=== PATIENT | female | born 1935 | race Caucasian/White ===

== ENCOUNTER 2022-10-01 22:30 | Inpatient (IN) ==
--- NOTE | 2022-10-01 23:41 | Emergency Department Note ---
Impression & Plan Syncope, Elevated troponin, Hypomagnesemia, MARISA (acute kidney injury), Sepsis, Acute UTI (urinary tract infection) ED Provider Note ED Provider Note NAME: ANDREW LOWE AGE:86 SEX: Female : 1935 ARRIVES VIA: EMS INFORMANT: Patient, family, EMS ED PROVIDER(s): Dannielle Issa DO CHIEF COMPLAINT: Syncope, fall HPI: This is an 86-year-old female who presents emergency department following possible syncope and apparent fall. Family states they left home just prior to 4 PM and she appeared in normal state of health. Patient lives with family. When they returned home around 8:45 PM, patient was on the floor in the bedroom in her bare feet with no recollection of what happened or how she got there. They state patient was confused. They checked her blood sugar and it was 309. Patient is a known diabetic. They deny any recent illness, fevers or chills. No recent falls. Patient states metformin was just added to her regimen 1 to 2 weeks ago to help with improved blood glucose control. Patient typically does use a cane or walker as she has had prior partial amputations of the right foot due to her diabetes. Family states her mentation has returned to normal at this time. Patient denies any complaints of pain or concern for injury. She states her appetite has been normal and she is drinking water. She states no change in urine or stools. PAST MEDICAL HISTORY:See Below PAST SURGICAL HISTORY:See Below FAMILY HISTORY:See Below SOCIAL HISTORY:See Below HOME MEDICATIONS:See Below ALLERGIES:See Below VITALS:See Below PHYSICAL EXAMINATION: GENERAL: alert, well appearing, well nourished, no distress, non-toxic EYE EXAM: normal conjunctiva, PERRL and EOM's grossly intact OROPHARYNX: no exudate, no erythema, lips, buccal mucosa, and tongue normal and mucous membranes are dry NECK: supple, no nuchal rigidity, no adenopathy, non-tender LUNGS: Clear to auscultation. Normal chest wall mechanics, no w/r/r HEART: no murmurs, S1 normal and S2 normal ABDOMEN: abdomen soft, non-tender, normo-active bowel sounds, no masses, no rebound or guarding. BACK: Back is symmetrical on inspection and there is no deformity, no midline tenderness, no CVA tenderness. SKIN: no rashes, petechiae, orbruising UPPER EXTREMITIES: upper extremities are grossly normal. FROM, nml pulses b/l. LOWER EXTREMITIES: No pitting edema. FROM, nml pulses b/l. Well-healed partial amputation at right foot. Well-healed amputation of great toe on left foot NEURO EXAM: Normal sensorium, cranial nerves II-XII grossly intact, normal speech, no facial droop,nogross weakness of arms, no gross weakness of legs. Gross sensation intact. No ataxia. Vital Signs: reviewed and remarkable Differential Diagnosis: Differential diagnosis includes etiologies such as mechanical fall, vasovagal event, infection, hypoglycemia, electrolyte abnormalities, CVA, dysrhythmia, dehydration, medication reaction, DKA as well as others were entertained. MEDICAL DECISION MAKING: This is an 86-year-old female brought to the emergency department via EMS after family found her on the floor with confusion. They were concern for syncopal event. Patient was noted to be hypoglycemic by EMS. Patient was afebrile and vital signs stable on arrival. Labs drawn and sent, IV established, EKG and chest ray performed at bedside and interpreted by me, patient monitored on telemetry. After initial CBC resulted and patient was noted to have a significant leukocytosis, blood cultures/procalcitonin/lactic acid was added, and empiric IV cefepime ordered. Patient was given IV fluids, but was not bolused or given a total of 30 ml/kg due to unknown cardiac status, advanced age, and new MARISA. Patient with stable BP while in the ER. Patient found to have elevated troponin additionally, likely from infection and MARISA. I do not perez spect occult ACS. Patient denied pain to suggest obstructive uropathy. Hyperglycemia noted. Borderline DKA likely from dehydration. Patient with elevated procalcitonin. Case discussed with hospitalist, FRANK pending at that time. Patient and family updated on all results and plan. Consultation(s): 0205: Discussed with Dr. Morin. ER Treatment Provided: See below Diagnostics Interpreted By Me: -ECG: Normal sinus at 85, normal axis, normal intervals, nonspecific ST/T wave changes -Cardiac Monitoring: An order was placed for continuous cardiac monitoring. The monitor shows a rate of 80 with normal sinus rhythm. -Laboratory studies: As stated above and show below. -Imaging studies: X-ray Chest: A single view study of the chest was reviewed and was negative for cardiomegaly, focal infiltrate, effusion, pulmonary edema, or wide mediastinum. Triage Nursing Note Reviewed Prior/Outside Records Reviewed - vascular surgery report Past Med/Surg History Medical History Acquired claw toe of left foot Acquired deformity of left foot Acquired deformity of right foot Acquired hallux valgus of right foot Acquired hammer toe of right foot Amputation of left great toe Callus Chronic renal insufficiency, stage III (moderate) Diabetic foot ulcer associated with type 2 diabetes mellitus, with fat layer exposed Herpes zoster HTN (hypertension) Hyperlipidemia LDL goal <100 Hypothyroidism Osteoporosis PHN (postherpetic neuralgia) Sinusitis Surgical History History of tonsillectomy and adenoidectomy Social History Smoking Status: Never smoker Do You Dip or Chew Tobacco: No; Hx Alcohol Use: No Hx Substance Use: No Communication Ability: Effective Communication Tools: Letter Board, Picture Board, Facial Expression and Writing Tablet Visual Impairment: No Limitations Hearing Ability: Normal Bucket Operator Required: No Beliefs That Will Affect Care: None marital status: / Current Living Situation: Family Current Living Situation Comment: lives with daughter and son in law current occupational status: 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 [employer] Feels Safe at Home: Yes Childhood Exposure to Second-Hand Smoke: No Diet: diabetic and low carbohydrate caffeine: Yes (1-2 cups/day) during the past year weight has: decreased > 10 lbs Dental Care, Regularly: No Physical Activity Frequency: 3-4 Times per Week Do you think of yourself as: straight/heterosexual Sexual Activity: has been sexually active, but not for at least 12 months Allergies Allergies Allergy/AdvReac Type Severity Reaction Status Date / Time simvastatin Allergy Intermediate Nausea Verified 10/20/20 13:05 acetaminophen [From Lortab] Allergy Mild itching Verified 10/20/20 13:05 duloxetine [From Cymbalta] Allergy Mild itching Verified 10/20/20 13:05 hydrocodone [From Lortab] Allergy Mild itching Verified 10/20/20 13:05 pregabalin [From Lyrica] Allergy Mild itching Verified 10/20/20 13:05 Home Meds Home Medications Medication Instructions Recorded Confirmed hydrochlorothiazide 25 mg tablet 25 mg PO DAILY 05/27/19 10/01/22 insulin glargine 100 unit/mL 20 units subcut DAILY 05/27/19 10/01/22 subcutaneous solution (Lantus U-100 Insulin) levothyroxine 75 mcg tablet 75 mcg PO DAILY 05/27/19 10/01/22 (Synthroid) metoprolol succinate 100 mg 150 mg PO DAILY 05/27/19 10/01/22 capsule sprinkle, ext. release 24 hr amlodipine 10 mg tablet 10 mg PO DAILY 10/01/22 10/01/22 brimonidine 0.2 %-timolol 0.5 % 1 drp OPL BID 10/01/22 10/01/22 eye drops ibuprofen 800 mg tablet 800 mg PO TID PRN as directed 10/01/22 10/01/22 insulin aspart U-100 100 unit/mL 5 unit subcut UD 10/01/22 10/01/22 (3 mL) subcutaneous pen (Novolog FlexPen U-100 Insulin aspart) metformin 500 mg tablet 500 mg PO BIDM 10/01/22 10/01/22 tramadol 50 mg tablet 50 mg PO Q8 PRN Pain 10/01/22 10/01/22 Results & Data (ED) Vital Signs Vital Signs - 24 hr 10/01/22 22:53 10/01/22 22:51 10/01/22 23:00 Temperature 36.6 C Temperature Source Oral Pulse Rate 84 86 Pulse Rate from SpO2 Sensor 86 Respiratory Rate 20 18 Respiratory Effort / Characteristics Non-Labored Respiratory Depth Normal Respiratory Pattern Regular Blood Pressure 112/57 L 109/51 L Blood Pressure Mean 75 70 Pulse Oximetry 93 90 Oxygen Delivery Method Room Air Sepsis Recent Fever Within 48 Hours No Sepsis New/Unexplained Change in Mental Status No Sepsis Action Taken by Nursing No Action Required 10/01/22 23:00 10/01/22 22:51 10/01/22 23:30 Temperature Temperature Source Pulse Rate 84 86 84 Pulse Rate from SpO2 Sensor 87 85 Respiratory Rate 18 17 Respiratory Effort / Characteristics Respiratory Depth Respiratory Pattern Blood Pressure 109/59 L Blood Pressure Mean 75 Pulse Oximetry 92 94 Oxygen Delivery Method Sepsis Recent Fever Within 48 Hours Sepsis New/Unexplained Change in Mental Status Sepsis Action Taken by Nursing 10/02/22 00:00 10/02/22 00:30 10/02/22 01:00 Temperature Temperature Source Pulse Rate 89 86 93 H Pulse Rate from SpO2 Sensor 89 89 Respiratory Rate 23 22 22 Respiratory Effort / Characteristics Respiratory Depth Respiratory Pattern Blood Pressure 122/58 L 121/59 L 102/64 Blood Pressure Mean 79 79 76 Pulse Oximetry 93 92 95 Oxygen Delivery Method Sepsis Recent Fever Within 48 Hours Sepsis New/Unexplained Change in Mental Status Sepsis Action Taken by Nursing 10/02/22 01:30 Temperature Temperature Source Pulse Rate 92 H Pulse Rate from SpO2 Sensor Respiratory Rate 23 Respiratory Effort / Characteristics Respiratory Depth Respiratory Pattern Blood Pressure 109/105 H Blood Pressure Mean 106 Pulse Oximetry 93 Oxygen Delivery Method Sepsis Recent Fever Within 48 Hours Sepsis New/Unexplained Change in Mental Status Sepsis Action Taken by Nursing Laboratory Data 10/02/22 03:47 10/02/22 03:47 Lab Results 10/01/22 10/01/22 10/01/22 Range/Units 22:50 22:50 22:50 WBC 24.33 H (4.8-10.8) K/ul RBC 3.69 L (4.20-5.40) M/uL Hgb 11.3 L (12.0-16.0) g/dl Hct 32.8 L (37.0-47.0) % MCV 88.9 (80.0-100.0) fL MCH 30.6 (25.0-34.0) pg MCHC 34.5 (32.0-36.0) g/dL RDW Std Deviation 39.8 (36.4-46.3) fL RDW Coeff of Bert 12.3 (11.5-14.5) % Plt Count 183 (130-400) K/uL MPV 10.7 (9.4-12.4) fL Immature Gran % (Auto) 5.5 % Neut % (Auto) 82.5 % Lymph % (Auto) 3.8 % Carolina % (Auto) 7.6 % Eos % (Auto) 0.1 % Baso % (Auto) 0.5 % Neut # (Auto) 20.05 H (1.40-6.50) K/uL Lymph # (Auto) 0.93 L (1.2-3.4) K/uL [place] # (Auto) 1.86 H (0.11-0.59) K/uL Eos # (Auto) 0.02 (0-0.50) K/uL Baso # (Auto) 0.13 (0-0.2) K/uL Immature Gran # (Auto) 1.34 H (0.01-0.20) K/uL Toxic Vacuolation 1+ Dohle Bodies 1+ PT 12.4 H (9.0-12.0) Seconds INR 1.1 (0.9-1.1) Sodium 133 L (136-145) mmol/L Potassium 3.8 (3.5-5.1) mmol/L Chloride 95 L (98-107) mmol/L Carbon Dioxide 25 (21-32) mmol/L Anion Gap 13 H (3-11) BUN 46 H (6-23) mg/dl Creatinine 2.22 H (0.6-1.2) mg/dl Est Cr Clr Drug Dosing Not Reportable Est GFR ( Amer) 22.8 ml/min Est GFR (Non-Af Amer) 19.7 ml/min BUN/Creatinine Ratio 20.7 H (10-20) Glucose 241 H (70-99(Fasting)) mg/dl Lactate (0.4-2.0) mmol/L Calcium 8.5 L (8.6-10.3) mg/dl Magnesium 1.6 L (1.7-2.4) mg/dl Total Bilirubin 0.6 (0.2-1.0) mg/dl AST 106 H (13-39) U/L ALT 33 (7-52) U/L Alkaline Phosphatase 133 H (34-104) U/L Troponin I High Sens 234.8 H* (0-14) pg/ml Total Protein 6.7 (6.0-8.3) gm/dl Albumin 3.5 (3.4-5.0) gm/dl Globulin 3.2 (2.5-4.0) gm/dl Albumin/Globulin Ratio 1.1 (0.9-2) Lipase 6 L (11-82) U/L Procalcitonin (0-0.5) ng/ml TSH (0.300-4.500) uIu/ml Urine Color Urine Appearance (Clear) Urine pH (4.5-7.5) Ur Specific [place] (1.000-1.030) Urine Protein (Negative) Urine Glucose (UA) (Negative) Urine Ketones (Negative) Urine Blood (Negative) Urine Nitrite (Negative) Urine Bilirubin (Negative) Urine Urobilinogen (Negative) Ur Leukocyte Esterase (Negative) Urine WBC (Auto) (0-5) /hpf Urine RBC (Auto) (0-4) /hpf U Hyaline Cast (Auto) (0-5) /lpf U Epithel Cells (Auto) (0-5) /lpf Urine Bacteria (Auto) (Negative) Urine Yeast SARS-CoV-2 (PCR) (Negative) Influenza Type A (PCR) (Neg) Influenza Type B (PCR) (Neg) RSV (RT-PCR) (Neg) 10/01/22 10/01/22 10/02/22 Range/Units 22:50 22:50 01:00 WBC (4.8-10.8) K/ul RBC (4.20-5.40) M/uL Hgb (12.0-16.0) g/dl Hct (37.0-47.0) % MCV (80.0-100.0) fL MCH (25.0-34.0) pg MCHC (32.0-36.0) g/dL RDW Std Deviation (36.4-46.3) fL RDW Coeff of Bert (11.5-14.5) % Plt Count (130-400) K/uL MPV (9.4-12.4) fL Immature Gran % (Auto) % Neut % (Auto) % Lymph % (Auto) % [place] % (Auto) % Eos % (Auto) % Baso % (Auto) % Neut # (Auto) (1.40-6.50) K/uL Lymph # (Auto) (1.2-3.4) K/uL [place] # (Auto) (0.11-0.59) K/uL Eos # (Auto) (0-0.50) K/uL Baso # (Auto) (0-0.2) K/uL Immature Gran # (Auto) (0.01-0.20) K/uL Toxic Vacuolation Dohle Bodies PT (9.0-12.0) Seconds INR (0.9-1.1) Sodium (136-145) mmol/L Potassium (3.5-5.1) mmol/L Chloride (98-107) mmol/L Carbon Dioxide (21-32) mmol/L Anion Gap (3-11) BUN (6-23) mg/dl Creatinine (0.6-1.2) mg/dl Est Cr Clr Drug Dosing Est GFR ( Amer) ml/min Est GFR (Non-Af Amer) ml/min BUN/Creatinine Ratio (10-20) Glucose (70-99(Fasting)) mg/dl Lactate 2.9 H* (0.4-2.0) mmol/L Calcium (8.6-10.3) mg/dl Magnesium (1.7-2.4) mg/dl Total Bilirubin (0.2-1.0) mg/dl AST (13-39) U/L ALT (7-52) U/L Alkaline Phosphatase (34-104) U/L Troponin I High Sens (0-14) pg/ml Total Protein (6.0-8.3) gm/dl Albumin (3.4-5.0) gm/dl Globulin (2.5-4.0) gm/dl Albumin/Globulin Ratio (0.9-2) Lipase (11-82) U/L Procalcitonin 41.60 H (0-0.5) ng/ml TSH 1.866 (0.300-4.500) uIu/ml Urine Color Urine Appearance (Clear) Urine pH (4.5-7.5) Ur Specific [place] (1.000-1.030) Urine Protein (Negative) Urine Glucose (UA) (Negative) Urine Ketones (Negative) Urine Blood (Negative) Urine Nitrite (Negative) Urine Bilirubin (Negative) Urine Urobilinogen (Negative) Ur Leukocyte Esterase (Negative) Urine WBC (Auto) (0-5) /hpf Urine RBC (Auto) (0-4) /hpf U Hyaline Cast (Auto) (0-5) /lpf U Epithel Cells (Auto) (0-5) /lpf Urine Bacteria (Auto) (Negative) Urine Yeast SARS-CoV-2 (PCR) (Negative) Influenza Type A (PCR) (Neg) Influenza Type B (PCR) (Neg) RSV (RT-PCR) (Neg) 10/02/22 10/02/22 Range/Units 01:43 01:57 WBC (4.8-10.8) K/ul RBC (4.20-5.40) M/uL Hgb (12.0-16.0) g/dl Hct (37.0-47.0) % MCV (80.0-100.0) fL MCH (25.0-34.0) pg MCHC (32.0-36.0) g/dL RDW Std Deviation (36.4-46.3) fL RDW Coeff of Bert (11.5-14.5) % Plt Count (130-400) K/uL MPV (9.4-12.4) fL Immature Gran % (Auto) % Neut % (Auto) % Lymph % (Auto) % [place] % (Auto) % Eos % (Auto) % Baso % (Auto) % Neut # (Auto) (1.40-6.50) K/uL Lymph # (Auto) (1.2-3.4) K/uL [place] # (Auto) (0.11-0.59) K/uL Eos # (Auto) (0-0.50) K/uL Baso # (Auto) (0-0.2) K/uL Immature Gran # (Auto) (0.01-0.20) K/uL Toxic Vacuolation Dohle Bodies PT (9.0-12.0) Seconds INR (0.9-1.1) Sodium (136-145) mmol/L Potassium (3.5-5.1) mmol/L Chloride (98-107) mmol/L Carbon Dioxide (21-32) mmol/L Anion Gap (3-11) BUN (6-23) mg/dl Creatinine (0.6-1.2) mg/dl Est Cr Clr Drug Dosing Est GFR ( Amer) ml/min Est GFR (Non-Af Amer) ml/min BUN/Creatinine Ratio (10-20) Glucose (70-99(Fasting)) mg/dl Lactate (0.4-2.0) mmol/L Calcium (8.6-10.3) mg/dl Magnesium (1.7-2.4) mg/dl Total Bilirubin (0.2-1.0) mg/dl AST (13-39) U/L ALT (7-52) U/L Alkaline Phosphatase (34-104) U/L Troponin I High Sens (0-14) pg/ml Total Protein (6.0-8.3) gm/dl Albumin (3.4-5.0) gm/dl Globulin (2.5-4.0) gm/dl Albumin/Globulin Ratio (0.9-2) Lipase (11-82) U/L Procalcitonin (0-0.5) ng/ml TSH (0.300-4.500) uIu/ml Urine Color Dark Yellow Urine Appearance Turbid A (Clear) Urine pH 6.0 (4.5-7.5) Ur Specific [place] 1.016 (1.000-1.030) Urine Protein 3+ H (Negative) Urine Glucose (UA) Negative (Negative) Urine Ketones Trace H (Negative) Urine Blood 3+ H (Negative) Urine Nitrite Negative (Negative) Urine Bilirubin Negative (Negative) Urine Urobilinogen Negative (Negative) Ur Leukocyte Esterase 3+ H (Negative) Urine WBC (Auto) >30 H (0-5) /hpf Urine RBC (Auto) 0-4 (0-4) /hpf U Hyaline Cast (Auto) 0 (0-5) /lpf U Epithel Cells (Auto) 0-5 (0-5) /lpf Urine Bacteria (Auto) 4+ H (Negative) Urine Yeast Not Reportable SARS-CoV-2 (PCR) NEGATIVE (Negative) Influenza Type A (PCR) Negative (Neg) Influenza Type B (PCR) Negative (Neg) RSV (RT-PCR) Negative (Neg) Administered Medications Lactated Ringer's (Lr) 1,000 mls @ 80 mls/hr IV .[id number] [facility] Stop: 10/02/22 15:03 Last Admin: 10/02/22 05:37 Dose: 80 mls/hr Documented By: LUCY Discontinued Medications Acetaminophen (Acetaminophen 1000 Mg/100 Ml Iv) Confirm Administered Dose 1,000 mg IV .STK-MED ONE Stop: 10/02/22 04:34 Last Admin: 10/02/22 04:34 Dose: Not Given Documented By: LUCY Al Hydrox/Mg Hydrox/Simethicone (Aluminum/Magnesium Susp 30 Ml Udc) 15 ml PO NOW STA Stop: 10/02/22 03:21 Last Admin: 10/02/22 03:29 Dose: 15 ml Documented By: LUCY Furosemide (Furosemide Inj 20 Mg/2 Ml Vial) 10 mg IV ONE ONE Stop: 10/02/22 03:54 Last Admin: 10/02/22 04:10 Dose: 10 mg Documented By: HH Sodium Chloride (Nss 1000ml) 1,000 mls @ 125 mls/hr IV .Q8H [facility]I Stop: 10/31/22 23:44 Last Infusion: 10/02/22 04:35 Dose: 0 mls/hr Documented By: Infusion: 10/02/22 01:00 Dose: 0 mls/hr Documented By: Admin: 10/01/22 23:47 Dose: 125 mls/hr Documented By: HH Cefepime HCl (Maxipime) 2,000 mg in 20 mls @ 5 mls/min IV NOW STA; Protocol Stop: 10/02/22 00:19 Last Admin: 10/02/22 01:47 Dose: 5 mls/min Documented By: LUCY Famotidine (Pepcid 20mg Iv Push) 20 mg in 5 mls @ 2.5 mls/min IV NOW STA Stop: 10/02/22 00:36 Last Admin: 10/02/22 01:47 Dose: 2.5 mls/min Documented By: LUCY Magnesium Sulfate/Dextrose (Magnesium Sulfate / D5w) 1 gm in 100 mls @ 100 mls/hr IV NOW STA Stop: 10/02/22 01:48 Last Infusion: 10/02/22 03:06 Dose: 0 mls/hr Documented By: Admin: 10/02/22 01:47 Dose: 100 mls/hr Documented By: LUCY Acetaminophen (Ofirmev) 1,000 mg in 100 mls @ 400 mls/hr IV NOW STA Stop: 10/02/22 04:43 Last Infusion: 10/02/22 05:40 Dose: 0 mls/hr Documented By: Admin: 10/02/22 04:35 Dose: 400 mls/hr Documented By: NOLBERTO Lorazepam (Lorazepam 2 Mg/1 Ml Vial) 0.5 mg IV NOW STA Stop: 10/02/22 03:24 Last Admin: 10/02/22 03:29 Dose: 0.5 mg Documented By: LUCY Miscellaneous (Patient's Height &/Or Weight Needed) 1 each N/A Q2H MAYI Stop: 11/01/22 03:29 Last Admin: 10/02/22 04:33 Dose: 1 each Documented By: LUCY Imaging Data Radiologist's Impression: Head CT 10/01/22 23:36 Exam(s): CT HEAD Without Contrast EXAM: CT Head Without Intravenous Contrast CLINICAL HISTORY: Reason for exam: syncope. TECHNIQUE: Axial computed tomography images of the head/brain without intravenous contrast. Automated exposure control was utilized for the study. A dose lowering technique was utilized adhering to the principles of ALARA. COMPARISON: No relevant prior studies available. FINDINGS: Brain: Severe periventricular white matter changes, likely related to microangiopathy. No hemorrhage. Ventricles: Unremarkable. No ventriculomegaly. Bones/joints: Unremarkable. No acute fracture. Soft tissues: Unremarkable. Sinuses: Unremarkable as visualized. No acute sinusitis. Mastoid air cells: Unremarkable as visualized. No mastoid effusion. IMPRESSION: Severe periventricular white matter changes, likely related to microangiopathy. Electronically signed by: Branden Aiken M.D. 10/02/22 01:22 AM Discharge Plan Visit Data Chief Complaint: Syncope Stated Complaint: FOUND ON FLOOR, DOESNT REMEMBER EVENT ED Provider: Dannielle Issa Discharge Problem: Syncope, Elevated troponin, Hypomagnesemia, MARISA (acute kidney injury), Sepsis, Acute UTI (urinary tract infection) Discharge Instructions Interventions: ED Discharge Assessment Last Done: 10/02/22 03:03
[2022-10-01] MEDS ORDERED: SODIUM CHLORIDE 0.9% 1000ML 1,000 ML IV SCH (23:45)
[2022-10-01 23:51] LABS: Hematocrit (blood only) 32.8 % (37.0-47.0); Hemoglobin 11.3 g/dl (12.0-16.0); Mean Corpuscular Hemoglobin 30.6 pg (25.0-34.0); Mean Corpuscular Hgb Conc 34.5 g/dL (32.0-36.0); Mean Corpuscular Volume 88.9 fL (80.0-100.0); Mean Platelet Volume 10.7 fL (9.4-12.4); Platelet Count 183 K/uL (130-400); RDW Coefficient of Variation 12.3 % (11.5-14.5); RDW Standard Deviation 39.8 fL (36.4-46.3); Red Blood Count 3.69 M/uL (4.20-5.40); White Blood Count 24.33 K/ul (4.8-10.8)
[2022-10-01 23:59] LABS: Alanine Aminotransferase 33 U/L (7-52); Albumin Globulin Ratio 1.1 (0.9-2); Albumin Level 3.5 gm/dl (3.4-5.0); Alkaline Phosphatase 133 U/L (34-104); Anion Gap 13 (3-11); Aspartate Aminotransferase 106 U/L (13-39); BUN Creatinine Ratio 20.7 (10-20); Bilirubin,Total 0.6 mg/dl (0.2-1.0); Blood Urea Nitrogen 46 mg/dl (6-23); Calcium 8.5 mg/dl (8.6-10.3); Carbon Dioxide 25 mmol/L (21-32); Chloride 95 mmol/L (98-107); Est GFR (African American) 22.8 ml/min; Est GFR (Non-African American) 19.7 ml/min; Globulin 3.2 gm/dl (2.5-4.0); Glucose 241 mg/dl (70-99(Fasting)); Lipase 6 U/L (11-82); Magnesium 1.6 mg/dl (1.7-2.4); Potassium 3.8 mmol/L (3.5-5.1); Sodium 133 mmol/L (136-145); Total Protein 6.7 gm/dl (6.0-8.3)
[2022-10-02 00:08] LABS: Troponin I High Sensitivity 234.8 pg/ml (0-14)
[2022-10-02 00:09] LABS: INR 1.1 (0.9-1.1); Prothrombin Time 12.4 Seconds (9.0-12.0)
[2022-10-02] MEDS ORDERED: CEFEPIME 2,000 MG/20 ML VIAL IV STA (00:16)
[2022-10-02 00:19] LABS: Basophils # (auto) 0.13 K/uL (0-0.2); Basophils % (auto) 0.5 %; Dohle Bodies 1+; Eosinophils # (auto) 0.02 K/uL (0-0.50); Eosinophils % (auto) 0.1 %; Immature Granulocytes # (auto) 1.34 K/uL (0.01-0.20); Immature Granulocytes % (auto) 5.5 %; Lymphocytes # (auto) 0.93 K/uL (1.2-3.4); Lymphocytes % (auto) 3.8 %; Monocytes # (auto) 1.86 K/uL (0.11-0.59); Monocytes % (auto) 7.6 %; Neutrophils # (auto) 20.05 K/uL (1.40-6.50); Neutrophils % (auto) 82.5 %; Toxic Vacuolation 1+
[2022-10-02] MEDS ORDERED: FAMOTIDINE 20MG IV PUSH 20 MG/5 ML SYR IV STA (00:35)
[2022-10-02] MEDS ORDERED: MAGNESIUM SULFATE / D5W 1 GM/100 ML BAG IV STA (00:49)
--- NOTE | 2022-10-02 01:23 | CT Scan Report ---
Exam(s): CT HEAD Without Contrast EXAM: CT Head Without Intravenous Contrast CLINICAL HISTORY: Reason for exam: syncope. TECHNIQUE: Axial computed tomography images of the head/brain without intravenous contrast. Automated exposure control was utilized for the study. A dose lowering technique was utilized adhering to the principles of ALARA. COMPARISON: No relevant prior studies available. FINDINGS: Brain: Severe periventricular white matter changes, likely related to microangiopathy. No hemorrhage. Ventricles: Unremarkable. No ventriculomegaly. Bones/joints: Unremarkable. No acute fracture. Soft tissues: Unremarkable. Sinuses: Unremarkable as visualized. No acute sinusitis. Mastoid air cells: Unremarkable as visualized. No mastoid effusion. IMPRESSION: Severe periventricular white matter changes, likely related to microangiopathy. Electronically signed by: Branden Aiken M.D. 10/02/22 01:22 AM
--- NOTE | 2022-10-02 02:06 | History & Physical Report ---
Date of Service October 02, 2022 Assessment & Plan (1) Syncope: Plan: -Syncopal event resulting in fall, unwitnessed- suspect most likely vasovagal 2/2 dehydration -Lower suspicion for arrhythmogenic, neurologic, structural cardiac cause -Head CT w/o acute process -IV fluid repletion ongoing -Telemetry monitoring -Echocardiogram ordered -Pt currently at baseline mental status (2) Elevated troponin: Plan: -Troponin 235 on admission, EKG w/o acute ST change, pt denies active chest pain -Likely demand ischemia, will trend to peak -Echocardiogram pending (3) Leukocytosis: Plan: -Prominent WBC 24, procalcitonin 42, lactate 2.6. May feature element of hemoconcentration 2/2 dehydration -Not meeting SIRS criteria at time of evaluation -Cefepime given in ER, will continue with cefepime for now for empiric coverage -MRSA swab ordered -BCx pending -UA, biofire, COVID swab pending -Trend CBC, will repeat procalcitonin, lactate as well (4) Hypomagnesemia: Plan: -Mg 1.6 on admission -Repleted in ER -Trend Mg (5) Acute kidney injury: Plan: -Cr 2.2 on admission, baseline appears 1.0 -Likely pre-renal/dehydration -IV fluid repletion ongoing -Trend CMP (6) Transaminitis: Plan: -Mild transaminitis noted on admission -Likely reactive to acute illness/dehydration -Trend BMP (7) Diabetes: Plan: -Hold home metformin -Unclear if pt's elevated lactate may be related to recent metformin initiation -MARY Delgado -A1C ordered for AM (8) Hypertension: Plan: -BP 100s/50s on admission -Holding home metoprolol, amlodipine, HCTZ- resume as able (9) Hypothyroidism: Plan: -Continue levothyroxine Plan FENGI: DM2, LR repletion ongoing Code status: DNR/DNI DVT ppx: SCDs Isolation: None Dispo: PCU History of Present Illness Primary Care Provider: Safia Shukla MD Pt is 86 yo F with PMH 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 Pt lives with daughter and son-in-law. Family states they arrived home earlier in evening and noticed pt on floor in bedroom, confused with no recollection of fall. BSG checked at that time- 309. Pt has not had any recent illnesses, fever, N/V/D, chest pain, dyspnea. She did start metformin recently for diabetic control. Pt taken to ER, her mentation returned to baseline by arrival to ER. Pt arrived to ER hemodynamically stable, BP 100s/50s. Initial evaluation significant for Na 133, AG 13, Cr 2.2, glucose 241, AST 106, ALP 133, Mg 1.6, WBC 24, Hgb 11, procalcitonin 42, lactate 2.6, troponin 235. 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 CXR w/o acute process, some airspace opacities, no focal consolidation. ER interventions include NS 1L bolus, Mg repletion, cefepime. At present, pt denies any symptoms. She does report significant thirst. Allergies Allergy/AdvReac Type Severity Reaction Status Date / Time simvastatin Allergy Intermediate Nausea Verified 10/20/20 13:05 acetaminophen [From Lortab] Allergy Mild itching Verified 10/20/20 13:05 duloxetine [From Cymbalta] Allergy Mild itching Verified 10/20/20 13:05 hydrocodone [From Lortab] Allergy Mild itching Verified 10/20/20 13:05 pregabalin [From Lyrica] Allergy Mild itching Verified 10/20/20 13:05 Home Medications Medication Instructions Recorded Confirmed Type hydrochlorothiazide 25 mg tablet 25 mg PO DAILY 05/27/19 10/01/22 History insulin glargine 100 unit/mL 20 units subcut DAILY 05/27/19 10/01/22 History subcutaneous solution (Lantus U-100 Insulin) levothyroxine 75 mcg tablet 75 mcg PO DAILY 05/27/19 10/01/22 History (Synthroid) metoprolol succinate 100 mg 150 mg PO DAILY 05/27/19 10/01/22 History capsule sprinkle, ext. release 24 hr amlodipine 10 mg tablet 10 mg PO DAILY 10/01/22 10/01/22 History brimonidine 0.2 %-timolol 0.5 % 1 drp OPL BID 10/01/22 10/01/22 History eye drops ibuprofen 800 mg tablet 800 mg PO TID PRN as directed 10/01/22 10/01/22 History insulin aspart U-100 100 unit/mL 5 unit subcut UD 10/01/22 10/01/22 History (3 mL) subcutaneous pen (Novolog FlexPen U-100 Insulin aspart) metformin 500 mg tablet 500 mg PO BIDM 10/01/22 10/01/22 History tramadol 50 mg tablet 50 mg PO Q8 PRN Pain 10/01/22 10/01/22 History Past Med/Surg History Medical History Acquired claw toe of left foot Acquired deformity of left foot Acquired deformity of right foot Acquired hallux valgus of right foot Acquired hammer toe of right foot Amputation of left great toe Callus Chronic renal insufficiency, stage III (moderate) Diabetic foot ulcer associated with type 2 diabetes mellitus, with fat layer exposed Herpes zoster HTN (hypertension) Hyperlipidemia LDL goal <100 Hypothyroidism Osteoporosis PHN (postherpetic neuralgia) Sinusitis Surgical History History of tonsillectomy and adenoidectomy Social History Smoking Status: Never smoker Do You Dip or Chew Tobacco: No; Hx Alcohol Use: No Hx Substance Use: No Communication Ability: Effective Communication Tools: Letter Board, Picture Board, Facial Expression and Writing Tablet Visual Impairment: No Limitations Hearing Ability: Normal Right Of Way Man Required: No Beliefs That Will Affect Care: None marital status: / Current Living Situation: Family Current Living Situation Comment: lives with daughter and son in law current occupational status: 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 [employer] Feels Safe at Home: Yes Childhood Exposure to Second-Hand Smoke: No Diet: diabetic and low carbohydrate caffeine: Yes (1-2 cups/day) during the past year weight has: decreased > 10 lbs Dental Care, Regularly: No Physical Activity Frequency: 3-4 Times per Week Do you think of yourself as: straight/heterosexual Sexual Activity: has been sexually active, but not for at least 12 months Review of Systems Review of Systems: Per HPI/Subjective Physical Exam Physical Exam: General: well-appearing, no acute distress, laying in bed, frail HEENT: PERRL, EOMI, conjunctivae clear without injection, anicteric sclerae, dry mucous membranes, clear oropharynx without exudate or erythema Neck: supple, trachea midline, no thyromegaly, no JVD, no cervical lymphadenopathy CV: RRR, normal S1 and S2, no murmurs Resp: CTAB, no increased work of breathing, no crackles or wheezes Abd: Soft, nontender, nondistended, no guarding or rebound, no hepatosplenomegaly MSK: Normal bulk of all four extremities Neuro: AOx3, no focal motor deficits, diminished sensorium of b/l LE Skin: no rashes or lesions, low turgor Ext: no LE peripheral edema or erythema, faint LE peripheral pulses b/l. Noted amputation partially of R foot and L great toe Results & Data Results & Data Vital Signs (Past 12 Hours) Vital Signs Temp Pulse Resp BP Pulse Ox O2 Del Method 10/02/22 01:30 92 H 23 109/105 H 93 10/02/22 01:00 93 H 22 102/64 95 10/02/22 00:30 86 22 121/59 L 92 10/02/22 00:00 89 23 122/58 L 93 10/01/22 23:30 84 17 109/59 L 94 10/01/22 22:51 86 10/01/22 23:00 84 18 92 10/01/22 23:00 109/51 L 10/01/22 22:51 86 18 90 10/01/22 22:53 36.6 C 84 20 112/57 L 93 Room Air Code Status & VTE Plan VTE Prophylaxis Plan VTE Prophylaxis will be ordered: Yes Supervising Physician Co-Signing Physician Notes Attending addendum: I have physically seen this patient, have supervised the medical residents activities, and agree with the H&P unless as otherwise noted. Assessment and Plan: Syncope and collapse- CT head negative Admit to monitored bed Elevated troponin/hypertension- Troponin 235 on admission EKG doubt acute changes The patient will be admitted to telemetry for serial cardiac enzymes, serial EKG's, cardiac rhythm monitoring and a 2-D echocardiogram with Dopplers. Likely type II supply/demand mismatch Optimize magnesium Hold HCTZ, continue amlodipine and metoprolol succinate with hold parameters Acute kidney injury- Creatinine 2.2 on admission with base 1.0 IV fluids as noted, repeat laboratories in a.m. Hold HCTZ Remaining orders and notations as noted Resident Activity Tracking Resident Involvement: Resident Care Provided Care Provided: [facility] [place] [facility]
[2022-10-02 02:18] LABS: Appearance Urine Turbid (Clear); Bacteria Urine Automated 4+ (Negative); Bilirubin Urine Negative (Negative); Blood Urine 3+ (Negative); Cast Urine Automated 0 /lpf (0-5); Color Urine Dark Yellow; Epithelial Cell Urine Auto 0-5 /lpf (0-5); Glucose Urine UA Negative (Negative); Ketones Urine Trace (Negative); Leukocyte Esterase Urine 3+ (Negative); Nitrite Urine Negative (Negative); Protein Urine 3+ (Negative); RBC Urine Automated 0-4 /hpf (0-4); Specific Gravity Urine 1.016 (1.000-1.030); Urobilinogen Urine Negative (Negative); WBC Urine Automated >30 /hpf (0-5)
[2022-10-02 02:36] LABS: Influenza A virus by PCR Negative (Neg); Influenza B virus by PCR Negative (Neg); RSV by PCR Negative (Neg); SARS CoV2 RNA(COVID-19) Ceph NEGATIVE (Negative)
[2022-10-02] MEDS ORDERED: GLUCAGON FOR INJ 1 MG VIAL SQ PRN (03:03)
[2022-10-02] MEDS ORDERED: CARBOHYDRATES FOR HYPOGLYCEMIA PO PRN (03:03)
[2022-10-02] MEDS ORDERED: GLUCOSE 40% GEL 15 GM TUBE PO PRN (03:03)
[2022-10-02] MEDS ORDERED: CEFEPIME 2,000 MG in SYRINGE 0 ML IV SCH (03:03)
[2022-10-02] MEDS ORDERED: GLUCOSE 10 TAB/TUBE PO PRN (03:03)
[2022-10-02] MEDS ORDERED: DEXTROSE 50% 50 ML SYRINGE IV PRN (03:03)
[2022-10-02] MEDS ORDERED: ALUMINUM/MAGNESIUM SUSP 30 ML UDC PO STA (03:20)
[2022-10-02] MEDS ORDERED: LORazepam 2 MG/1 ML VIAL IV STA (03:23)
[2022-10-02] MEDS ORDERED: FUROSEMIDE INJ 20 MG/2 ML VIAL IV ONE (03:53)
[2022-10-02] MEDS ORDERED: ACETAMINOPHEN 1,000 MG/100 ML VIAL IV STA (04:29)
[2022-10-02] MEDS ORDERED: ACETAMINOPHEN 1000 MG/100 ML IV IV ONE (04:33)
[2022-10-02] MEDS: Patient's HEIGHT &/or WEIGHT Needed SCH ×2 (04:33→07:27)
[2022-10-02 04:52] LABS: Albumin Level 3.4 gm/dl (3.4-5.0); Bilirubin,Total 0.5 mg/dl (0.2-1.0); Magnesium 1.8 mg/dl (1.7-2.4)
[2022-10-02 04:58] LABS: Albumin Globulin Ratio 1.1 (0.9-2); BUN Creatinine Ratio 23.4 (10-20); Creatinine Clr Calc Pharmacy 20.9 ml/min; Est GFR (African American) 24.6 ml/min; Est GFR (Non-African American) 21.2 ml/min; Globulin 3.2 gm/dl (2.5-4.0); Total Protein 6.6 gm/dl (6.0-8.3)
[2022-10-02 05:06] LABS: Basophils # (auto) 0.05 K/uL (0-0.2); Basophils % (auto) 0.6 %; Echinocytes 2+; Hemoglobin 11.1 g/dl (12.0-16.0); Immature Granulocytes # (auto) 0.05 K/uL (0.01-0.20); Immature Granulocytes % (auto) 0.6 %; Lymphocytes # (auto) 0.65 K/uL (1.2-3.4); Lymphocytes % (auto) 8.1 %; Mean Corpuscular Hemoglobin 30.2 pg (25.0-34.0); Mean Corpuscular Hgb Conc 33.6 g/dL (32.0-36.0); Mean Corpuscular Volume 89.7 fL (80.0-100.0); Mean Platelet Volume 10.9 fL (9.4-12.4); Monocytes # (auto) 0.06 K/uL (0.11-0.59); Monocytes % (auto) 0.8 %; Neutrophils # (auto) 7.17 K/uL (1.40-6.50); Neutrophils % (auto) 89.9 %; Platelet Count 168 K/uL (130-400); RDW Coefficient of Variation 12.3 % (11.5-14.5); RDW Standard Deviation 40.7 fL (36.4-46.3); Red Blood Count 3.68 M/uL (4.20-5.40); Toxic Vacuolation 1+; White Blood Count 7.98 K/ul (4.8-10.8)
[2022-10-02] MEDS: LACTATED RINGER'S 1,000 ML IV SCH ×2 (05:37→15:29)
--- NOTE | 2022-10-02 06:00 | XRay Report ---
XR chest 1V portable CLINICAL HISTORY: Hypoxia. COMPARISON STUDY: Chest radiograph October 01, 2022. FINDINGS: No pneumothorax or pleural effusion is present. There is moderate elevation of the right he midiaphragm. This is unchanged. Cardiomegaly is unchanged. Interstitial thickening has developed. No consolidation is identified to suggest pneumonia. IMPRESSION: Cardiomegaly. Interval development of interstitial thickening suggestive of pulmonary gia ma. ACT 112: Negative or not required by law. Electronically signed by: Nicko Mcnally M.D. 10/02/2022 5:59 AM
--- NOTE | 2022-10-02 06:15 | XRay Report ---
XR chest 1V portable CLINICAL HISTORY: Syncope. COMPARISON STUDY: No previous studies for comparison. FINDINGS: There is moderate elevation of the right hemidiaphragm. No pneumothorax or pleural effusion is present. There is moderate cardiomegaly. No evidence for pulmonary edema. No consolidation is pre sent. IMPRESSION: 1. No acute cardiopulmonary findings. 2. Cardiomegaly. 3. Moderate elevation of the right hemidiaphragm. ACT 112: Negative or not required by law. Electronically signed by: Nicko Mcnally M.D. 10/02/2022 6:14 AM
[2022-10-02 06:55] LABS: Estimated Average Glucose 189 mg/dl; Hemoglobin A1C 8.2 % (4.5-5.6)
[2022-10-02] MEDS ORDERED: MAGNESIUM SULFATE / D5W 1 GM/100 ML BAG IV ONE (07:30)
[2022-10-02] MEDS: MAGNESIUM SULFATE / D5W 1 GM/100 ML BAG IV SCH ×2 (07:34→09:43)
--- NOTE | 2022-10-02 07:39 | Hospitalist Progress Note ---
Date of Service October 02, 2022 Assessment & Plan (1) Syncope: Plan: -Syncopal event resulting in fall, unwitnessed- suspect most likely vasovagal 2/2 dehydration -Lower suspicion for arrhythmogenic, neurologic, structural cardiac cause -Head CT w/o acute process -IV fluid repletion ongoing -Telemetry monitoring -Echocardiogram ordered -Pt currently at baseline mental status (2) Elevated troponin: Plan: -Troponin 235 on admission, EKG w/o acute ST change, pt denies active chest pain -Likely demand ischemia, will trend to peak -Echocardiogram pending (3) Leukocytosis: Plan: -Prominent WBC 24, procalcitonin 42, lactate 2.6. May feature element of hemoconcentration 2/2 dehydration -Not meeting SIRS criteria at time of evaluation -Cefepime given in ER, will continue with cefepime for now for empiric coverage -MRSA swab neg -BCx pending -UA, biofire, COVID swab pending -Trend CBC, will repeat procalcitonin, lactate as well (4) Hypomagnesemia: Plan: -Mg 1.6 on admission -Repleted in ER -Trend Mg (5) Acute kidney injury: Plan: -Cr 2.2 on admission, baseline appears 1.0 -Likely pre-renal/dehydration -IV fluid repletion ongoing -Trend CMP (6) Transaminitis: Plan: -Mild transaminitis noted on admission -Likely reactive to acute illness/dehydration -Trend BMP (7) Diabetes: Plan: -Hold home metformin -Unclear if pt's elevated lactate may be related to recent metformin initiation -MARY Delgado -A1C ordered for AM (8) Hypertension: Plan: -BP 100s/50s on admission -Holding home metoprolol, amlodipine, HCTZ- resume as able (9) Hypothyroidism: Plan: -Continue levothyroxine Plan FENGI: DM2, LR repletion ongoing Code status: DNR/DNI DVT ppx: SCDs Isolation: None Dispo: PCU Admission and Anticipated Discharge Date Admission Date: October 02, 2022 Subjective Patient seen at bedside this morning. Review of Systems Review of Systems: All systems reviewed & are unremarkable except as noted in HPI & below Physical Exam Physical Exam: General: well-appearing, no acute distress, laying in bed, frail HEENT: PERRL, EOMI, conjunctivae clear without injection, anicteric sclerae, dry mucous membranes, clear oropharynx without exudate or erythema Neck: supple, trachea midline, no thyromegaly, no JVD, no cervical lymphadenopathy CV: RRR, normal S1 and S2, no murmurs Resp: CTAB, no increased work of breathing, no crackles or wheezes Abd: Soft, nontender, nondistended, no guarding or rebound, no hepatosplenomegaly MSK: Normal bulk of all four extremities Neuro: AOx3, no focal motor deficits, diminished sensorium of b/l LE Skin: no rashes or lesions, low turgor Ext: no LE peripheral edema or erythema, faint LE peripheral pulses b/l. Noted amputation partially of R foot and L great toe Results & Data Results & Data Vital Signs (Past 12 Hours) Vital Signs Temp Pulse Pulse Resp BP BP Pulse Ox 10/02/22 06:00 84 31 H 106/54 L 96 10/02/22 05:30 37.6 C H 89 30 H 107/46 L 99 10/02/22 03:00 111 H 32 H 149/97 H 81 L 10/02/22 04:20 39.5 C H 94 H 42 H 140/56 L 96 10/02/22 01:30 92 H 23 109/105 H 93 10/02/22 01:00 93 H 22 102/64 95 10/02/22 00:30 86 22 121/59 L 92 10/02/22 00:00 89 23 122/58 L 93 10/01/22 23:30 84 17 109/59 L 94 10/01/22 22:51 86 10/01/22 23:00 84 18 92 10/01/22 23:00 109/51 L 10/01/22 22:51 86 18 90 10/01/22 22:53 36.6 C 84 20 112/57 L 93 O2 Del Method O2 Flow Rate 10/02/22 06:00 Oxymask 10/02/22 05:30 Oxymask 10 10/02/22 03:00 Room Air 10/02/22 04:20 Oxymask 15 10/02/22 01:30 10/02/22 01:00 10/02/22 00:30 10/02/22 00:00 10/01/22 23:30 10/01/22 22:51 10/01/22 23:00 10/01/22 23:00 10/01/22 22:51 10/01/22 22:53 Room Air
[2022-10-02] MEDS ORDERED: dexAMETHasone 6 MG in SYRINGE 0 ML IV SCH (08:00)
[2022-10-02] MEDS ORDERED: LACTATED RINGER'S 500 ML IV ONE (08:39)
[2022-10-02] MEDS ORDERED: FLUTICASONE HFA 110MCG INHALER INH SCH (09:00)
[2022-10-02 09:04] LABS: Adenovirus PCR Not Detected (NotDetected); Bordetella parapertussis PCR Not Detected (NotDetected); Bordetella pertussis PCR Not Detected (NotDetected); Chlamydia pneumoniae PCR Not Detected (NotDetected); Coronavirus 229E PCR Not Detected (NotDetected); Coronavirus CoV-2 (COVID19)PCR Not Detected (NotDetected); Coronavirus HKU1 PCR Not Detected (NotDetected); Coronavirus NL63 PCR Not Detected (NotDetected); Coronavirus OC43PCR Not Detected (NotDetected); Human Metapneumovirus PCR Not Detected (NotDetected); Influenza A PCR Not Detected (NotDetected); Influenza B PCR Not Detected (NotDetected); Mycoplasma pneumoniae PCR Not Detected (NotDetected); Parainfluenza Virus 1 PCR Not Detected (NotDetected); Parainfluenza Virus 2 PCR Not Detected (NotDetected); Parainfluenza Virus 3 PCR Not Detected (NotDetected); Parainfluenza Virus 4 PCR Not Detected (NotDetected); Respiratory Syncytial VirusPCR Not Detected (NotDetected)
--- NOTE | 2022-10-02 09:07 | Electrocardiogram Report ---
Test Reason : Blood Pressure : / mmHG Vent. Rate : 085 BPM Atrial Rate : 000 BPM P-R Int : 000 ms QRS Dur : 086 ms QT Int : 386 ms P-R-T Axes : 000 019 021 degrees QTc Int : 459 ms Poor data quality, interpretation may be adversely affected Sinus rhythm Normal ECG No previous ECGs available Confirmed by Miky Ly ([id number]) on 10/02/2022 9:06:54 AM Referred By: REFERRED SELF Confirmed By:Miky Ly
[2022-10-02] MEDS: INSULIN ASPART PER UNIT CHARGE SC SCH ×4 (09:08→21:14)
[2022-10-02] MEDS: LEVOTHYROXINE SODIUM 75 MCG TABLET PO SCH (09:11)
--- NOTE | 2022-10-02 09:36 | XCELERA ---
[id number] \\[id number]
[2022-10-02 09:49] LABS: Rhinovirus/Enterovirus PCR DETECTED (NotDetected)
[2022-10-02] MEDS: FLUTICASONE FUROATE 100MCG 14 PUFFS/INHALER INH SCH (10:04)
[2022-10-02] MEDS: LANTUS PER UNIT CHARGE SQ SCH ×2 (10:05→21:14)
[2022-10-02] MEDS: ENOXAPARIN INJ 30 MG/0.3 ML SYR SQ SCH (10:06)
[2022-10-02] MEDS ORDERED: ACETAMINOPHEN 500 MG TAB PO PRN (12:00)
[2022-10-02 12:18] LABS: A calco-baum cmplx NotReported Not Detected (NotDetected); Bact fragilis Not Reported Not Detected (NotDetected); C auris Not Reported Not Detected (NotDetected); CTX-M Resistant Gene Not Detected (NotDetected); Calbicans Not Reported Not Detected (NotDetected); Candida glabrata Not Reported Not Detected (NotDetected); Candida krusei Not Reported Not Detected (NotDetected); Cneoformans/gatti Not Reported Not Detected (NotDetected); Cparapsilosis Not Reported Not Detected (NotDetected); Ctropicalis Not Reported Not Detected (NotDetected); E cloacae compx Not Reported Not Detected (NotDetected); Efaecalis Not Reported Not Detected (NotDetected); Efaecium Not Reported Not Detected (NotDetected); Enterobacterales DETECTED (NotDetected); Enterobacterales Not Reported DETECTED (NotDetected); Escherichia coli Not Reported DETECTED (NotDetected); H influenzae Not Reported Not Detected (NotDetected); IMP Resistant Gene Not Detected (NotDetected); K aerogenes Not Reported Not Detected (NotDetected); KPC Resistant Gene Not Detected (NotDetected); Koxytoca Not Reported Not Detected (NotDetected); Kpneumoniae grp Not Reported Not Detected (NotDetected); Lmonocyt Not Reported Not Detected (NotDetected); N meningitidis Not Reported Not Detected (NotDetected); NDM Resistant Gene Not Detected (NotDetected); OXA 48 Like Resistant Gene Not Detected (NotDetected); P aeruginosa Not Reported Not Detected (NotDetected); Proteus spp Not Reported Not Detected (NotDetected); Salmonella spp Not Reported Not Detected (NotDetected); Smarcescens Not Reported Not Detected (NotDetected); Staph lugdunensis Not Reported Not Detected (NotDetected); Staph spp. Not Reported Not Detected (NotDetected); Staphaureus Not Reported Not Detected (NotDetected); Staphepi Not Reported Not Detected (NotDetected); Stenmaltophilia Not Reported Not Detected (NotDetected); Strep agal(GrpB) Not Reported Not Detected (NotDetected); Strep pneum Not Reported Not Detected (NotDetected); Strep pyog (GrpA) Not Reported Not Detected (NotDetected); Strep spp Not Reported Not Detected (NotDetected); VIM Resistant Gene Not Detected (NotDetected); mcr-1 Colistin Resistant Gene Not Detected (NotDetected)
[2022-10-02] MEDS: ALBUT/IPRATROP 3MG/0.5MG NEB 3 ML VIAL NEB SCH ×4 (12:19→23:26)
[2022-10-02] MEDS ORDERED: CEFEPIME 1,000 MG in SYRINGE 0 ML IV SCH (14:00)
[2022-10-02] MEDS: cefTRIAXone SODIUM 2,000 MG in DEXTROSE 5% 50 ML IV SCH (15:29)
--- NOTE | 2022-10-02 16:47 | Hospitalist Progress Note ---
Date of Service October 02, 2022 Assessment & Plan (1) Sepsis: Plan: -Serum cultures positive for gram negative bacilli -PCR indicates E. coli infection -transition to ceftriaxone from cefepime -continue fluids, trend CBC, monitor vitals (2) Pneumonia: Plan: -CXR w/ interstitial thickening suggestive of pulmonary edema; rales present on auscultation -Prominent WBC 24 on admission, normalized to 8 today. -procalcitonin 67, lactate 2.6 -viral vs bacterial pneumonia -see above sepsis assessment/plan +rhinovirus on biofire -Trend CBC, serial physical examinations, CT chest if respiratory condition destabilizes (3) Syncope: Plan: -Syncopal event resulting in fall, unwitnessed - suspect most likely vasovagal 2/2 dehydration -Head CT w/o acute process -IV fluid repletion ongoing - LR 80mL/h -Telemetry monitoring -Echocardiogram showed mild ventricular hypertrophy, EF = 50-55%, mild tricuspid regurg, mild aortic stenosis (different from prior scans) -Pt currently at baseline mental status (4) Elevated troponin: Plan: -Troponin elevated to 1619, EKG w/o acute ST change, pt denies active chest pain -Likely demand ischemia, continuing to trend to peak -Echocardiogram as above (5) Hypomagnesemia: Plan: -Mg 1.6 on admission; repleted in ER -Trend Mg (6) Acute kidney injury: Plan: -Cr 2.2 on admission -> 2.1 today; baseline appears 1.0 -Likely pre-renal/dehydration -IV fluid repletion ongoing -Trend CMP (7) Transaminitis: Plan: -Mild transaminitis noted on admission and today -Likely reactive to acute illness/dehydration -Trend BMP (8) Diabetes: Plan: -Hold home metformin; unclear if pt's elevated lactate may be related to recent metformin initiation -MARY Delgado -A1C = 8.2% (9) Hypertension: Plan: -BP 90s/70s -Holding home metoprolol, amlodipine, HCTZ - resume as able (10) Hypothyroidism: Plan: -Continue levothyroxine Plan FENGI: DM2, LR repletion ongoing Code status: DNR/DNI DVT ppx: SCDs Isolation: None Dispo: PCU Admission and Anticipated Discharge Date Admission Date: October 02, 2022 Supervising Physician Co-Signing Physician Notes I personally examined the patient and verified all alexander points of history and exam, discussed case, and [facility] Feeling better. Family present. Updated the best my ability. Vitals noted. Lungs show bibasilar rales. No respiratory distress, on about 6 L oxy mask whenever I see her. No respiratory distress no focal neurodeficits skin without pallor. Labs noted, blood cultures showing gram-negative rods. Severe sepsis with multiorgan failure (demand ischemia and renal failure) and borderline septic shock present on admissionclinically appears due to a pneumonia, gram-negative rods on blood cultures. Continue antibiotic coverage and supportive care. Fortunately appears to be stabilizing. Otherwise as above. Subjective Ms. 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 Today she feels generally well and like she is improving. In discussing precipitating events to her admission today, she does not remember her fall or many of the events leading up to it, but does note that she was diaphoretic prior to passing out and felt warm leading up to her syncopal episode. She has had no recent illness and has been feeling otherwise at baseline. No nausea/vomiting, diarrhea, urinary symptoms, cough, chest pain, or dyspnea with her 4L Oxymask-delivered oxygen. Yesterday on admission she reported significant thirst and says that this is normal for her. Review of Systems Review of Systems: Constitutional: No fever, No chills, No fatigue. Respiratory: No shortness of breath, No cough, No wheezing. Cardiovascular: No lightheadedness/presyncope, No chest pain, No palpitations. Gastrointestinal: No nausea, No vomiting, No diarrhea, No constipation, No heartburn, No abdominal pain. Musculoskeletal: No joint pain, No muscle pain, No decreased range of motion, No trauma. Skin: No rash, No pruritus, No breakdown. Neurologic: No numbness, No tingling, No headache. Physical Exam Physical Exam: General: Alert and oriented x3. No acute distress. HEENT: Normocephalic, moist oral mucosa. Cardiovascular: RRR, no M/R/G Respiratory: Rales on auscultation, Respirations non-labored, Breath sounds equal. No wheezes, rhonchi. Gastrointestinal: Soft, Non-tender, Non-distended, Normal bowel sounds. Musculoskeletal: Normal range of motion, normal strength. All toes amputated from right foot. Neurologic: Normal sensory, Normal motor function. Integumentary: Warm, Dry. No rashes. Psych: Appropriate mood and affect. Speech is of normal pace and content Results & Data Results & Data Vital Signs (Past 12 Hours) Vital Signs Temp Pulse Pulse Resp BP BP Pulse Ox 10/02/22 08:17 76 24 99 10/02/22 08:00 78 30 H 87/48 L 100 10/02/22 06:00 84 31 H 106/54 L 96 10/02/22 05:30 37.6 C H 89 30 H 107/46 L 99 10/02/22 03:00 111 H 32 H 149/97 H 81 L 10/02/22 04:20 39.5 C H 94 H 42 H 140/56 L 96 10/02/22 01:30 92 H 23 109/105 H 93 10/02/22 01:00 93 H 22 102/64 95 10/02/22 00:30 86 22 121/59 L 92 10/02/22 00:00 89 23 122/58 L 93 10/01/22 23:30 84 17 109/59 L 94 10/01/22 22:51 86 10/01/22 23:00 84 18 92 10/01/22 23:00 109/51 L 10/01/22 22:51 86 18 90 10/01/22 22:53 36.6 C 84 20 112/57 L 93 O2 Del Method O2 Flow Rate 10/02/22 08:17 Oxymask 6 10/02/22 08:00 Oxymask 6 10/02/22 06:00 Oxymask 10/02/22 05:30 Oxymask 10 10/02/22 03:00 Room Air 10/02/22 04:20 Oxymask 15 10/02/22 01:30 10/02/22 01:00 10/02/22 00:30 10/02/22 00:00 10/01/22 23:30 10/01/22 22:51 10/01/22 23:00 10/01/22 23:00 10/01/22 22:51 10/01/22 22:53 Room Air
[2022-10-02] MEDS ORDERED: DICLOFENAC SOD 1% GEL 100 GM TUBE EXT STA (20:06)
[2022-10-03] MEDS ORDERED: CEFEPIME 1,000 MG in SYRINGE 0 ML IV SCH (01:00)
[2022-10-03] MEDS: ALBUT/IPRATROP 3MG/0.5MG NEB 3 ML VIAL NEB SCH ×6 (03:57→22:45)
[2022-10-03] MEDS: LEVOTHYROXINE SODIUM 75 MCG TABLET PO SCH (05:20)
--- NOTE | 2022-10-03 05:21 | Billing Data ---
Date of Service October 03, 2022 Coding Level of Care Code 55102 INT INP/OBS CARE
[2022-10-03 05:34] LABS: Hematocrit (blood only) 27.7 % (37.0-47.0); Hemoglobin 9.7 g/dl (12.0-16.0); Mean Corpuscular Hemoglobin 30.3 pg (25.0-34.0); Mean Corpuscular Volume 86.6 fL (80.0-100.0); Mean Platelet Volume 11.1 fL (9.4-12.4); Platelet Count 150 K/uL (130-400); RDW Coefficient of Variation 12.5 % (11.5-14.5); RDW Standard Deviation 39.8 fL (36.4-46.3); White Blood Count 23.74 K/ul (4.8-10.8)
[2022-10-03 05:37] LABS: Albumin Level 2.8 gm/dl (3.4-5.0); BUN Creatinine Ratio 28.5 (10-20); Bilirubin,Total 0.5 mg/dl (0.2-1.0); Calcium 7.7 mg/dl (8.6-10.3); Creatinine Clr Calc Pharmacy 23.5 ml/min; Est GFR (African American) 28.3 ml/min; Est GFR (Non-African American) 24.4 ml/min; Globulin 2.9 gm/dl (2.5-4.0); Magnesium 2.3 mg/dl (1.7-2.4); Total Protein 5.7 gm/dl (6.0-8.3)
[2022-10-03 05:54] LABS: C Reactive Protein 37.73 mg/dl (0-0.5)
[2022-10-03 05:55] LABS: Basophils # (auto) 0.17 K/uL (0-0.2); Basophils % (auto) 0.7 %; Echinocytes 1+; Eosinophils # (auto) 0.11 K/uL (0-0.50); Eosinophils % (auto) 0.5 %; Immature Granulocytes # (auto) 0.35 K/uL (0.01-0.20); Immature Granulocytes % (auto) 1.5 %; Lymphocytes # (auto) 1.51 K/uL (1.2-3.4); Lymphocytes % (auto) 6.4 %; Monocytes # (auto) 1.23 K/uL (0.11-0.59); Monocytes % (auto) 5.2 %; Neutrophils # (auto) 20.37 K/uL (1.40-6.50); Neutrophils % (auto) 85.7 %
[2022-10-03] MEDS: FLUTICASONE FUROATE 100MCG 14 PUFFS/INHALER INH SCH (07:42)
[2022-10-03] MEDS: INSULIN ASPART PER UNIT CHARGE SC SCH ×4 (07:47→20:06)
[2022-10-03] MEDS: LANTUS PER UNIT CHARGE SQ SCH ×2 (08:03→20:07)
[2022-10-03] MEDS: traMADol HCL 50 MG TABLET PO PRN (08:09)
[2022-10-03] MEDS: ENOXAPARIN INJ 30 MG/0.3 ML SYR SQ SCH (11:00)
[2022-10-03] MEDS: cefTRIAXone SODIUM 2,000 MG in DEXTROSE 5% 50 ML IV SCH (13:10)
[2022-10-03] MEDS: ACETAMINOPHEN 500 MG TAB PO SCH ×2 (13:11→20:46)
[2022-10-03] MEDS: METOPROLOL SUCC 50MG EXT REL TAB PO SCH ×3 (13:11→13:50)
--- NOTE | 2022-10-03 15:38 | Hospitalist Progress Note ---
Date of Service October 03, 2022 Assessment & Plan (1) Sepsis: Plan: -Serum cultures, urine cultures positive for gram negative bacilli -PCR indicates E. coli infection, biofire +rhinovirus -sepsis likely secondary to gram negative UTI -WBC at 23 today. Procalcitonin 62, transaminitis present, CRP = 37 -continue course of ceftriaxone -trend CBC, monitor vitals, fluids discontinued due to clinical improvement (2) Pneumonia: Plan: -CXR w/ interstitial thickening suggestive of pulmonary edema; bibasilar rales present on auscultation -likely bacterial pneumonia - see above sepsis assessment/plan -transitioned to room air in the afternoon (from 2L in the AM) - sat = 95% -Trend CBC, serial physical examinations, CT chest if respiratory condition destabilizes (3) Syncope: Plan: -Syncopal event resulting in fall, unwitnessed - suspect vasovagal 2/2 dehydration -Head CT w/o acute process -Telemetry monitoring; BP has stabilized, fluid status stable -Echocardiogram showed mild ventricular hypertrophy, EF = 50-55%, mild tricuspid regurg, mild aortic stenosis (different from prior scans) -Pt currently at baseline mental status (4) Elevated troponin: Plan: -Troponin peaked at 2513 last night, EKG w/o acute ST change, pt denies active chest pain -Likely demand ischemia -Echocardiogram as above -Will discuss prior cardiac hx and possible outpatient workup (5) Hypomagnesemia: Plan: -Mg 1.6 on admission; repleted in ER -Trend Mg (6) Acute kidney injury: Plan: -Cr 2.1 yesterday -> 1.86 today; baseline appears 1.0 -Trend CMP (7) Transaminitis: Plan: -Mild transaminitis noted on admission and today -Likely reactive to acute illness/dehydration -Trend BMP (8) Diabetic peripheral neuropathy associated with type 2 diabetes mellitus: Plan: -significant pain reported by patient, inhibiting normal ambulation -offered tramadol alone with no significant effect -added 1000mg PO acetaminophen q8h with tramadol 50mg q12h PRN (9) Diabetes: Plan: -Hold home metformin; unclear if pt's elevated lactate may be related to recent metformin initiation -MARY Delgado -A1C = 8.2% (10) Hypertension: Plan: -BP 90s/70s -Restarted home metoprolol -Holding home amlodipine, HCTZ - resume as able (11) Hypothyroidism: Plan: -Continue levothyroxine Plan FENGI: DM2, LR repletion ongoing Code status: DNR/DNI DVT ppx: SCDs Isolation: None Dispo: PCU Admission and Anticipated Discharge Date Admission Date: October 02, 2022 Supervising Physician Co-Signing Physician Notes I personally examined the patient and verified all alexander points of history and exam, discussed case, and agree with decision making with A Meci MS2 Feeling better breathing better. Family present again. Updated the best my ability and answered questions to the best my ability. Vitals noted. Breathing unlabored no accessory muscle use good effort. No distress. No focal neurologic deficits. CBC, basic metabolic panel, blood cultures noted, urine culture noted. Severe sepsis with multiorgan failure (demand ischemia and renal failure) and borderline septic shock present on admissionclinically appears due to a pneumonia, gram-negative rods on blood cultures. Continue antibiotic coverage (ceftriaxone) and supportive care. Fortunately appears to be improving nicely. Otherwise as above. Subjective Ms. 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 Today she feels generally well and like she is improving. She is able to ambulate about her room and is in good spirits. Feels as though the q4 albuterol and daily fluticasone has been helping her breathing and she has transitioned to 2L of oxygen via nasal cannula (from 6L via oxymask yesterday) in the AM and then to room air in the PM without issue. She does have significant lower>upper extremity neuropathy secondary to her diabetes and she is seeking some pain relief. This pain inhibits normal motion and ambulation for her. She has been using ibuprofen to control her pain until her hospital stay and she was given tramadol this morning without significant relief. Tramadol in the past has caused unwelcome cognitive side effects. She is interested in exploring the use of gabapentin in the near future - she mentioned this to the hospitalist team as well as the special education paraeducator. Review of Systems Review of Systems: Constitutional: No fever, No chills, No fatigue. Respiratory: No shortness of breath, No cough, No wheezing. Cardiovascular: No lightheadedness/presyncope, No chest pain, No palpitations. Gastrointestinal: No nausea, No vomiting, No diarrhea, No constipation, No heartburn, No abdominal pain. Musculoskeletal: No muscle pain, No decreased range of motion, No trauma. Skin: No rash, No pruritus, No breakdown. Neurologic: Lower>upper extremity significant neuropathic pain that inhibits movement. No headache. Physical Exam Physical Exam: General: Alert and oriented x3. No acute distress. HEENT: Normocephalic, moist oral mucosa. Cardiovascular: RRR, no M/R/G Respiratory: Bibasilar rales on auscultation, Respirations non-labored, Breath sounds equal. No wheezes, rhonchi. Gastrointestinal: Soft, Non-tender, Non-distended, Normal bowel sounds. Musculoskeletal: Normal range of motion, normal strength. All toes amputated from right foot, missing one toe on left foot. Neurologic: Normal sensory, Normal motor function. Integumentary: Warm, Dry. No rashes. No pallor. Psych: Appropriate mood and affect. Speech is of normal pace and content Results & Data Results & Data Vital Signs (Past 12 Hours) Vital Signs Temp Pulse Pulse Resp BP BP Pulse Ox 10/03/22 14:35 10/03/22 12:00 36.4 C L 10/03/22 12:00 103 H 23 111/84 96 10/03/22 12:19 95 H 18 96 10/03/22 10:15 10/03/22 07:50 37.1 C 101 H 22 121/65 94 10/03/22 07:13 92 H 18 94 10/03/22 04:30 80 23 10/03/22 04:01 132/88 10/03/22 04:01 91 H 22 10/03/22 04:00 88 24 10/03/22 03:30 86 30 H 10/03/22 03:00 86 28 H 10/03/22 02:30 85 30 H 10/03/22 02:00 89 28 H 10/03/22 04:38 37 C 10/03/22 01:30 84 27 H 10/03/22 01:00 89 26 H 10/03/22 00:30 93 H 23 10/03/22 00:00 86 28 H 10/03/22 00:00 142/60 H 10/02/22 23:30 93 H 28 H 10/02/22 23:00 87 30 H 10/02/22 22:30 84 27 H 10/02/22 22:09 36.8 C 10/02/22 22:00 96 H 32 H 10/02/22 21:30 29 H 90 10/02/22 21:00 119 H 25 H 10/02/22 20:30 85 25 H 10/02/22 20:01 89 23 10/02/22 20:01 132/62 10/02/22 20:00 90 24 10/02/22 19:30 80 28 H 10/02/22 19:02 141/45 H 10/02/22 19:02 88 22 10/02/22 19:00 89 25 H 10/02/22 18:30 85 18 10/02/22 18:01 79 27 H 10/02/22 18:01 140/57 L 10/02/22 18:00 82 28 H 10/02/22 17:30 73 27 H 10/02/22 17:01 75 29 H 85 L 10/02/22 17:01 124/58 L 10/02/22 17:00 76 21 88 L 10/02/22 16:30 77 22 94 10/02/22 21:38 10/02/22 19:41 86 23 91 10/02/22 16:00 78 23 92 10/02/22 16:00 110/80 10/02/22 16:40 37 C O2 Del Method O2 Del Method O2 Flow Rate 10/03/22 14:35 Room Air 10/03/22 12:00 10/03/22 12:00 Nasal Cannula 2 10/03/22 12:19 Nasal Cannula 2 10/03/22 10:15 Nasal Cannula 2 10/03/22 07:50 Nasal Cannula 2 10/03/22 07:13 Nasal Cannula 1 10/03/22 04:30 10/03/22 04:01 10/03/22 04:01 10/03/22 04:00 10/03/22 03:30 10/03/22 03:00 10/03/22 02:30 10/03/22 02:00 10/03/22 04:38 10/03/22 01:30 10/03/22 01:00 10/03/22 00:30 10/03/22 00:00 10/03/22 00:00 10/02/22 23:30 10/02/22 23:00 10/02/22 22:30 10/02/22 22:09 10/02/22 22:00 10/02/22 21:30 10/02/22 21:00 10/02/22 20:30 10/02/22 20:01 10/02/22 20:01 10/02/22 20:00 10/02/22 19:30 10/02/22 19:02 10/02/22 19:02 10/02/22 19:00 10/02/22 18:30 10/02/22 18:01 10/02/22 18:01 10/02/22 18:00 10/02/22 17:30 10/02/22 17:01 10/02/22 17:01 10/02/22 17:00 10/02/22 16:30 10/02/22 21:38 Room Air 10/02/22 19:41 Nasal Cannula 2 10/02/22 16:00 10/02/22 16:00 10/02/22 16:40 Laboratory Results Cardiac Enzymes 10/02/22 10/03/22 10/03/22 Range/Units 17:57 00:18 04:35 AST (13-39) U/L Troponin I High Sens 1822.6 H* 2513.6 H* D 1869.9 H* D (0-14) pg/ml 10/03/22 Range/Units 04:35 AST 215 H (13-39) U/L Troponin I High Sens (0-14) pg/ml CBC 10/03/22 Range/Units 04:35 WBC 23.74 H (4.8-10.8) K/ul RBC 3.20 L (4.20-5.40) M/uL Hgb 9.7 L (12.0-16.0) g/dl Hct 27.7 L (37.0-47.0) % Plt Count 150 (130-400) K/uL Neut # (Auto) 20.37 H (1.40-6.50) K/uL Lymph # (Auto) 1.51 (1.2-3.4) K/uL [place] # (Auto) 1.23 H (0.11-0.59) K/uL Eos # (Auto) 0.11 (0-0.50) K/uL Baso # (Auto) 0.17 (0-0.2) K/uL Comprehensive Metabolic Panel 10/03/22 Range/Units 04:35 Sodium 133 L (136-145) mmol/L Potassium 4.0 (3.5-5.1) mmol/L Chloride 99 (98-107) mmol/L Carbon Dioxide 24 (21-32) mmol/L BUN 53 H (6-23) mg/dl Creatinine 1.86 H (0.6-1.2) mg/dl Glucose 147 H (70-99(Fasting)) mg/dl Calcium 7.7 L (8.6-10.3) mg/dl AST 215 H (13-39) U/L ALT 73 H (7-52) U/L Alkaline Phosphatase 91 (34-104) U/L Total Protein 5.7 L (6.0-8.3) gm/dl Albumin 2.8 L (3.4-5.0) gm/dl
--- NOTE | 2022-10-03 17:48 | Billing Data ---
Date of Service October 03, 2022 Coding Level of Care Code 47494 SUB INP/OBS CARE
[2022-10-03] MEDS: BRIMONIDINE TARTRATE 0.2% 5ML OPL SCH (20:41)
[2022-10-03] MEDS: TIMOLOL MALEATE 0.5% OP SOLN 5 ML BTL OPL SCH (20:42)
[2022-10-04] MEDS: ALBUT/IPRATROP 3MG/0.5MG NEB 3 ML VIAL NEB SCH ×2 (02:55→07:22)
[2022-10-04 05:07] LABS: Hematocrit (blood only) 27.7 % (37.0-47.0); Hemoglobin 9.5 g/dl (12.0-16.0); Mean Corpuscular Hemoglobin 30.1 pg (25.0-34.0); Mean Corpuscular Hgb Conc 34.3 g/dL (32.0-36.0); Mean Corpuscular Volume 87.7 fL (80.0-100.0); Mean Platelet Volume 11.2 fL (9.4-12.4); Platelet Count 152 K/uL (130-400); RDW Coefficient of Variation 12.8 % (11.5-14.5); RDW Standard Deviation 41.4 fL (36.4-46.3); Red Blood Count 3.16 M/uL (4.20-5.40); White Blood Count 16.57 K/ul (4.8-10.8)
[2022-10-04 05:26] LABS: Albumin Globulin Ratio 0.9 (0.9-2); Albumin Level 2.6 gm/dl (3.4-5.0); BUN Creatinine Ratio 28.9 (10-20); Bilirubin,Total 0.4 mg/dl (0.2-1.0); Calcium 7.8 mg/dl (8.6-10.3); Creatinine Clr Calc Pharmacy 23.4 ml/min; Est GFR (African American) 28.1 ml/min; Est GFR (Non-African American) 24.3 ml/min; Magnesium 2.4 mg/dl (1.7-2.4); Potassium 4.3 mmol/L (3.5-5.1); Total Protein 5.6 gm/dl (6.0-8.3)
[2022-10-04 05:34] LABS: Basophils # (auto) 0.13 K/uL (0-0.2); Basophils % (auto) 0.8 %; Dohle Bodies 1+; Eosinophils # (auto) 0.85 K/uL (0-0.50); Eosinophils % (auto) 5.1 %; Immature Granulocytes % (auto) 0.6 %; Lymphocytes # (auto) 1.52 K/uL (1.2-3.4); Lymphocytes % (auto) 9.2 %; Monocytes # (auto) 1.33 K/uL (0.11-0.59); Neutrophils # (auto) 12.64 K/uL (1.40-6.50); Neutrophils % (auto) 76.3 %
[2022-10-04] MEDS: LEVOTHYROXINE SODIUM 75 MCG TABLET PO SCH (05:40)
[2022-10-04] MEDS: ACETAMINOPHEN 500 MG TAB PO SCH ×3 (05:40→22:31)
[2022-10-04 05:47] LABS: C Reactive Protein 31.7 mg/dl (0-0.5)
[2022-10-04] MEDS: ENOXAPARIN INJ 30 MG/0.3 ML SYR SQ SCH (08:03)
[2022-10-04] MEDS: FLUTICASONE FUROATE 100MCG 14 PUFFS/INHALER INH SCH (08:03)
[2022-10-04] MEDS: INSULIN ASPART PER UNIT CHARGE SC SCH ×4 (08:04→22:31)
[2022-10-04] MEDS: BRIMONIDINE TARTRATE 0.2% 5ML OPL SCH ×2 (08:04→22:32)
[2022-10-04] MEDS: LANTUS PER UNIT CHARGE SQ SCH ×2 (08:04→22:30)
[2022-10-04] MEDS: METOPROLOL SUCC 50MG EXT REL TAB PO SCH (08:05)
[2022-10-04] MEDS: TIMOLOL MALEATE 0.5% OP SOLN 5 ML BTL OPL SCH ×2 (08:05→22:32)
[2022-10-04] MEDS ORDERED: ALBUT/IPRATROP 3MG/0.5MG NEB 3 ML VIAL NEB PRN (10:12)
[2022-10-04] MEDS: CEFDINIR 300 MG CAP PO SCH (10:47)
[2022-10-04] MEDS: amLODIPine BESYLATE 5 MG TAB PO SCH (10:48)
--- NOTE | 2022-10-04 17:10 | Hospitalist Progress Note ---
Date of Service October 04, 2022 Assessment & Plan (1) Sepsis: Plan: -Serum cultures, urine cultures showing brock-sensitive E. Coli - matches urinary cultures -sepsis likely secondary to gram negative UTI -WBC at 23 yesterday -> 16 today. Procalcitonin 62, transaminitis present, CRP = 37 yesterday. -IV ceftriaxone to oral cefdinir starting today. -trend CBC, monitor vitals -PT/OT recommends dc to rehab (2) Pneumonia: Plan: -CXR w/ interstitial thickening suggestive of pulmonary edema; bibasilar rales present on auscultation -viral vs bacterial pneumonia - see above sepsis assessment/plan -sat = 95% on RA -Trend CBC (3) Elevated troponin: Plan: -Troponin peaked at 2513, EKG w/o acute ST change, pt denies chest pain ?demand ischemia out of proportion with significant microvascular disease -Echocardiogram as above (4) Syncope: Plan: -Syncopal event resulting in fall, unwitnessed - suspect vasovagal 2/2 dehydration -Head CT w/o acute process -Telemetry monitoring; BP has stabilized, fluid status stable -Echocardiogram showed mild ventricular hypertrophy, EF = 50-55%, mild tricuspid regurg, mild aortic stenosis (different from prior scans) -Pt currently at baseline mental status (5) Hypomagnesemia: Plan: -Mg 1.6 on admission; repleted in ER -Trend Mg (6) Acute kidney injury: Plan: -Cr 1.86 yesterday -> 1.87 today; baseline appears 1.0 -Trend CMP (7) Transaminitis: Plan: -Mild transaminitis noted on admission and today -Likely reactive to acute illness/dehydration -Trend BMP (8) Diabetic peripheral neuropathy associated with type 2 diabetes mellitus: Plan: -significant pain reported by patient -pain control achieved with 1000mg PO acetaminophen q8h with tramadol 50mg q12h PRN (9) Diabetes: Plan: -Hold home metformin; unclear if pt's elevated lactate may be related to recent metformin initiation -MARY Delgado -A1C = 8.2% (10) Hypertension: Plan: -Restarted home metoprolol, amlodopine -Holding home HCTZ (11) Hypothyroidism: Plan: -Continue levothyroxine Plan FENGI: DM2, LR repletion ongoing Code status: DNR/DNI DVT ppx: SCDs Isolation: None Dispo: PCU Admission and Anticipated Discharge Date Admission Date: October 02, 2022 Supervising Physician Co-Signing Physician Notes I personally examined the patient and verified all alexander points of history and exam, discussed case, and agree with decision making with A Meci MS2 Feeling better breathing better off O2. Family present -once again updated the best my ability and answered questions to the best my ability. Vitals noted. Breathing unlabored no accessory muscle use good effort. No distress. No focal neurologic deficits. CBC, basic metabolic panel, blood cultures noted, urine culture noted. Severe sepsis with multiorgan failure (demand ischemia and renal failure) and borderline septic shock present on admissionclinically UTI/gram negative bacteremia and viral pneumonia, showing overall mostly sensitive E Coli on blood cultures. Continue antibiotic coverage (cefdinir) and supportive care. Fortunately appears to be improving nicely. deconditioning/weakness - for rehab Otherwise as above. Subjective Ms. 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 Today she feels generally well and like she is improving. She is able to ambulate about her room with assistance and is in good spirits. Feels as though the q4 albuterol and daily fluticasone has been helping her breathing and she is breathing well on 2L of oxygen. She notes a productive cough this morning, which she understands is normal for her condition. Her pain is still present (2/10) but is better controlled with the scheduled tylenol and PRN tramadol. Examined cardiac hx - denied hx outside of a murmur and denied sx. Discussed possibility of dc to rehab soon. Review of Systems Review of Systems: Constitutional: No fever, No chills, No fatigue. Respiratory: No shortness of breath, productive cough, No wheezing. Cardiovascular: No lightheadedness/presyncope, No chest pain, No palpitations. Gastrointestinal: No nausea, No vomiting, No diarrhea, No constipation, No heartburn, No abdominal pain. Musculoskeletal: No muscle pain, No decreased range of motion, No trauma. Skin: No rash, No pruritus, No breakdown. Neurologic: Lower>upper extremity neuropathic pain that is controlled with Tylenol. No headache. Physical Exam Physical Exam: General: Alert and oriented x3. No acute distress. HEENT: Normocephalic, moist oral mucosa. Cardiovascular: RRR, no M/R/G Respiratory: Lungs clear to auscultation, Respirations non-labored, Breath sounds equal. No wheezes, rhonchi. Gastrointestinal: Soft, Non-tender, Non-distended, Normal bowel sounds. Musculoskeletal: Normal range of motion, normal strength. All toes amputated from right foot, missing one toe on left foot. Neurologic: Normal sensory, Normal motor function. Integumentary: Warm, Dry. No rashes. No pallor. Psych: Appropriate mood and affect. Speech is of normal pace and content Results & Data Results & Data Vital Signs (Past 12 Hours) Vital Signs Temp Pulse Pulse Resp BP BP Pulse Ox 10/04/22 14:00 10/04/22 11:00 36.8 C 66 20 113/54 L 93 10/04/22 08:00 63 10/04/22 08:00 10/04/22 07:00 36.8 C 69 20 152/86 H 94 10/04/22 07:22 71 18 95 10/04/22 04:30 63 19 10/04/22 04:00 62 19 10/04/22 04:00 108/52 L 10/04/22 03:30 64 21 10/04/22 03:00 65 17 100 10/04/22 02:37 75 20 10/04/22 02:00 66 18 10/04/22 01:30 62 18 10/04/22 04:00 36.6 C 10/04/22 02:59 65 18 93 10/04/22 01:00 59 L 21 10/04/22 00:30 58 L 17 10/04/22 00:00 58 L 18 10/04/22 00:00 94/50 L 10/03/22 23:30 57 L 17 10/03/22 23:00 64 19 10/03/22 22:30 59 L 19 10/03/22 22:00 60 18 10/03/22 21:30 62 20 10/03/22 22:48 70 18 98 10/03/22 21:00 69 18 10/03/22 20:30 72 24 96 10/03/22 20:00 73 18 92 10/03/22 20:00 137/65 10/03/22 21:08 10/03/22 19:49 36.5 C 10/03/22 19:30 71 15 10/03/22 19:30 114/64 10/03/22 19:00 74 19 10/03/22 18:30 76 18 10/03/22 18:00 79 17 10/03/22 17:30 81 16 10/03/22 17:00 82 20 10/03/22 16:30 87 14 10/03/22 16:00 81 20 10/03/22 15:30 79 19 10/03/22 15:00 85 18 10/03/22 19:35 73 18 92 10/03/22 16:00 10/03/22 15:24 82 16 95 Pulse Ox O2 Del Method O2 Del Method O2 Flow Rate 10/04/22 14:00 94 Room Air 10/04/22 11:00 Room Air 10/04/22 08:00 10/04/22 08:00 Nasal Cannula 2 10/04/22 07:00 Nasal Cannula 2 10/04/22 07:22 Room Air 10/04/22 04:30 10/04/22 04:00 10/04/22 04:00 10/04/22 03:30 10/04/22 03:00 10/04/22 02:37 10/04/22 02:00 10/04/22 01:30 10/04/22 04:00 10/04/22 02:59 Room Air 10/04/22 01:00 10/04/22 00:30 10/04/22 00:00 10/04/22 00:00 10/03/22 23:30 10/03/22 23:00 10/03/22 22:30 10/03/22 22:00 10/03/22 21:30 10/03/22 22:48 Room Air 10/03/22 21:00 10/03/22 20:30 10/03/22 20:00 10/03/22 20:00 10/03/22 21:08 Nasal Cannula 3 10/03/22 19:49 10/03/22 19:30 10/03/22 19:30 10/03/22 19:00 10/03/22 18:30 10/03/22 18:00 10/03/22 17:30 10/03/22 17:00 10/03/22 16:30 10/03/22 16:00 10/03/22 15:30 10/03/22 15:00 10/03/22 19:35 Room Air 10/03/22 16:00 Room Air 10/03/22 15:24 Room Air Laboratory Results Cardiac Enzymes 10/04/22 Range/Units 04:36 AST 131 H (13-39) U/L CBC 10/04/22 Range/Units 04:36 WBC 16.57 H (4.8-10.8) K/ul RBC 3.16 L (4.20-5.40) M/uL Hgb 9.5 L (12.0-16.0) g/dl Hct 27.7 L (37.0-47.0) % Plt Count 152 (130-400) K/uL Neut # (Auto) 12.64 H (1.40-6.50) K/uL Lymph # (Auto) 1.52 (1.2-3.4) K/uL [place] # (Auto) 1.33 H (0.11-0.59) K/uL Eos # (Auto) 0.85 H (0-0.50) K/uL Baso # (Auto) 0.13 (0-0.2) K/uL Comprehensive Metabolic Panel 10/04/22 Range/Units 04:36 Sodium 134 L (136-145) mmol/L Potassium 4.3 (3.5-5.1) mmol/L Chloride 101 (98-107) mmol/L Carbon Dioxide 26 (21-32) mmol/L BUN 54 H (6-23) mg/dl Creatinine 1.87 H (0.6-1.2) mg/dl Glucose 127 H (70-99(Fasting)) mg/dl Calcium 7.8 L (8.6-10.3) mg/dl AST 131 H (13-39) U/L ALT 74 H (7-52) U/L Alkaline Phosphatase 88 (34-104) U/L Total Protein 5.6 L (6.0-8.3) gm/dl Albumin 2.6 L (3.4-5.0) gm/dl
--- NOTE | 2022-10-04 18:43 | Billing Data ---
Date of Service October 04, 2022 Coding Level of Care Code 06470 SUB INP/OBS CARE
[2022-10-04] MEDS: traMADol HCL 50 MG TABLET PO PRN (22:32)
[2022-10-05] MEDS: ACETAMINOPHEN 500 MG TAB PO SCH ×2 (04:45→14:30)
[2022-10-05] MEDS: LEVOTHYROXINE SODIUM 75 MCG TABLET PO SCH (04:46)
[2022-10-05] MEDS: INSULIN ASPART PER UNIT CHARGE SC SCH ×2 (09:40→12:20)
[2022-10-05] MEDS: LANTUS PER UNIT CHARGE SQ SCH (09:40)
[2022-10-05] MEDS: amLODIPine BESYLATE 5 MG TAB PO SCH (09:42)
[2022-10-05] MEDS: BRIMONIDINE TARTRATE 0.2% 5ML OPL SCH (09:42)
[2022-10-05] MEDS: ENOXAPARIN INJ 30 MG/0.3 ML SYR SQ SCH (09:43)
[2022-10-05] MEDS: CEFDINIR 300 MG CAP PO SCH (09:43)
[2022-10-05] MEDS: FLUTICASONE FUROATE 100MCG 14 PUFFS/INHALER INH SCH (09:44)
[2022-10-05] MEDS: METOPROLOL SUCC 50MG EXT REL TAB PO SCH (09:44)
[2022-10-05] MEDS: TIMOLOL MALEATE 0.5% OP SOLN 5 ML BTL OPL SCH (09:45)
--- NOTE | 2022-10-05 13:38 | Discharge Summary ---
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 Pt lives with daughter and son-in-law. Family states they arrived home earlier in evening and noticed pt on floor in bedroom, confused with no recollection of fall. BSG checked at that time- 309. Pt has not had any recent illnesses, fever, N/V/D, chest pain, dyspnea. She did start metformin recently for diabetic control. Pt taken to ER, her mentation returned to baseline by arrival to ER. Pt arrived to ER hemodynamically stable, BP 100s/50s. Initial evaluation significant for Na 133, AG 13, Cr 2.2, glucose 241, AST 106, ALP 133, Mg 1.6, WBC 24, Hgb 11, procalcitonin 42, lactate 2.6, troponin 235. 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 CXR w/o acute process, some airspace opacities, no focal consolidation. ER interventions include NS 1L bolus, Mg repletion, cefepime. At present, pt denies any symptoms. She does report significant thirst. Admission Exam Per Admitting Provider General: well-appearing, no acute distress, laying in bed, frail HEENT: PERRL, EOMI, conjunctivae clear without injection, anicteric sclerae, dry mucous membranes, clear oropharynx without exudate or erythema Neck: supple, trachea midline, no thyromegaly, no JVD, no cervical lymphadenopathy CV: RRR, normal S1 and S2, no murmurs Resp: CTAB, no increased work of breathing, no crackles or wheezes Abd: Soft, nontender, nondistended, no guarding or rebound, no hepat osplenomegaly MSK: Normal bulk of all four extremities Neuro: AOx3, no focal motor deficits, diminished sensorium of b/l LE Skin: no rashes or lesions, low turgor Ext: no LE peripheral edema or erythema, faint LE peripheral pulses b/l. Noted amputation partially of R foot and L great toe Principal Diagnosis syncope secondary to sepsis/bacteremia Discharge Exam General: Alert and oriented x3. No acute distress. Wellpappearing. HEENT: Normocephalic, moist oral mucosa. Cardiovascular: RRR, no M/R/G Respiratory: Faint bibasilar crackles R>L. Respirations non-labored, Breath sounds equal. No wheezes, rhonchi. Gastrointestinal: Soft, Non-tender, Non-distended, Normal bowel sounds. Musculoskeletal: Normal range of motion, normal strength. All toes amputated from right foot, missing great toe on left foot. Neurologic: Diminished sensation of lower extremities. Normal motor function. Integumentary: Warm, Dry. No rashes. No pallor. Psych: Appropriate mood and affect. Speech is of normal pace and content Discharge Data Allergies Allergy/AdvReac Type Severity Reaction Status Date / Time simvastatin Allergy Intermediate Nausea Verified 10/20/20 13:05 acetaminophen [From Lortab] Allergy Mild itching Verified 10/20/20 13:05 duloxetine [From Cymbalta] Allergy Mild itching Verified 10/20/20 13:05 hydrocodone [From Lortab] Allergy Mild itching Verified 10/20/20 13:05 pregabalin [From Lyrica] Allergy Mild itching Verified 10/20/20 13:05 Consultations 10/02/22 02:07 ED Decision to Admit Stat Ordered Studies Laboratory Results WBC 16.57 K/ul (4.8-10.8) H 10/04/22 04:36 RBC 3.16 M/uL (4.20-5.40) L 10/04/22 04:36 Hgb 9.5 g/dl (12.0-16.0) L 10/04/22 04:36 Hct 27.7 % (37.0-47.0) L 10/04/22 04:36 MCV 87.7 fL (80.0-100.0) 10/04/22 04:36 MCH 30.1 pg (25.0-34.0) 10/04/22 04:36 MCHC 34.3 g/dL (32.0-36.0) 10/04/22 04:36 RDW Std Deviation 41.4 fL (36.4-46.3) 10/04/22 04:36 RDW Coeff of Bert 12.8 % (11.5-14.5) 10/04/22 04:36 Plt Count 152 K/uL (130-400) 10/04/22 04:36 MPV 11.2 fL (9.4-12.4) 10/04/22 04:36 Immature Gran % (Auto) 0.6 % 10/04/22 04:36 Neut % (Auto) 76.3 % 10/04/22 04:36 Lymph % (Auto) 9.2 % 10/04/22 04:36 [place] % (Auto) 8.0 % 10/04/22 04:36 Eos % (Auto) 5.1 % 10/04/22 04:36 Baso % (Auto) 0.8 % 10/04/22 04:36 Neut # (Auto) 12.64 K/uL (1.40-6.50) H 10/04/22 04:36 Lymph # (Auto) 1.52 K/uL (1.2-3.4) 10/04/22 04:36 [place] # (Auto) 1.33 K/uL (0.11-0.59) H 10/04/22 04:36 Eos # (Auto) 0.85 K/uL (0-0.50) H 10/04/22 04:36 Baso # (Auto) 0.13 K/uL (0-0.2) 10/04/22 04:36 Immature Gran # (Auto) 0.10 K/uL (0.01-0.20) 10/04/22 04:36 Toxic Vacuolation 1+ 10/02/22 03:47 Dohle Bodies 1+ 10/04/22 04:36 Echinocytes 1+ 10/03/22 04:35 PT 12.4 Seconds (9.0-12.0) H 10/01/22 22:50 INR 1.1 (0.9-1.1) 10/01/22 22:50 Sodium 134 mmol/L (136-145) L 10/04/22 04:36 Potassium 4.3 mmol/L (3.5-5.1) 10/04/22 04:36 Chloride 101 mmol/L (98-107) 10/04/22 04:36 Carbon Dioxide 26 mmol/L (21-32) 10/04/22 04:36 Anion Gap 7 (3-11) 10/04/22 04:36 BUN 54 mg/dl (6-23) H 10/04/22 04:36 Creatinine 1.87 mg/dl (0.6-1.2) H 10/04/22 04:36 Est Cr Clr Drug Dosing 23.4 ml/min 10/04/22 04:36 Est GFR ( Amer) 28.1 ml/min 10/04/22 04:36 Est GFR (Non-Af Amer) 24.3 ml/min 10/04/22 04:36 BUN/Creatinine Ratio 28.9 (10-20) H 10/04/22 04:36 Glucose 127 mg/dl (70-99(Fasting)) H 10/04/22 04:36 POC Glucose 165 mg/dl (70-99) H 10/05/22 11:08 Estimat Average Glucose 189 mg/dl 10/02/22 03:47 Hemoglobin A1c 8.2 % (4.5-5.6) H 10/02/22 03:47 Lactate 2.9 mmol/L (0.4-2.0) H* 10/02/22 06:14 Calcium 7.8 mg/dl (8.6-10.3) L 10/04/22 04:36 Magnesium 2.4 mg/dl (1.7-2.4) 10/04/22 04:36 Total Bilirubin 0.4 mg/dl (0.2-1.0) 10/04/22 04:36 AST 131 U/L (13-39) H 10/04/22 04:36 ALT 74 U/L (7-52) H 10/04/22 04:36 Alkaline Phosphatase 88 U/L (34-104) 10/04/22 04:36 Troponin I High Sens 1869.9 pg/ml (0-14) H* D 10/03/22 04:35 C-Reactive Protein 31.70 mg/dl (0-0.5) H 10/04/22 04:36 Total Protein 5.6 gm/dl (6.0-8.3) L 10/04/22 04:36 Albumin 2.6 gm/dl (3.4-5.0) L 10/04/22 04:36 Globulin 3.0 gm/dl (2.5-4.0) 10/04/22 04:36 Albumin/Globulin Ratio 0.9 (0.9-2) 10/04/22 04:36 Lipase 6 U/L (11-82) L 10/01/22 22:50 Procalcitonin 39.58 ng/ml (0-0.5) H 10/04/22 04:36 TSH 1.866 uIu/ml (0.300-4.500) 10/01/22 22:50 Urine Color Dark Yellow 10/02/22 01:57 Urine Appearance Turbid (Clear) A 10/02/22 01:57 Urine pH 6.0 (4.5-7.5) 10/02/22 01:57 Ur Specific [place] 1.016 (1.000-1.030) 10/02/22 01:57 Urine Protein 3+ (Negative) H 10/02/22 01:57 Urine Glucose (UA) Negative (Negative) 10/02/22 01:57 Urine Ketones Trace (Negative) H 10/02/22 01:57 Urine Blood 3+ (Negative) H 10/02/22 01:57 Urine Nitrite Negative (Negative) 10/02/22 01:57 Urine Bilirubin Negative (Negative) 10/02/22 01:57 Urine Urobilinogen Negative (Negative) 10/02/22 01:57 Ur Leukocyte Esterase 3+ (Negative) H 10/02/22 01:57 Urine WBC (Auto) >30 /hpf (0-5) H 10/02/22 01:57 Urine RBC (Auto) 0-4 /hpf (0-4) 10/02/22 01:57 U Hyaline Cast (Auto) 0 /lpf (0-5) 10/02/22 01:57 U Epithel Cells (Auto) 0-5 /lpf (0-5) 10/02/22 01:57 Urine Bacteria (Auto) 4+ (Negative) H 10/02/22 01:57 Urine Yeast Not Reportable 10/02/22 01:57 Nasal Screen MRSA (PCR) Negative (Negative) 10/02/22 04:29 Adenovirus (PCR) Not Detected (NotDetected) 10/02/22 01:43 B. pertussis DNA (PCR) Not Detected (NotDetected) 10/02/22 01:43 B.parapertussis DNA PCR Not Detected (NotDetected) 10/02/22 01:43 C. pneumoniae DNA (PCR) Not Detected (NotDetected) 10/02/22 01:43 Coronavirus OC43 (PCR) Not Detected (NotDetected) 10/02/22 01:43 Coronavirus HKU1 (PCR) Not Detected (NotDetected) 10/02/22 01:43 Coronavirus 229E (PCR) Not Detected (NotDetected) 10/02/22 01:43 SARS-CoV-2 (PCR) NEGATIVE (Negative) 10/02/22 01:43 SARS-CoV-2 (PCR) Not Detected (NotDetected) 10/02/22 01:43 Coronavirus NL63 (PCR) Not Detected (NotDetected) 10/02/22 01:43 Enterobacterales (PCR) DETECTED (NotDetected) A 10/02/22 01:00 E. coli (PCR) DETECTED (NotDetected) A 10/02/22 01:00 Human Metapneumovir PCR Not Detected (NotDetected) 10/02/22 01:43 Influenza Type A (PCR) Negative (Neg) 10/02/22 01:43 Influenza Type A (PCR) Not Detected (NotDetected) 10/02/22 01:43 Influenza Type B (PCR) Negative (Neg) 10/02/22 01:43 Influenza Type B (PCR) Not Detected (NotDetected) 10/02/22 01:43 M. pneumoniae (PCR) Not Detected (NotDetected) 10/02/22 01:43 Parainfluenza 1 (PCR) Not Detected (NotDetected) 10/02/22 01:43 Parainfluenza 2 (PCR) Not Detected (NotDetected) 10/02/22 01:43 Parainfluenza 3 (PCR) Not Detected (NotDetected) 10/02/22 01:43 Parainfluenza 4 (PCR) Not Detected (NotDetected) 10/02/22 01:43 RSV (RT-PCR) Negative (Neg) 10/02/22 01:43 RSV (PCR) Not Detected (NotDetected) 10/02/22 01:43 Entero/Rhino (PCR) DETECTED (NotDetected) A* 10/02/22 01:43 mcr-1 Colistin Res Gene PCR Not Detected (NotDetected) 10/02/22 01:00 blaIMP Car res Gene PCR Not Detected (NotDetected) 10/02/22 01:00 KPC-Carbap Res Gene PCR Not Detected (NotDetected) 10/02/22 01:00 blaNDM Car Res Gene PCR Not Detected (NotDetected) 10/02/22 01:00 OXA-48 Carbapenem Resis Gene (PCR) Not Detected (NotDetected) 10/02/22 01:00 blaVIM Car Res Gene PCR Not Detected (NotDetected) 10/02/22 01:00 CTX-M Gene Resistance (PCR) Not Detected (NotDetected) 10/02/22 01:00 Bld Cult ID Panel PCR See PCR Comment (NotDetected) 10/02/22 01:[address] 10/01/22 23:36 Exam(s): CT HEAD Without Contrast EXAM: CT Head Without Intravenous Contrast CLINICAL HISTORY: Reason for exam: syncope. TECHNIQUE: Axial computed tomography images of the head/brain without intravenous contrast. Automated exposure control was utilized for the study. A dose lowering technique was utilized adhering to the principles of ALARA. COMPARISON: No relevant prior studies available. FINDINGS: Brain: Severe periventricular white matter changes, likely related to microangiopathy. No hemorrhage. Ventricles: Unremarkable. No ventriculomegaly. Bones/joints: Unremarkable. No acute fracture. Soft tissues: Unremarkable. Sinuses: Unremarkable as visualized. No acute sinusitis. Mastoid air cells: Unremarkable as visualized. No mastoid effusion. IMPRESSION: Severe periventricular white matter changes, likely related to microangiopathy. Electronically signed by: Bradnen Aiken M.D. 10/02/22 01:22 AM Chest X-Ray 10/02/22 03:53 XR chest 1V portable CLINICAL HISTORY: Hypoxia. COMPARISON STUDY: Chest radiograph October 01, 2022. FINDINGS: No pneumothorax or pleural effusion is present. There is moderate elevation of the right hemidiaphragm. This is unchanged. Cardiomegaly is unchanged. Interstitial thickening has developed. No consolidation is identified to suggest pneumonia. IMPRESSION: Cardiomegaly. Interval development of interstitial thickening suggestive of pulmonary edema. ACT 112: Negative or not required by law. Electronically signed by: Nicko Mcnally M.D. 10/02/2022 5:59 AM ECG DICTATED BY:Miky Ly MD Test Reason : Blood Pressure : / mmHG Vent. Rate : 085 BPM Atrial Rate : 000 BPM P-R Int : 000 ms QRS Dur : 086 ms QT Int : 386 ms P-R-T Axes : 000 019 021 degrees QTc Int : 459 ms Poor data quality, interpretation may be adversely affected Sinus rhythm Normal ECG No previous ECGs available Confirmed by Miky Ly ([id number]) on 10/02/2022 9:06:54 AM Referred By: REFERRED SELF Confirmed By:Miky Ly Echocardiogram Summary: Left ventricular systolic function is normal No regional wall motion abnormalities noted Mild concentric left ventricular hypertrophy Ejection fraction = 50-55% Mild valvular aortic stenosis Mild to moderate tricuspid regurgitation Mild aortic stenosis is new compared to past echocardiograms. Hospital Course (1) Sepsis: -Serum cultures, urine cultures showing brock-sensitive E. Coli - matches urinary cultures -sepsis likely secondary to gram negative UTI -WBC at 23 yesterday -> 16 today. Procalcitonin peaked at 67; downtrepnding to 39 on DC, CRP downtrending as well -Initially on cefepime with subsequent transition to ceftriaxone and ultimately to cefdinir -- complete total 14-day course -Cefdinir is being renally dosed -- if kidney fxn continues to improve and GFR is above 30, can increase to BID -trend CBC, monitor vitals -PT/OT recommends dc to rehab -- will go to [facility] (2) Pneumonia: -CXR w/ interstitial thickening suggestive of pulmonary edema; bibasilar rales present on auscultation -viral vs bacterial pneumonia - see above sepsis assessment/plan -sat = 95% on RA -Respiratory status has improved significantly (3) Acute kidney injury: -Cr peaked at 2.22 -> 1.87 on DC; baseline appears 1.0 -Recommend follow-up labs within 2-3 days after DC to ensure it continues to resolve (4) Elevated troponin: -Troponin peaked at 2513, EKG w/o acute ST change, pt denied chest pain - ?demand ischemia out of proportion with significant microvascular disease -Echocardiogram as below - Will optimize as possible for med management of cardiac disease - Start ASA 81mg for presumed coronary disease and known peripheral vascular disease too - Consider statin given vascular disease and uncontrolled DM - Can consider adding XAVIER/ARB addition vs substituting for amlodipine - Can consider stress as outpt but she denies exertional symptoms at home (5) Syncope: -Syncopal event resulting in fall, unwitnessed - suspect vasovagal 2/[address] -Head CT w/o acute process -Telemetry monitoring; BP has stabilized, fluid status stable -Echocardiogram showed mild ventricular hypertrophy, EF = 50-55%, mild tricuspid regurg, mild aortic stenosis (different from prior scans) -Pt currently at baseline mental status (6) Hypomagnesemia: -Mg 1.6 on admission; repleted in ER -resolved (7) Transaminitis: -Mild transaminitis noted on admission and today -Likely reactive to acute illness/dehydration -Can repeat labs (8) Diabetic peripheral neuropathy associated with type 2 diabetes mellitus: -significant pain reported by patient -pain control achieved with 1000mg PO acetaminophen q8h with tramadol 50mg q12h PRN (9) Diabetes: -Held metformin on admission -- restart on DC -Lantus, SSI while admitted -A1C = 8.2% (10) Hypertension: -Restarted home metoprolol, amlodipine -Holding home HCTZ given her kidney function-- recommend monitoring as outpt to confirm whether she needs this (11) Hypothyroidism: -Continue levothyroxine Plan Code status: DNR/DNI Dispo: transfer to SNF Total Time Total Time Spent Total Time Spent (In Minutes): see attending attestation. Discharge Plan Discharge Items Patient Disposition: Transfer Nursing Home Fac Reason For Visit: SYNCOPE Discharge Diagnosis: Sepsis, bacteremia, pneumonia Activity: Per Instructions section Non-emergency contact: Primary Care Provider Call non-emergency contact if: you have any medication questions and your symptoms worsen Follow-up/Referrals: Safia Shukla MD [Primary Care Provider] - Diet: Carb Consistent or DM2 and Heart Healthy Addtl Attending Provider Instructions: 86-year-old female with past medical history of DM, hypothyroidism, hypertension who presented due to unwitnessed syncopal event resulting in a fall. Found to have pneumonia as well as gram-negative bacteremia likely from urinary source. Sepsis/bacteremia -Serum cultures, urine cultures showing brock-sensitive E. Coli - matches urinary cultures -sepsis likely secondary to gram negative UTI -WBC at 23 yesterday -> 16 today. Procalcitonin peaked at 67; downtrepnding to 39 on DC, CRP downtrending as well -Initially on cefepime with subsequent transition to ceftriaxone and ultimately to cefdinir -- complete total 14-day course -Cefdinir is being renally dosed -- if kidney fxn continues to improve and GFR is above 30, can increase to BID -trend CBC, monitor vitals -PT/OT recommends dc to rehab -- will go to [facility] Pneumonia: -CXR w/ interstitial thickening suggestive of pulmonary edema; bibasilar rales present on auscultation -viral vs bacterial pneumonia - see above sepsis assessment/plan -sat = 95% on RA -Respiratory status has improved significantly Acute kidney injury: -Cr peaked at 2.22 -> 1.87 on DC; baseline appears 1.0 -Recommend follow-up labs within 2-3 days after DC to ensure it continues to resolve Elevated troponin: -Troponin peaked at 2513, EKG w/o acute ST change, pt denied chest pain - ?demand ischemia out of proportion with significant microvascular disease -Echocardiogram as below - Will optimize as possible for med management of cardiac disease - Start ASA 81mg for presumed coronary disease and known peripheral vascular disease too - Consider statin given vascular disease and uncontrolled DM - Can consider adding XAVIER/ARB addition vs substituting for amlodipine - Can consider stress as outpt but she denies exertional symptoms at home Syncope: -Syncopal event resulting in fall, unwitnessed - suspect vasovagal 2/2 dehydration -Head CT w/o acute process -Telemetry monitoring; BP has stabilized, fluid status stable -Echocardiogram showed mild ventricular hypertrophy, EF = 50-55%, mild tricuspid regurg, mild aortic stenosis (different from prior scans) -Pt currently at baseline mental status Hypomagnesemia -- resolved -Mg 1.6 on admission; repleted in ER Transaminitis: -Mild transaminitis noted on admission and today -Likely reactive to acute illness/dehydration -Can repeat labs Diabetic peripheral neuropathy associated with type 2 diabetes mellitus: -significant pain reported by patient -pain control achieved with 1000mg PO acetaminophen q8h with tramadol 50mg q12h PRN Diabetes: -Held metformin on admission -- restart on DC -Lantus, SSI while admitted -A1C = 8.2% Hypertension: -Restarted home metoprolol, amlodipine -Holding home HCTZ given her kidney function-- recommend monitoring as outpt to confirm whether she needs this Hypothyroidism: -Continue levothyroxine Code status: DNR/DNI Dispo: Transfer to SNF Pending Studies at Discharge: No Stand-Alone Forms: My [facility] Skilled Items Patient informed of condition?: Yes DNR: Yes Discharge Level of Care: Skilled Communicable Disease: No Discharge Prognosis: Improving Lines: None Urinary Catheter: No Medications and DC Order Prescriptions: New cefdinir 300 mg Capsule 300 mg PO QAM 9 Days Qty: 9 0RF aspirin 81 mg capsule 81 mg PO DAILY Qty: 30 0RF Continued metoprolol succinate 100 mg capsule,sprinkle,ER 24hr 100 mg PO DAILY levothyroxine [Synthroid] 75 mcg tablet 75 mcg PO DAILY Lantus U-100 Insulin 100 unit/mL solution 20 units SQ DAILY metformin 500 mg tablet 500 mg PO BIDM brimonidine-timolol 0.2-0.5 % drops 1 drp OPL BID tramadol 50 mg tablet 50 mg PO Q8 MDD 3 per 24 hours PRN (Reason: Pain) insulin aspart U-100 [Novolog FlexPen U-100 Insulin] 100 unit/mL (3 mL) insulin pen 5 unit SUBCUT UD Rx Instructions: inject twice a day before lunch and supper amlodipine 10 mg tablet 10 mg PO DAILY Held hydrochlorothiazide 25 mg tablet 25 mg PO DAILY Hold Instructions: Resume on 10/12/22. Hold until MARISA fully resolved ibuprofen 800 mg tablet 800 mg PO TID PRN (Reason: as directed) Hold Instructions: Resume on 10/12/22. Hold until MARISA fully resolved Discharge Orders: Discharge Order (Routine); Ordered 10/05/22 Ordered By: Remy Chakraborty/Other Patient Handouts: High Blood Sugar (Hyperglycemia), Managing Type 2 Diabetes Admission Data Admit Date/Time: 10/02/22 02:04 Attending Provider: Mac Salazar Admit Provider: Catracho Gibson Primary Care Provider: Safia Shukla Other Providers: Malachi Morin ; [facility] ; [facility] Other Interventions: Discharge Summary Assessment (RN) Last Done: 10/05/22 14:54 Supervising Physician Co-Signing Physician Notes I personally examined the patient and verified all alexander points of history and exam, discussed case, and agree with decision making with A Meci MS2 feels up to rehab. Vitals noted. Breathing unlabored no accessory muscle use good effort. No distress. No focal neurologic deficits. CBC, basic metabolic panel, blood cultures noted, urine culture noted. Severe sepsis with multiorgan failure (demand ischemia and renal failure) and borderline septic shock present on admissionclinically UTI/gram negative bacteremia and viral pneumonia, showing overall mostly sensitive E Coli on blood cultures. Continue antibiotic coverage (cefdinir) and supportive care. Fortunately appears to be improving nicely.safe for rehab deconditioning/weakness - for rehab today Pressure ulcer of right medial buttock, stage 3, POA - wound care at facility
--- NOTE | 2022-10-05 16:04 | Billing Data ---
Date of Service October 05, 2022 Coding Level of Care Code 70645 IN/OBS DISCH 30 MIN/LESS
== END 2022-10-05 15:28 | DRG 871 ==
LOC: ED 22:30 → SUATTDRO 10-02 02:04 → EDINP 10-02 02:04 → 1E 10-02 03:03 → 2N 10-04 18:32

== ENCOUNTER 2023-02-21 10:45 | Inpatient (IN) ==
[2023-02-21 12:34] LABS: Basophils # (auto) 0.04 K/uL (0.00-0.20); Basophils % (auto) 0.3 %; Eosinophils # (auto) 0.06 K/uL (0.00-0.50); Eosinophils % (auto) 0.4 %; Hematocrit (blood only) 28.1 % (37.0-47.0); Hemoglobin 9.9 g/dl (12.0-16.0); Immature Granulocytes # (auto) 0.06 K/uL (0.01-0.20); Immature Granulocytes % (auto) 0.4 %; Lymphocytes # (auto) 1.31 K/uL (1.20-3.40); Lymphocytes % (auto) 9.8 %; Mean Corpuscular Hemoglobin 29.6 pg (25.0-34.0); Mean Corpuscular Hgb Conc 35.2 g/dL (32.0-36.0); Mean Corpuscular Volume 84.1 fL (80.0-100.0); Mean Platelet Volume 10.3 fL (9.4-12.4); Monocytes # (auto) 1.06 K/uL (0.11-0.59); Monocytes % (auto) 7.9 %; Neutrophils # (auto) 10.81 K/uL (1.40-6.50); Neutrophils % (auto) 81.2 %; Platelet Count 311 K/uL (130-400); RDW Coefficient of Variation 12.6 % (11.5-14.5); Red Blood Count 3.34 M/uL (4.20-5.40); White Blood Count 13.34 K/ul (4.8-10.8)
--- NOTE | 2023-02-21 12:41 | Emergency Department Note ---
Impression & Plan Heart failure, Non-ST elevation [place] (NSTEMI), Shortness of breath, Leukocytosis, Acute hypoxic respiratory failure, Pulmonary edema ED Provider Note HISTORY OF PRESENT ILLNESS: Patient is an 87-year-old female presenting with shortness of breath and weakness. Patient reports that she developed a productive cough and shortness of breath starting 6 days ago. She does not wear any supplemental oxygen at baseline. Denies any DVT or PE history. She is on 81 mg aspirin daily. She denies any chest pain. Reports her cough has been intermittently productive of blood-tinged sputum. She denies any history of CHF. She was started on Lasix yesterday and Mucinex by her primary care provider. She is also been on azithromycin prescribed by her PCP. Patient denies any lower extremity edema. Denies any abdominal pain, nausea or vomiting. Reports she is just very winded, most notably with doing any sort of activity ROS: as above PHYSICAL EXAM: Constitutional: Patient appears in no acute distress. HENT: Head: Normocephalic and atraumatic. Eyes: EOMI, PERRL Mouth/Throat: Mucous membranes moist. Neck: Trachea midline. Neck supple. Cardiovascular: RRR, No rubs or gallops. Intact distal pulses. Pulmonary/Chest: No respiratory distress. Breath sounds clear and equal bilaterally. Coarse breath sounds bilaterally. Patient on 4 L nasal cannula Abdominal: Abdomen soft, no tenderness, rebound or guarding. Musculoskeletal: No edema, tenderness or deformity noted. Skin: Warm and dry. No rash, erythema, pallor or cyanosis Psychiatric: Appropriate mood and affect for situation. Neurological: Alert and keenly responsive. CN II-XII grossly intact, moving all extremities equally and fully. MDM: - Vitals signs showed hypoxia. - History obtained via patient. Patient presents with shortness of breath. Patient reportedly has been having progressively worsening shortness of breath and a productive cough for the last 6 days. Reports that cough is productive of a blood-tinged sputum. Denies any DVT or PE history. She is on 81 mg aspirin daily. Denies any history of cardiac stents. She has no chest pain. Denies any abdominal pain, nausea or vomiting. Reports she is just very winded, most notably with doing any sort of activity - Chronic conditions affecting care: DM-2; HTN; HLD; CKD - Differential diagnoses include, but are not limited to: Congestive heart failure; acute coronary syndrome; COPD/asthma exacerbation; pulmonary edema; pu lmonary embolism; pneumonia; pneumothorax; viral syndrome - Order placed for continuous cardiac monitoring. At this time, monitor showed rate of 76 bpm with normal sinus rhythm, per my interpretation. - External medical records reviewed. Patient had an echocardiogram dated 10/02/2022 that showed EF 50-55% - EKG reviewed by myself showed normal sinus rhythm. Rate 63 bpm. QTc 476. No acute ischemic changes. - Laboratory workup interpreted by myself showed leukocytosis (WBC 13.34); hyponatremia (Na 126); CKD (Cr 1.69); elevated troponin (762.3); elevated BNP (3539) - CXR shows pulmonary edema, per my interpretation - 80 mg IV lasix ordered. - CT PE showed no pulmonary embolism, but did have mild cardiomegaly, bilateral small pleural effusions and scattered patchy groundglass airspace opacities concerning for moderate pulmonary edema and superimposed pneumonia. - COVID/flu/RSV negative - NSTEMI is likely secondary to patient's profound heart failure and pulmonary edema. No previous history of CHF noted in chart. - Discussion was had with social media marketing specialist about patient's case and need for admission - Patient's saturation decreased to 84% on 4 L nasal cannula. She was bumped up to 6 L nasal cannula. She is given 0.4 mg of sublingual nitro and an order was placed for the patient to be started on BiPAP - Discussed case with [place] cardioglogist, Dr. Ly, who will be on consult for p atient during inpatient stay. Recommended continued diuresis. - Hospitalist consulted for admission - [facility] I provided 41 minutes of critical care time to this patient's care outside of billable procedures. 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 Acquired deformity of right foot Acquired hallux valgus of right foot Acquired hammer toe of right foot Amputation of left great toe Callus Chronic renal insufficiency, stage III (moderate) Diabetic foot ulcer associated with type 2 diabetes mellitus, with fat layer exposed Herpes zoster HTN (hypertension) Hyperlipidemia LDL goal <100 Hypothyroidism Osteoporosis PHN (postherpetic neuralgia) Sinusitis Surgical History History of tonsillectomy and adenoidectomy Social History Smoking Status: Never smoker Do You Dip or Chew Tobacco: No; Hx Alcohol Use: No Hx Substance Use: No Communication Ability: Effective Communication Tools: Letter Board, Picture Board, Facial Expression and Writing Tablet Visual Impairment: No Limitations Hearing Ability: Normal Scleroscope Tester Required: No Beliefs That Will Affect Care: None marital status: / Current Living Situation: Family Current Living Situation Comment: lives with daughter and son in law current occupational status: 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 [employer] Feels Safe at Home: Yes Childhood Exposure to Second-Hand Smoke: No Diet: diabetic and low carbohydrate caffeine: Yes (1-2 cups/day) during the past year weight has: decreased > 10 lbs Dental Care, Regularly: No Physical Activity Frequency: 3-4 Times per Week Do you think of yourself as: straight/heterosexual Sexual Activity: has been sexually active, but not for at least 12 months Assistive Devices: Cane and Walker Allergies Allergies Allergy/AdvReac Type Severity Reaction Status Date / Time simvastatin Allergy Intermediate Nausea Verified 10/20/20 13:05 acetaminophen [From Lortab] Allergy Mild itching Verified 10/20/20 13:05 duloxetine [From Cymbalta] Allergy Mild itching Verified 10/20/20 13:05 hydrocodone [From Lortab] Allergy Mild itching Verified 10/20/20 13:05 pregabalin [From Lyrica] Allergy Mild itching Verified 10/20/20 13:05 Home Meds Home Medications Medication Instructions Recorded Confirmed hydrochlorothiazide 25 mg tablet 25 mg PO DAILY 05/27/19 10/01/22 insulin glargine 100 unit/mL 20 units subcut DAILY 05/27/19 10/01/22 subcutaneous solution (Lantus U-100 Insulin) levothyroxine 75 mcg tablet 75 mcg PO DAILY 05/27/19 10/01/22 (Synthroid) metoprolol succinate 100 mg 100 mg PO DAILY 05/27/19 10/03/22 capsule sprinkle, ext. release 24 hr amlodipine 10 mg tablet 10 mg PO DAILY 10/01/22 10/01/22 brimonidine 0.2 %-timolol 0.5 % 1 drp OPL BID 10/01/22 10/01/22 eye drops ibuprofen 800 mg tablet 800 mg PO TID PRN as directed 10/01/22 10/01/22 insulin aspart U-100 100 unit/mL 5 unit subcut UD 10/01/22 10/01/22 (3 mL) subcutaneous pen (Novolog FlexPen U-100 Insulin aspart) metformin 500 mg tablet 500 mg PO BIDM 10/01/22 10/01/22 tramadol 50 mg tablet 50 mg PO Q8 PRN Pain 10/01/22 10/01/22 Previous Rx's Medication Instructions Recorded aspirin 81 mg capsule 81 mg PO DAILY #30 caps 10/05/22 Results & Data (ED) Vital Signs Vital Signs - 24 hr 02/21/23 11:18 02/21/23 11:23 02/21/23 12:28 Temperature 36.5 C Temperature Source Temporal Artery Scan Pulse Rate 60 69 Pulse Rate from SpO2 Sensor Respiratory Rate 22 Blood Pressure 133/62 Blood Pressure Mean 85 Pulse Oximetry 84 L Oxygen Delivery Method Room Air Room Air Oxygen Flow Rate 94 Sepsis Recent Fever Within 48 Hours No Sepsis New/Unexplained Change in Mental Status No Sepsis Action Taken by Nursing No Action Required Oxygen Flow Rate - Titration 4 Pulse Oximetry Post Tiitration 94 02/21/23 13:00 02/21/23 13:30 02/21/23 14:41 Temperature Temperature Source Pulse Rate 73 63 Pulse Rate from SpO2 Sensor 62 Respiratory Rate 22 26 H Blood Pressure 115/68 148/79 H Blood Pressure Mean 83 102 Pulse Oximetry 92 92 84 L Oxygen Delivery Method Nasal Cannula Oxygen Flow Rate 4 4 4 Sepsis Recent Fever Within 48 Hours Sepsis New/Unexplained Change in Mental Status Sepsis Action Taken by Nursing Oxygen Flow Rate - Titration 6 Pulse Oximetry Post Tiitration 92 02/21/23 14:30 Temperature Temperature Source Pulse Rate 75 Pulse Rate from SpO2 Sensor 75 Respiratory Rate 23 Blood Pressure 152/73 H Blood Pressure Mean 99 Pulse Oximetry 90 Oxygen Delivery Method Oxygen Flow Rate 4 Sepsis Recent Fever Within 48 Hours Sepsis New/Unexplained Change in Mental Status Sepsis Action Taken by Nursing Oxygen Flow Rate - Titration Pulse Oximetry Post Tiitration Laboratory Data 02/21/23 11:59 02/21/23 11:59 Lab Results 02/21/23 02/21/23 02/21/23 Range/Units 11:59 11:59 11:59 WBC 13.34 H (4.8-10.8) K/ul RBC 3.34 L (4.20-5.40) M/uL Hgb 9.9 L (12.0-16.0) g/dl Hct 28.1 L (37.0-47.0) % MCV 84.1 (80.0-100.0) fL MCH 29.6 (25.0-34.0) pg MCHC 35.2 (32.0-36.0) g/dL RDW Std Deviation 38.0 (36.4-46.3) fL RDW Coeff of Bert 12.6 (11.5-14.5) % Plt Count 311 (130-400) K/uL MPV 10.3 (9.4-12.4) fL Immature Gran % (Auto) 0.4 % Neut % (Auto) 81.2 % Lymph % (Auto) 9.8 % Angelina % (Auto) 7.9 % Eos % (Auto) 0.4 % Baso % (Auto) 0.3 % Neut # (Auto) 10.81 H (1.40-6.50) K/uL Lymph # (Auto) 1.31 (1.20-3.40) K/uL Angelina # (Auto) 1.06 H (0.11-0.59) K/uL Eos # (Auto) 0.06 (0.00-0.50) K/uL Baso # (Auto) 0.04 (0.00-0.20) K/uL Immature Gran # (Auto) 0.06 (0.01-0.20) K/uL PT 12.1 H (9.0-12.0) Seconds INR 1.1 (0.9-1.1) APTT 26.9 (21.0-31.0) Seconds PTT Ratio 1.0 Sodium 126 L (136-145) mmol/L Potassium 3.6 (3.5-5.1) mmol/L Chloride 86 L (98-107) mmol/L Carbon Dioxide 29 (21-32) mmol/L Anion Gap 11 (3-11) BUN 53 H (6-23) mg/dl Creatinine 1.69 H (0.6-1.2) mg/dl Est Cr Clr Drug Dosing Not Reportable Est GFR ( Amer) 31.5 ml/min Est GFR (Non-Af Amer) 27.2 ml/min BUN/Creatinine Ratio 31.4 H (10-20) Glucose 141 H (70-99(Fasting)) mg/dl Calcium 8.7 (8.6-10.3) mg/dl Total Bilirubin 0.4 (0.2-1.0) mg/dl AST 25 (13-39) U/L ALT 16 (7-52) U/L Alkaline Phosphatase 81 (34-104) U/L Troponin I High Sens 762.3 H* (0-14) pg/ml B-Natriuretic Peptide (0-100) pg/ml Total Protein 7.5 (6.0-8.3) gm/dl Albumin 3.9 (3.4-5.0) gm/dl Globulin 3.6 (2.5-4.0) gm/dl Albumin/Globulin Ratio 1.1 (0.9-2) SARS-CoV-2 (PCR) (Negative) Influenza Type A (PCR) (Neg) Influenza Type B (PCR) (Neg) RSV (RT-PCR) (Neg) 02/21/23 02/21/23 Range/Units 11:59 12:00 WBC (4.8-10.8) K/ul RBC (4.20-5.40) M/uL Hgb (12.0-16.0) g/dl Hct (37.0-47.0) % MCV (80.0-100.0) fL MCH (25.0-34.0) pg MCHC (32.0-36.0) g/dL RDW Std Deviation (36.4-46.3) fL RDW Coeff of Bert (11.5-14.5) % Plt Count (130-400) K/uL MPV (9.4-12.4) fL Immature Gran % (Auto) % Neut % (Auto) % Lymph % (Auto) % Angelina % (Auto) % Eos % (Auto) % Baso % (Auto) % Neut # (Auto) (1.40-6.50) K/uL Lymph # (Auto) (1.20-3.40) K/uL Angelina # (Auto) (0.11-0.59) K/uL Eos # (Auto) (0.00-0.50) K/uL Baso # (Auto) (0.00-0.20) K/uL Immature Gran # (Auto) (0.01-0.20) K/uL PT (9.0-12.0) Seconds INR (0.9-1.1) APTT (21.0-31.0) Seconds PTT Ratio Sodium (136-145) mmol/L Potassium (3.5-5.1) mmol/L Chloride (98-107) mmol/L Carbon Dioxide (21-32) mmol/L Anion Gap (3-11) BUN (6-23) mg/dl Creatinine (0.6-1.2) mg/dl Est Cr Clr Drug Dosing Est GFR ( Amer) ml/min Est GFR (Non-Af Amer) ml/min BUN/Creatinine Ratio (10-20) Glucose (70-99(Fasting)) mg/dl Calcium (8.6-10.3) mg/dl Total Bilirubin (0.2-1.0) mg/dl AST (13-39) U/L ALT (7-52) U/L Alkaline Phosphatase (34-104) U/L Troponin I High Sens (0-14) pg/ml B-Natriuretic Peptide 3539 H (0-100) pg/ml Total Protein (6.0-8.3) gm/dl Albumin (3.4-5.0) gm/dl Globulin (2.5-4.0) gm/dl Albumin/Globulin Ratio (0.9-2) SARS-CoV-2 (PCR) NEGATIVE (Negative) Influenza Type A (PCR) Negative (Neg) Influenza Type B (PCR) Negative (Neg) RSV (RT-PCR) Negative (Neg) Administered Medications Discontinued Medications Aspirin (Aspirin Chew 324 Mg) 243 mg PO NOW STA Stop: 02/21/23 14:30 Last Admin: 02/21/23 14:42 Dose: 243 mg Documented By: MT Furosemide (Furosemide 40 Mg/4 Ml Vial) 80 mg IV ONE ONE Stop: 02/21/23 13:36 Last Admin: 02/21/23 14:43 Dose: 80 mg Documented By: HOWARD Ioversol (Optiray 320 500ml) 82 ml IV ONCE ONE Stop: 02/21/23 14:05 Last Admin: 02/21/23 14:05 Dose: 82 ml Documented By: RATNA Nitroglycerin (Nitroglycerin Sl 0.4 Mg/Tab Tab) 0.4 mg SL NOW STA Stop: 02/21/23 14:51 Last Admin: 02/21/23 15:04 Dose: 0.4 mg Documented By: HOWARD Imaging Data Radiologist's Impression: Chest X-Ray 02/21/23 11:25 XR chest 1V not portable HISTORY: 87 years-old Female Chest pain, nonspecific COMPARISON: 10/02/2022 TECHNIQUE: AP view of the chest FINDINGS: Cardiomegaly with pulmonary vascular congestion and persistent interstitial co arsening. Small pleural effusions. No pneumothorax. Degenerative changes of the shoulders and spine. IMPRESSION: Cardiomegaly with pulmonary edema and small pleural effusions. ACT 112: Negative or not required by law. The above report was generated using voice recognition software. It may contain grammatical, syntax or spelling errors. Electronically signed by: Clive Peña M.D. 02/21/2023 1:30 PM Chest CTA 02/21/23 12:46 CHEST CTA for PULMONARY ARTERIES CT DOSE: 848.35 mGy.cm HISTORY: Shortness of breath. Cough. Chest pain. TECHNIQUE: Multiaxial CT images of the chest were performed following the intravenous administration of contrast to evaluate the pulmonary arteries. 3D/Maximal intensity projection images were also obtained. Sagittal and coronal reformations were also reviewed. A dose lowering technique was utilized adhering to the principles of ALARA. COMPARISON STUDY: None. FINDINGS: No acute fractures identified. The visualized liver is unremarkable. There are calcified granulomas within the spleen. The heart is mildly enlarged. No pericardial effusion. Normal esophagus. Bilateral thyroid nodules are noted. Mild mediastinal and bilateral hilar lymphadenopathy. A dominant partially calcified subcarinal lymph node measures 18 mm in short axis diameter. There are small bilateral pleural effusions. Coronary artery calcifications are noted. Calcific plaque within the normal caliber thoracic aorta. No evidence for a dissection. No filling defects within the pulmonary arteries to suggest a pulmonary embolus. There are calcified right hilar lymph nodes also noted. No pneumothorax. Partial opacification of the right lower lobe bronchi. There is diffuse bronchial wall thickening. There is diffuse interlobular septal thicken ing with scattered patchy groundglass airspace opacities within the lungs. This most likely represents pulmonary edema. A superimposed pneumonia would be difficult to exclude. Patchy densities within the lower lobes posteriorly favor atelectasis from the pleural effusions. A pneumonitis could also have a similar appearance. IMPRESSION: 1. No evidence for a pulmonary embolus. 2. Mild cardiomegaly, small bilateral pleural effusions, interlobular septal thickening, and scattered patchy groundglass airspace opacities. This most likel y represents moderate pulmonary edema. A superimposed pneumonia could also account for the patchy bilateral airspace opacities. 3. Mild mediastinal and hilar lymphadenopathy. This could be reactive. 4. Patchy densities within the lung bases favor compressive atelectasis from the pleural effusions. A pneumonitis would be difficult to exclude. 5. Follow-up chest CT in 3 months is recommended to ensure resolution of the lymphadenopathy and patchy groundglass airspace opacities. ACT 112: Negative or not required by law. Electronically signed by: Kashif Gonzalez M.D. 02/21/2023 2:31 PM Discharge Plan Visit Data Chief Complaint: Shortness of Breath/Dyspnea Stated Complaint: FLUID IN LUNGS,SOB,DOC REF ED Provider: Malgorzata Botello ED Midlevel Provider: Richie Gifford Discharge Problem: Heart failure, Non-ST elevation [place] (NSTEMI), Shortness of breath, Leukocytosis, Acute hypoxic respiratory failure, Pulmonary edema Forms Stand Alone Forms: [facility] Prescriptions Prescriptions: No Action metoprolol succinate 100 mg capsule,sprinkle,ER 24hr 100 mg PO DAILY levothyroxine [Synthroid] 75 mcg tablet 75 mcg PO DAILY hydrochlorothiazide 25 mg tablet 25 mg PO DAILY Hold Instructions: Resume on 10/12/22. Hold until MARISA fully resolved Lantus U-100 Insulin 100 unit/mL solution 20 units SQ DAILY metformin 500 mg tablet 500 mg PO BIDM ibuprofen 800 mg tablet 800 mg PO TID PRN (Reason: as directed) Hold Instructions: Resume on 10/12/22. Hold until MARISA fully resolved brimonidine-timolol 0.2-0.5 % drops 1 drp OPL BID tramadol 50 mg tablet 50 mg PO Q8 MDD 3 per 24 hours PRN (Reason: Pain) insulin aspart U-100 [Novolog FlexPen U-100 Insulin] 100 unit/mL (3 mL) insulin pen 5 unit SUBCUT UD Rx Instructions: inject twice a day before lunch and supper amlodipine 10 mg tablet 10 mg PO DAILY aspirin 81 mg capsule 81 mg PO DAILY Qty: 30 0RF Referrals Referrals: Safia Shukla MD [Primary Care Provider] -
[2023-02-21 12:59] LABS: Alanine Aminotransferase 16 U/L (7-52); Albumin Globulin Ratio 1.1 (0.9-2); Albumin Level 3.9 gm/dl (3.4-5.0); Alkaline Phosphatase 81 U/L (34-104); Anion Gap 11 (3-11); Aspartate Aminotransferase 25 U/L (13-39); BUN Creatinine Ratio 31.4 (10-20); Bilirubin,Total 0.4 mg/dl (0.2-1.0); Blood Urea Nitrogen 53 mg/dl (6-23); Calcium 8.7 mg/dl (8.6-10.3); Carbon Dioxide 29 mmol/L (21-32); Chloride 86 mmol/L (98-107); Est GFR (African American) 31.5 ml/min; Est GFR (Non-African American) 27.2 ml/min; Globulin 3.6 gm/dl (2.5-4.0); Glucose 141 mg/dl (70-99(Fasting)); Potassium 3.6 mmol/L (3.5-5.1); Sodium 126 mmol/L (136-145); Total Protein 7.5 gm/dl (6.0-8.3)
[2023-02-21 13:03] LABS: INR 1.1 (0.9-1.1); Partial Thromboplastin Time 26.9 Seconds (21.0-31.0); Prothrombin Time 12.1 Seconds (9.0-12.0)
[2023-02-21 13:17] LABS: Influenza A virus by PCR Negative (Neg); Influenza B virus by PCR Negative (Neg); RSV by PCR Negative (Neg); SARS CoV2 RNA(COVID-19) Ceph NEGATIVE (Negative)
[2023-02-21 13:18] LABS: Troponin I High Sensitivity 762.3 pg/ml (0-14)
--- NOTE | 2023-02-21 13:31 | XRay Report ---
XR chest 1V not portable HISTORY: 87 years-old Female Chest pain, nonspecific COMPARISON: 10/02/2022 TECHNIQUE: AP view of the chest FINDINGS: Cardiomegaly with pulmonary vascular congestion and persistent interstitial coarsening. Small pleural effusions. No pneumothorax. Degenerative changes of the shoulders and spine. IMPRESSION: Cardiomegaly with pulmonary edema and small pleural effusions. ACT 112: Negative or not required by law. The above report was generated using voice recognition software. It may contain grammatical, syntax o r spelling errors. Electronically signed by: Clive Peña M.D. 02/21/2023 1:30 PM
[2023-02-21] MEDS ORDERED: FUROSEMIDE 40 MG/4 ML VIAL IV ONE (13:35)
--- NOTE | 2023-02-21 13:55 | Electrocardiogram Report ---
Test Reason : Blood Pressure : / mmHG Vent. Rate : 063 BPM Atrial Rate : 063 BPM P-R Int : 184 ms QRS Dur : 096 ms QT Int : 466 ms P-R-T Axes : 056 049 050 degrees QTc Int : 476 ms Normal sinus rhythm Poor R wave progression, consider anterior TX vs. lead placement vs. LVH Nonspecific ST and T wave abnormality Abnormal ECG When compared with ECG of 01-OCT-2022 22:43, ST now depressed in Lateral leads T wave inversion now evident in Anterior leads Confirmed by Miky Ly ([id number]) on 02/21/2023 1:55:18 PM Referred By: Safia Shukla Confirmed By:Miky Ly
[2023-02-21] MEDS ORDERED: OPTIRAY 320 500ml IV ONE (14:04)
[2023-02-21] MEDS ORDERED: ASPIRIN CHEW 324 MG PO STA (14:29)
--- NOTE | 2023-02-21 14:33 | CT Scan Report ---
CHEST CTA for PULMONARY ARTERIES CT DOSE: 848.35 mGy.cm HISTORY: Shortness of breath. Cough. Chest pain. TECHNIQUE: Multiaxial CT images of the chest were performed following the intravenous administration of contrast to evaluate the pulmonary arteries. 3D/Maximal intensity projection images were also obta ined. Sagittal and coronal reformations were also reviewed. A dose lowering technique was utilized a dhering to the principles of ALARA. COMPARISON STUDY: None. FINDINGS: No acute fractures identified. The visualized liver is unremarkable. There are calcified gr anulomas within the spleen. The heart is mildly enlarged. No pericardial effusion. Normal esophagus. Bilateral thyroid nodules are noted. Mild mediastinal and bilateral hilar lymphadenopathy. A dominant partially calcified subcarinal lymph node measures 18 mm in short axis diameter. There are small meme ateral pleural effusions. Coronary artery calcifications are noted. Calcific plaque within the normal caliber thoracic aorta. No evidence for a dissection. No filling defects within the pulmonary arteri es to suggest a pulmonary embolus. There are calcified right hilar lymph nodes also noted. No pneumot horax. Partial opacification of the right lower lobe bronchi. There is diffuse bronchial wall thicken ing. There is diffuse interlobular septal thickening with scattered patchy groundglass airspace opaci ties within the lungs. This most likely represents pulmonary edema. A superimposed pneumonia would be difficult to exclude. Patchy densities within the lower lobes posteriorly favor atelectasis from the pleural effusions. A pneumonitis could also have a similar appearance. IMPRESSION: 1. No evidence for a pulmonary embolus. 2. Mild cardiomegaly, small bilateral pleural effusions, interlobular septal thickening, and scattere d patchy groundglass airspace opacities. This most likely represents moderate pulmonary edema. A supe rimposed pneumonia could also account for the patchy bilateral airspace opacities. 3. Mild mediastinal and hilar lymphadenopathy. This could be reactive. 4. Patchy densities within the lung bases favor compressive atelectasis from the pleural effusions. A pneumonitis would be difficult to exclude. 5. Follow-up chest CT in 3 months is recommended to ensure resolution of the lymphadenopathy and patc hy groundglass airspace opacities. ACT 112: Negative or not required by law. Electronically signed by: Kashif Gonzalez M.D. 02/21/2023 2:31 PM
[2023-02-21] MEDS ORDERED: NITROGLYCERIN SL 0.4 MG/TAB TAB SL STA (14:50)
--- NOTE | 2023-02-21 16:27 | History & Physical Report ---
Date of Service February 21, 2023 Assessment & Plan (1) Heart failure: Plan: Acute hypoxic respiratory failure, suspect new CHF with unknown EF No chest pain at any point Initial troponin 762, uptrending at 824. Patient seen for sepsis in September with demand ischemia, echo at that time was with EF 50-55% CTAchest: No evidence of PE. Small bilateral pleural effusions, scattered groundglass opacities suspicious for pulmonary edema but from which superimposed pneumonia is not excluded. Mediastinal and hilar lymphadenopathy suspected reactive. Patchy basilar densities. BNP significantly elevated at 3539 EKG: Sinus, ST depression in V4, anterior T wave inversions. No ST elevations Admitting weight 91.9 kg, last hospital baseline 79-83 kg. Patient does endorse that she likes to salt her food, and eat some crackers/Snyders pretzels although this is normal for her and she has had no dietary change. Has had at least 20 pounds of weight gain over the preceding few weeks and progressive orthopnea Patient significantly improved on BiPAP and following Lasix/nitro Consistent with acute CHF. Limited echo for EF reevaluation pending Received 1 dose of Lasix 80 mg with brisk diuresis. Home dose of 20 mg p.o. We will continue Lasix 40 mg IV BID17. Strict ins and outs. Discussed with cardiology due to significant interval change and elevated troponin. Some EKG changes, but low suspicion for ACS and patient clinically without chest pain. Would not recommend heparinization or other aggressive measures at this time. Follow clinically for chest pain and trend troponin, this is likely to go up significantly with demand as with her sepsis in September she peaked at 2513. If chest pain develops or concern for worsening arises can repeat EKG. Otherwise davidae at this time and will be seen for consultation tomorrow morning Type II DM Continue glargine 20 units daily, sliding scale short acting based on basal requirements Goal BSG [id number] Hypertension Continue home meds Hypothyroidism Continue Synthroid PCU HH/DM2 diet CODE STATUS: DNR/DNI (2) Non-ST elevation DC (NSTEMI): (3) Acute hypoxic respiratory failure: (4) Hypothyroidism: (5) Diabetes: (6) Diabetic peripheral neuropathy associated with type 2 diabetes mellitus: History of Present Illness Primary Care Provider: Safia Shukla MD Normal is an 87-year-old female with a history of hypothyroidism, hypertension, DM 2 and no prior history of CHF who presents with acute hypoxic respiratory failure and shortness of breath and who was found to have pulmonary edema, volume overload, and a new oxygen requirement while under ER evaluation Worsening shortness of breath since last Wedsnea (9 days ago) +leg swelling +orthopnea. Normally slept in a recliner because it was more comfortable, but last 2 weeks cannot lay flat due to shortnes sof breath No chest pain at any point No lightheadedness/dizziness. Endorses some lightheadedness int he past due to sinuses which resolves with alkaselzer Does like snyders pretzels. Does not eat deli meat, sometimes has some soups, canned. Does not make her own soups. Does drink a lto of gatorade. No dietary changes in the last few weeks, all similar to her normal diet. BSG been up last few days in 150s. 235 last night, first time it was over 200 No fevers, chills, sweats. No dysuria. No polyuria No abdominal pain Medical History: Reviewed Medications: Reviewed Surgical History: Reviewed Family history: Reviewed Allergies: Reviewed Social History: Reviewed Code Status: DNR/DNI Allergies Allergy/AdvReac Type Severity Reaction Status Date / Time simvastatin Allergy Intermediate Nausea Verified 10/20/20 13:05 acetaminophen [From Lortab] Allergy Mild itching Verified 10/20/20 13:05 duloxetine [From Cymbalta] Allergy Mild itching Verified 10/20/20 13:05 hydrocodone [From Lortab] Allergy Mild itching Verified 10/20/20 13:05 pregabalin [From Lyrica] Allergy Mild itching Verified 10/20/20 13:05 Home Medications Medication Instructions Recorded Confirmed Type hydrochlorothiazide 25 mg tablet 25 mg PO DAILY 05/27/19 02/21/23 History insulin glargine 100 unit/mL 20 units subcut DAILY 05/27/19 02/21/23 History subcutaneous solution (Lantus U-100 Insulin) levothyroxine 75 mcg tablet 75 mcg PO DAILY 05/27/19 02/21/23 History (Synthroid) amlodipine 10 mg tablet 10 mg PO DAILY 10/01/22 02/21/23 History brimonidine 0.2 %-timolol 0.5 % 1 drp OPL BID 05/22/23 10/12/23 History eye drops ibuprofen 800 mg tablet 800 mg PO TID PRN as directed 10/01/22 02/21/23 History insulin aspart U-100 100 unit/mL See Rx Instructions .Route .COMPLEX 10/01/22 02/21/23 History (3 mL) subcutaneous pen (Novolog FlexPen U-100 Insulin aspart) metformin 500 mg tablet 500 mg PO BIDM 10/01/22 02/21/23 History aspirin 81 mg capsule 81 mg PO DAILY #30 caps 10/05/22 02/21/23 Rx azithromycin 250 mg tablet See Rx Instructions .Route .COMPLEX 02/21/23 02/21/23 History furosemide 20 mg tablet 20 mg PO DAILY 02/21/23 02/21/23 History latanoprost 0.005 % eye drops 1 drp OPL HS 02/21/23 02/21/23 History metoprolol tartrate 100 mg tablet 150 mg PO DAILY 02/21/23 02/21/23 History Past Med/Surg History Medical History Acquired claw toe of left foot Acquired deformity of left foot Acquired deformity of right foot Acquired hallux valgus of right foot Acquired hammer toe of right foot Acute kidney injury Acute UTI (urinary tract infection) MARISA (acute kidney injury) Amputation of left great toe Callus Chronic renal insufficiency, stage III (moderate) Diabetes type 2, uncontrolled Diabetic foot ulcer associated with type 2 diabetes mellitus Diabetic foot ulcer associated with type 2 diabetes mellitus, with fat layer exposed Elevated troponin Elevated troponin Foot deformity Herpes zoster HTN (hypertension) Hyperlipidemia LDL goal <100 Hypomagnesemia Hypomagnesemia Hypothyroidism Leukocytosis Loss of protective sensation of skin of foot Osteoporosis Peripheral arterial disease PHN (postherpetic neuralgia) Pneumonia Pressure ulcer of left leg, stage 3 Sepsis Sinusitis Status post partial amputation of foot Syncope Transaminitis Surgical History History of tonsillectomy and adenoidectomy Social History Smoking Status: Never smoker Do You Dip or Chew Tobacco: No; Hx Alcohol Use: No Hx Substance Use: No Communication Ability: Effective Communication Tools: Letter Board, Picture Board, Facial Expression and Writing Tablet Visual Impairment: No Limitations Hearing Ability: Normal Active Directory Architect Required: No Beliefs That Will Affect Care: None marital status: / Current Living Situation: Family Current Living Situation Comment: lives with daughter and son in law current occupational status: 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 NAD. Cooperative. HEENT: Atraumatic, normocephalic. Pulm: Diminished, bibasilar crackles/Rales are present. Symmetrical chest rise. No increased work of breathing. On BiPAP, but appears comfortable at time of assessment Cardiac: RRR, -mrg. Radial pulses intact and symmetrical. Abdominal: Nontender, nondistended, soft. BS present. Extremities: 2+ pitting edema in lower extremities bilaterally Results & Data Results & Data Vital Signs (Past 12 Hours) Vital Signs Temp Pulse Pulse Resp BP BP Pulse Ox 02/21/23 15:38 67 20 138/89 94 02/21/23 15:38 94 02/21/23 15:10 69 22 94 02/21/23 14:30 75 23 152/73 H 90 02/21/23 14:41 84 L 02/21/23 13:30 63 26 H 148/79 H 92 02/21/23 13:00 73 22 115/68 92 02/21/23 12:28 69 02/21/23 11:23 02/21/23 11:18 36.5 C 60 22 133/62 84 L O2 Del Method O2 Flow Rate FiO2 02/21/23 15:38 BiPAP 02/21/23 15:38 BiPAP 02/21/23 15:10 30 02/21/23 14:30 4 02/21/23 14:41 Nasal Cannula 4 02/21/23 13:30 4 02/21/23 13:00 4 02/21/23 12:28 02/21/23 11:23 Room Air 94 02/21/23 11:18 Room Air PG Care Time/CCT Total # of Minutes Spent Total Time Spent with Patient: Total time spent is greater than 50% in coordination of care (as documented) at patient's floor/unit and/or counseling patient: Coding Level of Care Code 28721 INT INP/OBS CARE 3/75MIN Diagnoses Heart failure I50.9 Non-ST elevation DC (NSTEMI) I21.4 Acute hypoxic respiratory failure J96.01 Hypothyroidism E03.9 Diabetes E11.9 Diabetic peripheral neuropathy associated with type 2 diabetes mellitus E11.42
[2023-02-21] MEDS ORDERED: CARBOHYDRATES FOR HYPOGLYCEMIA PO PRN (16:52)
[2023-02-21] MEDS ORDERED: GLUCOSE 10 TAB/TUBE PO PRN (16:52)
[2023-02-21] MEDS ORDERED: GLUCOSE 40% GEL 15 GM TUBE PO PRN (16:52)
[2023-02-21] MEDS ORDERED: GLUCAGON FOR INJ 1 MG VIAL SQ PRN (16:52)
[2023-02-21] MEDS ORDERED: DEXTROSE 50% 50 ML SYRINGE IV PRN (16:52)
[2023-02-21] MEDS: ACETAMINOPHEN 325 MG TAB PO PRN (20:20)
[2023-02-21] MEDS: INSULIN ASPART PER UNIT CHARGE SC SCH (21:41)
[2023-02-22] MEDS ORDERED: ACETAMINOPHEN 325 MG TAB PO PRN (06:28)
--- NOTE | 2023-02-22 08:15 | Hospitalist Progress Note ---
Date of Service February 22, 2023 Assessment & Plan (1) Heart failure: Plan: Acute hypoxic respiratory failure, suspect new acute systolic heart failure confirmed by echocardiogramEF 40% akinesis of mid distal anterior wall No chest pain at any point CTAchest: No evidence of PE. Small bilateral pleural effusions, scattered groundglass opacities suspicious for pulmonary edema but from which superimposed pneumonia is not excluded. Mediastinal and hilar lymphadenopathy suspected reactive. Patchy basilar densities. Patient opting delayed based medical therapy over restratification after speaking with cardiology Discontinue amlodipine and institute metoprolol continue diuretic therapy look for renal function to get use of XAVIER ARB or Entresto. Consider SGLT2 inhibitor if renal function is not worse Persistent elevation of troponin since last admission however not felt to be acute coronary syndrome at this time Admitting weight 91.9 kg, last hospital baseline 79-83 kg. significantly improved on BiPAP and following Lasix/nitro Consistent with acute CHF. Received 1 dose of Lasix 80 mg continue Lasix 40 mg IV BID (2) Non-ST elevation [place] (NSTEMI): Plan: Initial troponin elevation with peak neuro thousand - Patient seen for sepsis in September with demand ischemia, echo shows depressed ejection fraction patient opts for medical management at this time (3) Acute hypoxic respiratory failure: Plan: Certainly component of systolic heart failure (4) Hypothyroidism: Plan: Hypothyroidism Continue Synthroid (5) Diabetes: Plan: Type II DM Continue glargine 20 units daily, sliding scale short acting based on basal requirements Goal BSG [id number] -peripheral neuropathy Plan CODE STATUS: DNR/DNI Admission and Anticipated Discharge Date Admission Date: February 21, 2023 Subjective Patient feels no additional chest discomfort and overall feels improved. She has a mild elevation of her troponin markers and cardiology consultation to discuss with her about restratification versus medical management. She opted medical management at this time Physical Exam Physical Exam: Card exam is distant regular lungs are decreased at the bases but no rales she however still is on a significant amount of oxygen Results & Data Results & Data Vital Signs (Past 12 Hours) Vital Signs Pulse Pulse Resp BP BP Pulse Ox O2 Del Method 02/22/23 07:39 68 02/22/23 04:30 78 26 H 139/64 93 Nasal Cannula 02/22/23 04:00 136/59 L 96 Nasal Cannula 02/22/23 03:30 76 24 144/68 H 87 L Room Air 02/22/23 02:00 54 L 20 146/66 H 94 02/22/23 01:30 57 L 22 141/62 H 94 02/22/23 01:00 58 L 26 H 139/62 96 02/22/23 00:30 56 L 22 149/62 H 94 02/22/23 00:00 57 L 22 139/61 94 02/21/23 23:30 55 L 22 130/58 L 96 02/21/23 23:00 57 L 24 136/57 L 94 02/21/23 23:09 56 L 02/21/23 22:23 56 L 20 149/81 H 95 Nasal Cannula O2 Flow Rate 02/22/23 07:39 02/22/23 04:30 5 02/22/23 04:00 5 02/22/23 03:30 02/22/23 02:00 02/22/23 01:30 02/22/23 01:00 02/22/23 00:30 02/22/23 00:00 02/21/23 23:30 02/21/23 23:00 02/21/23 23:09 02/21/23 22:23 5 Laboratory Results Reviewed CBC reviewed chemistry discussed case with cardiology PG Care Time/CCT Total # of Minutes Spent Total Time Spent with Patient: Total time spent is greater than 50% in coordination of care (as documented) at patient's floor/unit and/or counseling patient: Coding Level of Care Code 92292 SUB INP/OBS CARE 3/50MIN Diagnoses Heart failure I50.9 Non-ST elevation [place] (NSTEMI) I21.4 Acute hypoxic respiratory failure J96.01 Hypothyroidism E03.9 Diabetes E11.9
[2023-02-22] MEDS: LATANOPROST 0.005% OP SOLN 2.5 ML BTL OPL SCH ×2 (08:38→22:07)
[2023-02-22] MEDS: LEVOTHYROXINE SODIUM 75 MCG TABLET PO SCH (08:38)
[2023-02-22] MEDS: ASPIRIN 81 MG ECTAB PO SCH (08:39)
[2023-02-22] MEDS: ENOXAPARIN INJ 30 MG/0.3 ML SYR SQ SCH (08:39)
[2023-02-22] MEDS: BRIMONIDINE TARTRATE 0.2% 5ML OPL SCH ×2 (08:39→22:08)
[2023-02-22] MEDS: TIMOLOL MALEATE 0.5% OP SOLN 5 ML BTL OPL SCH ×2 (08:40→22:08)
[2023-02-22] MEDS ORDERED: FUROSEMIDE 40 MG/4 ML VIAL IV SCH (09:00)
[2023-02-22] MEDS ORDERED: METOPROLOL TARTRATE 50 MG TAB PO SCH (09:00)
[2023-02-22] MEDS ORDERED: amLODIPine BESYLATE 5 MG TAB PO SCH (09:00)
[2023-02-22] MEDS ORDERED: hydroCHLOROthiazide 25 MG TAB PO SCH (09:00)
--- NOTE | 2023-02-22 10:03 | XCELERA ---
[id number]
[2023-02-22] MEDS: LANTUS PER UNIT CHARGE SQ SCH (10:48)
[2023-02-22] MEDS: INSULIN ASPART PER UNIT CHARGE SC SCH ×4 (10:48→21:32)
--- NOTE | 2023-02-22 11:55 | Cardiology Consultation ---
Date of Consultation February 22, 2023 Assessment & Plan (1) Acute systolic CHF (congestive heart failure): -she is improving with intravenous diuretics -would discontinue her amlodipine. -would eventually change metoprolol tartrate to metoprolol succinate. -renal function may limit use of ACEI/ARB, Entresto, and an SGLT2 inhibitor. -will enroll in CHF clinic. (2) CAD (coronary artery disease): -new anteroapical wall motion abnormality on current echocardiogram. -discussed cardiac catheterization, however, she refuses. -will treat medically. (3) Ischemic cardiomyopathy: -mild left ventricular dysfunction with ejection fraction 40%. -new anteroapical wall motion abnormality. -medical management as described. (4) HTN (hypertension): -adequate control on current regimen. History of Present Illness Attending Physician: John Savage MD History of Present Illness Mrs. Gould is an 87-year-old female admitted yesterday in acute CHF. This consultation was ordered to assist in her cardiac management. The patient was in her usual state of health until approximately 1-2 weeks prior to presentation. She began to note progressive exertional dyspnea, orthopnea, and lower extremity edema. At no time did she experience chest discomfort. When she presented to the emergency room, she was found to be in acute heart failure with hypoxia requiring a CPAP mask. She was given intravenous diuretics and fortunately, improved rapidly. The patient did have an echocardiogram performed back in September which noted normal left ventricular systolic function without wall motion abnormalities. Unfortunately, echocardiogram performed this morning notes mild left ventricular dysfunction with ejection fraction 40% and an anteroapical wall motion abnormality. Currently, patient is resting comfortably in bed without complaints. Past medical and surgical history 1. Hypertension 2. Peripheral vascular disease 3. Diabetes mellitus 4. Diabetic neuropathy 5. Chronic renal failure 6. Hypothyroidism 7. Osteoporosis 8. Right foot partial amputation 9. Tonsillectomy Social history , lives with her daughter and son-in-law No tobacco alcohol Family history Noncontributory Review of systems A 10 review systems was undertaken and negative except that described above Allergies Allergy/AdvReac Type Severity Reaction Status Date / Time simvastatin Allergy Intermediate Nausea Verified 10/20/20 13:05 acetaminophen [From Lortab] Allergy Mild itching Verified 10/20/20 13:05 duloxetine [From Cymbalta] Allergy Mild itching Verified 10/20/20 13:05 hydrocodone [From Lortab] Allergy Mild itching Verified 10/20/20 13:05 pregabalin [From Lyrica] Allergy Mild itching Verified 10/20/20 13:05 Home Medications Medication Instructions Recorded Confirmed Type hydrochlorothiazide 25 mg tablet 25 mg PO DAILY 05/27/19 02/21/23 History insulin glargine 100 unit/mL 20 units subcut DAILY 05/27/19 02/21/23 History subcutaneous solution (Lantus U-100 Insulin) levothyroxine 75 mcg tablet 75 mcg PO DAILY 05/27/19 02/21/23 History (Synthroid) amlodipine 10 mg tablet 10 mg PO DAILY 10/01/22 02/21/23 History brimonidine 0.2 %-timolol 0.5 % 1 drp OPL BID 10/01/22 02/21/23 History eye drops ibuprofen 800 mg tablet 800 mg PO TID PRN as directed 10/01/22 02/21/23 History insulin aspart U-100 100 unit/mL See Rx Instructions .Route .COMPLEX 10/01/22 02/21/23 History (3 mL) subcutaneous pen (Novolog FlexPen U-100 Insulin aspart) metformin 500 mg tablet 500 mg PO BIDM 10/01/22 02/21/23 History aspirin 81 mg capsule 81 mg PO DAILY #30 caps 10/05/22 02/21/23 Rx azithromycin 250 mg tablet See Rx Instructions .Route .COMPLEX 02/21/23 02/21/23 History furosemide 20 mg tablet 20 mg PO DAILY 02/21/23 02/21/23 History latanoprost 0.005 % eye drops 1 drp OPL HS 02/21/23 02/21/23 History metoprolol tartrate 100 mg tablet 150 mg PO DAILY 02/21/23 02/21/23 History Patient History Medical History (Updated 02/22/23 @ 11:51 by Miky Ly MD) Acquired claw toe of left foot Acquired deformity of left foot Acquired deformity of right foot Acquired hallux valgus of right foot Acquired hammer toe of right foot Acute kidney injury Acute UTI (urinary tract infection) MARISA (acute kidney injury) Amputation of left great toe Callus Chronic renal insufficiency, stage III (moderate) Diabetes type 2, uncontrolled Diabetic foot ulcer associated with type 2 diabetes mellitus Diabetic foot ulcer associated with type 2 diabetes mellitus, with fat layer exposed Elevated troponin Elevated troponin Foot deformity Herpes zoster HTN (hypertension) Hyperlipidemia LDL goal <100 Hypomagnesemia Hypomagnesemia Hypothyroidism Leukocytosis Loss of protective sensation of skin of foot Osteoporosis Peripheral arterial disease PHN (postherpetic neuralgia) Pneumonia Pressure ulcer of left leg, stage 3 Sepsis Sinusitis Status post partial amputation of foot Syncope Transaminitis Surgical History History of tonsillectomy and adenoidectomy Social History Smoking Status: Never smoker Do You Dip or Chew Tobacco: No; Hx Alcohol Use: No Hx Substance Use: No Communication Ability: Effective Communication Tools: Letter Board, Picture Board, Facial Expression and Writing Tablet Visual Impairment: No Limitations Hearing Ability: Normal Logging Shovel Operator Required: No Beliefs That Will Affect Care: None marital status: / Current Living Situation: Family Current Living Situation Comment: lives with daughter and son in law 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 occupational status: 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 HEENT exam is negative. Neck is supple with full carotid upstrokes. No carotid bruits. Jugular is pressure is flat at 90. There is no thyromegaly. Cardiovascular exam reveals a regular rhythm with a 2/6 basal systolic ejection murmur. No S3. Lungs are clear without rales, rhonchi, or wheezes. Abdomen is soft and nontender without bruits. Extremities reveal intact radial artery pu lses bilaterally. Trace pretibial edema is noted. Results & Data Vital Signs (Past 12 Hours) Vital Signs Pulse Pulse Resp BP BP Pulse Ox O2 Del Method 02/22/23 08:33 76 22 139/70 96 Nasal Cannula 02/22/23 07:39 68 02/22/23 04:30 78 26 H 139/64 93 Nasal Cannula 02/22/23 04:00 136/59 L 96 Nasal Cannula 02/22/23 03:30 76 24 144/68 H 87 L Room Air 02/22/23 02:00 54 L 20 146/66 H 94 02/22/23 01:30 57 L 22 141/62 H 94 02/22/23 01:00 58 L 26 H 139/62 96 02/22/23 00:30 56 L 22 149/62 H 94 02/22/23 00:00 57 L 22 139/61 94 O2 Flow Rate 02/22/23 08:33 5 02/22/23 07:39 02/22/23 04:30 5 02/22/23 04:00 5 02/22/23 03:30 02/22/23 02:00 02/22/23 01:30 02/22/23 01:00 02/22/23 00:30 02/22/23 00:00 Laboratory Results CBC notes hemoglobin 9.9, crit 28.1, white count 13.3, and platelet count 057925. Electrolytes note a sodium of 126, potassium 3.6, chloride 86, bicarb 29, BUN 53, creatinine 1.7, glucose of 141. Initial high sensitivity troponin was 762.3 with follow-up values of 824, and 837.7. BNP is elevated 3539. Diagnostic Findings Echocardiogram notes mild left ventricular dysfunction with ejection fraction 40%. There is akinesis of the mid and distal anterior wall and apex. No apical thrombus. Compared with the study performed back in September, left ventricular dysfunction and wall motion abnormality or new. EKG notes sinus rhythm with poor R-wave progression across the anterior precordium and anterior T-wave abnormality. Chest x-ray notes cardiomegaly and interstitial edema. PG Care Time/CCT Total # of Minutes Spent Total Time Spent with Patient: Total time spent is greater than 50% in coordination of care (as documented) at patient's floor/unit and/or counseling patient: Coding Level of Care Code 71450 INT INP/OBS CARE 3/75MIN Diagnoses Acute systolic CHF (congestive heart failure) I50.21 CAD (coronary artery disease) I25.10 Ischemic cardiomyopathy I25.5 HTN (hypertension) I10
[2023-02-22] MEDS: ACETAMINOPHEN 325 MG TAB PO PRN (14:24)
--- NOTE | 2023-02-22 15:42 | Heart Failure Consultation ---
Date of Consultation February 22, 2023 Assessment & Plan (1) Ischemic cardiomyopathy: (2) Acute systolic CHF (congestive heart failure): History of Present Illness Attending Physician: John Savage MD History of Present Illness Meet with patient in their hospital room. We discussed the nature of heart failure and the goals of the heart failure program. Patient is agreeable to ongoing participation and will be formally enrolled in the [facility] heart failure program. Patient advised to weigh themselves daily on their home scale. Notify the office if 2+ lb weight gain overnight or 5+ lb in 1 week. Low sodium diet recommended on discharge. Contact information provided. Patient will have scheduled outpatient follow up within 7 days of discharge - 02/28/23 at 1030am. Please see full cardiology consult for additional recommendations and formal plan of care. Allergies Allergy/AdvReac Type Severity Reaction Status Date / Time simvastatin Allergy Intermediate Nausea Verified 10/20/20 13:05 acetaminophen [From Lortab] Allergy Mild itching Verified 10/20/20 13:05 duloxetine [From Cymbalta] Allergy Mild itching Verified 10/20/20 13:05 hydrocodone [From Lortab] Allergy Mild itching Verified 10/20/20 13:05 pregabalin [From Lyrica] Allergy Mild itching Verified 10/20/20 13:05 Home Medications Medication Instructions Recorded Confirmed Type hydrochlorothiazide 25 mg tablet 25 mg PO DAILY 05/27/19 02/21/23 History insulin glargine 100 unit/mL 20 units subcut DAILY 05/27/19 02/21/23 History subcutaneous solution (Lantus U-100 Insulin) levothyroxine 75 mcg tablet 75 mcg PO DAILY 05/27/19 02/21/23 History (Synthroid) amlodipine 10 mg tablet 10 mg PO DAILY 10/01/22 02/21/23 History brimonidine 0.2 %-timolol 0.5 % 1 drp OPL BID 10/01/22 02/21/23 History eye drops ibuprofen 800 mg tablet 800 mg PO TID PRN as directed 10/01/22 02/21/23 History insulin aspart U-100 100 unit/mL See Rx Instructions .Route .COMPLEX 10/01/22 02/21/23 History (3 mL) subcutaneous pen (Novolog FlexPen U-100 Insulin aspart) metformin 500 mg tablet 500 mg PO BIDM 10/01/22 02/21/23 History aspirin 81 mg capsule 81 mg PO DAILY #30 caps 10/05/22 02/21/23 Rx azithromycin 250 mg tablet See Rx Instructions .Route .COMPLEX 02/21/23 02/21/23 History furosemide 20 mg tablet 20 mg PO DAILY 02/21/23 02/21/23 History latanoprost 0.005 % eye drops 1 drp OPL HS 02/21/23 02/21/23 History metoprolol tartrate 100 mg tablet 150 mg PO DAILY 02/21/23 02/21/23 History Patient History Medical History (Updated 02/22/23 @ 11:51 by Miky Ly MD) Acquired claw toe of left foot Acquired deformity of left foot Acquired deformity of right foot Acquired hallux valgus of right foot Acquired hammer toe of right foot Acute kidney injury Acute UTI (urinary tract infection) MARISA (acute kidney injury) Amputation of left great toe Callus Chronic renal insufficiency, stage III (moderate) Diabetes type 2, uncontrolled Diabetic foot ulcer associated with type 2 diabetes mellitus Diabetic foot ulcer associated with type 2 diabetes mellitus, with fat layer exposed Elevated troponin Elevated troponin Foot deformity Herpes zoster HTN (hypertension) Hyperlipidemia LDL goal <100 Hypomagnesemia Hypomagnesemia Hypothyroidism Leukocytosis Loss of protective sensation of skin of foot Osteoporosis Peripheral arterial disease PHN (postherpetic neuralgia) Pneumonia Pressure ulcer of left leg, stage 3 Sepsis Sinusitis Status post partial amputation of foot Syncope Transaminitis Surgical History History of tonsillectomy and adenoidectomy Social History Smoking Status: Never smoker Do You Dip or Chew Tobacco: No; Hx Alcohol Use: No Hx Substance Use: No Preferred Language: Thai Communication Ability: Effective Communication Tools: Letter Board, Picture Board, Facial Expression and Writing Tablet Visual Impairment: No Limitations Hearing Ability: Normal 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 Required: No Beliefs That Will Affect Care: None marital status: / Current Living Situation: Family Current Living Situation Comment: lives with daughter and son in law current occupational status: 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 [employer] Feels Safe at Home: Yes Childhood Exposure to Second-Hand Smoke: No Diet: diabetic and low carbohydrate caffeine: Yes (1-2 cups/day) during the past year weight has: decreased > 10 lbs Dental Care, Regularly: No Physical Activity Frequency: 3-4 Times per Week Do you think of yourself as: straight/heterosexual Sexual Activity: has been sexually active, but not for at least 12 months Assistive Devices: Walker Results & Data Vital Signs (Past 12 Hours) Vital Signs Pulse Pulse Resp BP BP Pulse Ox Pulse Ox 02/22/23 13:28 62 18 129/55 L 93 02/22/23 12:08 63 18 123/54 L 93 02/22/23 12:08 93 02/22/23 08:33 76 22 139/70 96 02/22/23 07:39 68 02/22/23 04:30 78 26 H 139/64 93 02/22/23 04:00 136/59 L 96 O2 Del Method O2 Del Method O2 Flow Rate O2 Flow Rate 02/22/23 13:28 Nasal Cannula 5 02/22/23 12:08 Nasal Cannula 5 02/22/23 12:08 Nasal Cannula 5 02/22/23 08:33 Nasal Cannula 5 02/22/23 07:39 02/22/23 04:30 Nasal Cannula 5 02/22/23 04:00 Nasal Cannula 5 Heart Failure Data/Metrics Heart Failure Type: HFrEf (EF < 40%) Ejection Fraction: 40% Evidenced Based Beta Dyan Therapy Beta Dyan Therapy: Yes Beta Dyan Name: Metoprolol Succinate Beta Dyan Target Therapy: Not at Target Therapy XAVIER/ARB/ARNI Therapy XAVIER/ARB/ARNI Therapy: Contraindicated XAVIER/ARB/ANI Contraindications: MARISA/AKD Coding Level of Care Code None Diagnoses Ischemic cardiomyopathy I25.5 Acute systolic CHF (congestive heart failure) I50.21
[2023-02-22] MEDS: METOPROLOL TARTRATE 100 MG TAB PO SCH (22:11)
[2023-02-22] MEDS ORDERED: SODIUM CHLORIDE 0.65% NA SOLN 45 ML (OCEAN) PRN (22:16)
[2023-02-23] MEDS: LEVOTHYROXINE SODIUM 75 MCG TABLET PO SCH (06:07)
[2023-02-23 08:33] LABS: BUN Creatinine Ratio 28.3 (10-20); Calcium 9.1 mg/dl (8.6-10.3); Creatinine Clr Calc Pharmacy 29.8 ml/min; Est GFR (Non-African American) 32.8 ml/min; Magnesium 2.1 mg/dl (1.7-2.4); Potassium 3.2 mmol/L (3.5-5.1)
[2023-02-23 08:42] LABS: Basophils # (auto) 0.05 K/uL (0.00-0.20); Basophils % (auto) 0.4 %; Eosinophils # (auto) 0.28 K/uL (0.00-0.50); Eosinophils % (auto) 2.5 %; Hematocrit (blood only) 33.4 % (37.0-47.0); Hemoglobin 11.2 g/dl (12.0-16.0); Immature Granulocytes # (auto) 0.06 K/uL (0.01-0.20); Immature Granulocytes % (auto) 0.5 %; Lymphocytes # (auto) 1.46 K/uL (1.20-3.40); Mean Corpuscular Hemoglobin 28.9 pg (25.0-34.0); Mean Corpuscular Hgb Conc 33.5 g/dL (32.0-36.0); Mean Corpuscular Volume 86.1 fL (80.0-100.0); Mean Platelet Volume 9.4 fL (9.4-12.4); Monocytes # (auto) 0.94 K/uL (0.11-0.59); Monocytes % (auto) 8.4 %; Neutrophils # (auto) 8.41 K/uL (1.40-6.50); Neutrophils % (auto) 75.2 %; Platelet Count 389 K/uL (130-400); RDW Coefficient of Variation 12.6 % (11.5-14.5); RDW Standard Deviation 38.8 fL (36.4-46.3); Red Blood Count 3.88 M/uL (4.20-5.40)
[2023-02-23] MEDS ORDERED: FUROSEMIDE 40 MG/4 ML VIAL IV SCH (09:00)
[2023-02-23] MEDS: TIMOLOL MALEATE 0.5% OP SOLN 5 ML BTL OPL SCH ×2 (09:04→20:52)
[2023-02-23] MEDS: BRIMONIDINE TARTRATE 0.2% 5ML OPL SCH ×2 (09:04→20:52)
[2023-02-23] MEDS: ENOXAPARIN INJ 30 MG/0.3 ML SYR SQ SCH (09:05)
[2023-02-23] MEDS: ASPIRIN 81 MG ECTAB PO SCH (09:05)
[2023-02-23] MEDS: METOPROLOL TARTRATE 100 MG TAB PO SCH ×2 (09:05→20:56)
[2023-02-23] MEDS: LANTUS PER UNIT CHARGE SQ SCH (09:06)
[2023-02-23] MEDS: INSULIN ASPART PER UNIT CHARGE SC SCH ×4 (09:07→20:49)
[2023-02-23] MEDS: ACETAMINOPHEN 325 MG TAB PO PRN (09:11)
[2023-02-23] MEDS: POTASSIUM CHLORIDE CRTAB 20 MEQ TABCR PO SCH ×2 (09:11→20:58)
[2023-02-23] MEDS ORDERED: AZITHROMYCIN 250 MG TAB PO ONE (10:37)
--- NOTE | 2023-02-23 16:08 | Hospitalist Progress Note ---
Date of Service February 23, 2023 Assessment & Plan (1) Heart failure: Plan: Acute hypoxic respiratory failure, suspect new acute systolic heart failure confirmed by echocardiogramEF 40% akinesis of mid distal anterior wall No chest pain at any point despite evidence of elevation of troponin this is secondary to type II ME or demand ischemia CTAchest: No evidence of PE. Small bilateral pleural effusions, scattered groundglass opacities suspicious for pulmonary edema but from which superimposed pneumonia is not excluded. Mediastinal and hilar lymphadenopathy suspected reactive. Patchy basilar densities. Patient opting for medical therapy over stress testing/restratification after speaking with cardiology Discontinue amlodipine and institute metoprolol continue diuretic therapy Lasix 40 mg IV daily. look for renal function to get use of XAVIER ARB or Entresto. Consider SGLT2 inhibitor if renal function is not worse Admitting weight 91.9 kg, last hospital baseline 79-83 kg. (2) Non-ST elevation ME (NSTEMI): Plan: Initial troponin elevation with peak 1244 - Patient seen for sepsis in September with demand ischemia, echo shows depressed ejection fraction patient opts for medical management at this time (3) Acute hypoxic respiratory failure: Plan: Secondary to pulmonary edema of acute systolic heart failure treated with diuretic therapy With persistent coughing up brown mucus despite being on azithromycin patient's antibiotics been broadened to ceftriaxone with concern for pneumonia or bron chitis and repeat chest x-ray performed 02/23 (4) Hypothyroidism: Plan: Hypothyroidism Continue Synthroid (5) Diabetes: Plan: Type II DM Continue glargine 20 units daily, sliding scale short acting based on basal requirements Goal BSG [id number] -peripheral neuropathy Plan CODE STATUS: DNR/DNI Admission and Anticipated Discharge Date Admission Date: February 21, 2023 Subjective Patient's biggest complaint continues to be coughing. She claims to be bringing up brown mucus although no has been visualized by myself. She had been started on azithromycin on presentation although had no definite pneumonia. There were some imaging changes that were difficult to ascertain between heart failure and pneumonia. Subsequently she will be instituted on ceftriaxone today repeat chest x-ray will be performed. Patient has responded favorably to her Lasix therapy although did have slight rise in her renal function due to diuresis Physical Exam Physical Exam: Patient is coarse lung sounds in all marie no definite focal loss there is no coughing associate with eating Her exam is regular and distant Results & Data Results & Data Vital Signs (Past 12 Hours) Vital Signs Temp Pulse Pulse Resp BP Pulse Ox Pulse Ox 02/23/23 15:43 52 L 02/23/23 14:36 93 02/23/23 11:18 98.2 F 54 L 18 132/71 96 02/23/23 10:02 02/23/23 08:06 98.4 F 68 18 150/67 H 93 02/23/23 07:45 53 L O2 Del Method O2 Flow Rate O2 Flow Rate 02/23/23 15:43 02/23/23 14:36 4 02/23/23 11:18 Nasal Cannula 4 02/23/23 10:02 Nasal Cannula 5 02/23/23 08:06 Nasal Cannula 5 02/23/23 07:45 Laboratory Results Reviewed CBC reviewed chemistry Medications Administered Ordered potassium supplementation ordered additional antibiotics for possible bronchitis repeat imaging to evaluate for pneumonia PG Care Time/CCT Total # of Minutes Spent Total Time Spent with Patient: Total time spent is greater than 50% in coordination of care (as documented) at patient's floor/unit and/or counseling patient: Coding Level of Care Code 04573 SUB INP/OBS CARE 3/50MIN Diagnoses Heart failure I50.9 Non-ST elevation ME (NSTEMI) I21.4 Acute hypoxic respiratory failure J96.01 Hypothyroidism E03.9 Diabetes E11.9
[2023-02-23] MEDS: cefTRIAXone SODIUM 2,000 MG in DEXTROSE 5 % MINI-B 50 ML IV SCH (17:10)
--- NOTE | 2023-02-23 20:41 | XRay Report ---
XR chest 1V portable CLINICAL HISTORY: eval pneumonia TECHNIQUE: Single frontal radiograph of the chest was obtained. Comparison: Comparison is made to chest radiograph 02/11/2023 FINDINGS: No lines and tubes are seen. Cardiomegaly is noted. The aortic arch is calcified. Interval improvemen t in pulmonary edema. Tiny residual pleural effusions. IMPRESSION: Interval improvement in pulmonary edema. No evidence of pneumonia. Small bilateral pleural effusions, decreased from prior exam. ACT 112: Negative or not required by law. Electronically signed by: Brenden Alvarez M.D. 02/23/2023 8:40 PM
[2023-02-23] MEDS: LATANOPROST 0.005% OP SOLN 2.5 ML BTL OPL SCH (20:51)
[2023-02-23] MEDS: guaiFENesin 600 MG TABCR PO SCH (20:54)
[2023-02-24] MEDS ORDERED: BENZONATATE 100 MG CAPSULE PO PRN (01:18)
[2023-02-24] MEDS ORDERED: COUGH DROP (SUGAR FREE) LOZ 24 LOZ/1 BOX BUCCAL ONE (01:26)
[2023-02-24] MEDS: ACETAMINOPHEN 325 MG TAB PO PRN ×2 (01:32→23:58)
[2023-02-24] MEDS: LEVOTHYROXINE SODIUM 75 MCG TABLET PO SCH (06:21)
[2023-02-24 06:53] LABS: Basophils # (auto) 0.04 K/uL (0.00-0.20); Basophils % (auto) 0.4 %; Eosinophils % (auto) 2.8 %; Hematocrit (blood only) 28.9 % (37.0-47.0); Immature Granulocytes # (auto) 0.07 K/uL (0.01-0.20); Immature Granulocytes % (auto) 0.7 %; Lymphocytes # (auto) 1.83 K/uL (1.20-3.40); Lymphocytes % (auto) 17.1 %; Mean Corpuscular Hemoglobin 29.6 pg (25.0-34.0); Mean Corpuscular Hgb Conc 34.6 g/dL (32.0-36.0); Mean Corpuscular Volume 85.5 fL (80.0-100.0); Mean Platelet Volume 9.4 fL (9.4-12.4); Monocytes # (auto) 1.12 K/uL (0.11-0.59); Monocytes % (auto) 10.4 %; Neutrophils # (auto) 7.36 K/uL (1.40-6.50); Neutrophils % (auto) 68.6 %; Platelet Count 348 K/uL (130-400); RDW Coefficient of Variation 12.7 % (11.5-14.5); RDW Standard Deviation 38.6 fL (36.4-46.3); Red Blood Count 3.38 M/uL (4.20-5.40); White Blood Count 10.72 K/ul (4.8-10.8)
[2023-02-24 07:15] LABS: BUN Creatinine Ratio 30.8 (10-20); Calcium 8.5 mg/dl (8.6-10.3); Creatinine Clr Calc Pharmacy 30.5 ml/min; Est GFR (African American) 38.6 ml/min; Est GFR (Non-African American) 33.3 ml/min; Potassium 3.3 mmol/L (3.5-5.1)
[2023-02-24] MEDS: BRIMONIDINE TARTRATE 0.2% 5ML OPL SCH ×2 (09:16→21:33)
[2023-02-24] MEDS: AZITHROMYCIN 250 MG TAB PO SCH (09:17)
[2023-02-24] MEDS: ASPIRIN 81 MG ECTAB PO SCH (09:17)
[2023-02-24] MEDS: guaiFENesin 600 MG TABCR PO SCH ×2 (09:17→21:32)
[2023-02-24] MEDS: ENOXAPARIN INJ 30 MG/0.3 ML SYR SQ SCH (09:17)
[2023-02-24] MEDS: TIMOLOL MALEATE 0.5% OP SOLN 5 ML BTL OPL SCH ×2 (09:17→21:33)
[2023-02-24] MEDS: LANTUS PER UNIT CHARGE SQ SCH (09:18)
[2023-02-24] MEDS: METOPROLOL TARTRATE 100 MG TAB PO SCH ×2 (09:18→21:31)
[2023-02-24] MEDS: INSULIN ASPART PER UNIT CHARGE SC SCH ×4 (09:20→21:28)
[2023-02-24] MEDS: VALSARTAN/SACUBITRIL 26/24MG TAB PO SCH ×2 (09:24→21:32)
[2023-02-24] MEDS: POTASSIUM CHLORIDE CRTAB 20 MEQ TABCR PO SCH (09:24)
--- NOTE | 2023-02-24 12:46 | Hospitalist Progress Note ---
Date of Service February 24, 2023 Assessment & Plan (1) Heart failure: Plan: Acute hypoxic respiratory failure, suspect new acute systolic heart failure confirmed by echocardiogramEF 40% akinesis of mid distal anterior wall No chest pain at any point despite evidence of elevation of troponin this is secondary to type II AR or demand ischemia consideration of pneumonia CTAchest: No evidence of PE. Small bilateral pleural effusions, scattered groundglass opacities suspicious for pulmonary edema but from which superimposed pneumonia is not excluded. Mediastinal and hilar lymphadenopathy suspected reactive. Patchy basilar densities. patient on ceftriaxone will complete 5-day of therapy for this Patient opting for medical therapy after speaking with cardiology we will institute Entresto therapy in the evening of 1014 Discontinue amlodipine and institute metoprolol patient is euvolemic we will discontinue Lasix therapy on 02/24 Admitting weight 91.9 kg, last hospital baseline 79-83 kg. (2) Non-ST elevation AR (NSTEMI): Plan: Initial troponin elevation with peak 1244 - Patient seen for sepsis in September with demand ischemia, echo shows depressed ejection fraction patient opts for medical management at this time (3) Acute hypoxic respiratory failure: Plan: Secondary to pulmonary edema of acute systolic heart failure treated with diuretic therapy With persistent coughing up brown mucus despite being on azithromycin patient's antibiotics been broadened to ceftriaxone with concern for pneumonia or bronchitis repeat chest x-ray performed 02/23 shows improvement (4) Hypothyroidism: Plan: Hypothyroidism Continue Synthroid (5) Diabetes: Plan: Type II DM Continue glargine 20 units daily, sliding scale short acting based on basal requirements Goal BSG [id number] -peripheral neuropathy Plan CODE STATUS: DNR/DNI hypokalemia is replete anticipate discharge in 1 to 2 days if tolerant of Entresto and PT states she is ambulatory for home Admission and Anticipated Discharge Date Admission Date: February 21, 2023 Subjective patient's coughing is improved as we treated her heart failure. She remains on antibiotics for concern of possible superimposed pneumonia, and on CT scan alth ough most of her changes are likely from her systolic heart failure will complete a 5-day course Physical Exam Physical Exam: Patient is coarse lung sounds in all marie no definite focal loss no coughing 02/24/2023 Her exam is regular and distant Results & Data Results & Data Vital Signs (Past 12 Hours) Vital Signs Temp Pulse Pulse Resp BP Pulse Ox O2 Del Method 02/24/23 10:08 56 L 02/24/23 10:02 Room Air 02/24/23 08:26 97.5 F L 65 18 140/63 94 Room Air 02/24/23 03:46 97.7 F 60 20 124/58 L 96 Nasal Cannula O2 Flow Rate 02/24/23 10:08 02/24/23 10:02 02/24/23 08:26 02/24/23 03:46 4 Laboratory Results reviewed CBC reviewed chemistry PG Care Time/CCT Total # of Minutes Spent Total Time Spent with Patient: Total time spent is greater than 50% in coordination of care (as documented) at patient's floor/unit and/or counseling patient: Coding Level of Care Code 62613 SUB INP/OBS CARE 3/50MIN Diagnoses Heart failure I50.9 Non-ST elevation AR (NSTEMI) I21.4 Acute hypoxic respiratory failure J96.01 Hypothyroidism E03.9 Diabetes E11.9
[2023-02-24] MEDS: cefTRIAXone SODIUM 2,000 MG in DEXTROSE 5 % MINI-B 50 ML IV SCH (16:54)
[2023-02-24] MEDS: LATANOPROST 0.005% OP SOLN 2.5 ML BTL OPL SCH (21:33)
[2023-02-25] MEDS: LEVOTHYROXINE SODIUM 75 MCG TABLET PO SCH (05:53)
[2023-02-25 07:17] LABS: BUN Creatinine Ratio 26.9 (10-20); Calcium 8.8 mg/dl (8.6-10.3); Creatinine Clr Calc Pharmacy 32.2 ml/min; Est GFR (African American) 41.8 ml/min; Potassium 3.5 mmol/L (3.5-5.1)
[2023-02-25 07:29] LABS: Basophils # (auto) 0.05 K/uL (0.00-0.20); Basophils % (auto) 0.6 %; Eosinophils # (auto) 0.26 K/uL (0.00-0.50); Eosinophils % (auto) 2.9 %; Hematocrit (blood only) 31.9 % (37.0-47.0); Hemoglobin 10.9 g/dl (12.0-16.0); Immature Granulocytes # (auto) 0.05 K/uL (0.01-0.20); Immature Granulocytes % (auto) 0.6 %; Lymphocytes # (auto) 2.04 K/uL (1.20-3.40); Lymphocytes % (auto) 22.8 %; Mean Corpuscular Hemoglobin 29.3 pg (25.0-34.0); Mean Corpuscular Hgb Conc 34.2 g/dL (32.0-36.0); Mean Corpuscular Volume 85.8 fL (80.0-100.0); Mean Platelet Volume 9.3 fL (9.4-12.4); Monocytes # (auto) 0.91 K/uL (0.11-0.59); Monocytes % (auto) 10.2 %; Neutrophils # (auto) 5.65 K/uL (1.40-6.50); Neutrophils % (auto) 62.9 %; Platelet Count 391 K/uL (130-400); RDW Standard Deviation 39.2 fL (36.4-46.3); Red Blood Count 3.72 M/uL (4.20-5.40); White Blood Count 8.96 K/ul (4.8-10.8)
[2023-02-25] MEDS: METOPROLOL TARTRATE 100 MG TAB PO SCH (09:01)
[2023-02-25] MEDS: BRIMONIDINE TARTRATE 0.2% 5ML OPL SCH (09:01)
[2023-02-25] MEDS: TIMOLOL MALEATE 0.5% OP SOLN 5 ML BTL OPL SCH (09:01)
[2023-02-25] MEDS: ENOXAPARIN INJ 30 MG/0.3 ML SYR SQ SCH (09:01)
[2023-02-25] MEDS: LANTUS PER UNIT CHARGE SQ SCH (09:02)
[2023-02-25] MEDS: VALSARTAN/SACUBITRIL 26/24MG TAB PO SCH (09:02)
[2023-02-25] MEDS: AZITHROMYCIN 250 MG TAB PO SCH (09:02)
[2023-02-25] MEDS: ASPIRIN 81 MG ECTAB PO SCH (09:02)
[2023-02-25] MEDS: guaiFENesin 600 MG TABCR PO SCH (09:02)
[2023-02-25] MEDS: INSULIN ASPART PER UNIT CHARGE SC SCH ×2 (09:03→12:04)
--- NOTE | 2023-02-25 11:29 | Heart Failure Progress Note ---
Date of Service February 25, 2023 Assessment & Plan (1) Ischemic cardiomyopathy: (2) Acute systolic CHF (congestive heart failure): (3) CAD (coronary artery disease): (4) Hypertension: Plan - She appears euvolemic. Improved with intravenous diuretics. Not currently requiring diuretics. Consider Lasix 20 mg PRN on discharge. Also being treated with antibiotics. - Amlodipine discontinued. BP adequate. - EF now 40%. Declined ischemic workup. Continue to further optimize her medical regimen. - Continue GDMT. Would eventually change metoprolol tartrate to metoprolol succinate. She is borderline bradycardic. Would recommend transition to succinate 100 mg daily on discharge. - Renal function improving. Continue Entresto 24/26 mg BID. Consider MRA/SGLT2i as outpatient. Repeat BMP prior to follow up appointment. - Daily STANDING weights. Low sodium diet. Strict I&Os. - Will enroll in CHF clinic. Follow up 02/28/23 at 1030 am. Admission and Anticipated Discharge Date Admission Date: February 21, 2023 Subjective Patient reports feeling well today. Her symptoms are resolved and she is feeling at baseline. She did not sleep well but denied orthopnea or PND. Edema improved. I&Os inaccurate. Weight 170 lb per bed scale today. She denies chest pain, cough, palptiations. Physical Exam Physical Exam: Constitutional: Alert, oriented, in no acute distress HEENT: Head is atraumatic and normocephalic. EOMs intact. Sclera anicteric. Face is symmetric. No perioral cyanosis. Mucous membranes moist. Neck: Supple, no JVD Pulmonary: Normal respiratory effort, clear to auscultation bilaterally Cardiac: Regular rate and rhythm. Normal S1 and S2, no gallops, no rubs, 2/6 systolic murmur. Extremities: 2+ radial pulses bilaterally. 2+ posterior tibialis pulses bilaterally. No pitting edema. No cyanosis or clubbing. Abdomen: Normal bowel sounds, soft, non-tender, no abdominal mass palpated Skin: Normal skin color, turgor, and pigmentation, no rash, no skin lesions Neurological: Patient is awake, alert, and oriented. Pleasant and cooperative. Answers questions appropriately. Speech is clear. Normal movement in all 4 extremities. Gait pattern is unremarkable. Results & Data Vital Signs (Past 12 Hours) Vital Signs Temp Pulse Pulse Resp BP Pulse Ox O2 Del Method 02/25/23 09:42 Room Air 02/25/23 07:42 58 L 02/25/23 07:39 98.1 F 59 L 21 126/96 93 Room Air 02/25/23 03:21 97.9 F 57 L 20 131/68 91 Room Air Heart Failure Data/Metrics Heart Failure Type: HFrEf (EF < 40%) Ejection Fraction: 40% Evidenced Based Beta Dyan Therapy Beta Dyan Therapy: Yes Beta Dyan Name: Metoprolol Succinate Beta Dyan Target Therapy: Not at Target Therapy XAVIER/ARB/ARNI Therapy XAVIRE/ARB/ARNI Therapy: Yes XAVIER/ARB/ARNI Name: Entresto XAVIER/ARB/ARNI Target Therapy: Not at Target Therapy Coding Level of Care Code 96607 SUB INP/OBS CARE 350MIN Diagnoses Ischemic cardiomyopathy I25.5 Acute systolic CHF (congestive heart failure) I50.21 CAD (coronary artery disease) I25.10 Hypertension I10
--- NOTE | 2023-02-25 15:38 | Discharge Summary ---
Date of Service February 25, 2023 Admission HPI Per Admitting Provider Normal is an 87-year-old female with a history of hypothyroidism, hypertension, DM 2 and no prior history of CHF who presents with acute hypoxic respiratory failure and shortness of breath and who was found to have pulmonary edema, volume overload, and a new oxygen requirement while under ER evaluation Worsening shortness of breath since last [place] (9 days ago) +leg swelling +orthopnea. Normally slept in a recliner because it was more comfortable, but last 2 weeks cannot lay flat due to shortnes sof breath No chest pain at any point No lightheadedness/dizziness. Endorses some lightheadedness int he past due to sinuses which resolves with alkaselzer Does like snyders pretzels. Does not eat deli meat, sometimes has some soups, canned. Does not make her own soups. Does drink a lto of gatorade. No dietary changes in the last few weeks, all similar to her normal diet. BSG been up last few days in 150s. 235 last night, first time it was over 200 No fevers, chills, sweats. No dysuria. No polyuria No abdominal pain Medical History: Reviewed Medications: Reviewed Surgical History: Reviewed Family history: Reviewed Allergies: Reviewed Social History: Reviewed Code Status: DNR/DNI Principal Diagnosis acute on chronic systolic heart failure community acquired pneumonia Discharge Exam heart is regular lungs are clear Discharge Data Allergies Allergy/AdvReac Type Severity Reaction Status Date / Time simvastatin Allergy Intermediate Nausea Verified 10/20/20 13:05 acetaminophen [From Lortab] Allergy Mild itching Verified 10/20/20 13:05 duloxetine [From Cymbalta] Allergy Mild itching Verified 10/20/20 13:05 hydrocodone [From Lortab] Allergy Mild itching Verified 10/20/20 13:05 pregabalin [From Lyrica] Allergy Mild itching Verified 10/20/20 13:05 Consultations 02/21/23 14:57 Consult Cardiology Stat ED Decision to Admit Stat 02/21/23 16:53 [facility] CHF Program Referral Routine Ordered Studies 02/21/23 12:46 CT for pulmonary embolism PE [CT angio chest PE protocol] Stat Hospital Course (1) Heart failure: Acute hypoxic respiratory failure, suspect new acute systolic heart failure confirmed by echocardiogramEF 40% akinesis of mid distal anterior wall No chest pain at any point despite evidence of elevation of troponin this is secondary to type II MA or demand ischemia consideration of pneumonia CTAchest: No evidence of PE. Small bilateral pleural effusions, scattered groundglass opacities suspicious for pulmonary edema but from which superimposed pneumonia is not excluded. Mediastinal and hilar lymphadenopathy suspected reactive. Patchy basilar densities. Pt will be discharged on cefdinir and azithromycin for community acquired pneumonia Patient opting for medical therapy after speaking with cardiology we will institute Entresto therapy in the evening of 1015 tolerated well with follow up at heart failure clinic Discontinue amlodipine and institute metoprolol patient is euvolemic we will discontinue Lasix therapy on 02/24, discharged on metoprolol succinate Admitting weight 91.9 kg, last hospital baseline 79-83 kg. (2) Non-ST elevation MA (NSTEMI): Initial troponin elevation with peak 1244 - Patient seen for sepsis in September with demand ischemia, echo shows depressed ejection fraction patient opts for medical management at this time (3) Acute hypoxic respiratory failure: Secondary to pulmonary edema of acute systolic heart failure treated with diuretic therapy With persistent coughing up brown mucus despite being on azithromycin patient's antibiotics been broadened to ceftriaxone with concern for pneumonia or bronchitis repeat chest x-ray performed 02/23 shows improvement (4) Hypothyroidism: Hypothyroidism Continue Synthroid (5) Diabetes: Type II DM Continue home insulin regimen Does have complications of diabetic neuropathy Plan CODE STATUS: DNR/DNI Patient does not request home health Total Time Total Time Spent Total Time Spent (In Minutes): It required greater than 30 minutes to prepare this patient for discharge Discharge Plan Discharge Items Patient Disposition: Home - Self-Care Reason For Visit: ACUTE CHF Discharge Diagnosis: heart failure buttock and heel wound Non-emergency contact: Primary Care Provider Call non-emergency contact if: your symptoms worsen Follow-up/Referrals: Kathleen Schmitt PA-C [Physician Kiln Burner] - 02/28/23 10:30 am (Congestive Heart Failure Program Appointment Information Early follow up is essential to managing your heart failure. An appointment has been scheduled for you with the [facility] Heart Failure Program within 7 days of discharge. Anticipate this visit to be 30-60 minutes long. Please expect a sales operations manager phone call from one of our nurses approximately 48 hours from discharge. They will also be placing an order for lab work to be completed 1-2 days prior to your heart failure follow up appointment. Please be sure to have this done so we can go over the results when you come in. Office Location The cardiology office building is located in front of the hospital at [address] Bring the following with you to your follow-up doctor appointments: Please bring your daily weight log any discharge paperwork all of your medication bottles with you to this visit. ) Safia Shukla MD [Primary Care Provider] - 03/06/23 11:00 am (Will see a SLIDE FASTENER CHAIN ASSEMBLER @ Dr Shukla's office.) Diet: Carb Consistent or DM2 and Low Sodium (2gm) Addtl Attending Provider Instructions: Please take your new cardiac medications as prescribed. A few more days of antibiotics to complete Call 911 and go to the Emergency Room if: * You have tightness or pain in your chest that does not go away with rest or Nitroglycerin * You are very short of breath even with rest Call your doctor if any of the following symptoms or problems start or get worse: * Shortness of breath or difficulty breathing * Wake up at night short of breath * Chest pain * Cough * Swelling of your hands, fee, or legs * More fatigued or tired with your normal activity * Palpitations - sudden fast heart beats WEIGHT * Weigh yourself every morning after using the bathroom. * Use the same scale. * Wear the same amount of clothing. * Write your weight down on your chart. * Call your doctor if you gain more than 2-3 pounds in 1-2 days. MEDICATIONS * Use this discharge instruction sheet for instructions. * Take your medications at the time your doctor ordered. * Do not skip a dose of your medicines. * If you miss a dose of medicine, take as soon as possible, but DO NOT DOUBLE A DOSE. * Read your medicine information when you get home. * Know all of the side effects of your medicine. * Call your doctor's office if you have any side effects. * Be sure all of your doctors know what medicine and herbs you take (including cold, flu, and herbal medicine). * Pain Medicine: If you do not get relief from your pain, please call your doctor for help. Take the following with you to your follow-up doctor appointments: * Weight Chart * Medication List * List of questions Do not drink excessive alcohol, beer or wine. Addtl [employer] Provider Instructions: For the wounds you have on your buttocks and foot wash with soap clean with saline cover with Aquacel Ag change every other day or as needed for drainage. Follow-up with your primary care provider and consider enrolling in wound care. Pending Studies at Discharge: No Stand-Alone Forms: [facility], Smoking Cessation Medications and DC Order Prescriptions: New Entresto 24-26 mg Tablet 1 tab PO BID Qty: 60 4RF metoprolol succinate 100 mg tablet extended release 24 hr 100 mg PO DAILY Qty: 30 5RF azithromycin 250 mg tablet 250 mg PO DAILY Qty: 3 0RF cefdinir 300 mg capsule 300 mg PO BID 3 Days Qty: 6 0RF Continued levothyroxine [Synthroid] 75 mcg tablet 75 mcg PO DAILY Lantus U-100 Insulin 100 unit/mL solution 20 units SQ DAILY latanoprost 0.005 % drops 1 drp OPL HS metformin 500 mg tablet 500 mg PO BIDM brimonidine-timolol 0.2-0.5 % drops 1 drp OPL BID insulin aspart U-100 [Novolog FlexPen U-100 Insulin] 100 unit/mL (3 mL) insulin pen See Rx Instructions .ROUTE .COMPLEX Rx Instructions: Inject 8 units at noon and 5 units with supper aspirin 81 mg capsule 81 mg PO DAILY Qty: 30 0RF Discontinued hydrochlorothiazide 25 mg tablet 25 mg PO DAILY Hold Instructions: Resume on 10/12/22. Hold until MARISA fully resolved azithromycin 250 mg tablet See Rx Instructions .ROUTE .COMPLEX Rx Instructions: Take 500mg (2 tablets) by mouth once and 250mg (1 tablet) once daily for 4 days metoprolol tartrate 100 mg tablet 150 mg PO DAILY Rx Instructions: with meals furosemide 20 mg tablet 20 mg PO DAILY Rx Instructions: for 3 days ibuprofen 800 mg tablet 800 mg PO TID PRN (Reason: as directed) Hold Instructions: Resume on 10/12/22. Hold until MARISA fully resolved amlodipine 10 mg tablet 10 mg PO DAILY Discharge Orders: Discharge Order (Routine); Ordered 02/25/23 Ordered By: John Chakraborty/Other Patient Handouts: Sacubitril/Valsartan Oral Tablet, Azithromycin Oral Tablet, Cefdinir Oral Capsule Admission Data Admit Date/Time: 10/12/23 16:51 Attending Provider: John Savage Admit Provider: Bogdan Stanford Primary Care Provider: Safia Shukla Other Providers: Miky Ly ; Bogdan Stanford ; Kathleen Schmitt Other Interventions: Discharge Summary Assessment (RN) Last Done: 02/25/23 14:11 Coding Level of Care Code 29966 INP/OBS DISCH >30 MIN Diagnoses Heart failure I50.9 Non-ST elevation MA (NSTEMI) I21.4 Acute hypoxic respiratory failure J96.01 Hypothyroidism E03.9 Diabetes E11.9
== END 2023-02-25 14:54 | disposition home or self-care (01) | DRG 280 ==
LOC: ED 10:45 → EDINP 16:51 → SUATTDRO 16:51 → 2E 02-22 18:39

== ENCOUNTER 2023-03-04 11:56 | Inpatient (IN) ==
--- NOTE | 2023-03-04 12:05 | ED Triage Note ---
Date of Service March 04, 2023 History of Present Illness This patient was briefly evaluated while in triage. An abbreviated physical exam was performed. This patient is a 87-year-old Female who presents to the ED for evaluation of "a little bit of everything." She was here a week ago and was told she had an CA. She is having some shortness of breath. She denies any chest pain. Physical Exam VITALS: Vitals are noted on the nurse's note and reviewed by myself. GENERAL: This is an 87-year-old female, in no acute distress, nondiaphoretic, well-developed well-nourished. SKIN: The skin was without rashes. HEART: Regular rate and rhythm without murmurs gallops or rubs. LUNGS: Crackles bilateral bases. EXTREMITIES: No lower extremity edema. NEURO: Patient was alert and oriented to person place and time. Initial orders for labs and / or imaging were placed and patient was placed in the waiting area until a bed is available. Please see further documentation for the full ED course.
--- NOTE | 2023-03-04 12:27 | Emergency Department Note ---
History of Present Illness General Chief complaint: Shortness of Breath/Dyspnea Stated complaint: SOB, CHEST PAIN, REF BY DR Time Seen by Provider: 03/04/23 12:09 History of Present Illness Maximum Pain Intensity: 0 87-year-old female presents emergency department with complaint of dyspnea on exertion and orthopnea. Patient was recently discharged from our facility 1 week ago for CHF and a possible NSTEMI. Patient had some of her medications rearranged and she was discharged from taking amlodipine and hydrochlorothiazide. She states this morning that she had some chest tightness and palpitations as well as shortness of breath. Patient denies having any cough cold congestion symptoms or hemoptysis. Patient does not use oxygen at home. Patient states no significant calf pain or leg swelling or worsening leg swelling since she was discharged 1 week ago. Patient states that she was concerned due to her continued shortness of breath. Home Medications Medication Instructions Recorded Confirmed Type insulin glargine 100 unit/mL 20 units subcut DAILY 05/27/19 02/28/23 History subcutaneous solution (Lantus U-100 Insulin) levothyroxine 75 mcg tablet 75 mcg PO DAILY 05/27/19 02/28/23 History (Synthroid) brimonidine 0.2 %-timolol 0.5 % 1 drp OPL BID 10/01/22 02/28/23 History eye drops insulin aspart U-100 100 unit/mL See Rx Instructions .Route .COMPLEX 10/01/22 02/28/23 History (3 mL) subcutaneous pen (Novolog FlexPen U-100 Insulin aspart) metformin 500 mg tablet 500 mg PO BIDM 10/01/22 02/28/23 History aspirin 81 mg capsule 81 mg PO DAILY #30 caps 10/05/22 02/28/23 Rx latanoprost 0.005 % eye drops 1 drp OPL HS 02/21/23 02/28/23 History metoprolol succinate 100 mg 100 mg PO DAILY #30 tabs 02/25/23 02/28/23 Rx tablet,extended release 24 hr sacubitril 24 mg-valsartan 26 mg 1 tab PO BID #60 tabs 02/25/23 02/28/23 Rx tablet (Entresto) Allergies Allergy/AdvReac Type Severity Reaction Status Date / Time simvastatin Allergy Intermediate Nausea Verified 03/04/23 14:20 acetaminophen [From Lortab] Allergy Mild itching Verified 03/04/23 14:20 duloxetine [From Cymbalta] Allergy Mild itching Verified 03/04/23 14:20 hydrocodone [From Lortab] Allergy Mild itching Verified 03/04/23 14:20 pregabalin [From Lyrica] Allergy Mild itching Verified 03/04/23 14:20 Past Med/Surg History Medical History Acquired claw toe of left foot Acquired deformity of left foot Acquired deformity of right foot Acquired hallux valgus of right foot Acquired hammer toe of right foot Acute kidney injury Acute UTI (urinary tract infection) MARISA (acute kidney injury) Amputation of left great toe Callus Chronic renal insufficiency, stage III (moderate) Diabetes type 2, uncontrolled Diabetic foot ulcer associated with type 2 diabetes mellitus Diabetic foot ulcer associated with type 2 diabetes mellitus, with fat layer exposed Elevated troponin Elevated troponin Foot deformity Herpes zoster HTN (hypertension) Hyperlipidemia LDL goal <100 Hypomagnesemia Hypomagnesemia Hypothyroidism Leukocytosis Loss of protective sensation of skin of foot Osteoporosis Peripheral arterial disease PHN (postherpetic neuralgia) Pneumonia Pressure ulcer of left leg, stage 3 Sepsis Sinusitis Status post partial amputation of foot Syncope Transaminitis Surgical History History of tonsillectomy and adenoidectomy Social History Smoking Status: Never smoker Second Hand Exposure: Yes (over 20 years ago); Do You Dip or Chew Tobacco: No; Hx Alcohol Use: No Hx Substance Use: No Preferred Language: Georgian Communication Ability: Effective Communication Tools: Letter Board, Picture Board, Facial Expression and Writing Tablet Visual Impairment: No Limitations Hearing Ability: Normal [employer] Required: No Beliefs That Will Affect Care: None marital status: / Current Living Situation: Family Current Living Situation Comment: daugher and current occupational status: 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 [employer] Feels Safe at Home: Yes Childhood Exposure to Second-Hand Smoke: No Diet: diabetic and low carbohydrate caffeine: Yes (1-2 cups/day) during the past year weight has: decreased > 10 lbs Dental Care, Regularly: No Physical Activity Frequency: 3-4 Times per Week Do you think of yourself as: straight/heterosexual Sexual Activity: has been sexually active, but not for at least 12 months Assistive Devices: Denture - Upper, Denture - Lower, Oxygen - Continuous and Walker Review of Systems A total of 10 systems reviewed and were otherwise negative Cardiovascular: + chest pain, + dyspnea at rest, + dyspnea on exertion and + orthopnea Physical Exam Vital Signs Vital Signs - 24 hr 03/04/23 12:01 03/04/23 12:17 03/04/23 12:19 Temperature 36.8 C Temperature Source Temporal Artery Scan Pulse Rate 64 67 Pulse Rate [Right Finger] Pulse Rhythm Regular Respiratory Rate 18 16 Respiratory Effort / Characteristics Respiratory Depth Blood Pressure [Right Arm] Blood Pressure Mean [Right Arm] Pulse Oximetry 95 92 Oxygen Delivery Method Room Air Room Air Room Air Sepsis Recent Fever Within 48 Hours No Sepsis New/Unexplained Change in Mental Status No Sepsis Action Taken by Nursing No Action Required 03/04/23 13:03 03/04/23 12:09 03/04/23 14:07 Temperature Temperature Source Pulse Rate 68 Pulse Rate [Right Finger] 71 72 Pulse Rhythm Respiratory Rate 18 20 Respiratory Effort / Characteristics Non-Labored Spontaneous Non-Labored Spontaneous Respiratory Depth Normal Normal Blood Pressure [Right Arm] 145/62 H 136/94 Blood Pressure Mean [Right Arm] 89 108 Pulse Oximetry 94 91 Oxygen Delivery Method Room Air Room Air Sepsis Recent Fever Within 48 Hours Sepsis New/Unexplained Change in Mental Status Sepsis Action Taken by Nursing GENERAL: Patient is awake alert in no acute distress patient is resting comfortably and showing no signs of anxiety EYES: The conjunctivae are clear. The pupils are round and reactive. EARS, NOSE, MOUTH AND THROAT: The nose is without any evidence of any deformity. Mucous membranes are moist. Tongue is midline. NECK: The neck is nontender and supple. RESPIRATORY: Normal respiratory effort is noted there is no evidence of wheezing rhonchi or rales CARDIOVASCULAR: Regular rate and rhythm noted; patient has a systolic ejection murmur present GASTROINTESTINAL: The abdomen is soft. Abdomen is nontender. BACK: No midline tenderness or or step-off noted range of motion in flexion extension as well as rotation no signs of muscle spasm noted MUSCULOSKELETAL/EXTREMITIES: There is no evidence of gross deformity full range of motion is noted in the hips and shoulders. There is mild edema pretibial bilaterally calves are nontender SKIN: There is no obvious evidence of any rash. There are no petechiae, pallor or cyanosis noted. NEUROLOGIC: Patient is awake alert and oriented x3 strength is symmetric Course Reevaluation(s) Reevaluation #1: Patient was given IV Lasix and is resting in no distress on repeat examination Time: 14:23 Consultations Consultation #1: Case was discussed with the [facility] for admission for CHF Time: : Administered Medications Discontinued Medications Furosemide (Furosemide 40 Mg/4 Ml Vial) 80 mg IV ONE ONE Stop: 03/04/23 12:48 Last Admin: 03/04/23 13:12 Dose: 80 mg Documented By: CORDELL Medical Decision Making Medical Records Attestation: I reviewed the patient's medical records. Home Medications Current Medication List: was personally reviewed by me Laboratory Data Attestation: I reviewed the patient's lab results. Labs interpreted by me patient has an elevated blood glucose, elevated BNP 03/04/23 12:15 03/04/23 12:15 Lab Results 03/04/23 03/04/23 03/04/23 Range/Units 12:15 12:15 12:15 WBC Cancelled RBC Cancelled Hgb Cancelled Hct Cancelled MCV Cancelled MCH Cancelled MCHC Cancelled RDW Std Deviation Cancelled RDW Coeff of Bert Cancelled Plt Count Cancelled MPV Cancelled Immature Gran % (Auto) Cancelled Neut % (Auto) Cancelled Lymph % (Auto) Cancelled Levy % (Auto) Cancelled Eos % (Auto) Cancelled Baso % (Auto) Cancelled Neut # (Auto) Cancelled Lymph # (Auto) Cancelled Levy # (Auto) Cancelled Eos # (Auto) Cancelled Baso # (Auto) Cancelled Immature Gran # (Auto) Cancelled Absolute Nucleated RBC Cancelled Nucleated RBC % (auto) Cancelled Neutrophils % (Manual) Cancelled Band Neutrophils % Cancelled Lymphocytes % (Manual) Cancelled Prolymphocyte % Cancelled Reactive Lymphs % (Man) Cancelled Monocytes % (Manual) Cancelled Eosinophils % (Manual) Cancelled Basophils % (Manual) Cancelled Metamyelocytes % (Man) Cancelled Myelocytes % (Man) Cancelled Promyelocytes % (Man) Cancelled Blast Cells % (Manual) Cancelled Plasma Cell % (Manual) Cancelled Other Cells % Cancelled Nucleated RBC % Cancelled Neutrophils # (Manual) Cancelled Band Neutrophils # Cancelled Total Absolute Neuts Cancelled Lymphocytes # (Manual) Cancelled Prolymphocyte # Cancelled Reactive Lymphs # Cancelled Total Abs Lymphocytes Cancelled Monocytes # (Manual) Cancelled Eosinophils # (Manual) Cancelled Basophils # (Manual) Cancelled Metamyelocytes # (Man) Cancelled Myelocytes # (Manual) Cancelled Promyelocytes # (Man) Cancelled Blast Cells # (Man) Cancelled Plasma Cell # (Manual) Cancelled Other Cells # Cancelled Nucleated RBCs # (Man) Cancelled Hypersegmented Neuts Cancelled Hyposegmented Neuts Cancelled Hypogranular Neuts Cancelled Large Granular Lymphs Cancelled # Lrg Granular Lymphs Cancelled Hairy Cells Cancelled Smudge Cells Cancelled Toxic Granulation Cancelled Toxic Vacuolation Cancelled Dohle Bodies Cancelled Chandrika Rods Cancelled Platelet Estimate Cancelled Hypogranular Platelets Cancelled Giant Platelets Cancelled Platelet Satelliting Cancelled RBC Morphology Cancelled Polychromasia Cancelled Hypochromasia Cancelled Poikilocytosis Cancelled Basophilic Stippling Cancelled Anisocytosis Cancelled Microcytosis Cancelled Macrocytosis Cancelled Spherocytes Cancelled Pappenheimer Bodies Cancelled Sickle Cells Cancelled Target Cells Cancelled Tear Drop Cells Cancelled Ovalocytes Cancelled Stomatocytes Cancelled [place] Bodies Cancelled Echinocytes Cancelled Acanthocytes (Spur) Cancelled Rouleaux Cancelled RBC Agglutinates Cancelled Schistocytes Cancelled Sezary Cell Cancelled PT 11.2 (9.0-12.0) Seconds INR 1.0 (0.9-1.1) Sodium 138 (136-145) mmol/L Potassium 5.0 (3.5-5.1) mmol/L Chloride 105 (98-107) mmol/L Carbon Dioxide 28 (21-32) mmol/L Anion Gap 5 (3-11) BUN 27 H (6-23) mg/dl Creatinine 1.23 H (0.6-1.2) mg/dl Est Cr Clr Drug Dosing Not Reportable Est GFR ( Amer) 46.3 ml/min Est GFR (Non-Af Amer) 40.0 ml/min BUN/Creatinine Ratio 22.0 H (10-20) Glucose 214 H (70-99(Fasting)) mg/dl Calcium 9.4 (8.6-10.3) mg/dl Magnesium 2.0 (1.7-2.4) mg/dl Total Bilirubin 0.4 (0.2-1.0) mg/dl AST 15 (13-39) U/L ALT 10 (7-52) U/L Alkaline Phosphatase 73 (34-104) U/L Troponin I High Sens 17.9 H (0-14) pg/ml B-Natriuretic Peptide (0-100) pg/ml Total Protein 7.3 (6.0-8.3) gm/dl Albumin 3.7 (3.4-5.0) gm/dl Globulin 3.6 (2.5-4.0) gm/dl Albumin/Globulin Ratio 1.0 (0.9-2) SARS-CoV-2, RNA, NAAT (NEGATIVE) Blood Parasites ID Cancelled 03/04/23 03/04/23 Range/Units 12:15 12:18 WBC RBC Hgb Hct MCV MCH MCHC RDW Std Deviation RDW Coeff of Bert Plt Count MPV Immature Gran % (Auto) Neut % (Auto) Lymph % (Auto) Levy % (Auto) Eos % (Auto) Baso % (Auto) Neut # (Auto) Lymph # (Auto) Levy # (Auto) Eos # (Auto) Baso # (Auto) Immature Gran # (Auto) Absolute Nucleated RBC Nucleated RBC % (auto) Neutrophils % (Manual) Band Neutrophils % Lymphocytes % (Manual) Prolymphocyte % Reactive Lymphs % (Man) Monocytes % (Manual) Eosinophils % (Manual) Basophils % (Manual) Metamyelocytes % (Man) Myelocytes % (Man) Promyelocytes % (Man) Blast Cells % (Manual) Plasma Cell % (Manual) Other Cells % Nucleated RBC % Neutrophils # (Manual) Band Neutrophils # Total Absolute Neuts Lymphocytes # (Manual) Prolymphocyte # Reactive Lymphs # Total Abs Lymphocytes Monocytes # (Manual) Eosinophils # (Manual) Basophils # (Manual) Metamyelocytes # (Man) Myelocytes # (Manual) Promyelocytes # (Man) Blast Cells # (Man) Plasma Cell # (Manual) Other Cells # Nucleated RBCs # (Man) Hypersegmented Neuts Hyposegmented Neuts Hypogranular Neuts Large Granular Lymphs # Lrg Granular Lymphs Hairy Cells Smudge Cells Toxic Granulation Toxic Vacuolation Dohle Bodies Chandrika Rods Platelet Estimate Hypogranular Platelets Giant Platelets Platelet Satelliting RBC Morphology Polychromasia Hypochromasia Poikilocytosis Basophilic Stippling Anisocytosis Microcytosis Macrocytosis Spherocytes Pappenheimer Bodies Sickle Cells Target Cells Tear Drop Cells Ovalocytes Stomatocytes [place] Bodies Echinocytes Acanthocytes (Spur) Rouleaux RBC Agglutinates Schistocytes Sezary Cell PT (9.0-12.0) Seconds INR (0.9-1.1) Sodium (136-145) mmol/L Potassium (3.5-5.1) mmol/L Chloride (98-107) mmol/L Carbon Dioxide (21-32) mmol/L Anion Gap (3-11) BUN (6-23) mg/dl Creatinine (0.6-1.2) mg/dl Est Cr Clr Drug Dosing Est GFR ( Amer) ml/min Est GFR (Non-Af Amer) ml/min BUN/Creatinine Ratio (10-20) Glucose (70-99(Fasting)) mg/dl Calcium (8.6-10.3) mg/dl Magnesium (1.7-2.4) mg/dl Total Bilirubin (0.2-1.0) mg/dl AST (13-39) U/L ALT (7-52) U/L Alkaline Phosphatase (34-104) U/L Troponin I High Sens (0-14) pg/ml B-Natriuretic Peptide > 4700 H (0-100) pg/ml Total Protein (6.0-8.3) gm/dl Albumin (3.4-5.0) gm/dl Globulin (2.5-4.0) gm/dl Albumin/Globulin Ratio (0.9-2) SARS-CoV-2, RNA, NAAT NEGATIVE (NEGATIVE) Blood Parasites ID Imaging Data Attestation: I personally reviewed and interpreted this imaging study as follows: My Impression: Chest x-ray interpreted by me CHF Radiologist's Impression: Chest X-Ray 03/04/23 12:05 XR chest 1V portable HISTORY: 87 years-old Female Chest pain, nonspecific COMPARISON: 02/23/2023 TECHNIQUE: AP view of the chest FINDINGS: Cardiac silhouette is enlarged. Pulmonary vascular congestion with similar appearance of the interstitial coarsening. No pneumothorax. Small pleural effusions are again noted. Degenerative changes of the shoulders. Atherosclerosis of the aorta. IMPRESSION: Cardiomegaly with pulmonary edema and small pleural effusions. ACT 112: Negative or not required by law. The above report was generated using voice recognition software. It may contain grammatical, syntax or spelling errors. Electronically signed by: Clive ePña M.D. 03/04/2023 12:32 PM ECG Data Attestation: I personally reviewed and interpreted this ECG as follows: Additional Comments: EKG interpreted by me sinus rhythm rate of 70 occasional PAC versus poor baseline no obvious ST segment elevation or depression, poor R wave progression the precordium, normal QTc, normal axis Telemetry was ordered by sinus rhythm rate of 70 MDM Narrative Medical decision making differential diagnosis includes CHF, cardiac dysrhythmia, anemia, metabolic derangement, acute coronary syndrome, upper respiratory tract infection, pneumonia Plan is to check labs, EKG, chest x-ray Independent history was to me by the patient's daughter who is at bedside who states that she had changes in her medications including amlodipine and hydrochlorothiazide at discharge last week I have also reviewed Dr. Savage's discharge note of 02/25/2023 regarding the patient having leg swelling and potentially being in CHF during the hospital stay Patient was started on IV Lasix Patient will be admitted for CHF Will need aggressive diuresis and rule out for ischemia Impression & Plan CHF (congestive heart failure) Discharge Plan Visit Data Chief Complaint: Shortness of Breath/Dyspnea Stated Complaint: SOB, CHEST PAIN, REF BY ED Provider: Desmond Waldron Discharge Problem: CHF (congestive heart failure) Patient Disposition: Admitted As Inpatient Forms Stand Alone Forms: My [facility] Prescriptions Prescriptions: No Action levothyroxine [Synthroid] 75 mcg tablet 75 mcg PO DAILY Lantus U-100 Insulin 100 unit/mL solution 20 units SQ DAILY latanoprost 0.005 % drops 1 drp OPL HS Entresto 24-26 mg Tablet 1 tab PO BID Qty: 60 4RF metoprolol succinate 100 mg tablet extended release 24 hr 100 mg PO DAILY Qty: 30 5RF metformin 500 mg tablet 500 mg PO BIDM brimonidine-timolol 0.2-0.5 % drops 1 drp OPL BID insulin aspart U-100 [Novolog FlexPen U-100 Insulin] 100 unit/mL (3 mL) insulin pen See Rx Instructions .ROUTE .COMPLEX Rx Instructions: Inject 8 units at noon and 5 units with supper aspirin 81 mg capsule 81 mg PO DAILY Qty: 30 0RF Referrals Referrals: Safia Shukla MD [Primary Care Provider] -
--- NOTE | 2023-03-04 12:33 | XRay Report ---
XR chest 1V portable HISTORY: 87 years-old Female Chest pain, nonspecific COMPARISON: 02/23/2023 TECHNIQUE: AP view of the chest FINDINGS: Cardiac silhouette is enlarged. Pulmonary vascular congestion with similar appearance of the intersti tial coarsening. No pneumothorax. Small pleural effusions are again noted. Degenerative changes of th e shoulders. Atherosclerosis of the aorta. IMPRESSION: Cardiomegaly with pulmonary edema and small pleural effusions. ACT 112: Negative or not required by law. The above report was generated using voice recognition software. It may contain grammatical, syntax o r spelling errors. Electronically signed by: Clive Peña M.D. 03/04/2023 12:32 PM
[2023-03-04] MEDS ORDERED: FUROSEMIDE 40 MG/4 ML VIAL IV ONE (12:47)
[2023-03-04 13:02] LABS: Alanine Aminotransferase 10 U/L (7-52); Albumin Level 3.7 gm/dl (3.4-5.0); Alkaline Phosphatase 73 U/L (34-104); Anion Gap 5 (3-11); Aspartate Aminotransferase 15 U/L (13-39); Bilirubin,Total 0.4 mg/dl (0.2-1.0); Blood Urea Nitrogen 27 mg/dl (6-23); Calcium 9.4 mg/dl (8.6-10.3); Carbon Dioxide 28 mmol/L (21-32); Chloride 105 mmol/L (98-107); Est GFR (African American) 46.3 ml/min; Globulin 3.6 gm/dl (2.5-4.0); Glucose 214 mg/dl (70-99(Fasting)); Sodium 138 mmol/L (136-145); Total Protein 7.3 gm/dl (6.0-8.3)
[2023-03-04 13:06] LABS: Troponin I High Sensitivity 17.9 pg/ml (0-14)
[2023-03-04 13:21] LABS: Prothrombin Time 11.2 Seconds (9.0-12.0)
[2023-03-04 16:06] LABS: Basophils # (auto) 0.09 K/uL (0.00-0.20); Basophils % (auto) 1.1 %; Eosinophils # (auto) 0.15 K/uL (0.00-0.50); Eosinophils % (auto) 1.8 %; Hematocrit (blood only) 32.4 % (37.0-47.0); Hemoglobin 10.6 g/dl (12.0-16.0); Immature Granulocytes # (auto) 0.03 K/uL (0.01-0.20); Immature Granulocytes % (auto) 0.4 %; Lymphocytes # (auto) 1.44 K/uL (1.20-3.40); Mean Corpuscular Hemoglobin 29.5 pg (25.0-34.0); Mean Corpuscular Hgb Conc 32.7 g/dL (32.0-36.0); Mean Corpuscular Volume 90.3 fL (80.0-100.0); Mean Platelet Volume 9.4 fL (9.4-12.4); Monocytes # (auto) 0.95 K/uL (0.11-0.59); Monocytes % (auto) 11.2 %; Neutrophils % (auto) 68.5 %; Platelet Count 370 K/uL (130-400); RDW Coefficient of Variation 13.5 % (11.5-14.5); RDW Standard Deviation 44.6 fL (36.4-46.3); Red Blood Count 3.59 M/uL (4.20-5.40); White Blood Count 8.46 K/ul (4.8-10.8)
--- NOTE | 2023-03-04 17:00 | History & Physical Report ---
Date of Service March 04, 2023 Assessment & Plan (1) Unstable angina: Plan: I suspect her intermittent shortness of breath episodes represent unstable angina as are short lived rather than her pulmonary edema She appears more amenable to cardiac catheterization at this stage therefore will re-consult cardiology Continue aspirin, metoprolol succinate, unclear why she is not on a statin since last admission Lipid profile and HbA1C with AM labs (2) Shortness of breath: Plan: ?unstable angina vs. mucus plugging from pneumonia vs CHF Recent diagnosis of CAP although this does not appear to be definitive given concurrent pulmonary edema but was coughing up brown mucus at one stage last admission - treated with ceftriaxone for 2 days 02/23 - 02/24. Azithromycin 500mg on 02/23, then 250mg daily. Discharged on further 3 days of cefdinir and azithromycin on discharge ?intermittent nature is mucus plugging from this residual (3) Acute HFrEF (heart failure with reduced ejection fraction): Plan: BNP increased from prior, CXR shows worsening pulmonary edema. No weight gain or worsening leg swelling per patient but objectively appears to be in CHF. Lasix PRN prescribed for home - suspect she may need a daily regular dose Start Lasix 40mg IV daily here (4) Hypoxia: Plan: Suspected secondary to CHF, low suspicion of worsening PNA Aim O2 sats > 94% (5) HTN (hypertension): Plan: Continue metoprolol, Entresto Diuretics as above (6) Ischemic cardiomyopathy: Plan: Entresto + metoprolol succinate (7) Diabetes: Plan: HBA1C 8.2 in September, repeat with AM labs Lantus 20 units daily at home, continue (hold if NPO though) Novolog based on 20 units basal: --Goal BSG Range: Low 110 mg/dL, High 140 mg/dL --Correction Factor: 40 mg/dL/unit --Carbohydrate ratio = 13 g/unit --BSGs ACHS if eating, q6h if npo (8) Hypothyroidism: Plan: TSH 1.866 in September Continue levothyroxine Plan VTE Prophylaxis - deferred in case need to start heparin drip for NSTEMI and pending cardiology eval for cardiac cath Diet - heart healthy, NPO after midnight Disposition - observation status to PCU Admission and Anticipated Discharge Date Admission Date: March 04, 2023 History of Present Illness Chief Complaint: Shortness of breath Primary Care Provider: Safia Shukla MD Magnolia Gould is an 87 year old female who presents to the ER due to shortness of breath. She was recently admitted from Feb 21 - 2022 due to acute on chronic systolic heart failure, community acquired pneumonia and NSTEMI. She was discharged on cefdinir and azithromycin. No fever or chills, worsening cough, nasal congestion at home. She denies any weight gain or worsening leg swelling. Having intermittent shortness of breath episodes worse at night (possible paroxysmal nocturnal dyspnea) which she feels are exacerbated by her anxiety regarding these episodes. No orthopnea during the day time. She reports previously her shortness of breath last admission was jsut on exertion but currently more now at rest. She thinks she has a had a steady decline since discharge from the hospital. Allergies Allergy/AdvReac Type Severity Reaction Status Date / Time simvastatin Allergy Intermediate Nausea Verified 03/04/23 14:20 acetaminophen [From Lortab] Allergy Mild itching Verified 03/04/23 14:20 duloxetine [From Cymbalta] Allergy Mild itching Verified 03/04/23 14:20 hydrocodone [From Lortab] Allergy Mild itching Verified 03/04/23 14:20 pregabalin [From Lyrica] Allergy Mild itching Verified 03/04/23 14:20 Home Medications Medication Instructions Recorded Confirmed Type insulin glargine 100 unit/mL 20 units subcut QAM 05/27/19 03/04/23 History subcutaneous solution (Lantus U-100 Insulin) levothyroxine 75 mcg tablet 75 mcg PO QAM 05/27/19 03/04/23 History (Synthroid) brimonidine 0.2 %-timolol 0.5 % 1 drp OPL BID 10/01/22 03/04/23 History eye drops insulin aspart U-100 100 unit/mL See Rx Instructions .Route .COMPLEX 10/01/22 03/04/23 History (3 mL) subcutaneous pen (Novolog FlexPen U-100 Insulin aspart) metformin 500 mg tablet 500 mg PO BIDM 10/01/22 03/04/23 History latanoprost 0.005 % eye drops 1 drp OPL HS 02/21/23 03/04/23 History sacubitril 24 mg-valsartan 26 mg 1 tab PO BID #60 tabs 02/25/23 03/04/23 Rx tablet (Entresto) ascorbic acid (vitamin C) 500 mg 500 mg PO QAM 03/04/23 03/04/23 History tablet (Vitamin C) aspirin 81 mg capsule 81 mg PO QAM 03/04/23 03/04/23 History metoprolol succinate 100 mg 100 mg PO QAM 03/04/23 03/04/23 History tablet,extended release 24 hr multivitamin 1 tab PO QAM 03/04/23 03/04/23 History Past Med/Surg History Medical History Acquired claw toe of left foot Acquired deformity of left foot Acquired deformity of right foot Acquired hallux valgus of right foot Acquired hammer toe of right foot Acute kidney injury Acute UTI (urinary tract infection) MARISA (acute kidney injury) Amputation of left great toe Callus Chronic renal insufficiency, stage III (moderate) Diabetes type 2, uncontrolled Diabetic foot ulcer associated with type 2 diabetes mellitus Diabetic foot ulcer associated with type 2 diabetes mellitus, with fat layer exposed Elevated troponin Elevated troponin Foot deformity Herpes zoster HTN (hypertension) Hyperlipidemia LDL goal <100 Hypomagnesemia Hypomagnesemia Hypothyroidism Leukocytosis Loss of protective sensation of skin of foot Osteoporosis Peripheral arterial disease PHN (postherpetic neuralgia) Pneumonia Pressure ulcer of left leg, stage 3 Sepsis Sinusitis Status post partial amputation of foot Syncope Transaminitis Surgical History History of tonsillectomy and adenoidectomy Social History Smoking Status: Never smoker Second Hand Exposure: Yes; Do You Dip or Chew Tobacco: No; Hx Alcohol Use: No Hx Substance Use: No Preferred Language: Upper Sorbian Communication Ability: Effective Communication Tools: Letter Board, Picture Board, Facial Expression and Writing Tablet Visual Impairment: No Limitations Hearing Ability: Normal Roll Bucker Required: No Beliefs That Will Affect Care: None marital status: / Current Living Situation: Family Current Living Situation Comment: daugher and current occupational status: 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 [employer] Other Information That Helps Us Care for You: No Feels Safe at Home: Yes Safety Concerns: Feels Safe At This Time Childhood Exposure to Second-Hand Smoke: No Diet: diabetic and low carbohydrate caffeine: Yes (1-2 cups/day) during the past year weight has: decreased > 10 lbs Dental Care, Regularly: No Physical Activity Frequency: 3-4 Times per Week Do you think of yourself as: straight/heterosexual Sexual Activity: has been sexually active, but not for at least 12 months Assistive Devices: Denture - Upper, Denture - Lower, Glasses and Walker Review of Systems Review of Systems: All systems reviewed & are unremarkable except as noted in HPI & below Physical Exam Constitutional: WD/WN, vitals as above Eyes: + anicteric sclerae; normal pupil size ENMT: external ear and nose normal, oropharynx normal Neck: trachea midline, no thyromegaly Respiratory: normal respiratory effort; no respiratory distress Auscultation: + crackles (bibasal); breath sounds present, no diminished lung sounds, no rales, no rhonchi and no wheezes Cardiovascular: Rate/Rhythm: regular rate and regular rhythm Heart Sounds: + murmur (systolic murmur throughout) Extremities: + pedal edema Gastrointestinal (Abdomen): normal bowel sounds, soft, nontender, no hepatosplenomegaly Musculoskeletal: no cyanosis or clubbing, extremities motor strength 5/5 Skin: no rashes, warm and dry Neurologic: moves all extremities and awake; not confused Psychiatric: A+Ox3, euthymic affect Genitourinary: no CVA tenderness Results & Data Results & Data Vital Signs (Past 12 Hours) Vital Signs Temp Pulse Pulse Resp BP Pulse Ox O2 Del Method 03/04/23 15:04 72 20 149/78 H 90 Room Air 03/04/23 14:53 66 24 144/66 H 90 Room Air 03/04/23 14:07 72 20 136/94 91 Room Air 03/04/23 12:09 71 18 145/62 H 94 Room Air 03/04/23 13:03 68 03/04/23 12:19 92 Room Air 03/04/23 12:17 67 16 Room Air 03/04/23 12:01 36.8 C 64 18 95 Room Air Laboratory Results Abnormal lab results 03/04/23 03/04/23 03/04/23 Range/Units 12:15 12:15 15:47 RBC 3.59 L (4.20-5.40) M/uL Hgb 10.6 L (12.0-16.0) g/dl Hct 32.4 L (37.0-47.0) % [place] # (Auto) 0.95 H (0.11-0.59) K/uL BUN 27 H (6-23) mg/dl Creatinine 1.23 H (0.6-1.2) mg/dl BUN/Creatinine Ratio 22.0 H (10-20) Glucose 214 H (70-99(Fasting)) mg/dl Troponin I High Sens 17.9 H (0-14) pg/ml B-Natriuretic Peptide > 4700 H (0-100) pg/ml 03/04/23 Range/Units 18:06 RBC (4.20-5.40) M/uL Hgb (12.0-16.0) g/dl Hct (37.0-47.0) % [place] # (Auto) (0.11-0.59) K/uL BUN (6-23) mg/dl Creatinine (0.6-1.2) mg/dl BUN/Creatinine Ratio (10-20) Glucose (70-99(Fasting)) mg/dl Troponin I High Sens 22.0 H (0-14) pg/ml B-Natriuretic Peptide (0-100) pg/ml Diagnostic Findings XR chest 1V portable HISTORY: 87 years-old Female Chest pain, nonspecific COMPARISON: 02/23/2023 TECHNIQUE: AP view of the chest FINDINGS: Cardiac silhouette is enlarged. Pulmonary vascular congestion with similar appearance of the interstitial coarsening. No pneumothorax. Small pleural effusions are again noted. Degenerative changes of the shoulders. Atherosclerosis of the aorta. IMPRESSION: Cardiomegaly with pulmonary edema and small pleural effusions. Medications Administered ER Medications Given: Lasix 80mg IV ECG Rate (beats per minute): 70 Rhythm: normal sinus Findings: + PAC Comparison ECG Date: from (Feb 21, 2023) Change: the following changes noted (PACs now present) Code Status & VTE Plan Code Status DNR/DNI per patient wishes VTE Prophylaxis Plan VTE Prophylaxis will be ordered: Yes PG Care Time/CCT Total # of Minutes Spent Total Time Spent with Patient: Total time spent is greater than 50% in coordination of care (as documented) at patient's floor/unit and/or counseling patient: Coding Level of Care Code 40325 INT INP/OBS CARE 3/75MIN Diagnoses Unstable angina I20.0 Shortness of breath R06.02 Acute HFrEF (heart failure with reduced ejection fraction) I50.21 Hypoxia R09.02 HTN (hypertension) I10 Ischemic cardiomyopathy I25.5 Diabetes E11.9 Hypothyroidism E03.9
[2023-03-04] MEDS ORDERED: GLUCOSE 40% GEL 15 GM TUBE PO PRN (18:02)
[2023-03-04] MEDS ORDERED: GLUCOSE 10 TAB/TUBE PO PRN (18:02)
[2023-03-04] MEDS ORDERED: DEXTROSE 50% 50 ML SYRINGE IV PRN (18:02)
[2023-03-04] MEDS ORDERED: CARBOHYDRATES FOR HYPOGLYCEMIA PO PRN (18:02)
[2023-03-04] MEDS ORDERED: GLUCAGON FOR INJ 1 MG VIAL SQ PRN (18:02)
[2023-03-04] MEDS: INSULIN ASPART PER UNIT CHARGE SC SCH (20:18)
[2023-03-04] MEDS: oxyCODONE HCL IR 5 MG TAB (IMMEDIATE RELEASE) PO PRN (21:52)
[2023-03-05] MEDS: VALSARTAN/SACUBITRIL 26/24MG TAB PO SCH ×2 (02:01→09:27)
[2023-03-05] MEDS: LATANOPROST 0.005% OP SOLN 2.5 ML BTL OPL SCH (02:02)
[2023-03-05 02:29] LABS: Basophils # (auto) 0.08 K/uL (0.00-0.20); Eosinophils # (auto) 0.21 K/uL (0.00-0.50); Eosinophils % (auto) 2.6 %; Hematocrit (blood only) 31.1 % (37.0-47.0); Immature Granulocytes # (auto) 0.02 K/uL (0.01-0.20); Immature Granulocytes % (auto) 0.3 %; Lymphocytes # (auto) 2.43 K/uL (1.20-3.40); Lymphocytes % (auto) 30.4 %; Mean Corpuscular Hemoglobin 29.2 pg (25.0-34.0); Mean Corpuscular Hgb Conc 32.2 g/dL (32.0-36.0); Mean Corpuscular Volume 90.9 fL (80.0-100.0); Mean Platelet Volume 9.6 fL (9.4-12.4); Monocytes # (auto) 0.97 K/uL (0.11-0.59); Monocytes % (auto) 12.1 %; Neutrophils # (auto) 4.28 K/uL (1.40-6.50); Neutrophils % (auto) 53.6 %; Platelet Count 377 K/uL (130-400); RDW Coefficient of Variation 13.6 % (11.5-14.5); RDW Standard Deviation 44.8 fL (36.4-46.3); Red Blood Count 3.42 M/uL (4.20-5.40); White Blood Count 7.99 K/ul (4.8-10.8)
[2023-03-05 02:41] LABS: BUN Creatinine Ratio 22.3 (10-20); Calcium 9.2 mg/dl (8.6-10.3); Chol HDL Ratio 4.3 (0-5); Creatinine Clr Calc Pharmacy 34.2 ml/min; Est GFR (African American) 43.3 ml/min; Est GFR (Non-African American) 37.4 ml/min; Potassium 4.6 mmol/L (3.5-5.1)
[2023-03-05] MEDS: LEVOTHYROXINE SODIUM 75 MCG TABLET PO SCH (07:08)
[2023-03-05 07:52] LABS: Estimated Average Glucose 146 mg/dl; Hemoglobin A1C 6.7 % (4.5-5.6)
--- NOTE | 2023-03-05 08:47 | Hospitalist Progress Note ---
Date of Service March 05, 2023 Assessment & Plan (1) Acute HFrEF (heart failure with reduced ejection fraction): Plan: BNP increased from prior, CXR shows worsening pulmonary edema. No weight gain or worsening leg swelling per patient but objectively appears to be in CHF. Lasix PRN prescribed for home - suspect she may need a daily regular dose Continue Lasix 40mg IV daily Strict I&Os Daily weights Low Na, heart healthy diet Fluid restrict 1500ml Appreciate cardiology recommendations - increased Entresto, added Jardiance and spironolactone (2) Unstable angina: Plan: Given shortness of breath resolving wiht IV diuresis, agree with cardiology consultation and suspect her shortness of breath is all CHF related. Planning on cardiac cath once able to lie flat to evaluate ischemic cardiomyopa thy and NSTEMI from last admission but acute presentation this time due to CHF Continue aspirin, metoprolol succinate, Entresto, pravastatin added by cardiology LDL 92 above goal HbA1C 6.7 - below goal (3) Shortness of breath: Plan: Suspect secondary to CHF as above as appears to be improving with diuresis alone (4) Hypoxia: Plan: Suspected secondary to CHF, low suspicion of worsening PNA Aim O2 sats > 94% (5) HTN (hypertension): Plan: Continue metoprolol, Entresto Diuretics as above (6) Ischemic cardiomyopathy: Plan: Entresto + metoprolol succinate (7) Diabetes: Plan: HBA1C 8.2 in September, now 6.7 Lantus 20 units daily at home, glucose 65 this morning therefore will reduce lantus to 10 units daily Novolog based on 20 units basal: --Goal BSG Range: Low 110 mg/dL, High 140 mg/dL --Correction Factor: 40 mg/dL/unit --Carbohydrate ratio = 13 g/unit --BSGs ACHS if eating, q6h if npo May need reduction in Lantus on discharge since we are starting Jardiance and HbA1C already 6.7 (8) Hypothyroidism: Plan: TSH 1.866 in September Continue levothyroxine Plan VTE Prophylaxis - heparin 5000 units SQ BID Diet - heart healthy, low Na, T2DM, fluid restricted Disposition - switch to full admission given hypoxia/CHF to PCU Admission and Anticipated Discharge Date Admission Date: March 04, 2023 Subjective No further episodes of shortness of breath overnight. No orthopnea or PND. Improved shortness of breath today but she is also currently on bed rest. Cardiology considering cardiac catheterization once patient able to lie flat. No chest pain overnight. No I&Os recorded. Review of Systems Review of Systems: All systems reviewed & are unremarkable except as noted in HPI & below Physical Exam Constitutional: WD/WN, vitals as above Eyes: + anicteric sclerae; normal pupil size ENMT: external ear and nose normal, oropharynx normal Neck: trachea midline, no thyromegaly Respiratory: normal respiratory effort; no respiratory distress Auscultation: + crackles (bibasal); breath sounds present, no diminished lung sounds, no rales, no rhonchi and no wheezes Cardiovascular: Rate/Rhythm: regular rate and regular rhythm Heart Sounds: + murmur (systolic murmur throughout) Extremities: + pedal edema (1+ b/l equal) Gastrointestinal (Abdomen): normal bowel sounds, soft, nontender, no hepatosplenomegaly Musculoskeletal: no cyanosis or clubbing, extremities motor strength 5/5 Skin: no rashes, warm and dry Neurologic: moves all extremities and awake; not confused Psychiatric: A+Ox3, euthymic affect Genitourinary: no CVA tenderness Results & Data Results & Data Vital Signs (Past 12 Hours) Vital Signs Temp Pulse Pulse Resp BP Pulse Ox O2 Del Method 03/05/23 07:36 72 20 172/79 H 94 Nasal Cannula 03/05/23 05:29 60 20 131/56 L 98 Nasal Cannula 03/05/23 02:28 62 19 141/65 H 95 Nasal Cannula 03/05/23 02:03 36.8 C 66 18 139/76 94 Nasal Cannula 03/04/23 23:43 63 22 135/61 94 Nasal Cannula 03/04/23 23:18 67 O2 Flow Rate 03/05/23 07:36 2 03/05/23 05:29 3 03/05/23 02:28 3 03/05/23 02:03 2 03/04/23 23:43 2 03/04/23 23:18 PG Care Time/CCT Total # of Minutes Spent Total Time Spent with Patient: Total time spent is greater than 50% in coordination of care (as documented) at patient's floor/unit and/or counseling patient: Coding Level of Care Code 56905 SUB INP/OBS CARE 3/50MIN Diagnoses Acute HFrEF (heart failure with reduced ejection fraction) I50.21 Unstable angina I20.0 Shortness of breath R06.02 Hypoxia R09.02 HTN (hypertension) I10 Ischemic cardiomyopathy I25.5 Diabetes E11.9 Hypothyroidism E03.9
[2023-03-05] MEDS ORDERED: LANTUS PER UNIT CHARGE SQ SCH (09:00)
--- NOTE | 2023-03-05 09:12 | Cardiology Consultation ---
Date of Consultation March 05, 2023 Assessment & Plan (1) Acute HFrEF (heart failure with reduced ejection fraction): (2) Ischemic cardiomyopathy: Mrs. Gould is an 87-year-old female with a history of HFrEF, CAD, Ischemic Cardiomyopathy(LVEF 40% with akinesis of the mid and distal anterior wall and apex), PAD, Insulin-Dependent Type 2 Diabetes Mellitus, Diabetic Neuropathy, Stage 3 CKD, Hypertension, Dyslipidemia, Hypothyroidism and Osteoporosis who presented was admitted 03/04/23 with Acute on Chronic HFrEF. Patient was recently admitted to [facility] from 02/21/23 through 02/25/23 for CHF and CAP complicated by acute hypoxic respiratory failure, MARISA, and a recent NSTEMI. She was treated with IV diuretics and antibiotics. LVEF noted to be abnormal with regional wall motion abnormalities. Patient refused ischemic evaluation at that time and preferred medical management. Metoprolol Tartrate converted to Metoprolol Succinate ER, Entresto was initiated, but she was not discharged on any diuretics. Amlodipine was also discontinued. Over the past several days she has had worsening MORRISON, orthopnea, and feeling like she was smothering which prompted her to come into the ER on 03/04/23. Activities such taking a shower and minimal ambulation bring on her exertional dyspnea -- and she feels completely washed out after she showers and get dressed. She has been sleeping in her recliner due to orthopnea but she denies any PND. Patient has not had any angina pectoris or anginal equivalent sym ptoms, nor has she had any symptoms suggestive of dysrhythmia. She denies any neurologic symptoms suggestive of stroke or mini-stroke. Patient states that her body weight is stable at 165 pounds at home -- however her body weight is up by 4.8 kg since she was discharged on 02/25/23. Recommend the followin. Continue Toprol XL 100 mg daily. 2. Increase Entresto to 49-51 mg b.i.d.. 3. Start Jardiance 10 mg daily. 4. Begin Spironolactone 25 mg daily. 5. Continue IV Lasix until euvolemic or creatinine climbs. 6. Monitor daily I&Os, body weights. 7. Strict 2 g low-sodium diet. 8. She will likely need to go home on a diuretic to prevent recurrent episodes of heart failure and rehospitalization. (3) CAD (coronary artery disease): (4) Non-ST elevation [place] (NSTEMI): Patient has multiple cardiac risk factors and sustained an NSTEMI earlier this month with a peak high sensitivity troponin I of > 2500 pg/mL in September 2022 with recurrent elevated high sensitivity troponin I in February 2023. -- Her current cardiac enzymes are not consistent with an acute coronary syndrome. -- Continue Toprol XL 100 mg daily. -- Continue Aspirin 81 mg daily. -- Intolerant of Simvastatin in the past due to nausea. -- Start Pravastatin 20 mg daily. -- If Pravastatin is not tolerated, consider Repatha. -- Patient is willing to undergo Cardiac Catheterization but she needs to be able to lie down flat for it and we need to closely monitor renal function. (5) Hypertension: -- Continue medications as outlined above. (6) Dyslipidemia: She has CAD, PAD, and DM. Goal LDL is < 50 mg/dL. -- Start Pravastatin 20 mg daily. -- If Pravastatin is not tolerated, consider Repatha. Thank you for asking us to see this patient consultation. We will continue follow along while hospitalized and following discharge. She is also followed by [facility]. History of Present Illness Reason for Consultation: -- Acute on Chronic HFrEF. -- Cardiomyopathy(LVEF 40%). -- ? Unstable Angina Pectoris. Requesting Physician: Trell Uriarte MD Attending Physician: Miky Ly MD History of Present Illness Mrs. Gould is an 87-year-old female with a history of HFrEF, CAD, Probable Ischemic Cardiomyopathy(LVEF 40% with akinesis of the mid and distal anterior wall and apex), PAD, Insulin-Dependent Type 2 Diabetes Mellitus, Diabetic Neuropathy, Stage 3 CKD, Hypertension, Dyslipidemia, Hypothyroidism and Osteoporosis who was recently admitted to [facility] from 02/21/23 through 02/25/23 for CHF and CAP complicated by acute hypoxic respiratory failure, MARISA, and a recent NSTEMI. She was treated with IV diuretics and antibiotics. LVEF noted to be abnormal with regional wall motion abnormalities. Patient refused ischemic evaluation at that time and preferred medical management. Metoprolol Tartrate converted to Metoprolol Succinate ER, Entresto was initiated, but she was not discharged on any diuretics. Amlodipine was also discontinued. Over the past several days she has had worsening MORRISON, orthopnea, and feeling like she was smothering which prompted her to come into the ER on 03/04/23. Activities such taking a shower and minimal ambulation bring on her exertional dyspnea -- and she feels completely washed out after she showers and get dressed. She has been sleeping in her recliner due to orthopnea but she denies any PND. She denies any chest pain, heaviness, tightness, pressure, or discomfort. She denies any neck, jaw, back, or arm pain. She denies any nausea, vomiting, or diaphoresis. She has not had any tachy-palpitations, elevated heart rates, near-syncope, or syncope. She denies any neurologic symptoms suggestive of stroke or mini-stroke. Patient states that her body weight is stable at 165 pounds at home -- however her body weight is up by 4.8 kg since she was discharged on 02/25/23. She is minimizing her sodium intake and is using Mrs. John to season her food. Recent cardiac studies: ECHOCARDIOGRAM 02/22/23: -- LV function is mildly reduced. -- LVEF 40% with akinesis of the mid and distal anterior wall and apex. -- Sigmoid septum is present. -- No evidence of LV thrombus. -- RV was not visualized. -- No significant valvular abnormalities. Family History: -- Father of cancer. -- Mother had a stroke. Social History: -- She is . -- Lives with her daughter and son-in-law in [place]. -- No tobacco, alcohol or drug use. -- Lifelong non-smoker. Allergies Allergy/AdvReac Type Severity Reaction Status Date / Time simvastatin Allergy Intermediate Nausea Verified 03/04/23 14:20 acetaminophen [From Lortab] Allergy Mild itching Verified 03/04/23 14:20 duloxetine [From Cymbalta] Allergy Mild itching Verified 03/04/23 14:20 hydrocodone [From Lortab] Allergy Mild itching Verified 03/04/23 14:20 pregabalin [From Lyrica] Allergy Mild itching Verified 03/04/23 14:20 Home Medications Medication Instructions Recorded Confirmed Type insulin glargine 100 unit/mL 20 units subcut QAM 05/27/19 03/04/23 History subcutaneous solution (Lantus U-100 Insulin) levothyroxine 75 mcg tablet 75 mcg PO QAM 05/27/19 03/04/23 History (Synthroid) brimonidine 0.2 %-timolol 0.5 % 1 drp OPL BID 10/01/22 03/04/23 History eye drops insulin aspart U-100 100 unit/mL See Rx Instructions .Route .COMPLEX 10/01/22 03/04/23 History (3 mL) subcutaneous pen (Novolog FlexPen U-100 Insulin aspart) metformin 500 mg tablet 500 mg PO BIDM 10/01/22 03/04/23 History latanoprost 0.005 % eye drops 1 drp OPL HS 02/21/23 03/04/23 History sacubitril 24 mg-valsartan 26 mg 1 tab PO BID #60 tabs 02/25/23 03/04/23 Rx tablet (Entresto) ascorbic acid (vitamin C) 500 mg 500 mg PO QAM 03/04/23 03/04/23 History tablet (Vitamin C) aspirin 81 mg capsule 81 mg PO QAM 03/04/23 03/04/23 History metoprolol succinate 100 mg 100 mg PO QAM 03/04/23 03/04/23 History tablet,extended release 24 hr multivitamin 1 tab PO QAM 03/04/23 03/04/23 History Patient History Medical History Acquired claw toe of left foot Acquired deformity of left foot Acquired deformity of right foot Acquired hallux valgus of right foot Acquired hammer toe of right foot Acute kidney injury Acute UTI (urinary tract infection) MARISA (acute kidney injury) Amputation of left great toe Callus Chronic renal insufficiency, stage III (moderate) Diabetes type 2, uncontrolled Diabetic foot ulcer associated with type 2 diabetes mellitus Diabetic foot ulcer associated with type 2 diabetes mellitus, with fat layer exposed Elevated troponin Elevated troponin Foot deformity Herpes zoster HTN (hypertension) Hyperlipidemia LDL goal <100 Hypomagnesemia Hypomagnesemia Hypothyroidism Leukocytosis Loss of protective sensation of skin of foot Osteoporosis Peripheral arterial disease PHN (postherpetic neuralgia) Pneumonia Pressure ulcer of left leg, stage 3 Sepsis Sinusitis Status post partial amputation of foot Syncope Transaminitis Surgical History History of tonsillectomy and adenoidectomy Social History Smoking Status: Never smoker Second Hand Exposure: Yes; Do You Dip or Chew Tobacco: No; Hx Alcohol Use: No Hx Substance Use: No Preferred Language: [place]an Communication Ability: Effective Communication Tools: Letter Board, Picture Board, Facial Expression and Writing Tablet Visual Impairment: No Limitations Hearing Ability: Normal Tourist Guide Required: No Beliefs That Will Affect Care: None marital status: / Current Living Situation: Family Current Living Situation Comment: daugher and current occupational status: 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 [employer] Other Information That Helps Us Care for You: No Feels Safe at Home: Yes Safety Concerns: Feels Safe At This Time Childhood Exposure to Second-Hand Smoke: No Diet: diabetic and low carbohydrate caffeine: Yes (1-2 cups/day) during the past year weight has: decreased > 10 lbs Dental Care, Regularly: No Physical Activity Frequency: 3-4 Times per Week Do you think of yourself as: straight/heterosexual Sexual Activity: has been sexually active, but not for at least 12 months Assistive Devices: Denture - Upper, Denture - Lower, Glasses and Walker Review of Systems Review of Systems: -- Patient has been considering intermediate or rehab facility placement due to weakness, dyspnea, and difficulty caring for herself. -- 10 point ROS completed and is negative with the exception of what is mentioned in the HPI. Physical Exam Physical Exam: BP 172/79, Pulse 72 and regular, SpO2 94% on O2 at 2 L/min. GENERAL: Patient in no acute distress. HEENT: Head is atraumatic, normocephalic. EOM's intact. Facies symmetric. No perioral cyanosis. NECK: JVD is present. JVP is elevated. Carotid upstrokes are + 2 bilaterally without bruits. CHEST/LUNGS: Bibasilar crackles are present. CVS: S1 and S2 are regular with a grade 2/6 basal systolic murmur. No diastolic murmurs. No gallops or rubs. PMI is nonpalpable. No lifts, heaves, or thrills. No abdominal aortic or renal bruits. ABDOMINAL EXAM: Bowel sounds are present. No masses, organomegaly, or tenderness. EXTREMITIES: No clubbing or cyanosis. No peripheral edema. Intact radial pulses bilaterally. NEUROLOGIC EXAM: Patient is awake, alert, and oriented. Pleasant and cooperative. Answers questions appropriately. Speech is clear. Gait pattern was not assessed. 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 EKG 03/04/23: -- NSR with PAC's, age indeterminate anterior infarct cited on or before 03/04/23. -- Abnormal EKG. Results & Data Vital Signs (Past 12 Hours) Vital Signs Temp Pulse Pulse Resp BP Pulse Ox O2 Del Method 03/05/23 07:36 72 20 172/79 H 94 Nasal Cannula 03/05/23 05:29 60 20 131/56 L 98 Nasal Cannula 03/05/23 02:28 62 19 141/65 H 95 Nasal Cannula 03/05/23 02:03 36.8 C 66 18 139/76 94 Nasal Cannula 03/04/23 23:43 63 22 135/61 94 Nasal Cannula 03/04/23 23:18 67 O2 Flow Rate 03/05/23 07:36 2 03/05/23 05:29 3 03/05/23 02:28 3 03/05/23 02:03 2 03/04/23 23:43 2 03/04/23 23:18 Laboratory Results Laboratory Results - last 24 hr 03/04/23 03/04/23 03/04/23 12:15 12:15 12:15 WBC Cancelled RBC Cancelled Hgb Cancelled Hct Cancelled MCV Cancelled MCH Cancelled MCHC Cancelled RDW Std Deviation Cancelled RDW Coeff of Bert Cancelled Plt Count Cancelled MPV Cancelled Immature Gran % (Auto) Cancelled Neut % (Auto) Cancelled Lymph % (Auto) Cancelled Ciales % (Auto) Cancelled Eos % (Auto) Cancelled Baso % (Auto) Cancelled Neut # (Auto) Cancelled Lymph # (Auto) Cancelled Ciales # (Auto) Cancelled Eos # (Auto) Cancelled Baso # (Auto) Cancelled Immature Gran # (Auto) Cancelled Absolute Nucleated RBC Cancelled Nucleated RBC % (auto) Cancelled Neutrophils % (Manual) Cancelled Band Neutrophils % Cancelled Lymphocytes % (Manual) Cancelled Prolymphocyte % Cancelled Reactive Lymphs % (Man) Cancelled Monocytes % (Manual) Cancelled Eosinophils % (Manual) Cancelled Basophils % (Manual) Cancelled Metamyelocytes % (Man) Cancelled Myelocytes % (Man) Cancelled Promyelocytes % (Man) Cancelled Blast Cells % (Manual) Cancelled Plasma Cell % (Manual) Cancelled Other Cells % Cancelled Nucleated RBC % Cancelled Neutrophils # (Manual) Cancelled Band Neutrophils # Cancelled Total Absolute Neuts Cancelled Lymphocytes # (Manual) Cancelled Prolymphocyte # Cancelled Reactive Lymphs # Cancelled Total Abs Lymphocytes Cancelled Monocytes # (Manual) Cancelled Eosinophils # (Manual) Cancelled Basophils # (Manual) Cancelled Metamyelocytes # (Man) Cancelled Myelocytes # (Manual) Cancelled Promyelocytes # (Man) Cancelled Blast Cells # (Man) Cancelled Plasma Cell # (Manual) Cancelled Other Cells # Cancelled Nucleated RBCs # (Man) Cancelled Hypersegmented Neuts Cancelled Hyposegmented Neuts Cancelled Hypogranular Neuts Cancelled Large Granular Lymphs Cancelled # Lrg Granular Lymphs Cancelled Hairy Cells Cancelled Smudge Cells Cancelled Toxic Granulation Cancelled Toxic Vacuolation Cancelled Dohle Bodies Cancelled Chandrika Rods Cancelled Platelet Estimate Cancelled Hypogranular Platelets Cancelled Giant Platelets Cancelled Platelet Satelliting Cancelled RBC Morphology Cancelled Polychromasia Cancelled Hypochromasia Cancelled Poikilocytosis Cancelled Basophilic Stippling Cancelled Anisocytosis Cancelled Microcytosis Cancelled Macrocytosis Cancelled Spherocytes Cancelled Pappenheimer Bodies Cancelled Sickle Cells Cancelled Target Cells Cancelled Tear Drop Cells Cancelled Ovalocytes Cancelled Stomatocytes Cancelled Reyes-Stafford Bodies Cancelled Echinocytes Cancelled Acanthocytes (Spur) Cancelled Rouleaux Cancelled RBC Agglutinates Cancelled Schistocytes Cancelled Sezary Cell Cancelled PT 11.2 INR 1.0 Sodium 138 Potassium 5.0 Chloride 105 Carbon Dioxide 28 Anion Gap 5 BUN 27 H Creatinine 1.23 H Est Cr Clr Drug Dosing Not Reportable Est GFR ( Amer) 46.3 Est GFR (Non-Af Amer) 40.0 BUN/Creatinine Ratio 22.0 H Glucose 214 H POC Glucose Estimat Average Glucose Hemoglobin A1c Calcium 9.4 Magnesium 2.0 Total Bilirubin 0.4 AST 15 ALT 10 Alkaline Phosphatase 73 Troponin I High Sens 17.9 H B-Natriuretic Peptide Total Protein 7.3 Albumin 3.7 Globulin 3.6 Albumin/Globulin Ratio 1.0 Triglycerides Cholesterol LDL Cholesterol, Calc VLDL Cholesterol, Calc HDL Cholesterol Cholesterol/HDL Ratio SARS-CoV-2, RNA, NAAT Blood Parasites ID Cancelled 03/04/23 03/04/23 03/04/23 12:15 12:18 15:47 WBC 8.46 RBC 3.59 L Hgb 10.6 L Hct 32.4 L MCV 90.3 MCH 29.5 MCHC 32.7 RDW Std Deviation 44.6 RDW Coeff of Bert 13.5 Plt Count 370 MPV 9.4 Immature Gran % (Auto) 0.4 Neut % (Auto) 68.5 Lymph % (Auto) 17.0 Ciales % (Auto) 11.2 Eos % (Auto) 1.8 Baso % (Auto) 1.1 Neut # (Auto) 5.80 Lymph # (Auto) 1.44 Ciales # (Auto) 0.95 H Eos # (Auto) 0.15 Baso # (Auto) 0.09 Immature Gran # (Auto) 0.03 Absolute Nucleated RBC Nucleated RBC % (auto) Neutrophils % (Manual) Band Neutrophils % Lymphocytes % (Manual) Prolymphocyte % Reactive Lymphs % (Man) Monocytes % (Manual) Eosinophils % (Manual) Basophils % (Manual) Metamyelocytes % (Man) Myelocytes % (Man) Promyelocytes % (Man) Blast Cells % (Manual) Plasma Cell % (Manual) Other Cells % Nucleated RBC % Neutrophils # (Manual) Band Neutrophils # Total Absolute Neuts Lymphocytes # (Manual) Prolymphocyte # Reactive Lymphs # Total Abs Lymphocytes Monocytes # (Manual) Eosinophils # (Manual) Basophils # (Manual) Metamyelocytes # (Man) Myelocytes # (Manual) Promyelocytes # (Man) Blast Cells # (Man) Plasma Cell # (Manual) Other Cells # Nucleated RBCs # (Man) Hypersegmented Neuts Hyposegmented Neuts Hypogranular Neuts Large Granular Lymphs # Lrg Granular Lymphs Hairy Cells Smudge Cells Toxic Granulation Toxic Vacuolation Dohle Bodies Chandrika Rods Platelet Estimate Hypogranular Platelets Giant Platelets Platelet Satelliting RBC Morphology Polychromasia Hypochromasia Poikilocytosis Basophilic Stippling Anisocytosis Microcytosis Macrocytosis Spherocytes Pappenheimer Bodies Sickle Cells Target Cells Tear Drop Cells Ovalocytes Stomatocytes Reyes-Stafford Bodies Echinocytes Acanthocytes (Spur) Rouleaux RBC Agglutinates Schistocytes Sezary Cell PT INR Sodium Potassium Chloride Carbon Dioxide Anion Gap BUN Creatinine Est Cr Clr Drug Dosing Est GFR ( Amer) Est GFR (Non-Af Amer) BUN/Creatinine Ratio Glucose POC Glucose Estimat Average Glucose Hemoglobin A1c Calcium Magnesium Total Bilirubin AST ALT Alkaline Phosphatase Troponin I High Sens B-Natriuretic Peptide > 4700 H Total Protein Albumin Globulin Albumin/Globulin Ratio Triglycerides Cholesterol LDL Cholesterol, Calc VLDL Cholesterol, Calc HDL Cholesterol Cholesterol/HDL Ratio SARS-CoV-2, RNA, NAAT NEGATIVE Blood Parasites ID 03/04/23 03/04/23 03/05/23 18:06 19:34 01:41 WBC RBC Hgb Hct MCV MCH MCHC RDW Std Deviation RDW Coeff of Bert Plt Count MPV Immature Gran % (Auto) Neut % (Auto) Lymph % (Auto) Ciales % (Auto) Eos % (Auto) Baso % (Auto) Neut # (Auto) Lymph # (Auto) Ciales # (Auto) Eos # (Auto) Baso # (Auto) Immature Gran # (Auto) Absolute Nucleated RBC Nucleated RBC % (auto) Neutrophils % (Manual) Band Neutrophils % Lymphocytes % (Manual) Prolymphocyte % Reactive Lymphs % (Man) Monocytes % (Manual) Eosinophils % (Manual) Basophils % (Manual) Metamyelocytes % (Man) Myelocytes % (Man) Promyelocytes % (Man) Blast Cells % (Manual) Plasma Cell % (Manual) Other Cells % Nucleated RBC % Neutrophils # (Manual) Band Neutrophils # Total Absolute Neuts Lymphocytes # (Manual) Prolymphocyte # Reactive Lymphs # Total Abs Lymphocytes Monocytes # (Manual) Eosinophils # (Manual) Basophils # (Manual) Metamyelocytes # (Man) Myelocytes # (Manual) Promyelocytes # (Man) Blast Cells # (Man) Plasma Cell # (Manual) Other Cells # Nucleated RBCs # (Man) Hypersegmented Neuts Hyposegmented Neuts Hypogranular Neuts Large Granular Lymphs # Lrg Granular Lymphs Hairy Cells Smudge Cells Toxic Granulation Toxic Vacuolation Dohle Bodies Chandrika Rods Platelet Estimate Hypogranular Platelets Giant Platelets Platelet Satelliting RBC Morphology Polychromasia Hypochromasia Poikilocytosis Basophilic Stippling Anisocytosis Microcytosis Macrocytosis Spherocytes Pappenheimer Bodies Sickle Cells Target Cells Tear Drop Cells Ovalocytes Stomatocytes Reyes-Stafford Bodies Echinocytes Acanthocytes (Spur) Rouleaux RBC Agglutinates Schistocytes Sezary Cell PT INR Sodium Potassium Chloride Carbon Dioxide Anion Gap BUN Creatinine Est Cr Clr Drug Dosing Est GFR ( Amer) Est GFR (Non-Af Amer) BUN/Creatinine Ratio Glucose POC Glucose 83 Estimat Average Glucose Hemoglobin A1c Calcium Magnesium Total Bilirubin AST ALT Alkaline Phosphatase Troponin I High Sens 22.0 H 22.8 H B-Natriuretic Peptide Total Protein Albumin Globulin Albumin/Globulin Ratio Triglycerides Cholesterol LDL Cholesterol, Calc VLDL Cholesterol, Calc HDL Cholesterol Cholesterol/HDL Ratio SARS-CoV-2, RNA, NAAT Blood Parasites ID 03/05/23 03/05/23 03/05/23 01:41 01:41 01:41 WBC 7.99 RBC 3.42 L Hgb 10.0 L Hct 31.1 L MCV 90.9 MCH 29.2 MCHC 32.2 RDW Std Deviation 44.8 RDW Coeff of Bert 13.6 Plt Count 377 MPV 9.6 Immature Gran % (Auto) 0.3 Neut % (Auto) 53.6 Lymph % (Auto) 30.4 Ciales % (Auto) 12.1 Eos % (Auto) 2.6 Baso % (Auto) 1.0 Neut # (Auto) 4.28 Lymph # (Auto) 2.43 Ciales # (Auto) 0.97 H Eos # (Auto) 0.21 Baso # (Auto) 0.08 Immature Gran # (Auto) 0.02 Absolute Nucleated RBC Nucleated RBC % (auto) Neutrophils % (Manual) Band Neutrophils % Lymphocytes % (Manual) Prolymphocyte % Reactive Lymphs % (Man) Monocytes % (Manual) Eosinophils % (Manual) Basophils % (Manual) Metamyelocytes % (Man) Myelocytes % (Man) Promyelocytes % (Man) Blast Cells % (Manual) Plasma Cell % (Manual) Other Cells % Nucleated RBC % Neutrophils # (Manual) Band Neutrophils # Total Absolute Neuts Lymphocytes # (Manual) Prolymphocyte # Reactive Lymphs # Total Abs Lymphocytes Monocytes # (Manual) Eosinophils # (Manual) Basophils # (Manual) Metamyelocytes # (Man) Myelocytes # (Manual) Promyelocytes # (Man) Blast Cells # (Man) Plasma Cell # (Manual) Other Cells # Nucleated RBCs # (Man) Hypersegmented Neuts Hyposegmented Neuts Hypogranular Neuts Large Granular Lymphs # Lrg Granular Lymphs Hairy Cells Smudge Cells Toxic Granulation Toxic Vacuolation Dohle Bodies Chandrika Rods Platelet Estimate Hypogranular Platelets Giant Platelets Platelet Satelliting RBC Morphology Polychromasia Hypochromasia Poikilocytosis Basophilic Stippling Anisocytosis Microcytosis Macrocytosis Spherocytes Pappenheimer Bodies Sickle Cells Target Cells Tear Drop Cells Ovalocytes Stomatocytes Reyes-Stafford Bodies Echinocytes Acanthocytes (Spur) Rouleaux RBC Agglutinates Schistocytes Sezary Cell PT INR Sodium 139 Potassium 4.6 Chloride 103 Carbon Dioxide 29 Anion Gap 7 BUN 29 H Creatinine 1.30 H Est Cr Clr Drug Dosing 34.2 Est GFR ( Amer) 43.3 Est GFR (Non-Af Amer) 37.4 BUN/Creatinine Ratio 22.3 H Glucose 65 L POC Glucose Estimat Average Glucose 146 Hemoglobin A1c 6.7 H Calcium 9.2 Magnesium Total Bilirubin AST ALT Alkaline Phosphatase Troponin I High Sens B-Natriuretic Peptide Total Protein Albumin Globulin Albumin/Globulin Ratio Triglycerides 118 Cholesterol 151 LDL Cholesterol, Calc 92 VLDL Cholesterol, Calc 24 HDL Cholesterol 35 Cholesterol/HDL Ratio 4.3 SARS-CoV-2, RNA, NAAT Blood Parasites ID 03/05/23 03/05/23 07:08 07:34 WBC RBC Hgb Hct MCV MCH MCHC RDW Std Deviation RDW Coeff of Bert Plt Count MPV Immature Gran % (Auto) Neut % (Auto) Lymph % (Auto) Ciales % (Auto) Eos % (Auto) Baso % (Auto) Neut # (Auto) Lymph # (Auto) Ciales # (Auto) Eos # (Auto) Baso # (Auto) Immature Gran # (Auto) Absolute Nucleated RBC Nucleated RBC % (auto) Neutrophils % (Manual) Band Neutrophils % Lymphocytes % (Manual) Prolymphocyte % Reactive Lymphs % (Man) Monocytes % (Manual) Eosinophils % (Manual) Basophils % (Manual) Metamyelocytes % (Man) Myelocytes % (Man) Promyelocytes % (Man) Blast Cells % (Manual) Plasma Cell % (Manual) Other Cells % Nucleated RBC % Neutrophils # (Manual) Band Neutrophils # Total Absolute Neuts Lymphocytes # (Manual) Prolymphocyte # Reactive Lymphs # Total Abs Lymphocytes Monocytes # (Manual) Eosinophils # (Manual) Basophils # (Manual) Metamyelocytes # (Man) Myelocytes # (Manual) Promyelocytes # (Man) Blast Cells # (Man) Plasma Cell # (Manual) Other Cells # Nucleated RBCs # (Man) Hypersegmented Neuts Hyposegmented Neuts Hypogranular Neuts Large Granular Lymphs # Lrg Granular Lymphs Hairy Cells Smudge Cells Toxic Granulation Toxic Vacuolation Dohle Bodies Chandrika Rods Platelet Estimate Hypogranular Platelets Giant Platelets Platelet Satelliting RBC Morphology Polychromasia Hypochromasia Poikilocytosis Basophilic Stippling Anisocytosis Microcytosis Macrocytosis Spherocytes Pappenheimer Bodies Sickle Cells Target Cells Tear Drop Cells Ovalocytes Stomatocytes Reyes-Stafford Bodies Echinocytes Acanthocytes (Spur) Rouleaux RBC Agglutinates Schistocytes Sezary Cell PT INR Sodium Potassium Chloride Carbon Dioxide Anion Gap BUN Creatinine Est Cr Clr Drug Dosing Est GFR ( Amer) Est GFR (Non-Af Amer) BUN/Creatinine Ratio Glucose POC Glucose 88 Estimat Average Glucose Hemoglobin A1c Calcium Magnesium Total Bilirubin AST ALT Alkaline Phosphatase Troponin I High Sens 17.7 H D B-Natriuretic Peptide Total Protein Albumin Globulin Albumin/Globulin Ratio Triglycerides Cholesterol LDL Cholesterol, Calc VLDL Cholesterol, Calc HDL Cholesterol Cholesterol/HDL Ratio SARS-CoV-2, RNA, NAAT Blood Parasites ID Diagnostic Findings CXR 03/04/23: Cardiac silhouette is enlarged. Pulmonary vascular congestion with similar appearance of the interstitial coarsening. No pneumothorax. Small pleural effusions are again noted. Degenerative changes of the shoulders. Atherosclerosis of the aorta. IMPRESSION: -- Cardiomegaly with pulmonary edema and small pleural effusions. Medications Administered Medication List Insulin Aspart (Insulin Aspart Per Unit Charge) 0 units SC ACHS MAYI Stop: 04/03/23 20:59 Last Admin: 03/05/23 09:42 Dose: Not Given Documented By: Admin: 03/04/23 20:18 Dose: Not Given Documented By: BARB Co-signed By: TBS Latanoprost (Latanoprost 0.005% Op Soln 2.5 Ml Btl) 1 drops OPL HS MAYI Stop: 04/03/23 20:59 Last Admin: 03/05/23 02:02 Dose: 1 drops Documented By: BARB Levothyroxine Sodium (Levothyroxine Sodium 75 Mcg Tablet) 75 mcg PO DAILYBB MAYI Stop: 04/04/23 06:29 Last Admin: 03/05/23 07:08 Dose: 75 mcg Documented By: BARB Oxycodone HCl (Oxycodone Hcl Ir 5 Mg Tab (Immediate Release)) 2.5 mg PO Q4H PRN PRN Reason: Pain Stop: 03/18/23 21:25 Last Admin: 03/04/23 21:52 Dose: 2.5 mg Documented By: BARB Discontinued Medications Furosemide (Furosemide 40 Mg/4 Ml Vial) 80 mg IV ONE ONE Stop: 03/04/23 12:48 Last Admin: 03/04/23 13:12 Dose: 80 mg Documented By: CORDELL Sacubitril/Valsartan (Valsartan/Sacubitril 26/24mg Tab) 1 tab PO BID MAYI Stop: 04/03/23 20:59 Last Admin: 03/05/23 09:27 Dose: Not Given Documented By: Admin: 03/05/23 02:01 Dose: 1 tab Documented By: BARB PG Care Time/CCT Total # of Minutes Spent Total Time Spent with Patient: Total time spent is greater than 50% in coordination of care (as documented) at patient's floor/unit and/or counseling patient:44 Coding [place] [address] INT INP/OBS CARE 2/55MIN Patient Type Established History Comprehensive Exam Comprehensive Medical Decision Making Moderate Complexity Diagnoses Acute HFrEF (heart failure with reduced ejection fraction) I50.21 Ischemic cardiomyopathy I25.5 CAD (coronary artery disease) I25.10 Non-ST elevation [place] (NSTEMI) I21.4 Hypertension I10 Dyslipidemia E78.5 Time Spent (min) 62
[2023-03-05] MEDS: INSULIN ASPART PER UNIT CHARGE SC SCH ×4 (09:42→20:07)
[2023-03-05] MEDS: EMPAGLIFLOZIN 10 MG TAB PO SCH (10:49)
[2023-03-05] MEDS: oxyCODONE HCL IR 5 MG TAB (IMMEDIATE RELEASE) PO PRN ×2 (10:49→20:54)
[2023-03-05] MEDS: ASPIRIN 81 MG ECTAB PO SCH (10:50)
[2023-03-05] MEDS: METOPROLOL SUCC 50MG EXT REL TAB PO SCH (10:50)
[2023-03-05] MEDS: SPIRONOLACTONE 25 MG TAB PO SCH (10:50)
[2023-03-05] MEDS: MULTIVITAMIN TAB PO SCH (10:51)
[2023-03-05] MEDS: FUROSEMIDE 40 MG/4 ML VIAL IV SCH (10:51)
[2023-03-05] MEDS ORDERED: LANTUS PER UNIT CHARGE SQ ONE (12:02)
[2023-03-05] MEDS: PRAVASTATIN SOD 20 MG TAB PO SCH (18:14)
[2023-03-05] MEDS: HEPARIN SOD 5,000 UNIT/0.5 ML VIAL SQ SCH (20:05)
[2023-03-05] MEDS: VALSARTAN/SACUBITRIL 51/49 MG TAB PO SCH (20:06)
[2023-03-06] MEDS: LATANOPROST 0.005% OP SOLN 2.5 ML BTL OPL SCH ×2 (00:10→21:30)
[2023-03-06] MEDS: oxyCODONE HCL IR 5 MG TAB (IMMEDIATE RELEASE) PO PRN ×2 (06:06→21:39)
[2023-03-06] MEDS: LEVOTHYROXINE SODIUM 75 MCG TABLET PO SCH (06:06)
--- NOTE | 2023-03-06 06:20 | Electrocardiogram Report ---
Test Reason : Blood Pressure : / mmHG Vent. Rate : 070 BPM Atrial Rate : 070 BPM P-R Int : 192 ms QRS Dur : 092 ms QT Int : 430 ms P-R-T Axes : 000 038 088 degrees QTc Int : 464 ms Sinus rhythm with Premature atrial complexes Anterior infarct (cited on or before 04-MAR-2023) T wave abnormality, consider anterior ischemia Abnormal ECG When compared with ECG of 21-FEB-2023 11:53, Premature atrial complexes are now Present Confirmed by Uli Cardona ([id number]) on 03/06/2023 6:19:58 AM Referred By: Confirmed By:Uli Cardona
[2023-03-06 08:23] LABS: BUN Creatinine Ratio 20.3 (10-20); Calcium 9.3 mg/dl (8.6-10.3); Creatinine Clr Calc Pharmacy 29.3 ml/min; Est GFR (African American) 38.6 ml/min; Est GFR (Non-African American) 33.3 ml/min; Potassium 4.7 mmol/L (3.5-5.1)
[2023-03-06] MEDS: EMPAGLIFLOZIN 10 MG TAB PO SCH (08:58)
[2023-03-06] MEDS: HEPARIN SOD 5,000 UNIT/0.5 ML VIAL SQ SCH ×2 (08:58→21:31)
[2023-03-06] MEDS: FUROSEMIDE 40 MG/4 ML VIAL IV SCH (08:58)
[2023-03-06] MEDS: ASPIRIN 81 MG ECTAB PO SCH (08:58)
[2023-03-06] MEDS: MULTIVITAMIN TAB PO SCH (08:59)
[2023-03-06] MEDS: METOPROLOL SUCC 50MG EXT REL TAB PO SCH (08:59)
[2023-03-06] MEDS: SPIRONOLACTONE 25 MG TAB PO SCH (08:59)
[2023-03-06] MEDS: VALSARTAN/SACUBITRIL 51/49 MG TAB PO SCH ×2 (08:59→21:29)
[2023-03-06] MEDS: LANTUS PER UNIT CHARGE SQ SCH (09:10)
[2023-03-06] MEDS: INSULIN ASPART PER UNIT CHARGE SC SCH ×4 (09:10→21:28)
--- NOTE | 2023-03-06 13:32 | Hospitalist Progress Note ---
Date of Service March 06, 2023 Assessment & Plan (1) Acute HFrEF (heart failure with reduced ejection fraction): Plan: Patient was recently discharged from this hospital on 02/19 Now presents with worsening sob, orthopnea, weight gain BNP increased from prior, CXR shows worsening pulmonary edema. ECHO shows EF 40% Continue Lasix 40mg IV daily Strict I&Os Daily weights Low Na, heart healthy diet Fluid restrict 1500ml Appreciate cardiology recommendations - increased Entresto, added Jardiance and spironolactone (2) Unstable angina: Plan: Given shortness of breath resolving wiht IV diuresis, agree with cardiology consultation and suspect her shortness of breath is all CHF related. Planning on cardiac cath once able to lie flat to evaluate ischemic cardiomyopathy and NSTEMI from last admission but acute presentation this time due to CHF Continue aspirin, metoprolol succinate, Entresto, pravastatin added by cardiology LDL 92 above goal HbA1C 6.7 - below goal (3) Shortness of breath: Plan: Suspect secondary to CHF as above as appears to be improving with diuresis alone (4) Hypoxia: Plan: Suspected secondary to CHF, low suspicion of worsening PNA Aim O2 sats > 94% (5) HTN (hypertension): Plan: Continue metoprolol, Entresto Diuretics as above (6) Ischemic cardiomyopathy: Plan: Entresto + metoprolol succinate (7) Diabetes: Plan: HBA1C 8.2 in September, now 6.7 Lantus 20 units daily at home, glucose 65 this morning therefore will reduce lantus to 10 units daily Novolog based on 20 units basal: --Goal BSG Range: Low 110 mg/dL, High 140 mg/dL --Correction Factor: 40 mg/dL/unit --Carbohydrate ratio = 13 g/unit --BSGs ACHS if eating, q6h if npo May need reduction in Lantus on discharge since we are starting Jardiance and HbA1C already 6.7 (8) Hypothyroidism: Plan: TSH 1.866 in September Continue levothyroxine (9) Herpes zoster: Plan: shingles outbreak on the lower back , with occasional itch will institute PO Acyclovir 800mg 5 times daily and PO benadryl 25mg prn every 4 hrs for itch Plan VTE Prophylaxis - heparin 5000 units SQ BID Diet - heart healthy, low Na, T2DM, fluid restricted Disposition - continue hospitalization Admission and Anticipated Discharge Date Admission Date: March 05, 2023 Subjective says shortness of breath has improved after diuresis, but now complains of shingles on the lower back Review of Systems Review of Systems: All systems reviewed are negative, apart from the ones contained in the history. Physical Exam Physical Exam: The patient is awake, alert and oriented 3, well developed and well nourished, normocephalic and atraumatic, lying in bed and in no acute distress. HEENT--PERRL, EOMI, mucous membranes and oropharynx mildly dry Neck--supple. No JVD. No bruits. Thyroid normal, trachea midline, no adenopathy. Heart--normal S1 and S2. No murmurs, rubs or gallops. Lungs--clear bilaterally, no respiratory distress, no accessory muscle use. Abdomen--normal bowel sounds and soft. Mild epigastric and left sided abdominal pain Extremities--no cyanosis or clubbing. No edema. Dermatologic--normal skin turgor, normal color, no abnormal lymph nodes, no rash. Neurologic--cranial nerves II through XII grossly intact. Rheumatologic--normal range of motion. Psychiatric--normal affect. Results & Data Results & Data Vital Signs (Past 12 Hours) Vital Signs Temp Pulse Pulse Resp BP Pulse Ox O2 Del Method 03/06/23 07:30 98.2 F 77 18 121/64 96 Room Air 03/06/23 07:53 66 03/06/23 02:46 98.2 F 67 20 122/65 94 Nasal Cannula O2 Flow Rate 03/06/23 07:30 03/06/23 07:53 03/06/23 02:46 2 PG Care Time/CCT Total # of Minutes Spent Total Time Spent with Patient: Total time spent is greater than 50% in coordination of care (as documented) at patient's floor/unit and/or counseling patient: Coding Level of Care Code 24746 SUB INP/OBS CARE 2/35MIN Diagnoses Acute HFrEF (heart failure with reduced ejection fraction) I50.21 Unstable angina I20.0 Shortness of breath R06.02 Hypoxia R09.02 HTN (hypertension) I10 Ischemic cardiomyopathy I25.5 Diabetes E11.9 Hypothyroidism E03.9 Herpes zoster B02.9 Time Spent (min) 35
[2023-03-06] MEDS: ACYCLOVIR 200 MG CAP PO SCH ×2 (15:29→21:29)
[2023-03-06] MEDS: PRAVASTATIN SOD 20 MG TAB PO SCH (17:44)
[2023-03-06] MEDS: BRIMONIDINE TARTRATE 0.2% 5ML OPL SCH (21:31)
[2023-03-06] MEDS: TIMOLOL MALEATE 0.5% OP SOLN 5 ML BTL OPL SCH (21:31)
[2023-03-07] MEDS: ACYCLOVIR 200 MG CAP PO SCH ×4 (00:05→21:05)
[2023-03-07] MEDS: LEVOTHYROXINE SODIUM 75 MCG TABLET PO SCH (05:17)
[2023-03-07 08:26] LABS: BUN Creatinine Ratio 22.1 (10-20); Calcium 9.1 mg/dl (8.6-10.3); Creatinine Clr Calc Pharmacy 23.2 ml/min; Est GFR (Non-African American) 25.1 ml/min; Potassium 4.8 mmol/L (3.5-5.1)
[2023-03-07] MEDS: VALSARTAN/SACUBITRIL 51/49 MG TAB PO SCH ×2 (08:34→21:07)
[2023-03-07] MEDS: MULTIVITAMIN TAB PO SCH (08:35)
[2023-03-07] MEDS: SPIRONOLACTONE 25 MG TAB PO SCH (08:35)
[2023-03-07] MEDS: METOPROLOL SUCC 50MG EXT REL TAB PO SCH (08:35)
[2023-03-07] MEDS: HEPARIN SOD 5,000 UNIT/0.5 ML VIAL SQ SCH ×2 (08:37→21:08)
[2023-03-07] MEDS: EMPAGLIFLOZIN 10 MG TAB PO SCH (08:37)
[2023-03-07] MEDS: ASPIRIN 81 MG ECTAB PO SCH (08:37)
[2023-03-07] MEDS: TIMOLOL MALEATE 0.5% OP SOLN 5 ML BTL OPL SCH ×2 (08:41→21:06)
[2023-03-07] MEDS: BRIMONIDINE TARTRATE 0.2% 5ML OPL SCH ×2 (08:42→21:07)
[2023-03-07] MEDS: FUROSEMIDE 40 MG/4 ML VIAL IV SCH (08:54)
[2023-03-07] MEDS: INSULIN ASPART PER UNIT CHARGE SC SCH ×4 (09:03→21:35)
[2023-03-07] MEDS: LANTUS PER UNIT CHARGE SQ SCH (09:04)
--- NOTE | 2023-03-07 13:49 | Hospitalist Progress Note ---
Date of Service March 07, 2023 Assessment & Plan (1) Acute HFrEF (heart failure with reduced ejection fraction): Plan: Patient was recently discharged from this hospital on 02/19 Presented to the hospital with worsening sob, orthopnea, weight gain BNP increased from prior, CXR shows worsening pulmonary edema. ECHO shows EF 40% Started on Lasix 40mg IV daily, will hold due to worsening serum creatinine Strict I&Os Daily weights Low Na, heart healthy diet Fluid restrict 1500ml Appreciate cardiology recommendations - increased Entresto, added Jardiance and spironolactone SOB much better today (2) Unstable angina: Plan: Given shortness of breath resolving wiht IV diuresis, agree with cardiology consultation and suspect her shortness of breath is all CHF related. Planning on cardiac cath once able to lie flat to evaluate ischemic cardiomyopathy and NSTEMI from last admission but acute presentation this time due to CHF Continue aspirin, metoprolol succinate, Entresto, pravastatin added by cardiology LDL 92 above goal HbA1C 6.7 - below goal (3) Shortness of breath: Plan: Suspect secondary to CHF as above as appears to be improving with diuresis alone (4) Hypoxia: Plan: Now resolved Suspected secondary to CHF, low suspicion of worsening PNA Aim O2 sats > 94% (5) HTN (hypertension): Plan: Continue metoprolol, Entresto Diuretics as above (6) Ischemic cardiomyopathy: Plan: Entresto + metoprolol succinate (7) Diabetes: Plan: HBA1C 8.2 in September, now 6.7 Lantus 20 units daily at home, glucose 65 this morning therefore will reduce lantus to 10 units daily Novolog based on 20 units basal: --Goal BSG Range: Low 110 mg/dL, High 140 mg/dL --Correction Factor: 40 mg/dL/unit --Carbohydrate ratio = 13 g/unit --BSGs ACHS if eating, q6h if npo May need reduction in Lantus on discharge since we are starting Jardiance and HbA1C already 6.7 (8) Hypothyroidism: Plan: TSH 1.866 in September Continue levothyroxine (9) Herpes zoster: Plan: shingles outbreak on the lower back , with occasional itch will institute PO Acyclovir 800mg 5 times daily and PO benadryl 25mg prn every 4 hrs for itch (10) Acute kidney injury superimposed on CKD: Plan: worsening renal function following diuresis will hold lasix monitor bmp avoid nephrotoxics Plan VTE Prophylaxis - heparin 5000 units SQ BID Diet - heart healthy, low Na, T2DM, fluid restricted Disposition - Hopefully d/c to center care when approved Admission and Anticipated Discharge Date Admission Date: March 05, 2023 Subjective says shortness of breath has improved after diuresis,itch from her shingles also better Review of Systems Review of Systems: All systems reviewed are negative, apart from the ones contained in the history. Physical Exam Physical Exam: The patient is awake, alert and oriented 3, well developed and well nourished, normocephalic and atraumatic, lying in bed and in no acute distress. HEENT--PERRL, EOMI, mucous membranes and oropharynx mildly dry Neck--supple. No JVD. No bruits. Thyroid normal, trachea midline, no adenopathy. Heart--normal S1 and S2. No murmurs, rubs or gallops. Lungs--clear bilaterally, no respiratory distress, no accessory muscle use. Abdomen--normal bowel sounds and soft. Mild epigastric and left sided abdominal pain Extremities--no cyanosis or clubbing. No edema. Dermatologic--normal skin turgor, normal color, no abnormal lymph nodes, no rash. Neurologic--cranial nerves II through XII grossly intact. Rheumatologic--normal range of motion. Psychiatric--normal affect. Results & Data Results & Data Vital Signs (Past 12 Hours) Vital Signs Temp Pulse Resp BP BP Pulse Ox O2 Del Method 03/07/23 11:38 98.6 F 68 18 102/59 L 95 Room Air 03/07/23 07:45 98.8 F 63 18 94/54 L 93 Room Air 03/07/23 07:29 Nasal Cannula 03/07/23 02:57 97.5 F L 62 16 106/52 L 90 Nasal Cannula O2 Flow Rate 03/07/23 11:38 03/07/23 07:45 03/07/23 07:29 2 03/07/23 02:57 PG Care Time/CCT Total # of Minutes Spent Total Time Spent with Patient: Total time spent is greater than 50% in coordination of care (as documented) at patient's floor/unit and/or counseling patient: Coding Level of Care Code 35317 SUB INP/OBS CARE 2/35MIN Diagnoses Acute HFrEF (heart failure with reduced ejection fraction) I50.21 Unstable angina I20.0 Shortness of breath R06.02 Hypoxia R09.02 HTN (hypertension) I10 Ischemic cardiomyopathy I25.5 Diabetes E11.9 Hypothyroidism E03.9 Herpes zoster B02.9 Acute kidney injury superimposed on CKD N17.9; N18.9 Time Spent (min) 35
[2023-03-07] MEDS: PRAVASTATIN SOD 20 MG TAB PO SCH (17:03)
[2023-03-07] MEDS: oxyCODONE HCL IR 5 MG TAB (IMMEDIATE RELEASE) PO PRN (21:05)
[2023-03-07] MEDS: LATANOPROST 0.005% OP SOLN 2.5 ML BTL OPL SCH (21:06)
[2023-03-07] MEDS: diphenhydrAMINE Capsule 25 MG CAP PO PRN (21:24)
[2023-03-08] MEDS: LEVOTHYROXINE SODIUM 75 MCG TABLET PO SCH (05:46)
[2023-03-08] MEDS: diphenhydrAMINE Capsule 25 MG CAP PO PRN ×2 (05:56→20:04)
[2023-03-08] MEDS: INSULIN ASPART PER UNIT CHARGE SC SCH ×4 (08:00→21:08)
[2023-03-08] MEDS: HEPARIN SOD 5,000 UNIT/0.5 ML VIAL SQ SCH ×2 (08:53→20:07)
[2023-03-08] MEDS: EMPAGLIFLOZIN 10 MG TAB PO SCH (08:53)
[2023-03-08] MEDS: VALSARTAN/SACUBITRIL 51/49 MG TAB PO SCH ×2 (08:53→20:08)
[2023-03-08] MEDS: MULTIVITAMIN TAB PO SCH (08:53)
[2023-03-08] MEDS: ASPIRIN 81 MG ECTAB PO SCH (08:53)
[2023-03-08] MEDS: SPIRONOLACTONE 25 MG TAB PO SCH (08:53)
[2023-03-08] MEDS: ACYCLOVIR 200 MG CAP PO SCH ×2 (08:53→20:05)
[2023-03-08] MEDS: BRIMONIDINE TARTRATE 0.2% 5ML OPL SCH ×2 (08:54→20:06)
[2023-03-08] MEDS: TIMOLOL MALEATE 0.5% OP SOLN 5 ML BTL OPL SCH ×2 (08:55→20:06)
[2023-03-08] MEDS: METOPROLOL SUCC 50MG EXT REL TAB PO SCH (09:01)
[2023-03-08] MEDS: LANTUS PER UNIT CHARGE SQ SCH (09:06)
[2023-03-08] MEDS ORDERED: ACYCLOVIR 200 MG CAP PO SCH (11:00)
--- NOTE | 2023-03-08 11:33 | Hospitalist Progress Note ---
Date of Service March 08, 2023 Assessment & Plan (1) Acute HFrEF (heart failure with reduced ejection fraction): Plan: Patient was recently discharged from this hospital on 02/19 Presented to the hospital with worsening sob, orthopnea, weight gain BNP increased from prior, CXR shows worsening pulmonary edema. ECHO shows EF 40% Started on Lasix 40mg IV daily, will hold due to worsening serum creatinine Strict I&Os Daily weights Low Na, heart healthy diet Fluid restrict 1500ml Appreciate cardiology recommendations - increased Entresto, added Jardiance and spironolactone SOB much better today (2) Bradycardia: Plan: Patient experiencing bradycardia Likely due to metoprolo, 100mg daily may reduce to 75mg, but will defer to cardiology (3) Unstable angina: Plan: Given shortness of breath resolving wiht IV diuresis, agree with cardiology consultation and suspect her shortness of breath is all CHF related. Planning on cardiac cath once able to lie flat to evaluate ischemic cardiomyopathy and NSTEMI from last admission but acute presentation this time due to CHF Continue aspirin, metoprolol succinate, Entresto, pravastatin added by cardiology LDL 92 above goal HbA1C 6.7 - below goal (4) Shortness of breath: Plan: Suspect secondary to CHF as above as appears to be improving with diuresis alone (5) Hypoxia: Plan: Now resolved Suspected secondary to CHF, low suspicion of worsening PNA Aim O2 sats > 94% (6) HTN (hypertension): Plan: Continue metoprolol, Entresto Diuretics as above (7) Ischemic cardiomyopathy: Plan: Entresto + metoprolol succinate (8) Diabetes: Plan: HBA1C 8.2 in September, now 6.7 Lantus 20 units daily at home, glucose 65 this morning therefore will reduce lantus to 10 units daily Novolog based on 20 units basal: --Goal BSG Range: Low 110 mg/dL, High 140 mg/dL --Correction Factor: 40 mg/dL/unit --Carbohydrate ratio = 13 g/unit --BSGs ACHS if eating, q6h if npo May need reduction in Lantus on discharge since we are starting Jardiance and HbA1C already 6.7 (9) Hypothyroidism: Plan: TSH 1.866 in September Continue levothyroxine (10) Herpes zoster: Plan: shingles outbreak on the lower back , with occasional itch will institute PO Acyclovir 800mg 5 times daily and PO benadryl 25mg prn every 4 hrs for itch (11) Acute kidney injury superimposed on CKD: Plan: some improvement in renal function following holding of lasix Plan VTE Prophylaxis - heparin 5000 units SQ BID Diet - heart healthy, low Na, T2DM, fluid restricted Disposition - Hopefully d/c to center care when approved Admission and Anticipated Discharge Date Admission Date: March 05, 2023 Subjective says shortness of breath has improved after diuresis,itch from her shingles also better Review of Systems Review of Systems: All systems reviewed are negative, apart from the ones contained in the history. Physical Exam Physical Exam: The patient is awake, alert and oriented 3, well developed and well nourished, normocephalic and atraumatic, lying in bed and in no acute distress. HEENT--PERRL, EOMI, mucous membranes and oropharynx mildly dry Neck--supple. No JVD. No bruits. Thyroid normal, trachea midline, no adenopathy. Heart--normal S1 and S2. No murmurs, rubs or gallops. Lungs--clear bilaterally, no respiratory distress, no accessory muscle use. Abdomen--normal bowel sounds and soft. Mild epigastric and left sided abdominal pain Extremities--no cyanosis or clubbing. No edema. Dermatologic--normal skin turgor, normal color, no abnormal lymph nodes, no rash. Neurologic--cranial nerves II through XII grossly intact. Rheumatologic--normal range of motion. Psychiatric--normal affect. Results & Data Results & Data Vital Signs (Past 12 Hours) Vital Signs Temp Pulse Pulse Resp BP Pulse Ox O2 Del Method 03/08/23 09:00 Nasal Cannula 03/08/23 07:51 98.2 F 53 L 18 116/54 L 92 Room Air 03/08/23 07:47 58 L 03/08/23 04:35 98.1 F 63 18 135/62 96 Nasal Cannula 03/07/23 23:42 98.1 F 64 16 108/56 L 96 Nasal Cannula O2 Flow Rate 03/08/23 09:00 2 03/08/23 07:51 03/08/23 07:47 03/08/23 04:35 2.0 03/07/23 23:42 2.0 PG Care Time/CCT Total # of Minutes Spent Total Time Spent with Patient: Total time spent is greater than 50% in coordination of care (as documented) at patient's floor/unit and/or counseling patient: Coding Level of Care Code 51603 SUB INP/OBS CARE 235MIN Diagnoses Acute HFrEF (heart failure with reduced ejection fraction) I50.21 Bradycardia R00.1 Unstable angina I20.0 Shortness of breath R06.02 Hypoxia R09.02 HTN (hypertension) I10 Ischemic cardiomyopathy I25.5 Diabetes E11.9 Hypothyroidism E03.9 Herpes zoster B02.9 Acute kidney injury superimposed on CKD N17.9; N18.9 Time Spent (min) 35
[2023-03-08 11:58] LABS: BUN Creatinine Ratio 25.8 (10-20); Calcium 9.2 mg/dl (8.6-10.3); Creatinine Clr Calc Pharmacy 22.9 ml/min; Est GFR (African American) 28.1 ml/min; Est GFR (Non-African American) 24.2 ml/min; Potassium 4.4 mmol/L (3.5-5.1)
[2023-03-08] MEDS ORDERED: ATROPINE SULFATE 0.1 MG/ML SYRINGE INJ PRN ×2 (12:00→12:20)
--- NOTE | 2023-03-08 13:44 | Heart Failure Progress Note ---
Date of Service March 08, 2023 Assessment & Plan (1) Acute HFrEF (heart failure with reduced ejection fraction): (2) Ischemic cardiomyopathy: (3) Bradycardia: (4) HTN (hypertension): Plan HFrEF: NYHA Class II-III symptoms. She appears euvolemic on exam. Symptoms have improved. She responded well to diuretics but then developed azotemia. Diuretics then held. Renal function remains somewhat elevated today (initially reported as improving but was a data review specialist error). Continue to hold diuretics. Would consider discharging with Lasix 20 mg PRN given her re-admission. Continue to monitor. If further worsening or not improving may need to further de-escalate her GDMT (Entresto vs Spironolactone). Metoprolol succinate discontinued this am due to bradycardia and pauses on telemetry. Continue to monitor this, may be able to restart at lower dose. Patient does not want to come in to the office unless absolutely necessary. Will try to further optimize and titrate with the assistance of the [facility] staff once she is there. Daily standing weights. Strict I&Os while inpatient. Recommend low sodium diet, less than 2,000 mg daily. We discussed the nature of heart failure and the goals of the program. She is interested in ongoing participation however prefers limited visits if possible. Overall she prefers a minimal approach to therapy given her age. Cardiomyopathy: EF 40%. Suspect this may be ischemic with new wall motion abnormalities. Patient has declined ischemic eval and prefers medical management. This was discussed again this admission and she does not seem interested in proceeding. She is still unable to comfortably lay flat at this time. Continue to optimize therapy as above. Repeat echocardiogram after 3 months of optimal therapy. Hypertension: Well controlled. Continue medical therapy. Bradycardia: Noted to be bradycardic overnight into today. 2-3 second pauses noted throughout the morning. She was asymptomatic. Recommend discontinuing beta dyan at this time with continued monitoring. May be able to restart at lower doses in the future. PRN Atropine is ordered. Disposition: Will continue to follow during admission. Dr. Bianchi is covering for the weekend. Admission and Anticipated Discharge Date Admission Date: March 05, 2023 Subjective Patient reports feeling well today. She is resting comfortably in bed. She notes her breathing is much better. She denies any episodes of chest pain. Bradycardia and several 2-3 second pauses noted on telemetry overnight into this am. Patient is asymptomatic. She reports sleeping well overnight but still requires her head to be elevated. She states she is not interested in cardiac catheterization. Physical Exam Physical Exam: Constitutional: Alert, oriented, in no acute distress HEENT: Head is atraumatic and normocephalic. EOMs intact. Sclera anicteric. Face is symmetric. No perioral cyanosis. Mucous membranes moist. Neck: Supple, no JVD Pulmonary: Normal respiratory effort, clear to auscultation bilaterally Cardiac: Regular rate and rhythm. Normal S1 and S2, bradycardic. No gallops, no rubs, 2/6 systolic murmur Extremities: 2+ radial pulses bilaterally. 2+ posterior tibialis pulses bilaterally. No pitting edema. No cyanosis or clubbing. Abdomen: Normal bowel sounds, soft, non-tender, no abdominal mass palpated Skin: Normal skin color, turgor, and pigmentation, no rash, no skin lesions Neurological: Patient is awake, alert, and oriented. Pleasant and cooperative. Answers questions appropriately. Speech is clear. Normal movement in all 4 extremities. Results & Data Vital Signs (Past 12 Hours) Vital Signs Temp Pulse Pulse Resp BP Pulse Ox O2 Del Method 03/08/23 11:54 97.7 F 48 L 18 132/59 L 94 Nasal Cannula 03/08/23 09:00 Nasal Cannula 03/08/23 07:51 98.2 F 53 L 18 116/54 L 92 Room Air 03/08/23 07:47 58 L 03/08/23 04:35 98.1 F 63 18 135/62 96 Nasal Cannula O2 Flow Rate 03/08/23 11:54 2 03/08/23 09:00 2 03/08/23 07:51 03/08/23 07:47 03/08/23 04:35 2.0 PG Care Time/CCT Total # of Minutes Spent Total Time Spent with Patient: Total time spent is greater than 50% in coordination of care (as documented) at patient's floor/unit and/or counseling patient: Heart Failure Data/Metrics Heart Failure Type: HFrEf (EF < 40%) Ejection Fraction: 40% Evidenced Based Beta Dyan Therapy Beta Dyan Therapy: Contraindicated Beta Dyan Contraindication: Bradycardia XAVIER/ARB/ARNI Therapy XAVIER/ARB/ARNI Therapy: Yes XAVIER/ARB/ARNI Name: Entresto XAVIER/ARB/ARNI Target Therapy: Not at Target Therapy Aldosterone Antagonist Therapy Aldosterone Antagonist Therapy: Yes Aldosterone Antagonist Name: Spironolactone SGLT-2 Inhibitor Therapy SGLT-2 Inhibitor Therapy: Yes SGLT-2 Inhibitor Name: Empagliflozin (Jardiance) Coding Level of Care Code 49913 SUB INP/OBS CARE MIN Diagnoses Acute HFrEF (heart failure with reduced ejection fraction) I50.21 Ischemic cardiomyopathy I25.5 Bradycardia R00.1 HTN (hypertension) I10
[2023-03-08] MEDS: PRAVASTATIN SOD 20 MG TAB PO SCH (17:39)
[2023-03-08] MEDS: oxyCODONE HCL IR 5 MG TAB (IMMEDIATE RELEASE) PO PRN (20:04)
[2023-03-08] MEDS: LATANOPROST 0.005% OP SOLN 2.5 ML BTL OPL SCH (20:06)
[2023-03-08] MEDS: ATROPINE SULFATE 0.1 MG/ML 5ML SYR IV PRN (21:08)
[2023-03-09] MEDS: LEVOTHYROXINE SODIUM 75 MCG TABLET PO SCH (05:49)
[2023-03-09] MEDS: oxyCODONE HCL IR 5 MG TAB (IMMEDIATE RELEASE) PO PRN ×2 (06:22→20:17)
[2023-03-09] MEDS: diphenhydrAMINE Capsule 25 MG CAP PO PRN ×3 (06:22→20:18)
[2023-03-09] MEDS: ATROPINE SULFATE 0.1 MG/ML 5ML SYR IV PRN ×2 (07:25→22:55)
[2023-03-09 07:41] LABS: BUN Creatinine Ratio 28.3 (10-20); Calcium 8.9 mg/dl (8.6-10.3); Creatinine Clr Calc Pharmacy 21.5 ml/min; Est GFR (Non-African American) 22.5 ml/min; Potassium 4.8 mmol/L (3.5-5.1)
[2023-03-09] MEDS: INSULIN ASPART PER UNIT CHARGE SC SCH ×4 (08:33→20:20)
[2023-03-09] MEDS: SPIRONOLACTONE 25 MG TAB PO SCH (08:40)
[2023-03-09] MEDS: EMPAGLIFLOZIN 10 MG TAB PO SCH (08:40)
[2023-03-09] MEDS: ASPIRIN 81 MG ECTAB PO SCH (08:40)
[2023-03-09] MEDS: VALSARTAN/SACUBITRIL 51/49 MG TAB PO SCH ×2 (08:40→20:20)
[2023-03-09] MEDS: MULTIVITAMIN TAB PO SCH (08:40)
[2023-03-09] MEDS: BRIMONIDINE TARTRATE 0.2% 5ML OPL SCH ×2 (08:41→20:22)
[2023-03-09] MEDS: HEPARIN SOD 5,000 UNIT/0.5 ML VIAL SQ SCH ×2 (08:41→20:21)
[2023-03-09] MEDS: ACYCLOVIR 200 MG CAP PO SCH ×3 (08:41→20:18)
[2023-03-09] MEDS: TIMOLOL MALEATE 0.5% OP SOLN 5 ML BTL OPL SCH ×2 (08:42→20:22)
[2023-03-09] MEDS: LANTUS PER UNIT CHARGE SQ SCH (08:53)
[2023-03-09] MEDS ORDERED: METOPROLOL TARTRATE 25 MG TAB PO SCH (09:00)
--- NOTE | 2023-03-09 12:27 | Hospitalist Progress Note ---
Date of Service March 09, 2023 Assessment & Plan (1) Acute HFrEF (heart failure with reduced ejection fraction): Plan: Patient was recently discharged from this hospital on 02/19 Presented to the hospital with worsening sob, orthopnea, weight gain BNP increased from prior, CXR shows worsening pulmonary edema. ECHO shows EF 40% Started on Lasix 40mg IV daily, will hold due to worsening serum creatinine Strict I&Os Daily weights Low Na, heart healthy diet Fluid restrict 1500ml Appreciate cardiology recommendations - increased Entresto, added Jardiance and spironolactone SOB much better today (2) Bradycardia: Plan: Patient experiencing bradycardia and some pauses Likely due to metoprolol, 100mg daily This is currently on hold cardiology on board (3) Unstable angina: Plan: Patient not interested in cardiac cath Continue aspirin, metoprolol succinate, Entresto, pravastatin added by cardiology LDL 92 above goal HbA1C 6.7 - below goal (4) Shortness of breath: Plan: Suspect secondary to CHF as above as appears to be improving with diuresis alone (5) Hypoxia: Plan: Now resolved Suspected secondary to CHF, low suspicion of worsening PNA Aim O2 sats > 94% (6) HTN (hypertension): Plan: Continue metoprolol, Entresto Diuretics as above (7) Ischemic cardiomyopathy: Plan: Entresto + metoprolol succinate and also Empagliflozin (8) Diabetes: Plan: HBA1C 8.2 in September, now 6.7 Lantus 20 units daily at home, glucose 65 this morning therefore will reduce lantus to 10 units daily Novolog based on 20 units basal: --Goal BSG Range: Low 110 mg/dL, High 140 mg/dL --Correction Factor: 40 mg/dL/unit --Carbohydrate ratio = 13 g/unit --BSGs ACHS if eating, q6h if npo May need reduction in Lantus on discharge since we are starting Jardiance and HbA1C already 6.7 (9) Hypothyroidism: Plan: TSH 1.866 in September Continue levothyroxine (10) Herpes zoster: Plan: shingles outbreak on the lower back , with occasional itch will institute PO Acyclovir 800mg 5 times daily and PO benadryl 25mg prn every 4 hrs for itch (11) Acute kidney injury superimposed on CKD: Plan: some improvement in renal function following holding of lasix Plan VTE Prophylaxis - heparin 5000 units SQ BID Diet - heart healthy, low Na, T2DM, fluid restricted Disposition - Hopefully d/c to center care when approved Admission and Anticipated Discharge Date Admission Date: March 05, 2023 Subjective patient seen and examined, feels better today, aware that her heart rate was going low Review of Systems Review of Systems: All systems reviewed are negative, apart from the ones contained in the history. Physical Exam Physical Exam: The patient is awake, alert and oriented 3, well developed and well nourished, normocephalic and atraumatic, lying in bed and in no acute distress. HEENT--PERRL, EOMI, mucous membranes and oropharynx mildly dry Neck--supple. No JVD. No bruits. Thyroid normal, trachea midline, no adenopathy. Heart--normal S1 and S2. No murmurs, rubs or gallops. Lungs--clear bilaterally, no respiratory distress, no accessory muscle use. Abdomen--normal bowel sounds and soft. Mild epigastric and left sided abdominal pain Extremities--no cyanosis or clubbing. No edema. Dermatologic--normal skin turgor, normal color, no abnormal lymph nodes, no rash. Neurologic--cranial nerves II through XII grossly intact. Rheumatologic--normal range of motion. Psychiatric--normal affect. Results & Data Results & Data Vital Signs (Past 12 Hours) Vital Signs Temp Pulse Pulse Resp BP Pulse Ox O2 Del Method 03/09/23 11:07 97.5 F L 63 20 94/57 L 92 Nasal Cannula 03/09/23 09:00 44 L 03/09/23 09:00 Nasal Cannula 03/09/23 07:28 97.5 F L 69 20 106/59 L 97 Nasal Cannula 03/09/23 03:36 97.5 F L 54 L 16 114/56 L 98 Nasal Cannula O2 Flow Rate 03/09/23 11:07 2 03/09/23 09:00 03/09/23 09:00 2 03/09/23 07:28 2 03/09/23 03:36 2 PG Care Time/CCT Total # of Minutes Spent Total Time Spent with Patient: Total time spent is greater than 50% in coordination of care (as documented) at patient's floor/unit and/or counseling patient: Coding Level of Care Code 84622 SUB INP/OBS CARE 2/35MIN Diagnoses Acute HFrEF (heart failure with reduced ejection fraction) I50.21 Bradycardia R00.1 Unstable angina I20.0 Shortness of breath R06.02 Hypoxia R09.02 HTN (hypertension) I10 Ischemic cardiomyopathy I25.5 Diabetes E11.9 Hypothyroidism E03.9 Herpes zoster B02.9 Acute kidney injury superimposed on CKD N17.9; N18.9 Time Spent (min) 35
--- NOTE | 2023-03-09 12:30 | Cardiology Progress Note ---
Date of Service March 09, 2023 Assessment & Plan (1) Acute HFrEF (heart failure with reduced ejection fraction): (2) Ischemic cardiomyopathy: (3) Bradycardia: (4) HTN (hypertension): Plan HFrEF: Improved. Renal function declined suggesting an element of intravascular depletion. WIll continue to hold diuretic. Continue Entresto and spironolactone for now. Ambulate today. Cardiomyopathy: EF 40%. Suspect this may be ischemic with new wall motion abnormalities. Patient has declined ischemic eval and prefers medical management. This was discussed again this admission and she does not seem interested in proceeding. Orthopnea improved Hypertension: Well controlled. Continue medical therapy. Bradycardia: Improved this morning. WIll wait one day and consider re-starting at a lower dose. Admission and Anticipated Discharge Date Admission Date: March 05, 2023 Subjective Patient feeling well. Minimal dyspnea with ambulation. Walked with PT yesterday. No dizziness. Review of Systems Review of Systems: per HPI Physical Exam Physical Exam: Constitutional: Alert, oriented, in no acute distress HEENT: Head is atraumatic and normocephalic. EOMs intact. Sclera anicteric. Face is symmetric. No perioral cyanosis. Mucous membranes moist. Neck: Supple, no JVD Pulmonary: Normal respiratory effort, clear to auscultation bilaterally Cardiac: Regular rate and rhythm. Normal S1 and S2, bradycardic. No gallops, no rubs, 2/6 systolic murmur No pitting edema. No cyanosis or clubbing. Skin: Normal skin color, turgor, and pigmentation, no rash, no skin lesions Neurological: Patient is awake, alert, and oriented. Pleasant and cooperative. Answers questions appropriately. Speech is clear. Normal movement in all 4 extremities. Results & Data Vital Signs (Past 12 Hours) Vital Signs Temp Pulse Pulse Resp BP Pulse Ox O2 Del Method 03/09/23 11:07 36.4 C L 63 20 94/57 L 92 Nasal Cannula 03/09/23 09:00 44 L 03/09/23 09:00 Nasal Cannula 03/09/23 07:28 36.4 C L 69 20 106/59 L 97 Nasal Cannula 03/09/23 03:36 36.4 C L 54 L 16 114/56 L 98 Nasal Cannula O2 Flow Rate 03/09/23 11:07 2 03/09/23 09:00 03/09/23 09:00 2 03/09/23 07:28 2 03/09/23 03:36 2 Laboratory Results Abnormal Lab Results 03/08/23 03/08/23 03/09/23 16:37 20:15 06:42 Sodium 134 L Potassium 4.8 Chloride 100 Carbon Dioxide 29 Anion Gap 5 BUN 56 H Creatinine 1.98 H Est Cr Clr Drug Dosing 21.5 Est GFR ( Amer) 26.0 Est GFR (Non-Af Amer) 22.5 BUN/Creatinine Ratio 28.3 H Glucose 128 H POC Glucose 112 H 185 H Calcium 8.9 03/09/23 03/09/23 07:52 11:30 Sodium Potassium Chloride Carbon Dioxide Anion Gap BUN Creatinine Est Cr Clr Drug Dosing Est GFR ( Amer) Est GFR (Non-Af Amer) BUN/Creatinine Ratio Glucose POC Glucose 122 H 138 H Calcium PG Care Time/CCT Total # of Minutes Spent Total Time Spent with Patient: Total time spent is greater than 50% in coordination of care (as documented) at patient's floor/unit and/or counseling patient: Coding Level of Care Code 57092 SUB INP/OBS CARE 2/35MIN Diagnoses Acute HFrEF (heart failure with reduced ejection fraction) I50.21 Ischemic cardiomyopathy I25.5 Bradycardia R00.1 HTN (hypertension) I10
[2023-03-09] MEDS ORDERED: CALCIUM CARBONATE 500 MG CHEWABLE TAB PO PRN (15:22)
[2023-03-09] MEDS: PRAVASTATIN SOD 20 MG TAB PO SCH (17:02)
[2023-03-09] MEDS: LATANOPROST 0.005% OP SOLN 2.5 ML BTL OPL SCH (20:22)
[2023-03-10] MEDS: LEVOTHYROXINE SODIUM 75 MCG TABLET PO SCH (05:35)
[2023-03-10] MEDS: INSULIN ASPART PER UNIT CHARGE SC SCH ×4 (08:19→20:34)
[2023-03-10] MEDS: LANTUS PER UNIT CHARGE SQ SCH (08:20)
[2023-03-10] MEDS: SPIRONOLACTONE 25 MG TAB PO SCH (08:24)
[2023-03-10] MEDS: ASPIRIN 81 MG ECTAB PO SCH (08:24)
[2023-03-10] MEDS: EMPAGLIFLOZIN 10 MG TAB PO SCH (08:24)
[2023-03-10] MEDS: VALSARTAN/SACUBITRIL 51/49 MG TAB PO SCH (08:25)
[2023-03-10] MEDS: BRIMONIDINE TARTRATE 0.2% 5ML OPL SCH ×2 (08:25→20:26)
[2023-03-10] MEDS: MULTIVITAMIN TAB PO SCH (08:25)
[2023-03-10] MEDS: HEPARIN SOD 5,000 UNIT/0.5 ML VIAL SQ SCH ×2 (08:25→20:39)
[2023-03-10] MEDS: ACYCLOVIR 200 MG CAP PO SCH ×3 (08:25→20:25)
[2023-03-10] MEDS: diphenhydrAMINE Capsule 25 MG CAP PO PRN ×2 (08:25→12:17)
[2023-03-10] MEDS: TIMOLOL MALEATE 0.5% OP SOLN 5 ML BTL OPL SCH ×2 (08:26→20:26)
[2023-03-10 10:02] LABS: BUN Creatinine Ratio 28.7 (10-20); Calcium 9.2 mg/dl (8.6-10.3); Creatinine Clr Calc Pharmacy 20.8 ml/min; Est GFR (African American) 25.4 ml/min; Est GFR (Non-African American) 21.9 ml/min; Potassium 5.1 mmol/L (3.5-5.1)
[2023-03-10] MEDS: ATROPINE SULFATE 0.1 MG/ML 5ML SYR IV PRN (10:19)
--- NOTE | 2023-03-10 11:34 | Cardiology Progress Note ---
Date of Service March 10, 2023 Assessment & Plan (1) Acute HFrEF (heart failure with reduced ejection fraction): (2) Ischemic cardiomyopathy: (3) Bradycardia: (4) HTN (hypertension): Plan HFrEF: Clinically improved. She has not received diuretic for a couple of days. This was in response to worsening renal function, but this is not improved either. Her weight is still is trending downward. Lung examination benign and no orthopnea currently. Cardiomyopathy: EF 40%. Suspect this may be ischemic with new wall motion abnormalities. Patient has declined ischemic eval and prefers medical management. This was discussed again this admission and she does not seem interested in proceeding. She was on aggressive medical regimen. Metoprolol was discontinued due to occasional bradycardia. In the setting of her declining renal function would seem reasonable to stop her Entresto at this time. Hypertension: Well controlled. Will stop Entresto in light of her declining renal function. Bradycardia: Overall improved. It seems that the patient has been getting intermittent doses of atropine for bradycardia on her monitor. No reported symptoms. 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 I do not think there is any utility in continuing atropine. The best policy at this point simply to monitor her heart rate when she is awake or active. In the absence of significant bradycardia or symptoms when active likely no intervention is required. However, this will hinder our ability to add beta-blockade to her medical regimen for her cardiomyopathy. I did discuss invasive procedures again with the patient today. At this point she still in favor of trying to avoid any intervention (coronaries or pacemaker) Admission and Anticipated Discharge Date Admission Date: March 05, 2023 Subjective This morning the patient claimed he feeling somewhat tired. She was up in a chair for a good portion of the morning request to go back to bed to take a nap. She has been minimally ambulatory around the room. She denied limiting dyspnea. No orthopnea currently. Lower extremity edema improving. No chest pain or sense of palpitation. No significant dizziness when getting up to the chair. Review of Systems Review of Systems: per HPI Physical Exam Physical Exam: Constitutional: Alert, oriented, in no acute distress HEENT: Head is atraumatic and normocephalic. EOMs intact. Sclera anicteric. Face is symmetric. No perioral cyanosis. Mucous membranes moist. Neck: Supple, no JVD Pulmonary: Normal respiratory effort, clear to auscultation bilaterally Cardiac: Regular rate and rhythm. Normal S1 and S2, bradycardic. No gallops, no rubs, 2/6 systolic murmur No pitting edema. No cyanosis or clubbing. Skin: Normal skin color, turgor, and pigmentation, no rash, no skin lesions Neurological: Patient is awake, alert, and oriented. Pleasant and cooperative. Answers questions appropriately. Speech is clear. Normal movement in all 4 extremities. Results & Data Vital Signs (Past 12 Hours) Vital Signs Temp Pulse Pulse Resp BP Pulse Ox O2 Del Method 03/10/23 11:16 36.3 C L 67 20 93/56 L 98 Nasal Cannula 03/10/23 07:37 36.6 C 63 19 104/57 L 92 Nasal Cannula 03/10/23 07:05 62 03/10/23 04:12 37.0 C 64 19 122/76 98 Nasal Cannula O2 Flow Rate 03/10/23 11:16 2 03/10/23 07:37 2 03/10/23 07:05 03/10/23 04:12 2 Laboratory Results Abnormal Lab Results 03/09/23 03/09/23 03/09/23 11:30 16:40 20:04 Sodium Potassium Chloride Carbon Dioxide Anion Gap BUN Creatinine Est Cr Clr Drug Dosing Est GFR ( Amer) Est GFR (Non-Af Amer) BUN/Creatinine Ratio Glucose POC Glucose 138 H 158 H 147 H Calcium 03/10/23 03/10/23 09:26 11:13 Sodium 132 L Potassium 5.1 Chloride 99 Carbon Dioxide 27 Anion Gap 6 BUN 58 H Creatinine 2.02 H Est Cr Clr Drug Dosing 20.8 Est GFR ( Amer) 25.4 Est GFR (Non-Af Amer) 21.9 BUN/Creatinine Ratio 28.7 H Glucose 198 H POC Glucose 150 H Calcium 9.2 PG Care Time/CCT Total # of Minutes Spent Total Time Spent with Patient: Total time spent is greater than 50% in coordination of care (as documented) at patient's floor/unit and/or counseling patient: Coding Level of Care Code 30619 SUB INP/OBS CARE 2/35MIN Diagnoses Acute HFrEF (heart failure with reduced ejection fraction) I50.21 Ischemic cardiomyopathy I25.5 Bradycardia R00.1 HTN (hypertension) I10
--- NOTE | 2023-03-10 12:10 | Hospitalist Progress Note ---
Date of Service March 10, 2023 Assessment & Plan (1) Acute HFrEF (heart failure with reduced ejection fraction): Plan: Patient was recently discharged from this hospital on 02/19 Presented to the hospital with worsening sob, orthopnea, weight gain BNP increased from prior, CXR shows worsening pulmonary edema. ECHO shows EF 40% Started on Lasix 40mg IV daily, will hold due to worsening serum creatinine. Also hold Entresto Strict I&Os Daily weights Low Na, heart healthy diet Fluid restrict 1500ml Appreciate cardiology recommendations - added Jardiance and spironolactone. Hold Entresto on account of worsening renal function SOB much better today (2) Bradycardia: Plan: Patient experiencing bradycardia and some pauses Likely due to metoprolol, 100mg daily This is currently on hold cardiology on board (3) Unstable angina: Plan: Patient not interested in cardiac cath Continue aspirin, LDL 92 above goal HbA1C 6.7 - below goal (4) Shortness of breath: Plan: much improved (5) Hypoxia: Plan: Now resolved Suspected secondary to CHF, low suspicion of worsening PNA Aim O2 sats > 94% (6) HTN (hypertension): Plan: BP is soft hold Entresto (7) Ischemic cardiomyopathy: Plan: Hold Entresto + metoprolol succinate continue Empagliflozin (8) Diabetes: Plan: HBA1C 8.2 in September, now 6.7 Lantus 20 units daily at home, glucose 65 this morning therefore will reduce lantus to 10 units daily Novolog based on 20 units basal: --Goal BSG Range: Low 110 mg/dL, High 140 mg/dL --Correction Factor: 40 mg/dL/unit --Carbohydrate ratio = 13 g/unit --BSGs ACHS if eating, q6h if npo May need reduction in Lantus on discharge since we are starting Jardiance and HbA1C already 6.7 (9) Hypothyroidism: Plan: TSH 1.866 in September Continue levothyroxine (10) Herpes zoster: Plan: shingles outbreak on the lower back , with occasional itch will institute PO Acyclovir 800mg 5 times daily and PO benadryl 25mg prn every 4 hrs for itch (11) Acute kidney injury superimposed on CKD: Plan: worsening renal function, will hold lasix aand Entresto will consult nephrology if no imrovement Plan VTE Prophylaxis - heparin 5000 units SQ BID Diet - heart healthy, low Na, T2DM, fluid restricted Disposition - Hopefully d/c to center care when approved Admission and Anticipated Discharge Date Admission Date: March 05, 2023 Subjective patient seen and examined, complains of some tiredness, but overall feels better Review of Systems Review of Systems: All systems reviewed are negative, apart from the ones contained in the history. Physical Exam Physical Exam: The patient is awake, alert and oriented 3, well developed and well nourished, normocephalic and atraumatic, lying in bed and in no acute distress. HEENT--PERRL, EOMI, mucous membranes and oropharynx mildly dry Neck--supple. No JVD. No bruits. Thyroid normal, trachea midline, no adenopathy. Heart--normal S1 and S2. No murmurs, rubs or gallops. Lungs--clear bilaterally, no respiratory distress, no accessory muscle use. Abdomen--normal bowel sounds and soft. Mild epigastric and left sided abdominal pain Extremities--no cyanosis or clubbing. No edema. Dermatologic--normal skin turgor, normal color, no abnormal lymph nodes, no rash. Neurologic--cranial nerves II through XII grossly intact. Rheumatologic--normal range of motion. Psychiatric--normal affect. Results & Data Results & Data Vital Signs (Past 12 Hours) Vital Signs Temp Pulse Pulse Resp BP Pulse Ox O2 Del Method 03/10/23 11:16 97.3 F L 67 20 93/56 L 98 Nasal Cannula 03/10/23 07:37 97.9 F 63 19 104/57 L 92 Nasal Cannula 03/10/23 07:05 62 03/10/23 04:12 98.6 F 64 19 122/76 98 Nasal Cannula O2 Flow Rate 03/10/23 11:16 2 03/10/23 07:37 2 03/10/23 07:05 03/10/23 04:12 2 PG Care Time/CCT Total # of Minutes Spent Total Time Spent with Patient: Total time spent is greater than 50% in coordination of care (as documented) at patient's floor/unit and/or counseling patient: Coding Level of Care Code 90692 SUB INP/OBS CARE 2/35MIN Diagnoses Acute HFrEF (heart failure with reduced ejection fraction) I50.21 Bradycardia R00.1 Unstable angina I20.0 Shortness of breath R06.02 Hypoxia R09.02 HTN (hypertension) I10 Ischemic cardiomyopathy I25.5 Diabetes E11.9 Hypothyroidism E03.9 Herpes zoster B02.9 Acute kidney injury superimposed on CKD N17.9; N18.9 Time Spent (min) 35
[2023-03-10] MEDS ORDERED: SODIUM CHLORIDE 0.9% 500 ML IV SCH (12:15)
[2023-03-10] MEDS: PRAVASTATIN SOD 20 MG TAB PO SCH (17:00)
[2023-03-10] MEDS: LATANOPROST 0.005% OP SOLN 2.5 ML BTL OPL SCH (20:27)
[2023-03-11] MEDS: oxyCODONE HCL IR 5 MG TAB (IMMEDIATE RELEASE) PO PRN ×2 (06:26→21:07)
[2023-03-11] MEDS: LEVOTHYROXINE SODIUM 75 MCG TABLET PO SCH (06:37)
[2023-03-11] MEDS: ACYCLOVIR 200 MG CAP PO SCH ×3 (07:52→20:54)
[2023-03-11] MEDS: HEPARIN SOD 5,000 UNIT/0.5 ML VIAL SQ SCH ×2 (07:52→20:56)
[2023-03-11] MEDS: ASPIRIN 81 MG ECTAB PO SCH (07:52)
[2023-03-11] MEDS: MULTIVITAMIN TAB PO SCH (07:53)
[2023-03-11] MEDS: SPIRONOLACTONE 25 MG TAB PO SCH (07:53)
[2023-03-11] MEDS: EMPAGLIFLOZIN 10 MG TAB PO SCH (07:54)
[2023-03-11] MEDS: TIMOLOL MALEATE 0.5% OP SOLN 5 ML BTL OPL SCH ×2 (07:55→20:55)
[2023-03-11] MEDS: BRIMONIDINE TARTRATE 0.2% 5ML OPL SCH ×2 (07:56→20:56)
[2023-03-11] MEDS: LANTUS PER UNIT CHARGE SQ SCH (07:56)
[2023-03-11] MEDS: INSULIN ASPART PER UNIT CHARGE SC SCH ×4 (07:57→20:53)
[2023-03-11] MEDS ORDERED: INFLUENZA VACCINE HIGH-DOSE (HD-IIV4) PF 65+ 0.7mL SYR IM ONE (08:00)
[2023-03-11 09:06] LABS: BUN Creatinine Ratio 27.4 (10-20); Calcium 9.4 mg/dl (8.6-10.3); Creatinine Clr Calc Pharmacy 22.6 ml/min; Est GFR (African American) 28.1 ml/min; Est GFR (Non-African American) 24.2 ml/min; Potassium 4.6 mmol/L (3.5-5.1)
--- NOTE | 2023-03-11 12:01 | Hospitalist Progress Note ---
Date of Service March 11, 2023 Assessment & Plan (1) Acute HFrEF (heart failure with reduced ejection fraction): Plan: Patient was recently discharged from this hospital on 02/19 Presented to the hospital with worsening sob, orthopnea, weight gain BNP increased from prior, CXR shows worsening pulmonary edema. ECHO shows EF 40% Started on Lasix 40mg IV daily, will hold due to worsening serum creatinine. Also hold Entresto Strict I&Os Daily weights Low Na, heart healthy diet Fluid restrict 1500ml Appreciate cardiology recommendations - added Jardiance and spironolactone. Hold Entresto on account of worsening renal function SOB much better today (2) Bradycardia: Plan: Patient experiencing bradycardia and some pauses Likely due to metoprolol, 100mg daily This is currently on hold cardiology on board (3) Unstable angina: Plan: Patient not interested in cardiac cath Continue aspirin, LDL 92 above goal HbA1C 6.7 - below goal (4) Shortness of breath: Plan: much improved (5) Hypoxia: Plan: Now resolved Suspected secondary to CHF, low suspicion of worsening PNA Aim O2 sats > 94% (6) HTN (hypertension): Plan: BP is soft hold Entresto (7) Ischemic cardiomyopathy: Plan: Hold Entresto + metoprolol succinate continue Empagliflozin (8) Diabetes: Plan: HBA1C 8.2 in September, now 6.7 Lantus 20 units daily at home, glucose 65 this morning therefore will reduce lantus to 10 units daily Novolog based on 20 units basal: --Goal BSG Range: Low 110 mg/dL, High 140 mg/dL --Correction Factor: 40 mg/dL/unit --Carbohydrate ratio = 13 g/unit --BSGs ACHS if eating, q6h if npo May need reduction in Lantus on discharge since we are starting Jardiance and HbA1C already 6.7 (9) Hypothyroidism: Plan: TSH 1.866 in September Continue levothyroxine (10) Herpes zoster: Plan: shingles outbreak on the lower back , with occasional itch will institute PO Acyclovir 800mg 5 times daily, changed to TID on account of renal insufficiency and PO benadryl 25mg prn every 4 hrs for itch (11) Acute kidney injury superimposed on CKD: Plan: worsening renal function, will hold lasix aand Entresto will consult nephrology if no imrovement Plan VTE Prophylaxis - heparin 5000 units SQ BID Diet - heart healthy, low Na, T2DM, fluid restricted Disposition - Hopefully d/c to center care when approved by insurance Admission and Anticipated Discharge Date Admission Date: March 05, 2023 Subjective patient seen and examined, no new complaints today, participating in PT Review of Systems Review of Systems: All systems reviewed are negative, apart from the ones contained in the history. Physical Exam Physical Exam: The patient is awake, alert and oriented 3, well developed and well nourished, normocephalic and atraumatic, lying in bed and in no acute distress. HEENT--PERRL, EOMI, mucous membranes and oropharynx mildly dry Neck--supple. No JVD. No bruits. Thyroid normal, trachea midline, no adenopathy. Heart--normal S1 and S2. No murmurs, rubs or gallops. Lungs--clear bilaterally, no respiratory distress, no accessory muscle use. Abdomen--normal bowel sounds and soft. Mild epigastric and left sided abdominal pain Extremities--no cyanosis or clubbing. No edema. Dermatologic--normal skin turgor, normal color, no abnormal lymph nodes, no rash. Neurologic--cranial nerves II through XII grossly intact. Rheumatologic--normal range of motion. Psychiatric--normal affect. Results & Data Results & Data Vital Signs (Past 12 Hours) Vital Signs Temp Pulse Pulse Resp BP BP Pulse Ox 03/11/23 11:29 97.9 F 42 L 18 96/54 L 93 03/11/23 08:00 66 03/11/23 10:35 96 03/11/23 08:00 98.2 F 60 20 131/69 93 03/11/23 05:21 65 03/11/23 03:52 97.7 F 59 L 18 150/61 H 91 O2 Del Method O2 Flow Rate 03/11/23 11:29 Room Air 03/11/23 08:00 03/11/23 10:35 03/11/23 08:00 Nasal Cannula 2 03/11/23 05:21 03/11/23 03:52 Room Air PG Care Time/CCT Total # of Minutes Spent Total Time Spent with Patient: Total time spent is greater than 50% in coordination of care (as documented) at patient's floor/unit and/or counseling patient: Coding Level of Care Code 84180 SUB INP/OBS CARE 235MIN Diagnoses Acute HFrEF (heart failure with reduced ejection fraction) I50.21 Bradycardia R00.1 Unstable angina I20.0 Shortness of breath R06.02 Hypoxia R09.02 HTN (hypertension) I10 Ischemic cardiomyopathy I25.5 Diabetes E11.9 Hypothyroidism E03.9 Herpes zoster B02.9 Acute kidney injury superimposed on CKD N17.9; N18.9 Time Spent (min) 35
--- NOTE | 2023-03-11 12:34 | Cardiology Progress Note ---
Date of Service March 11, 2023 Assessment & Plan (1) Acute HFrEF (heart failure with reduced ejection fraction): (2) Ischemic cardiomyopathy: (3) Bradycardia: (4) HTN (hypertension): Plan HFrEF: Clinically improved. She has not received diuretic for a couple of days. She does report a sense of dyspnea, but this is unusual in that it occurs only when sitting down. Described primarily as difficulty taking deep breath. Did describe some orthopnea as well, but this appears be longstanding in nature. Think we will have a better understanding of her symptoms which is more ambulatory. 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 Cardiomyopathy: EF 40%. Suspect this may be ischemic with new wall motion abnormalities. Patient has declined ischemic eval and prefers medical management. This was discussed again this admission and she does not seem interested in proceeding. Hypertension: Highly variable blood pressures. Entresto currently being held due to renal dysfunction. Bradycardia: She does have fairly frequent bradycardia at this point. However, no overt symptoms. Very difficult to gauge the setting in which she has her bradycardia. She has not been very active or mobile. Believe most of these episodes happen while she is sitting or sleeping. Hopefully with physical therapy or the nursing staff she can ambulate more and will get a better understanding of her associated heart rates in any symptoms. Acute renal injury: Kidney function slowly improving. However, we did stop her diuretic and Entresto as a result. Not on a good regimen for cardiomyopathy at this point due to her bradycardia and renal dysfunction. As noted above she has not been interested in angiography primarily due to the need for contrast possible kidney failure. We also discussed a pacemaker for bradycardia. Given the absence of symptoms she is not currently interested. It is possible we're heading towards a palliative care situation. Admission and Anticipated Discharge Date Admission Date: March 05, 2023 Subjective This afternoon the patient complained of some breathing trouble. She has some difficulty characterizing this symptom. She felt like it was difficult to take a deep breath at times. However, she was ambulatory around the room without limiting dyspnea. She did sleep somewhat upright in bed, but has been doing this for some time at home in a recliner. She had some mild dizziness when 1st standing up to ambulate. No dizziness with ambulation. Some discomfort in the lower extremities, primarily the feet. Review of Systems Review of Systems: Per HPI Physical Exam Physical Exam: Constitutional: Alert, oriented, in no acute distress HEENT: Head is atraumatic and normocephalic. EOMs intact. Sclera anicteric. Face is symmetric. No perioral cyanosis. Mucous membranes moist. Pulmonary: Normal respiratory effort, clear to auscultation bilaterally Cardiac: Regular rhythm with occasional ectopy.. Normal S1 and S2, bradycardic. No gallops, no rubs, 2/6 systolic murmur No pitting edema. No cyanosis or clubbing. Skin: Normal skin color, turgor, and pigmentation, Neurological: Patient is awake, alert, and oriented. Pleasant and cooperative. Answers questions appropriately. Speech is clear. Normal movement in all 4 extremities. Results & Data Vital Signs (Past 12 Hours) Vital Signs Temp Pulse Pulse Resp BP BP Pulse Ox 03/11/23 11:29 36.6 C 42 L 18 96/54 L 93 03/11/23 08:00 66 03/11/23 10:35 96 03/11/23 08:00 36.8 C 60 20 131/69 93 03/11/23 05:21 65 03/11/23 03:52 36.5 C 59 L 18 150/61 H 91 O2 Del Method O2 Flow Rate 03/11/23 11:29 Room Air 03/11/23 08:00 03/11/23 10:35 03/11/23 08:00 Nasal Cannula 2 03/11/23 05:21 03/11/23 03:52 Room Air Laboratory Results Abnormal Lab Results 03/10/23 03/11/23 03/11/23 16:41 07:47 07:58 Sodium 135 L Potassium 4.6 Chloride 102 Carbon Dioxide 28 Anion Gap 5 BUN 51 H Creatinine 1.86 H Est Cr Clr Drug Dosing 22.6 Est GFR ( Amer) 28.1 Est GFR (Non-Af Amer) 24.2 BUN/Creatinine Ratio 27.4 H Glucose 137 H POC Glucose 125 H 153 H Calcium 9.4 03/11/23 11:27 Sodium Potassium Chloride Carbon Dioxide Anion Gap BUN Creatinine Est Cr Clr Drug Dosing Est GFR ( Amer) Est GFR (Non-Af Amer) BUN/Creatinine Ratio Glucose POC Glucose 177 H Calcium PG Care Time/CCT Total # of Minutes Spent Total Time Spent with Patient: Total time spent is greater than 50% in coordination of care (as documented) at patient's floor/unit and/or counseling patient: Coding Level of Care Code 15789 SUB INP/OBS CARE MIN Diagnoses Acute HFrEF (heart failure with reduced ejection fraction) I50.21 Ischemic cardiomyopathy I25.5 Bradycardia R00.1 HTN (hypertension) I10
--- NOTE | 2023-03-11 15:54 | Electrocardiogram Report ---
Test Reason : Blood Pressure : / mmHG Vent. Rate : 050 BPM Atrial Rate : 375 BPM P-R Int : 000 ms QRS Dur : 088 ms QT Int : 466 ms P-R-T Axes : 000 036 051 degrees QTc Int : 424 ms Poor data quality, interpretation may be adversely affected Sinus bradycardia with competing junctional rhythm Poor R wave progression, consider anterior CO vs. lead placement vs. LVH T wave abnormality, consider lateral ischemia Abnormal ECG When compared with ECG of 04-MAR-2023 12:11, T wave inversion less evident in Lateral leads Confirmed by Richie Bianchi ([id number] on 03/11/2023 3:54:02 PM Referred By: REFERRED SELF Confirmed By:Richard Bianchi
[2023-03-11] MEDS: PRAVASTATIN SOD 20 MG TAB PO SCH (17:55)
[2023-03-11] MEDS: LATANOPROST 0.005% OP SOLN 2.5 ML BTL OPL SCH (20:55)
[2023-03-11] MEDS: diphenhydrAMINE Capsule 25 MG CAP PO PRN (21:08)
[2023-03-12] MEDS: oxyCODONE HCL IR 5 MG TAB (IMMEDIATE RELEASE) PO PRN (02:32)
[2023-03-12] MEDS: LEVOTHYROXINE SODIUM 75 MCG TABLET PO SCH (06:09)
[2023-03-12 06:30] LABS: Hematocrit (blood only) 31.7 % (37.0-47.0); Hemoglobin 10.5 g/dl (12.0-16.0); Mean Corpuscular Hemoglobin 29.7 pg (25.0-34.0); Mean Corpuscular Hgb Conc 33.1 g/dL (32.0-36.0); Mean Corpuscular Volume 89.5 fL (80.0-100.0); Mean Platelet Volume 10.1 fL (9.4-12.4); Platelet Count 309 K/uL (130-400); RDW Coefficient of Variation 13.2 % (11.5-14.5); Red Blood Count 3.54 M/uL (4.20-5.40); White Blood Count 6.02 K/ul (4.8-10.8)
[2023-03-12 06:46] LABS: BUN Creatinine Ratio 25.6 (10-20); Calcium 9.4 mg/dl (8.6-10.3); Creatinine Clr Calc Pharmacy 21.1 ml/min; Est GFR (African American) 25.9 ml/min; Est GFR (Non-African American) 22.3 ml/min; Potassium 5.1 mmol/L (3.5-5.1)
[2023-03-12] MEDS: INSULIN ASPART PER UNIT CHARGE SC SCH ×4 (09:20→20:56)
[2023-03-12] MEDS: LANTUS PER UNIT CHARGE SQ SCH (09:20)
[2023-03-12] MEDS: SPIRONOLACTONE 25 MG TAB PO SCH (09:21)
[2023-03-12] MEDS: HEPARIN SOD 5,000 UNIT/0.5 ML VIAL SQ SCH ×2 (09:21→20:56)
[2023-03-12] MEDS: MULTIVITAMIN TAB PO SCH (09:21)
[2023-03-12] MEDS: ASPIRIN 81 MG ECTAB PO SCH (09:21)
[2023-03-12] MEDS: BRIMONIDINE TARTRATE 0.2% 5ML OPL SCH ×2 (09:21→20:55)
[2023-03-12] MEDS: TIMOLOL MALEATE 0.5% OP SOLN 5 ML BTL OPL SCH ×2 (09:21→20:55)
[2023-03-12] MEDS: EMPAGLIFLOZIN 10 MG TAB PO SCH (09:22)
[2023-03-12] MEDS: ACYCLOVIR 200 MG CAP PO SCH ×3 (09:22→20:56)
--- NOTE | 2023-03-12 16:42 | Hospitalist Progress Note ---
Date of Service March 12, 2023 Assessment & Plan (1) Acute HFrEF (heart failure with reduced ejection fraction): Plan: Patient was recently discharged from this hospital on 02/19 Presented to the hospital with worsening sob, orthopnea, weight gain BNP increased from prior, CXR shows worsening pulmonary edema. ECHO shows EF 40% Started on Lasix 40mg IV daily, currently on home due to worsening serum creatinine. Also holding Entresto Strict I&Os Daily weights Low Na, heart healthy diet Fluid restrict 1500ml Appreciate cardiology recommendations - added Jardiance and spironolactone. Hold Entresto on account of worsening renal function Not optimally medically managed as limited by renal function Ischemic evaluation not done as the patient is declining As well as due to kidney injury. consult palliative care to discuss goals of care. (2) Bradycardia: Plan: Patient experiencing bradycardia and some pauses Likely due to metoprolol, 100mg daily This is currently on hold cardiology on board (3) Unstable angina: Plan: Patient not interested in cardiac cath Continue aspirin, LDL 92 above goal HbA1C 6.7 - below goal (4) Shortness of breath: Plan: much improved (5) Hypoxia: Plan: Now resolved Suspected secondary to CHF, low suspicion of worsening PNA Aim O2 sats > 94% (6) HTN (hypertension): Plan: BP is soft hold Entresto (7) Ischemic cardiomyopathy: Plan: Hold Entresto + metoprolol succinate continue Empagliflozin Not optimally medically managed (8) Diabetes: Plan: HBA1C 8.2 in September, now 6.7 Lantus 20 units daily at home, glucose 65 this morning therefore will reduce lantus to 10 units daily Novolog based on 20 units basal: --Goal BSG Range: Low 110 mg/dL, High 140 mg/dL --Correction Factor: 40 mg/dL/unit --Carbohydrate ratio = 13 g/unit --BSGs ACHS if eating, q6h if npo May need reduction in Lantus on discharge since we are starting Jardiance and HbA1C already 6.7 (9) Hypothyroidism: Plan: TSH 1.866 in September Continue levothyroxine (10) Herpes zoster: Plan: shingles outbreak on the lower back , with occasional itch will institute PO Acyclovir 800mg 5 times daily, changed to TID on account of renal insufficiency and PO benadryl 25mg prn every 4 hrs for itch (11) Acute kidney injury superimposed on CKD: Plan: worsening renal function, will hold lasix aand Entresto will consult nephrology if no imrovement Plan VTE Prophylaxis - heparin 5000 units SQ BID Diet - heart healthy, low Na, T2DM, fluid restricted Disposition - Hopefully d/c to rehab Admission and Anticipated Discharge Date Admission Date: March 05, 2023 Subjective request patient complains of shortness of breath off and on. Noted bradycardia slightly improving. Review of Systems Review of Systems: All systems reviewed & are unremarkable except as noted in Subjective Physical Exam Physical Exam: General: Awake, conversant Heart: S1, S2/regular rate and rhythm, no murmur rubs or gallops Lungs: Clear to auscultation bilaterally. Normal effort Abdomen: Soft/nontender/nondistended. No hepatosplenomegaly Extremities: No clubbing/cyanosis. No edema Behavior: Appropriate, cooperative Results & Data Results & Data Vital Signs (Past 12 Hours) Vital Signs Temp Pulse Pulse Resp BP Pulse Ox O2 Del Method 03/12/23 16:03 36.5 C 65 18 133/80 97 Room Air 03/12/23 11:30 36.5 C 52 L 18 121/64 97 Room Air 03/12/23 08:00 Room Air 03/12/23 07:18 36.6 C 66 19 136/70 98 Nasal Cannula 03/12/23 07:18 60 O2 Flow Rate 03/12/23 16:03 03/12/23 11:30 03/12/23 08:00 03/12/23 07:18 2 03/12/23 07:18 Laboratory Results Abnormal lab results 03/11/23 03/11/23 03/12/23 Range/Units 16:55 20:14 05:54 RBC 3.54 L (4.20-5.40) M/uL Hgb 10.5 L (12.0-16.0) g/dl Hct 31.7 L (37.0-47.0) % BUN (6-23) mg/dl Creatinine (0.6-1.2) mg/dl BUN/Creatinine Ratio (10-20) Glucose (70-99(Fasting)) mg/dl POC Glucose 137 H 203 H (70-99) mg/dl 03/12/23 03/12/23 03/12/23 Range/Units 05:54 07:17 11:27 RBC (4.20-5.40) M/uL Hgb (12.0-16.0) g/dl Hct (37.0-47.0) % BUN 51 H (6-23) mg/dl Creatinine 1.99 H (0.6-1.2) mg/dl BUN/Creatinine Ratio 25.6 H (10-20) Glucose 105 H (70-99(Fasting)) mg/dl POC Glucose 113 H 247 H (70-99) mg/dl 03/12/23 Range/Units 16:16 RBC (4.20-5.40) M/uL Hgb (12.0-16.0) g/dl Hct (37.0-47.0) % BUN (6-23) mg/dl Creatinine (0.6-1.2) mg/dl BUN/Creatinine Ratio (10-20) Glucose (70-99(Fasting)) mg/dl POC Glucose 188 H (70-99) mg/dl PG Care Time/CCT Total # of Minutes Spent Total Time Spent with Patient: Total time spent is greater than 50% in coordination of care (as documented) at patient's floor/unit and/or counseling patient: Coding Level of Care Code 93515 SUB INP/OBS CARE 2/35MIN Diagnoses Acute HFrEF (heart failure with reduced ejection fraction) I50.21 Bradycardia R00.1 Unstable angina I20.0 Shortness of breath R06.02 Hypoxia R09.02 HTN (hypertension) I10 Ischemic cardiomyopathy I25.5 Diabetes E11.9 Hypothyroidism E03.9 Herpes zoster B02.9 Acute kidney injury superimposed on CKD N17.9; N18.9
--- NOTE | 2023-03-12 17:05 | Cardiology Progress Note ---
Date of Service March 12, 2023 Assessment & Plan (1) Acute HFrEF (heart failure with reduced ejection fraction): (2) Ischemic cardiomyopathy: (3) Bradycardia: (4) HTN (hypertension): Plan HFrEF: Clinically improved. Her lung examination is benign overall her oxygenation has been good. Despite not getting a diuretic or aggressive treatment for her mildly reduced LV function she has been doing well. This is fortunate in light of her renal dysfunction which precludes more aggressive treatment at this time. Cardiomyopathy: EF 40%. Suspect this may be ischemic with new wall motion abnormalities. Patient has declined ischemic eval and prefers medical management. This was discussed again this admission and she does not seem interested in proceeding. Hypertension: Highly variable blood pressures. Entresto currently being held due to renal dysfunction. Bradycardia: Improved today. Occasional bradycardia but mostly during traditional sleeping hours. No significant sinus pauses this afternoon. From cardiac standpoint she is clinically stable. Would not have any objection her being discharged to rehab. Unfortunately, given her renal dysfunction and occasional bradycardia we cannot be more aggressive with her regimen for her cardiomyopathy or associated heart failure. I will continue to hold her beta- nikhil, Artemio/ARB/Entresto. She is not a good candidate for Jardiance given her renal dysfunction as well. Admission and Anticipated Discharge Date Admission Date: March 05, 2023 Subjective This afternoon the patient claimed he feeling well. She states that overall her breathing is a good today. She was able ambulate twice around her room with a walker. Some mild dizziness when initially standing up but none otherwise. No sense of palpitation. Review of Systems Review of Systems: Per HPI Physical Exam Physical Exam: Constitutional: Alert, oriented, in no acute distress HEENT: Head is atraumatic and normocephalic. EOMs intact. Sclera anicteric. Face is symmetric. No perioral cyanosis. Mucous membranes moist. Pulmonary: Normal respiratory effort, clear to auscultation bilaterally Cardiac: Regular rhythm with occasional ectopy.. Normal S1 and S2, bradycardic. No gallops, no rubs, 2/6 systolic murmur No pitting edema. No cyanosis or clubbing. Skin: Normal skin color, turgor, and pigmentation, Neurological: Patient is awake, alert, and oriented. Pleasant and cooperative. Answers questions appropriately. Speech is clear. Normal movement in all 4 extremities. Results & Data Vital Signs (Past 12 Hours) Vital Signs Temp Pulse Pulse Resp BP Pulse Ox O2 Del Method 03/12/23 16:03 36.5 C 65 18 133/80 97 Room Air 03/12/23 11:30 36.5 C 52 L 18 121/64 97 Room Air 03/12/23 08:00 Room Air 03/12/23 07:18 36.6 C 66 19 136/70 98 Nasal Cannula 03/12/23 07:18 60 O2 Flow Rate 03/12/23 16:03 03/12/23 11:30 03/12/23 08:00 03/12/23 07:18 2 03/12/23 07:18 Laboratory Results Abnormal Lab Results 03/11/23 03/12/23 03/12/23 20:14 05:54 05:54 WBC 6.02 RBC 3.54 L Hgb 10.5 L Hct 31.7 L MCV 89.5 MCH 29.7 MCHC 33.1 RDW Std Deviation 43.0 RDW Coeff of Bert 13.2 Plt Count 309 MPV 10.1 Sodium 137 Potassium 5.1 Chloride 103 Carbon Dioxide 26 Anion Gap 8 BUN 51 H Creatinine 1.99 H Est Cr Clr Drug Dosing 21.1 Est GFR ( Amer) 25.9 Est GFR (Non-Af Amer) 22.3 BUN/Creatinine Ratio 25.6 H Glucose 105 H POC Glucose 203 H Calcium 9.4 03/12/23 03/12/23 03/12/23 07:17 11:27 16:16 WBC RBC Hgb Hct MCV MCH MCHC RDW Std Deviation RDW Coeff of Bert Plt Count MPV Sodium Potassium Chloride Carbon Dioxide Anion Gap BUN Creatinine Est Cr Clr Drug Dosing Est GFR ( Amer) Est GFR (Non-Af Amer) BUN/Creatinine Ratio Glucose POC Glucose 113 H 247 H 188 H Calcium PG Care Time/CCT Total # of Minutes Spent Total Time Spent with Patient: Total time spent is greater than 50% in coordination of care (as documented) at patient's floor/unit and/or counseling patient: Coding Level of Care Code 89608 SUB INP/OBS CARE 2/35MIN Diagnoses Acute HFrEF (heart failure with reduced ejection fraction) I50.21 Ischemic cardiomyopathy I25.5 Bradycardia R00.1 HTN (hypertension) I10
[2023-03-12] MEDS: PRAVASTATIN SOD 20 MG TAB PO SCH (17:43)
[2023-03-12] MEDS: LATANOPROST 0.005% OP SOLN 2.5 ML BTL OPL SCH (20:56)
[2023-03-13] MEDS: LEVOTHYROXINE SODIUM 75 MCG TABLET PO SCH (06:16)
[2023-03-13 06:46] LABS: Hematocrit (blood only) 30.7 % (37.0-47.0); Hemoglobin 10.3 g/dl (12.0-16.0); Mean Corpuscular Hemoglobin 29.6 pg (25.0-34.0); Mean Corpuscular Hgb Conc 33.6 g/dL (32.0-36.0); Mean Corpuscular Volume 88.2 fL (80.0-100.0); Mean Platelet Volume 10.3 fL (9.4-12.4); Platelet Count 307 K/uL (130-400); RDW Coefficient of Variation 13.4 % (11.5-14.5); RDW Standard Deviation 42.6 fL (36.4-46.3); Red Blood Count 3.48 M/uL (4.20-5.40); White Blood Count 6.81 K/ul (4.8-10.8)
[2023-03-13 07:14] LABS: BUN Creatinine Ratio 26.1 (10-20); Calcium 9.3 mg/dl (8.6-10.3); Creatinine Clr Calc Pharmacy 24.1 ml/min; Est GFR (Non-African American) 25.9 ml/min; Potassium 4.7 mmol/L (3.5-5.1)
[2023-03-13] MEDS: SPIRONOLACTONE 25 MG TAB PO SCH (08:19)
[2023-03-13] MEDS: ASPIRIN 81 MG ECTAB PO SCH (08:19)
[2023-03-13] MEDS: MULTIVITAMIN TAB PO SCH (08:19)
[2023-03-13] MEDS: ACYCLOVIR 200 MG CAP PO SCH ×3 (08:20→19:57)
[2023-03-13] MEDS: LANTUS PER UNIT CHARGE SQ SCH (08:20)
[2023-03-13] MEDS: EMPAGLIFLOZIN 10 MG TAB PO SCH (08:20)
[2023-03-13] MEDS: INSULIN ASPART PER UNIT CHARGE SC SCH ×4 (08:21→21:31)
[2023-03-13] MEDS: HEPARIN SOD 5,000 UNIT/0.5 ML VIAL SQ SCH ×2 (08:21→21:31)
[2023-03-13] MEDS: BRIMONIDINE TARTRATE 0.2% 5ML OPL SCH ×2 (08:22→19:57)
[2023-03-13] MEDS: TIMOLOL MALEATE 0.5% OP SOLN 5 ML BTL OPL SCH ×2 (08:23→19:57)
--- NOTE | 2023-03-13 16:38 | Hospitalist Progress Note ---
Date of Service March 13, 2023 Assessment & Plan (1) Acute HFrEF (heart failure with reduced ejection fraction): Plan: Patient was recently discharged from this hospital on 02/19 Presented to the hospital with worsening sob, orthopnea, weight gain BNP increased from prior, CXR shows worsening pulmonary edema. ECHO shows EF 40% Started on Lasix 40mg IV daily, currently on hold due to worsening serum creatinine. Also holding Entresto Strict I&Os Daily weights Low Na, heart healthy diet Fluid restrict 1500ml Appreciate cardiology recommendations - Discontinued Jardiance due to renal failure . Continue spironolactone. Hold Entresto on account of worsening renal function Not optimally medically managed as limited by renal function Ischemic evaluation not done as the patient is declining As well as due to kidney injury. consult palliative care to discuss goals of care. (2) Bradycardia: Plan: Patient experiencing bradycardia and some pauses Likely due to metoprolol, 100mg daily This is currently on hold cardiology on board (3) Unstable angina: Plan: Patient not interested in cardiac cath Continue aspirin, LDL 92 above goal HbA1C 6.7 - below goal (4) Shortness of breath: Plan: much improved (5) Hypoxia: Plan: Now resolved Suspected secondary to CHF, low suspicion of worsening PNA Aim O2 sats > 94% (6) HTN (hypertension): Plan: BP is soft hold Entresto (7) Ischemic cardiomyopathy: Plan: Hold Entresto due to renal failure hold Empagliflozin due to renal failure Hold metoprolol due to bradycardia Not optimally medically managed (8) Diabetes: Plan: HBA1C 8.2 in September, now 6.7 Lantus 20 units daily at home, glucose 65 this morning therefore will reduce lantus to 10 units daily Novolog based on 20 units basal: --Goal BSG Range: Low 110 mg/dL, High 140 mg/dL --Correction Factor: 40 mg/dL/unit --Carbohydrate ratio = 13 g/unit --BSGs ACHS if eating, q6h if npo (9) Hypothyroidism: Plan: TSH 1.866 in September Continue levothyroxine (10) Herpes zoster: Plan: shingles outbreak on the lower back , with occasional itch will institute PO Acyclovir 800mg 5 times daily, changed to TID on account of renal insufficiency and PO benadryl 25mg prn every 4 hrs for itch (11) Acute kidney injury superimposed on CKD: Plan: worsening renal function, will hold lasix aand Entresto creatinine is slightly better today down to 1.7 from 1.9 yesterday Plan VTE Prophylaxis - heparin 5000 units SQ BID Diet - heart healthy, low Na, T2DM, fluid restricted Disposition - Hopefully d/c to rehab Admission and Anticipated Discharge Date Admission Date: March 05, 2023 Subjective patient feels well overall. Does not complain of significant shortness of breath. Review of Systems Review of Systems: All systems reviewed & are unremarkable except as noted in Subjective Physical Exam Physical Exam: General: Awake, conversant Heart: S1, S2/regular rate and rhythm, no murmur rubs or gallops Lungs: Clear to auscultation bilaterally. Normal effort Abdomen: Soft/nontender/nondistended. No hepatosplenomegaly Extremities: No clubbing/cyanosis. No edema Behavior: Appropriate, cooperative Results & Data Results & Data Vital Signs (Past 12 Hours) Vital Signs Temp Pulse Pulse Resp BP BP Pulse Ox 03/13/23 16:33 36.3 C L 59 L 16 129/59 L 94 03/13/23 15:53 57 L 03/13/23 12:11 36.6 C 55 L 18 106/48 L 94 03/13/23 08:00 03/13/23 07:52 36.5 C 81 18 126/63 96 03/13/23 07:27 67 O2 Del Method 03/13/23 16:33 Room Air 03/13/23 15:53 03/13/23 12:11 Room Air 03/13/23 08:00 Room Air 03/13/23 07:52 Room Air 03/13/23 07:27 Laboratory Results Abnormal lab results 03/12/23 03/13/23 03/13/23 Range/Units 19:38 05:53 05:53 RBC 3.48 L (4.20-5.40) M/uL Hgb 10.3 L (12.0-16.0) g/dl Hct 30.7 L (37.0-47.0) % BUN 46 H (6-23) mg/dl Creatinine 1.76 H (0.6-1.2) mg/dl BUN/Creatinine Ratio 26.1 H (10-20) Glucose 110 H (70-99(Fasting)) mg/dl POC Glucose 206 H (70-99) mg/dl 03/13/23 03/13/23 Range/Units 07:51 11:51 RBC (4.20-5.40) M/uL Hgb (12.0-16.0) g/dl Hct (37.0-47.0) % BUN (6-23) mg/dl Creatinine (0.6-1.2) mg/dl BUN/Creatinine Ratio (10-20) Glucose (70-99(Fasting)) mg/dl POC Glucose 117 H 175 H (70-99) mg/dl Diagnostic Findings Abnormal lab results 03/12/23 03/13/23 03/13/23 Range/Units 19:38 05:53 05:53 RBC 3.48 L (4.20-5.40) M/uL Hgb 10.3 L (12.0-16.0) g/dl Hct 30.7 L (37.0-47.0) % BUN 46 H (6-23) mg/dl Creatinine 1.76 H (0.6-1.2) mg/dl BUN/Creatinine Ratio 26.1 H (10-20) Glucose 110 H (70-99(Fasting)) mg/dl POC Glucose 206 H (70-99) mg/dl 03/13/23 03/13/23 Range/Units 07:51 11:51 RBC (4.20-5.40) M/uL Hgb (12.0-16.0) g/dl Hct (37.0-47.0) % BUN (6-23) mg/dl Creatinine (0.6-1.2) mg/dl BUN/Creatinine Ratio (10-20) Glucose (70-99(Fasting)) mg/dl POC Glucose 117 H 175 H (70-99) mg/dl PG Care Time/CCT Total # of Minutes Spent Total Time Spent with Patient: Total time spent is greater than 50% in coordination of care (as documented) at patient's floor/unit and/or counseling patient: Coding Level of Care Code 19939 SUB INP/OBS CARE 2/35MIN Diagnoses Acute HFrEF (heart failure with reduced ejection fraction) I50.21 Bradycardia R00.1 Unstable angina I20.0 Shortness of breath R06.02 Hypoxia R09.02 HTN (hypertension) I10 Ischemic cardiomyopathy I25.5 Diabetes E11.9 Hypothyroidism E03.9 Herpes zoster B02.9 Acute kidney injury superimposed on CKD N17.9; N18.9
[2023-03-13] MEDS: PRAVASTATIN SOD 20 MG TAB PO SCH (17:07)
[2023-03-13] MEDS: LATANOPROST 0.005% OP SOLN 2.5 ML BTL OPL SCH (19:57)
[2023-03-13] MEDS: oxyCODONE HCL IR 5 MG TAB (IMMEDIATE RELEASE) PO PRN (19:58)
[2023-03-14] MEDS: LEVOTHYROXINE SODIUM 75 MCG TABLET PO SCH (06:03)
[2023-03-14 06:28] LABS: Hematocrit (blood only) 30.9 % (37.0-47.0); Hemoglobin 10.2 g/dl (12.0-16.0); Mean Corpuscular Hemoglobin 29.7 pg (25.0-34.0); Mean Corpuscular Volume 89.8 fL (80.0-100.0); Mean Platelet Volume 10.3 fL (9.4-12.4); Platelet Count 283 K/uL (130-400); RDW Coefficient of Variation 13.5 % (11.5-14.5); RDW Standard Deviation 44.1 fL (36.4-46.3); Red Blood Count 3.44 M/uL (4.20-5.40); White Blood Count 6.18 K/ul (4.8-10.8)
[2023-03-14 06:54] LABS: Calcium 9.3 mg/dl (8.6-10.3); Creatinine Clr Calc Pharmacy 24.7 ml/min; Est GFR (African American) 30.9 ml/min; Est GFR (Non-African American) 26.6 ml/min; Potassium 4.5 mmol/L (3.5-5.1)
[2023-03-14] MEDS: INSULIN ASPART PER UNIT CHARGE SC SCH ×2 (08:20→12:21)
[2023-03-14] MEDS: MULTIVITAMIN TAB PO SCH (08:27)
[2023-03-14] MEDS: ACYCLOVIR 200 MG CAP PO SCH (08:27)
[2023-03-14] MEDS: SPIRONOLACTONE 25 MG TAB PO SCH (08:27)
[2023-03-14] MEDS: HEPARIN SOD 5,000 UNIT/0.5 ML VIAL SQ SCH (08:28)
[2023-03-14] MEDS: BRIMONIDINE TARTRATE 0.2% 5ML OPL SCH (08:28)
[2023-03-14] MEDS: ASPIRIN 81 MG ECTAB PO SCH (08:28)
[2023-03-14] MEDS: TIMOLOL MALEATE 0.5% OP SOLN 5 ML BTL OPL SCH (08:29)
[2023-03-14] MEDS: LANTUS PER UNIT CHARGE SQ SCH (09:15)
--- NOTE | 2023-03-14 10:32 | Discharge Summary ---
Date of Service March 14, 2023 Admission HPI Per Admitting Provider Magnolia Gould is an 87 year old female who presents to the ER due to shortness of breath. She was recently admitted from Feb 21 - 2022 due to acute on chronic systolic heart failure, community acquired pneumonia and NSTEMI. She was discharged on cefdinir and azithromycin. No fever or chills, worsening cough, nasal congestion at home. She denies any weight gain or worsening leg swelling. Having intermittent shortness of breath episodes worse at night (possible paroxysmal nocturnal dyspnea) which she feels are exacerbated by her anxiety regarding these episodes. No orthopnea during the day time. She reports p reviously her shortness of breath last admission was jsut on exertion but currently more now at rest. She thinks she has a had a steady decline since discharge from the hospital. Admission Exam Per Admitting Provider Constitutional: WD/WN, vitals as above Eyes: + anicteric sclerae; normal pupil size ENMT: external ear and nose normal, oropharynx normal Neck: trachea midline, no thyromegaly Respiratory: normal respiratory effort; no respiratory distress Auscultation: + crackles (bibasal); breath sounds present, no diminished lung sounds, no rales, no rhonchi and no wheezes Cardiovascular: Rate/Rhythm: regular rate and regular rhythm Heart Sounds: + murmur (systolic murmur throughout) Extremities: + pedal edema Gastrointestinal (Abdomen): normal bowel sounds, soft, nontender, no hepatosplenomegaly Musculoskeletal: no cyanosis or clubbing, extremities motor strength 5/5 Skin: no rashes, warm and dry Neurologic: moves all extremities and awake; not confused Psychiatric: A+Ox3, euthymic affect Genitourinary: no CVA tenderness Principal Diagnosis Acute systolic heart failure Bradycardia, metoprolol held Unstable angina, patient does not want to pursue cardiac catheterization Ischemic cardiomyopathy Shingles Acute kidney injury superimposed on chronic kidney disease Discharge Exam General: Awake, conversant Heart: S1, S2/regular rate and rhythm, no murmur rubs or gallops Lungs: Clear to auscultation bilaterally. Normal effort Abdomen: Soft/nontender/nondistended. No hepatosplenomegaly Extremities: No clubbing/cyanosis. No edema Behavior: Appropriate, cooperative Discharge Data Allergies Allergy/AdvReac Type Severity Reaction Status Date / Time simvastatin Allergy Intermediate Nausea Verified 03/04/23 14:20 acetaminophen [From Lortab] Allergy Mild itching Verified 03/04/23 14:20 duloxetine [From Cymbalta] Allergy Mild itching Verified 03/04/23 14:20 hydrocodone [From Lortab] Allergy Mild itching Verified 03/04/23 14:20 pregabalin [From Lyrica] Allergy Mild itching Verified 03/04/23 14:20 Consultations 03/04/23 14:00 ED Decision to Admit Stat 03/04/23 15:24 Consult Cardiology Routine 03/12/23 16:44 Consult Palliative Care Routine Hospital Course (1) Acute HFrEF (heart failure with reduced ejection fraction): Patient was recently discharged from this hospital on 02/19 Presented to the hospital with worsening sob, orthopnea, weight gain BNP increased from prior, CXR shows worsening pulmonary edema. ECHO shows EF 40% Started on Lasix 40mg IV daily, currently on hold due to worsening serum creatinine. Also holding Entresto Appreciate cardiology recommendations - Discontinued Jardiance , spironolactone and Entresto due to renal failure Not optimally medically managed as limited by renal function Ischemic evaluation not done as the patient is declining As well as due to kidney injury. patient should see palliative care outpatient to discuss goals of care Spoke to the patient's daughter in detail Follow-up with cardiology outpatient, CHF clinic and palliative care (2) Bradycardia: Patient experiencing bradycardia and some pauses Likely due to metoprolol, 100mg daily This is currently on hold volleyball coach was involved and they recommended discontinuing the metoprolol. (3) Unstable angina: Patient not interested in cardiac cath Continue aspirin, LDL 92 above goal HbA1C 6.7 - below goal (4) Shortness of breath: much improved (5) Hypoxia: Now resolved Suspected secondary to CHF Aim O2 sats > 94% (6) HTN (hypertension): Entresto on hold. Metoprolol on hold due to bradycardia (7) Ischemic cardiomyopathy: Hold Entresto due to renal failure hold Empagliflozin due to renal failure Hold metoprolol due to bradycardia Not optimally medically managed Follow-up with cardiology and CHF clinic (8) Diabetes: HBA1C 8.2 in September, now 6.7 Lantus 20 units daily at home, glucose 65 this morning therefore will reduce kati tus to 10 units daily Novolog based on 20 units basal: --Goal BSG Range: Low 110 mg/dL, High 140 mg/dL --Correction Factor: 40 mg/dL/unit --Carbohydrate ratio = 13 g/unit --BSGs ACHS if eating, q6h if npo (9) Hypothyroidism: TSH 1.866 in May Continue levothyroxine (10) Herpes zoster: shingles outbreak on the lower back , with occasional itch completed course of acyclovir. (11) Acute kidney injury superimposed on CKD: worsening renal function, will hold lasix aand Entresto creatinine is slightly better today down to 1.7 from 1.9 2 days ago Plan discharged to rehab Total Time Total Time Spent Total Time Spent (In Minutes): 35 Discharge Plan Discharge Items Patient Disposition: Transfer [facility] Reason For Visit: UNSTABLE ANGINA, CHF Discharge Diagnosis: Acute systolic heart failure Bradycardia, metoprolol held Unstable angina, patient does not want to pursue cardiac catheterization Ischemic cardiomyopathy Shingles Acute kidney injury superimposed on chronic kidney disease Activity: As commented below Activity Comment: Per PT/OT recommendation Non-emergency contact: Primary Care Provider Call non-emergency contact if: you have any medication questions and your symptoms worsen Follow-up/Referrals: Safia Shukla MD [Primary Care Provider] - Diet: Carb Consistent or DM2 and Heart Healthy Addtl Attending Provider Instructions: Advised to follow-up with PCP in 1 week Advised to follow-up with cardiology in 1 week. She was seen by Dr. Bianchi while in the hospital. Advised to follow-up with CHF clinic - Advised that you follow-up with palliative care outpatient Pending Studies at Discharge: No Stand-Alone Forms: My [facility] Skilled Items Patient informed of condition?: Yes DNR: Yes Discharge Level of Care: Skilled Communicable Disease: Yes Discharge Prognosis: Stable Lines: None Urinary Catheter: No Medications and DC Order Prescriptions: New pravastatin 20 mg Tablet 20 mg PO DAILY@1700 Qty: 30 0RF Continued levothyroxine [Synthroid] 75 mcg tablet 75 mcg PO QAM Lantus U-100 Insulin 100 unit/mL solution 20 units SQ QAM latanoprost 0.005 % drops 1 drp OPL HS multivitamin Tablet 1 tab PO QAM ascorbic acid (vitamin C) [Vitamin C] 500 mg Tablet 500 mg PO QAM aspirin 81 mg capsule 81 mg PO QAM brimonidine-timolol 0.2-0.5 % drops 1 drp OPL BID insulin aspart U-100 [Novolog FlexPen U-100 Insulin] 100 unit/mL (3 mL) insulin pen See Rx Instructions .ROUTE .COMPLEX Rx Instructions: Inject 8 units at noon and 5 units with supper Discontinued Entresto 24-26 mg Tablet 1 tab PO BID Qty: 60 4RF metoprolol succinate 100 mg tablet extended release 24 hr 100 mg PO QAM metformin 500 mg tablet 500 mg PO BIDM Discharge Orders: Discharge Order- CHF (Routine); Ordered 03/14/23 Ordered By: Jessica Chakraborty/Other Patient Handouts: Hypoglycemia (Low Blood Sugar), Managing Type 2 Diabetes Admission Data Admit Date/Time: 03/05/23 12:11 Attending Provider: Jessica Cleaning Admit Provider: Trell Uriarte Primary Care Provider: Safia Shukla Other Providers: Trell Uriarte; Uli Cardona; [facility] Coding Level of Care Code 94618 INP/OBS DISCH >30 MIN Diagnoses Acute HFrEF (heart failure with reduced ejection fraction) I50.21 Bradycardia R00.1 Unstable angina I20.0 Shortness of breath R06.02 Hypoxia R09.02 HTN (hypertension) I10 Ischemic cardiomyopathy I25.5 Diabetes E11.9 Hypothyroidism E03.9 Herpes zoster B02.9 Acute kidney injury superimposed on CKD N17.9; N18.9
--- NOTE | 2023-03-17 14:54 | Coding Query ---
CODING QUERY To promote full compliance with coding requirements relating to patient care, provider participation is requested in all cases of block chopper hand uncertainty. Please assist us with the question(s) below: Coding Question(s): Pt admitted with CHF. Prior admission 02/21-02/25 for CHF and [place]. The Discharge Summary for this current inpatient stay, under "Admission" states NSTEMI.Patient refused cardiac cath during that admission. Please check below the phrase that describes the NSTEMI. thanks for your help. 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 The patient did not have an NSTEMI during the 02/21-02/25 admission __X____ Unable to determine if the patient had an NSTEMI during the 02/21-02/25 admission. Principal Diagnosis: "that condition established after study, to be chiefly responsible for occasioning the admission of the patient to the hospital for care." Co-Existing Principal Diagnosis: "when two or more diagnoses equally meet the criteria for principal diagnosis as determined by the circumstances of admission, diagnostic work up, and/or therapy provided, and the Alphabetic Index, Tabular List, or another coding guideline does not provide sequencing direction, any one of the diagnoses may be sequenced first." "When the physician has documented what appears to be a current diagnosis in the body of the record, but has not included the diagnosis in the final diagnostic statement, the physician should be asked whether the diagnosis should be added." (Source Coding Clinic 2 QTR90. p3-4) [facility]
== END 2023-03-14 15:20 | DRG 280 ==
LOC: EDINP 11:56 → ED 11:56 → SUATTDRO 03-05 12:11 → 2S 03-05 17:26

== ENCOUNTER 2023-04-26 13:01 | Inpatient (IN) ==
--- NOTE | 2023-04-26 13:23 | Emergency Department Note ---
Impression & Plan CHF (congestive heart failure), Elevated troponin, Hypoxia ED Provider Note NAME: ANDREW LOWE AGE: 87 SEX: F : 1935 ARRIVES VIA: Ambulance INFORMANT: Patient ED PROVIDER(S): Mac Diaz DO CHIEF COMPLAINT: shortness of breath HPI: Patient is an 87-year-old female with a past medical history of heart failure with reduced EF, ischemic cardiomyopathy, CAD, NSTEMI, hypoxia on 2 L nasal cannula who presents to the ER for shortness of breath which started this morning. Shortness of breath is significantly worse with laying down. It is also worse with up moving around. Denies any belly pain, nausea, vomiting, or diarrhea. She notes that she does have trouble talking due to her shortness of breath. No other exacerbating or remitting factors. She is not sure that if she has any swelling in her legs. ADDITIONAL HISTORY OBTAINED: Per HPI Chronic Medical/Social Conditions Affecting Care: Per HPI PAST MEDICAL HISTORY:See Below PAST SURGICAL HISTORY:See Below FAMILY HISTORY:See Below SOCIAL HISTORY:See Below HOME MEDICATIONS:See Below ALLERGIES:See Below VITALS:See Below PHYSICAL EXAMINATION: GENERAL: Sitting up in bed, alert, well appearing, well nourished, no distress, non-toxic EYE EXAM: normal conjunctiva. OROPHARYNX: mucous membranes are moist NECK: supple, no nuchal rigidity, no adenopathy, non-tender, + JVD LUNGS: Crackles at the bilateral bases. Normal chest wall mechanics HEART: no murmurs, S1 normal and S2 normal ABDOMEN: abdomen soft, non-tender, normo-active bowel sounds, no masses, no rebound or guarding. UPPER EXTREMITIES: upper extremities are grossly normal. LOWER EXTREMITIES: Pitting edema in the bilateral lower extremities NEURO EXAM: Normal sensorium, cranial nerves II-XII grossly intact, normal speech, no gross weakness of arms, no gross weakness of legs. MEDICAL DECISION MAKING: Patient is an 87-year-old female who presents ER for shortness of breath. IV was established blood work is obtained. Does have a history of CHF. Upon review of her chart she does have a 10 kg weight gain since discharged. Labs show no significant leukocytosis. Mild anemia 10. BMP with LFTs bilirubin was unremarkable. Troponin was elevated at 500. BNP was elevated at 4500. Pro-Khoa was normal. Viral panel was negative. Chest x-ray suggest CHF. Patient was placed on Nitropaste and given IV Lasix. Patient was on 5 L nasal cannula as she was hypoxic on her 2 L which are her baseline. She was updated bedside discussed with Dr. Trell Uriarte for further evaluation management treatment. Consults/Care Managements Discussions: Per [facility] Triage Nursing notes reviewed. Limited review of prior medical records performed Vital Signs: reviewed and remarkable for hypoxic at 87% on 2 L nasal cannula Differential diagnosis: Differential diagnoses includes but is not limited to pneumonia, bronchitis, COPD/Asthma exacerbation, pneumothorax, pulmonary embolism, congestive heart failure, acute coronary syndrome ER treatment provided: See below Diagnostics interpreted by me include EKG and cardiac monitoring as listed below: -Cardiac Monitoring: An order was placed for continuous cardiac monitoring. The monitor shows a rate of 92 with sinus rhythm. -ECG: Sinus rhythm rate of 94 Normal axis Poor baseline Septal Q waves QTc 420 -Laboratory studies:Interpreted by me as stated above in MDM and shown below. Imaging studies: Xrays: As interpreted by me: Portable AP upright 1 view chest shows bilateral pleural effusions CTs show: none Procedures:none Critical Care: I have personally spent 32 minutes of critical care time in the direct management of this patient. This includes bedside care, interpretation of diagnostic studies, and testing, discussion with consultants, patient, and family members, and other required patient management activities. This 32 minutes is in excess of all separately billable procedures. Past Med/Surg History Medical History (Updated 04/26/23 @ 18:37 by Mac Diaz DO) Elevated troponin Pneumonia Acute UTI (urinary tract infection) Sepsis MARISA (acute kidney injury) Hypomagnesemia Transaminitis Acute kidney injury Hypomagnesemia Leukocytosis Elevated troponin Syncope Peripheral arterial disease Foot deformity Status post partial amputation of foot Loss of protective sensation of skin of foot Diabetes type 2, uncontrolled Diabetic foot ulcer associated with type 2 diabetes mellitus Acquired deformity of left foot Acquired hammer toe of right foot Callus Acquired deformity of right foot Acquired hallux valgus of right foot Acquired claw toe of left foot Pressure ulcer of left leg, stage 3 Diabetic foot ulcer associated with type 2 diabetes mellitus, with fat layer exposed Osteoporosis Hypothyroidism Sinusitis Amputation of left great toe Chronic renal insufficiency, stage III (moderate) PHN (postherpetic neuralgia) Hyperlipidemia LDL goal <100 Herpes zoster HTN (hypertension) Surgical History History of tonsillectomy and adenoidectomy Social History Smoking Status: Never smoker Second Hand Exposure: Yes; Hx Alcohol Use: No Hx Substance Use: No Preferred Language: [place] Communication Ability: Effective Communication Tools: Letter Board, Picture Board, Facial Expression and Writing Tablet Visual Impairment: No Limitations Hearing Ability: Normal Unit Technician Required: No Beliefs That Will Affect Care: None marital status: / Current Living Situation: [facility] Current Living Situation Comment: daugher and current occupational status: 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 [employer] Other Information That Helps Us Care for You: No Feels Safe at Home: Yes Safety Concerns: Feels Safe At This Time Childhood Exposure to Second-Hand Smoke: No Diet: diabetic and low carbohydrate caffeine: Yes (1-2 cups/day) during the past year weight has: decreased > 10 lbs Dental Care, Regularly: No Physical Activity Frequency: 3-4 Times per Week Do you think of yourself as: straight/heterosexual Sexual Activity: has been sexually active, but not for at least 12 months Assistive Devices: Denture - Upper, Denture - Lower, Glasses, Oxygen - Continuous and Walker Allergies Allergies Allergy/AdvReac Type Severity Reaction Status Date / Time duloxetine [From Cymbalta] Allergy Intermediate itching Verified 04/26/23 15:49 hydrocodone [From Lortab] Allergy Intermediate itching Verified 04/26/23 15:49 pregabalin [From Lyrica] Allergy Intermediate itching Verified 04/26/23 15:49 simvastatin Allergy Intermediate Nausea Verified 04/26/23 15:49 Home Meds Home Medications Medication Instructions Recorded Confirmed insulin glargine 100 unit/mL 10 units subcut QAM 05/27/19 04/26/23 subcutaneous solution (Lantus U-100 Insulin) levothyroxine 75 mcg tablet 75 mcg PO QAM 05/27/19 04/26/23 (Synthroid) brimonidine 0.2 %-timolol 0.5 % 1 drp OPL BID 10/01/22 04/26/23 eye drops insulin aspart U-100 100 unit/mL See Rx Instructions .Route .COMPLEX 10/01/22 04/26/23 (3 mL) subcutaneous pen (Novolog FlexPen U-100 Insulin aspart) latanoprost 0.005 % eye drops 1 drp OPL HS 02/21/23 04/26/23 ascorbic acid (vitamin C) 500 mg 500 mg PO QAM 03/04/23 04/26/23 tablet (Vitamin C) aspirin 81 mg capsule 81 mg PO QAM 03/04/23 04/26/23 multivitamin 1 tab PO QAM 03/04/23 04/26/23 Saccharomyces boulardii 250 mg 250 mg PO QAM 04/26/23 04/26/23 capsule (Florastor) acetaminophen 325 mg tablet 650 mg PO Q6H PRN PAIN/FEVER 04/26/23 04/26/23 (Tylenol) furosemide 20 mg tablet (Lasix) 20 mg PO DAILY PRN WT > 177# 04/26/23 04/26/23 ipratropium 0.5 mg-albuterol 3 mg 3 ml inhalation Q2H PRN Shortness 04/26/23 04/26/23 (2.5 mg base)/3 mL nebulization Of Breath Or Wheezing soln isosorbide dinitrate 10 mg tablet 10 mg PO HS 04/26/23 04/26/23 lorazepam 0.5 mg tablet 0.5 mg PO HS 04/26/23 04/26/23 lorazepam 0.5 mg tablet 0.5 mg PO Q6H PRN Anxiety 04/26/23 04/26/23 nitroglycerin 0.4 mg sublingual 0.4 mg sublingual DIRECTED PRN 04/26/23 04/26/23 tablet (Nitrostat) Chest Pain pravastatin 20 mg tablet 20 mg PO HS 04/26/23 04/26/23 protein supplement 1 ea PO BIDM 04/26/23 04/26/23 Results & Data (ED) Vital Signs Vital Signs - 24 hr 04/26/23 13:10 04/26/23 13:10 04/26/23 13:10 Temperature 36.4 C L 36.9 C Temperature Source Oral Oral Pulse Rate 92 H Pulse Rate from SpO2 Sensor Respiratory Rate 20 Respiratory Effort / Characteristics Spontaneous Short of Breath Respiratory Depth Normal Blood Pressure 162/103 H Blood Pressure Mean 122 Pulse Oximetry 93 88 L Oxygen Delivery Method Nasal Cannula Nasal Cannula Oxygen Flow Rate 5 2 Sepsis Recent Fever Within 48 Hours No Sepsis New/Unexplained Change in Mental Status N/A Sepsis Action Taken by Nursing No Action Required Oxygen Flow Rate - Titration 5 Pulse Oximetry Post Tiitration 93 04/26/23 13:15 04/26/23 13:19 04/26/23 13:20 Temperature Temperature Source Pulse Rate 95 H 95 H Pulse Rate from SpO2 Sensor 95 H 94 H Respiratory Rate 17 19 Respiratory Effort / Characteristics Respiratory Depth Blood Pressure Blood Pressure Mean Pulse Oximetry 93 95 95 Oxygen Delivery Method Nasal Cannula Oxygen Flow Rate 5 Sepsis Recent Fever Within 48 Hours Sepsis New/Unexplained Change in Mental Status Sepsis Action Taken by Nursing Oxygen Flow Rate - Titration Pulse Oximetry Post Tiitration 04/26/23 13:21 04/26/23 13:30 04/26/23 13:40 Temperature Temperature Source Pulse Rate 96 H 90 94 H Pulse Rate from SpO2 Sensor 91 H 96 H Respiratory Rate 18 18 Respiratory Effort / Characteristics Respiratory Depth Blood Pressure Blood Pressure Mean Pulse Oximetry 96 96 Oxygen Delivery Method Oxygen Flow Rate Sepsis Recent Fever Within 48 Hours Sepsis New/Unexplained Change in Mental Status Sepsis Action Taken by Nursing Oxygen Flow Rate - Titration Pulse Oximetry Post Tiitration 04/26/23 13:50 04/26/23 14:00 04/26/23 14:10 Temperature Temperature Source Pulse Rate 94 H 95 H 95 H Pulse Rate from SpO2 Sensor 95 H 95 H 95 H Respiratory Rate 18 18 21 Respiratory Effort / Characteristics Respiratory Depth Blood Pressure Blood Pressure Mean Pulse Oximetry 97 97 95 Oxygen Delivery Method Oxygen Flow Rate Sepsis Recent Fever Within 48 Hours Sepsis New/Unexplained Change in Mental Status Sepsis Action Taken by Nursing Oxygen Flow Rate - Titration Pulse Oximetry Post Tiitration 04/26/23 14:20 04/26/23 14:30 04/26/23 14:34 Temperature Temperature Source Pulse Rate 98 H 99 H 98 H Pulse Rate from SpO2 Sensor 99 H 100 H 98 H Respiratory Rate 15 24 22 Respiratory Effort / Characteristics Respiratory Depth Blood Pressure Blood Pressure Mean Pulse Oximetry 95 95 97 Oxygen Delivery Method Oxygen Flow Rate Sepsis Recent Fever Within 48 Hours Sepsis New/Unexplained Change in Mental Status Sepsis Action Taken by Nursing Oxygen Flow Rate - Titration Pulse Oximetry Post Tiitration 04/26/23 14:34 04/26/23 14:40 04/26/23 14:50 Temperature Temperature Source Pulse Rate 94 H 94 H Pulse Rate from SpO2 Sensor 96 H 95 H Respiratory Rate 15 15 Respiratory Effort / Characteristics Respiratory Depth Blood Pressure 165/94 H Blood Pressure Mean 131 Pulse Oximetry 98 95 Oxygen Delivery Method Oxygen Flow Rate Sepsis Recent Fever Within 48 Hours Sepsis New/Unexplained Change in Mental Status Sepsis Action Taken by Nursing Oxygen Flow Rate - Titration Pulse Oximetry Post Tiitration 04/26/23 15:00 04/26/23 15:01 04/26/23 15:01 Temperature Temperature Source Pulse Rate 100 H 101 H Pulse Rate from SpO2 Sensor 101 H 101 H Respiratory Rate 16 16 Respiratory Effort / Characteristics Respiratory Depth Blood Pressure 165/103 H Blood Pressure Mean 115 Pulse Oximetry 97 97 Oxygen Delivery Method Oxygen Flow Rate Sepsis Recent Fever Within 48 Hours Sepsis New/Unexplained Change in Mental Status Sepsis Action Taken by Nursing Oxygen Flow Rate - Titration Pulse Oximetry Post Tiitration 04/26/23 15:10 04/26/23 15:20 04/26/23 15:30 Temperature Temperature Source Pulse Rate 97 H 95 H 98 H Pulse Rate from SpO2 Sensor 99 H 97 H 98 H Respiratory Rate 16 16 22 Respiratory Effort / Characteristics Respiratory Depth Blood Pressure Blood Pressure Mean Pulse Oximetry 95 93 96 Oxygen Delivery Method Oxygen Flow Rate Sepsis Recent Fever Within 48 Hours Sepsis New/Unexplained Change in Mental Status Sepsis Action Taken by Nursing Oxygen Flow Rate - Titration Pulse Oximetry Post Tiitration 04/26/23 15:30 Temperature Temperature Source Pulse Rate Pulse Rate from SpO2 Sensor Respiratory Rate Respiratory Effort / Characteristics Respiratory Depth Blood Pressure 159/102 H Blood Pressure Mean 120 Pulse Oximetry Oxygen Delivery Method Oxygen Flow Rate Sepsis Recent Fever Within 48 Hours Sepsis New/Unexplained Change in Mental Status Sepsis Action Taken by Nursing Oxygen Flow Rate - Titration Pulse Oximetry Post Tiitration Laboratory Data 04/26/23 13:05 04/26/23 13:05 Lab Results 04/26/23 04/26/23 Range/Units 13:05 13:55 WBC 10.90 H (4.8-10.8) K/ul RBC 3.66 L (4.20-5.40) M/uL Hgb 10.8 L (12.0-16.0) g/dl Hct 33.6 L (37.0-47.0) % MCV 91.8 (80.0-100.0) fL MCH 29.5 (25.0-34.0) pg MCHC 32.1 (32.0-36.0) g/dL RDW Std Deviation 46.8 H (36.4-46.3) fL RDW Coeff of Bert 13.9 (11.5-14.5) % Plt Count 314 (130-400) K/uL MPV 10.3 (9.4-12.4) fL Immature Gran % (Auto) 0.4 % Neut % (Auto) 79.3 % Lymph % (Auto) 12.8 % Donley % (Auto) 6.9 % Eos % (Auto) 0.1 % Baso % (Auto) 0.5 % Neut # (Auto) 8.66 H (1.40-6.50) K/uL Lymph # (Auto) 1.39 (1.20-3.40) K/uL Donley # (Auto) 0.75 H (0.11-0.59) K/uL Eos # (Auto) 0.01 (0.00-0.50) K/uL Baso # (Auto) 0.05 (0.00-0.20) K/uL Immature Gran # (Auto) 0.04 (0.01-0.20) K/uL Sodium 138 (136-145) mmol/L Potassium 4.3 (3.5-5.1) mmol/L Chloride 104 (98-107) mmol/L Carbon Dioxide 26 (21-32) mmol/L Anion Gap 8 (3-11) BUN 23 (6-23) mg/dl Creatinine 1.10 (0.6-1.2) mg/dl Est Cr Clr Drug Dosing 39.7 ml/min Est GFR ( Amer) 53.0 ml/min Est GFR (Non-Af Amer) 45.7 ml/min BUN/Creatinine Ratio 20.9 H (10-20) Glucose 113 H (70-99(Fasting)) mg/dl Calcium 9.4 (8.6-10.3) mg/dl Total Bilirubin 0.5 (0.2-1.0) mg/dl AST 17 (13-39) U/L ALT 15 (7-52) U/L Alkaline Phosphatase 90 (34-104) U/L Troponin I High Sens 513.9 H* (0-14) pg/ml B-Natriuretic Peptide 4559 H (0-100) pg/ml Total Protein 7.4 (6.0-8.3) gm/dl Albumin 4.0 (3.4-5.0) gm/dl Globulin 3.4 (2.5-4.0) gm/dl Albumin/Globulin Ratio 1.2 (0.9-2) Lipase 3 L (11-82) U/L Procalcitonin < 0.05 (0-0.5) ng/ml SARS-CoV-2 (PCR) NEGATIVE (Negative) Influenza Type A (PCR) Negative (Neg) Influenza Type B (PCR) Negative (Neg) RSV (RT-PCR) Negative (Neg) Administered Medications Nitroglycerin (Nitroglycerin 2% Ointment 30gm Tube) 2 inch EXT Q6H MAYI Stop: 05/26/23 13:29 Last Admin: 04/26/23 13:49 Dose: 2 inch Documented By: MARIYA Discontinued Medications Furosemide (Furosemide 40 Mg/4 Ml Vial) 60 mg IV ONE ONE Stop: 04/26/23 15:14 Last Admin: 04/26/23 15:31 Dose: Not Given Documented By: MARIYA Furosemide (Furosemide 40 Mg/4 Ml Vial) 40 mg IV NOW STA Stop: 04/26/23 15:16 Last Admin: 04/26/23 15:26 Dose: 40 mg Documented By: MARIYA Lorazepam 0.25 mg/ Syringe 0.25 mls @ 2 mls/min IV NOW STA Stop: 04/26/23 15:54 Last Admin: 04/26/23 17:33 Dose: 2 mls/min Documented By: DW Imaging Data Radiologist's Impression: Chest X-Ray 04/26/23 13:11 SINGLE VIEW CHEST CLINICAL HISTORY: Atypical chest pain. Dyspnea. Wheezing. FINDINGS: An AP, portable, upright chest radiograph is compared to study dated 03/04/2023 and correlated with chest CT dated 02/21/2023. The heart is enlarged noting atherosclerotic calcification of the thoracic aorta. There is pulmonary vascular congestion with evidence of interstitial edema. There are layering pleural effusions with dependent consolidation. No pneumothorax is seen. The skeletal structures are osteopenic. The bony thorax is grossly intact. Advanced arthritic change is seen in the shoulders. Calcific tendinopathy is noted on the left. Spondylotic change is seen in the spine. IMPRESSION: 1. Cardiomegaly with evidence of congestive failure and pulmonary edema. 2. Layering pleural effusions with dependent consolidation. ACT 112: Negative or not required by law. Electronically signed by: Spike Valera M.D. 04/26/2023 1:53 PM Discharge Plan Visit Data Chief Complaint: Shortness of Breath/Dyspnea Stated Complaint: SOB ED Provider: Mac Diaz Discharge Problem: CHF (congestive heart failure), Elevated troponin, Hypoxia Patient Disposition: Admitted As Inpatient Discharge Instructions Interventions: ED Discharge Assessment Last Done: 04/26/23 16:47 Discharge Problem: CHF (congestive heart failure) Qualifiers: Heart failure type: unspecified Heart failure chronicity: unspecified Qualified Code(s): I50.9 - Heart failure, unspecified
[2023-04-26 13:46] LABS: Basophils # (auto) 0.05 K/uL (0.00-0.20); Basophils % (auto) 0.5 %; Eosinophils # (auto) 0.01 K/uL (0.00-0.50); Eosinophils % (auto) 0.1 %; Hematocrit (blood only) 33.6 % (37.0-47.0); Hemoglobin 10.8 g/dl (12.0-16.0); Immature Granulocytes # (auto) 0.04 K/uL (0.01-0.20); Immature Granulocytes % (auto) 0.4 %; Lymphocytes # (auto) 1.39 K/uL (1.20-3.40); Lymphocytes % (auto) 12.8 %; Mean Corpuscular Hemoglobin 29.5 pg (25.0-34.0); Mean Corpuscular Hgb Conc 32.1 g/dL (32.0-36.0); Mean Corpuscular Volume 91.8 fL (80.0-100.0); Mean Platelet Volume 10.3 fL (9.4-12.4); Monocytes # (auto) 0.75 K/uL (0.11-0.59); Monocytes % (auto) 6.9 %; Neutrophils # (auto) 8.66 K/uL (1.40-6.50); Neutrophils % (auto) 79.3 %; Platelet Count 314 K/uL (130-400); RDW Coefficient of Variation 13.9 % (11.5-14.5); RDW Standard Deviation 46.8 fL (36.4-46.3); Red Blood Count 3.66 M/uL (4.20-5.40)
[2023-04-26] MEDS: NITROGLYCERIN 2% OINTMENT 30GM TUBE EXT SCH ×2 (13:49→20:46)
--- NOTE | 2023-04-26 13:55 | XRay Report ---
SINGLE VIEW CHEST CLINICAL HISTORY: Atypical chest pain. Dyspnea. Wheezing. FINDINGS: An AP, portable, upright chest radiograph is compared to study dated 03/04/2023 and correla jose luis with chest CT dated 02/21/2023. The heart is enlarged noting atherosclerotic calcification of the thoracic aorta. There is pulmonary vascular congestion with evidence of interstitial edema. There ar e layering pleural effusions with dependent consolidation. No pneumothorax is seen. The skeletal stru ctures are osteopenic. The bony thorax is grossly intact. Advanced arthritic change is seen in the sh oulders. Calcific tendinopathy is noted on the left. Spondylotic change is seen in the spine. IMPRESSION: 1. Cardiomegaly with evidence of congestive failure and pulmonary edema. 2. Layering pleural effusions with dependent consolidation. ACT 112: Negative or not required by law. Electronically signed by: Spike Valera M.D. 04/26/2023 1:53 PM
[2023-04-26 14:01] LABS: Albumin Globulin Ratio 1.2 (0.9-2); BUN Creatinine Ratio 20.9 (10-20); Bilirubin,Total 0.5 mg/dl (0.2-1.0); Calcium 9.4 mg/dl (8.6-10.3); Creatinine Clr Calc Pharmacy 39.7 ml/min; Est GFR (Non-African American) 45.7 ml/min; Globulin 3.4 gm/dl (2.5-4.0); Potassium 4.3 mmol/L (3.5-5.1); Total Protein 7.4 gm/dl (6.0-8.3)
[2023-04-26 14:25] LABS: Troponin I High Sensitivity 513.9 pg/ml (0-14)
[2023-04-26 14:42] LABS: Influenza A virus by PCR Negative (Neg); Influenza B virus by PCR Negative (Neg); RSV by PCR Negative (Neg); SARS CoV2 RNA(COVID-19) Ceph NEGATIVE (Negative)
--- NOTE | 2023-04-26 15:12 | History & Physical Report ---
Date of Service April 26, 2023 Assessment & Plan (1) Acute and chronic respiratory failure with hypoxia: Plan: -Admit to the PCU on tele and pulse oximetry -Currently hemodynamically stable and stable on 5L NC -Patient presented to the ED with progressive SOB and MORRISON with increased O2 demands today from her baseline 2L NC -Noted to have Cardiomegaly, congestive failure, and pulmonary edema on CXR today with layering pleural effusions -BNP elevated at 4559 (highest ever), 82 kg today, was 72 Kg on 03/18 at her CHF clinic visit -At this time her hypoxia is consistent with a CHF exacerbation -No sign of consolidation on CXR, procal is negative -Low suspicion for PE at this time as she has been hypertensive and without chest discomfort -Likely due to her scheduled diuretics being discontinued on last admission due to MARISA. Does have PRN 20 mg PO lasix at [facility], but for weight > 177 Lbs. Because of this she has not received a dose per their provided MAR -Given 40 mg IV lasix in the ED -Will continue with 40mg IV lasix daily for now as she experienced an MARISA last admission with more aggressive diuresis and with increasing her dose of Entresto last admission -S/P 2 inches of nitro paste applied in the ED, BP better controlled since, will continue nitro paste for now and hold home Imdur for now -Monitor daily weight, intake output q6h, daily renal function and electrolytes -SQ lovenox for DVT PPX -HH/DMII diet with 2gm sodium restriction and 1500 mL fluid restriction -AM CBC, BMP, mag (2) CHF exacerbation: Plan: -Continue IV diuresis, monitor renal function -Holding Imdur for now with nitro past use -Will restart patient on 50 mg PO metoprolol Succinate tomorrow am >Patient's metoprolol was discontinued last admission for bradycardia and sinus pauses >Is tachycardic today >Continue to monitor on tele -Monitor daily weights, q6h intake/output -Could consider restarting Entresto during this admission, if renal function and BP can tolerate (3) Elevated troponin: Plan: -Initial high sen trop elevated at 513 -Patient denies chest pain and has no acute ST segment or T-wave changes on ECG -Currently her troponin elevation is less than last admission, without chest pain and ECG changes this likely represents demand ischemia -2 hour repeat high sen trop in process, will continue to trend q6h for now -Will work on restarting medical directed therapy -If troponin plateaus relatively quickly will hold off on repeat TTE at this time (4) Anxiety: Plan: -Patient was started on 0.5 mg Ativan q6h prn and HS at [facility] for anxiety -They tried to start her on Buspar but she stopped taking it after one day because "it wasn't working" -I explained that [facility]cfp benzodiazepine use is not effective for adequate control of her anxiety and comes with multiple risks such as AMS, sedation, and increased risk of delirium and dementia -Explained that we need to plan on restarting a [facility] medication for her anxiety and work on weaning down her ativan, she is in agreement -We reduce her prn ativan to 0.25 q6h prn for now (5) HTN (hypertension): Plan: -Currently stable -Continue IV diuresis and nitro paste for now (6) CAD (coronary artery disease): Plan: -Currently denies chest pain -Likely had HI last admission with reduced LVEF and new akinesis in the anterior wall and entire apex -Will slowly restart medical therapy as the majority of it had been discontinued on last admission -Restarting PO metoprolol succinate tomorrow, monitor for bradycardia -Will need to have further discussions with the patient regarding possible cath if needed during this admission (7) DMII (diabetes mellitus, type 2): Plan: -Monitor BSG ACHS, goal is 1101-40 -Normally takes 10 units lantus in the am, will switch to 5 units BID for now -Start CF 50 ACHS, will hold CR for now with recent poor oral intake -DMII/HH diet; will add boost supplement shake as well -Adjust regimen as needed (8) Hypothyroidism: Plan: -Continue levothyroxine Plan The Patient was discussed with Dr. Uriarte at the time of the admission History of Present Illness Chief Complaint: SOB, hypoxia, anxiety Primary Care Provider: Safia Shukla MD [place] is an 87 year old female with a PMH significant for HFrEF (LVEF of 40% as of 02/22/23), cardiomyopathy, chronic hypoxic respiratory failure on 2L NC prn, insulin-dependent type 2 diabetes, hypertension, dyslipidemia, hypothyroidism and osteoporosis who presented to the [facility] ED from [facility] on 04/26 with complaints of SOB and hypoxia in the 80's on her baseline 2L NC prn. On arrival she was noted to be hypoxic at 88% on 2L NC but otherwise stable. Labs were significant for a leukocytosis of 10.9 with neutrophil predominance of 8.66, initial high sen trop of 513, BNP of 4559 (Up from 3006 as of 04/19), and Covid 19/RSV/Influenza negative. Chest xray was read as "1. Cardiomegaly with evidence of congestive failure and pulmonary edema. 2. Layering pleural effusions with dependent consolidation.". ECG showed NSR with sinus arrthymia and age indeterminate anterior infarct but was without acute ST segment or T- wave changes. Prior to admission the patient was given 2 inches of nitroglycerin paste. Per chart review, the patient was recently admitted from 03/04-03/14 for Acute hypoxic respiratory failure, CHF exacerbation, bradycardia, MARISA on CKD, and herpes zoster infection. Her hypoxic respiratory failure was attributed to her CHF exacerbation as her BNP was elevated, CXR showed pulmonary edema, and ECHO showed reduced LVEF of 40% with new akinesis of the mid and distal anterior wall, as-well-as the entire apex. She was initially started on IV lasix. She developed an MARISA, because of this lasix, Jardiance , spironolactone and Entresto were discontinued as recommended by cardiology. Cardiology recommended cardiac cath for further evaluation but the patient declined further workup. During her admission she experienced bradycardia with sinus pauses. This was thought to be due to her metoprolol which was subsequently discontinued by Cardiology. She completed a course of acyclovir for her herpes zoster infection on the lower back. Due to her worsening clinical status and patient's decline of further cardiac evaluation outpatient palliative med referral was placed. Prior to discharge the patient was started on Pravastatin. The patient was seen in the Heart Failure clinic on 03/18. At that time her weight was 72 kg, she was without respiratory complaints and had not been requiring her prn 20 mg PO lasix. Per the clinic note, the patient preferred minimal medical management at that time. At the time of the exam the patient was sitting up in bed complaining of significant SOB. She is currently stable on 5L NC with family at bedside. After adequate coaching with her breathing her anxiety significantly improved. She states that she has been getting progressively SOB over the past 2-3 weeks. She states that she has been having progressive MORRISON and recently has been experiencing significant orthopnea. She states that [facility] has not been giving her lasix but they do have her on a sodium restricted diet. She states that they do not have her on a fluid restriction and she drinks "alot" of tea. She has been having increased congestion with right ear pressure but denies recent fever. She denies any recent chest pain with her other symptoms and has been experiencing a non-productive cough. We discussed her not wanting to have a cardiac cath last admission; she states "I didn't say that I never want one. The athletic team physician said that the contrast would hurt my kidneys if I had one last admission". She is willing to discuss possible cardiac cath if needed. Her appetite has been poor recently. She states that the chronic wounds on her right heel and left berg are being monitored at [facility] and healing well. She confirms that she is a DNR/DNI and her daughter is her POA. Please refer to Dr. Uriarte's attestation for any changes to the treatment plan Allergies Allergy/AdvReac Type Severity Reaction Status Date / Time duloxetine [From Cymbalta] Allergy Intermediate itching Verified 04/26/23 15:49 hydrocodone [From Lortab] Allergy Intermediate itching Verified 04/26/23 15:49 pregabalin [From Lyrica] Allergy Intermediate itching Verified 04/26/23 15:49 simvastatin Allergy Intermediate Nausea Verified 04/26/23 15:49 Home Medications Medication Instructions Recorded Confirmed Type insulin glargine 100 unit/mL 10 units subcut QAM 05/27/19 04/26/23 History subcutaneous solution (Lantus U-100 Insulin) levothyroxine 75 mcg tablet 75 mcg PO QAM 05/27/19 04/26/23 History (Synthroid) brimonidine 0.2 %-timolol 0.5 % 1 drp OPL BID 10/01/22 04/26/23 History eye drops insulin aspart U-100 100 unit/mL See Rx Instructions .Route .COMPLEX 10/01/22 04/26/23 History (3 mL) subcutaneous pen (Novolog FlexPen U-100 Insulin aspart) latanoprost 0.005 % eye drops 1 drp OPL HS 02/21/23 04/26/23 History ascorbic acid (vitamin C) 500 mg 500 mg PO QAM 03/04/23 04/26/23 History tablet (Vitamin C) aspirin 81 mg capsule 81 mg PO QAM 03/04/23 04/26/23 History multivitamin 1 tab PO QAM 03/04/23 04/26/23 History Saccharomyces boulardii 250 mg 250 mg PO QAM 04/26/23 04/26/23 History capsule (Florastor) acetaminophen 325 mg tablet 650 mg PO Q6H PRN PAIN/FEVER 04/26/23 04/26/23 History (Tylenol) furosemide 20 mg tablet (Lasix) 20 mg PO DAILY PRN WT > 177# 04/26/23 04/26/23 History ipratropium 0.5 mg-albuterol 3 mg 3 ml inhalation Q2H PRN Shortness 04/26/23 04/26/23 History (2.5 mg base)/3 mL nebulization Of Breath Or Wheezing soln isosorbide dinitrate 10 mg tablet 10 mg PO HS 04/26/23 04/26/23 History lorazepam 0.5 mg tablet 0.5 mg PO HS 04/26/23 04/26/23 History lorazepam 0.5 mg tablet 0.5 mg PO Q6H PRN Anxiety 04/26/23 04/26/23 History nitroglycerin 0.4 mg sublingual 0.4 mg sublingual DIRECTED PRN 04/26/2304/26 History tablet (Nitrostat) Chest Pain pravastatin 20 mg tablet 20 mg PO HS 04/26/23 04/26/23 History protein supplement 1 ea PO BIDM 04/26/23 04/26/23 History Past Med/Surg History Medical History (Updated 04/26/23 @ 18:37 by Mac Diaz DO) Elevated troponin Pneumonia Acute UTI (urinary tract infection) Sepsis MARISA (acute kidney injury) Hypomagnesemia Transaminitis Acute kidney injury Hypomagnesemia Leukocytosis Elevated troponin Syncope Peripheral arterial disease Foot deformity Status post partial amputation of foot Loss of protective sensation of skin of foot Diabetes type 2, uncontrolled Diabetic foot ulcer associated with type 2 diabetes mellitus Acquired deformity of left foot Acquired hammer toe of right foot Callus Acquired deformity of right foot Acquired hallux valgus of right foot Acquired claw toe of left foot Pressure ulcer of left leg, stage 3 Diabetic foot ulcer associated with type 2 diabetes mellitus, with fat layer exposed Osteoporosis Hypothyroidism Sinusitis Amputation of left great toe Chronic renal insufficiency, stage III (moderate) PHN (postherpetic neuralgia) Hyperlipidemia LDL goal <100 Herpes zoster HTN (hypertension) Surgical History History of tonsillectomy and adenoidectomy Social History Smoking Status: Never smoker Second Hand Exposure: Yes; Hx Alcohol Use: No Hx Substance Use: No Preferred Language: Jordanian Communication Ability: Effective Communication Tools: Letter Board, Picture Board, Facial Expression and Writing Tablet Visual Impairment: No Limitations Hearing Ability: Normal 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 Required: No Beliefs That Will Affect Care: None marital status: / Current Living Situation: Care Home Current Living Situation Comment: daugher and current occupational status: 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 [employer] Other Information That Helps Us Care for You: No Feels Safe at Home: Yes Safety Concerns: Feels Safe At This Time Childhood Exposure to Second-Hand Smoke: No Diet: diabetic and low carbohydrate caffeine: Yes (1-2 cups/day) during the past year weight has: decreased > 10 lbs Dental Care, Regularly: No Physical Activity Frequency: 3-4 Times per Week Do you think of yourself as: straight/heterosexual Sexual Activity: has been sexually active, but not for at least 12 months Assistive Devices: Denture - Upper, Denture - Lower, Glasses and Walker Physical Exam Physical Exam: Physical Exam: General: Anxious appearing, stated age, non-toxic HEENT: Normocephalic, atraumatic, no scleral icterus, pupils around round, symmetrical, and reactive to light, no erythema in the oropharynx, right TM is clear and without signs of erythema or infection, moist mucus membranes, + JVD, trachea midline, no thyromegaly Chest/Pulm: Mild respiratory distress, symmetrical chest expansion, decreased breath sounds in the BL lower lung marie with crackles in the mid and upper lung marie Cardiac: RRR, no murmurs noted Abdomen: Negative for ascites and bruising, normoactive bowel sounds, soft, non-tender to palpation throughout Musculoskeletal: No acute trauma, previous right foot partial amputation and left great toe amputation sites appear well healed Extremities: Radial, dorsalis pedis, and posterior tibial pulses are intact and symmetrical, 1+ pitting edema noted in the BL LE's Skin: Chronic ulcer noted on the right heel appears to be healing well and without signs of surrounding erythema or drainage, left berg wound appears dry and without signs of acute infection Neuro: Alert and oriented to person, place, month, year, and president, no focal defects, no tremors noted Psych: Anxious but polite and cooperative during the exam Results & Data Results & Data Vital Signs (Past 12 Hours) Vital Signs Temp Pulse Resp BP Pulse Ox O2 Del Method O2 Flow Rate 04/26/23 14:10 95 H 21 95 04/26/23 14:00 95 H 18 97 04/26/23 13:50 94 H 18 97 04/26/23 13:40 94 H 18 96 04/26/23 13:30 90 18 96 04/26/23 13:21 96 H 04/26/23 13:20 95 H 19 95 04/26/23 13:19 95 H 17 95 04/26/23 13:15 93 Nasal Cannula 5 04/26/23 13:10 36.9 C 04/26/23 13:10 88 L Nasal Cannula 2 04/26/23 13:10 36.4 C L 92 H 20 162/103 H 93 Nasal Cannula 5 Laboratory Results Abnormal lab results 04/26/23 Range/Units 13:05 WBC 10.90 H (4.8-10.8) K/ul RBC 3.66 L (4.20-5.40) M/uL Hgb 10.8 L (12.0-16.0) g/dl Hct 33.6 L (37.0-47.0) % RDW Std Deviation 46.8 H (36.4-46.3) fL Neut # (Auto) 8.66 H (1.40-6.50) K/uL [place] # (Auto) 0.75 H (0.11-0.59) K/uL BUN/Creatinine Ratio 20.9 H (10-20) Glucose 113 H (70-99(Fasting)) mg/dl Troponin I High Sens 513.9 H* (0-14) pg/ml B-Natriuretic Peptide 4559 H (0-100) pg/ml Lipase 3 L (11-82) U/L Diagnostic Findings Chest X-Ray 04/26/23 13:11 SINGLE VIEW CHEST CLINICAL HISTORY: Atypical chest pain. Dyspnea. Wheezing. FINDINGS: An AP, portable, upright chest radiograph is compared to study dated 03/04/2023 and correlated with chest CT dated 02/21/2023. The heart is enlarged noting atherosclerotic calcification of the thoracic aorta. There is pulmonary vascular congestion with evidence of interstitial edema. There are layering pleural effusions with dependent consolidation. No pneumothorax is seen. The skeletal structures are osteopenic. The bony thorax is grossly intact. Advanced arthritic change is seen in the shoulders. Calcific tendinopathy is noted on the left. Spondylotic change is seen in the spine. IMPRESSION: 1. Cardiomegaly with evidence of congestive failure and pulmonary edema. 2. Layering pleural effusions with dependent consolidation. ACT 112: Negative or not required by law. Electronically signed by: Spike Valera M.D. 04/26/2023 1:53 PM ECG Additional Comments: NSR with sinus arrhythmia; No acute ST segment or T-wave changes when compared to previous ECG on 03/04. Previous anterior infarct noted Code Status & VTE Plan Code Status DNR/DNI VTE Prophylaxis Plan VTE Prophylaxis will be ordered: Yes Supervising Physician Co-Signing Physician Notes I personally saw and examined the patient. I verified all alexander points and agree with Valente Miranda PA-C with the following exceptions and/or additions: 87-year-old female presents to the ER from [facility] due to increased leg swelling and shortness of breath. Repeated episodes of congestive heart failure over the last few months. On the last hospitalization she went into acute renal failure however this was in the setting of 100 mg metoprolol succinate causing bradycardia with x 3 atropine doses, increasing Entresto and starting on spironolactone. These were sequentially removed with the Lasix initially, then Entresto, then metoprolol and finally spironolactone was continued throughout the hospitalization but was discontinued on discharge. She did follow-up with the heart failure clinic 5 days later and was told to be euvolemic at that time however has not followed up since. On admission last time I suspect that she would need a daily Lasix dosing on discharge. Metoprolol was not restarted at a lower dose either inpatient or outpatient. She has had no Lasix despite increasing shortness of breath at [facility]. O/E HS increased rate, regular rhythm, no murmurs, increased respiratory rate with accessory muscle use, bibasal reduced breath sounds and mid zone crackles, no wheezing, abdomen soft nontender A/P Acute on chronic heart failure with reduced ejection fraction - recommend reintroducing metoprolol succinate tomorrow once more Lasix is had some time to work, Lasix 40 mg IV daily (this dose appeared to cause a reasonable negative balance on last admission), strict I's and O's, daily weights, consider cardiology consult on Saturday once more euvolemic to again consider cardiac catheterization PG Care Time/CCT Total # of Minutes Spent Total Time Spent with Patient: Total time spent is greater than 50% in coordination of care (as documented) at patient's floor/unit and/or counseling patient: Coding [place] [address] INT INP/OBS CARE 3/75MIN Patient Type Established Medical Decision Making Moderate Complexity Diagnoses Acute and chronic respiratory failure with hypoxia J96.21 CHF exacerbation I50.9 Elevated troponin R77.8 Anxiety F41.9 HTN (hypertension) I10 CAD (coronary artery disease) I25.10 DMII (diabetes mellitus, type 2) E11.9 Hypothyroidism E03.9
[2023-04-26] MEDS ORDERED: FUROSEMIDE 40 MG/4 ML VIAL IV STA (15:15)
[2023-04-26] MEDS: FUROSEMIDE 40 MG/4 ML VIAL IV ONE ×2 (15:26→15:31)
[2023-04-26] MEDS ORDERED: LORazepam 0.25 MG in SYRINGE 0.125 ML IV STA (15:53)
[2023-04-26] MEDS ORDERED: GLUCOSE 40% GEL 15 GM TUBE PO PRN (16:35)
[2023-04-26] MEDS ORDERED: GLUCAGON FOR INJ 1 MG VIAL SQ PRN (16:35)
[2023-04-26] MEDS ORDERED: CARBOHYDRATES FOR HYPOGLYCEMIA PO PRN (16:35)
[2023-04-26] MEDS ORDERED: GLUCOSE 10 TAB/TUBE PO PRN (16:35)
[2023-04-26] MEDS ORDERED: DEXTROSE 50% 50 ML SYRINGE IV PRN (16:35)
[2023-04-26] MEDS ORDERED: guaiFENesin 600 MG TABCR PO PRN (16:40)
[2023-04-26] MEDS ORDERED: NITROGLYCERIN 2% OINTMENT 30GM TUBE EXT SCH (18:00)
[2023-04-26] MEDS: INSULIN ASPART PER UNIT CHARGE SC SCH (20:46)
[2023-04-26] MEDS: LANTUS PER UNIT CHARGE SQ SCH (20:46)
[2023-04-26] MEDS: ENOXAPARIN INJ 40 MG/0.4 ML SYR SQ SCH (20:48)
[2023-04-26] MEDS: LATANOPROST 0.005% OP SOLN 2.5 ML BTL OPL SCH (20:48)
[2023-04-26] MEDS: PRAVASTATIN SOD 20 MG TAB PO SCH (20:49)
[2023-04-26] MEDS: ALBUT/IPRATROP 3MG/0.5MG NEB 3 ML VIAL INH PRN (20:50)
[2023-04-27] MEDS: LORazepam 0.25 MG in SYRINGE 0.125 ML IV PRN ×2 (00:22→05:32)
[2023-04-27] MEDS: NITROGLYCERIN 2% OINTMENT 30GM TUBE EXT SCH ×2 (00:22→11:47)
[2023-04-27] MEDS: LEVOTHYROXINE SODIUM 75 MCG TABLET PO SCH (05:16)
[2023-04-27] MEDS: ALBUT/IPRATROP 3MG/0.5MG NEB 3 ML VIAL INH PRN ×3 (05:30→17:12)
[2023-04-27 05:40] LABS: Basophils # (auto) 0.05 K/uL (0.00-0.20); Basophils % (auto) 0.5 %; Eosinophils # (auto) 0.06 K/uL (0.00-0.50); Eosinophils % (auto) 0.6 %; Hematocrit (blood only) 32.2 % (37.0-47.0); Hemoglobin 10.5 g/dl (12.0-16.0); Immature Granulocytes # (auto) 0.03 K/uL (0.01-0.20); Immature Granulocytes % (auto) 0.3 %; Lymphocytes # (auto) 1.97 K/uL (1.20-3.40); Lymphocytes % (auto) 19.9 %; Mean Corpuscular Hemoglobin 29.1 pg (25.0-34.0); Mean Corpuscular Hgb Conc 32.6 g/dL (32.0-36.0); Mean Corpuscular Volume 89.2 fL (80.0-100.0); Mean Platelet Volume 10.3 fL (9.4-12.4); Monocytes # (auto) 0.77 K/uL (0.11-0.59); Monocytes % (auto) 7.8 %; Neutrophils % (auto) 70.9 %; Platelet Count 286 K/uL (130-400); RDW Standard Deviation 45.6 fL (36.4-46.3); Red Blood Count 3.61 M/uL (4.20-5.40); White Blood Count 9.88 K/ul (4.8-10.8)
[2023-04-27 05:58] LABS: Albumin Globulin Ratio 1.1 (0.9-2); Albumin Level 3.6 gm/dl (3.4-5.0); Bilirubin,Total 0.5 mg/dl (0.2-1.0); Creatinine Clr Calc Pharmacy 39.5 ml/min; Est GFR (African American) 53.6 ml/min; Est GFR (Non-African American) 46.3 ml/min; Globulin 3.2 gm/dl (2.5-4.0); Magnesium 1.7 mg/dl (1.7-2.4); Potassium 4.4 mmol/L (3.5-5.1); Total Protein 6.8 gm/dl (6.0-8.3)
--- NOTE | 2023-04-27 07:51 | Electrocardiogram Report ---
Test Reason : Blood Pressure : / mmHG Vent. Rate : 094 BPM Atrial Rate : 094 BPM P-R Int : 154 ms QRS Dur : 090 ms QT Int : 336 ms P-R-T Axes : -01 040 116 degrees QTc Int : 420 ms Poor data quality, interpretation may be adversely affected Normal sinus rhythm with premature atrial beats Anterior infarct (cited on or before 26-APR-2023) Abnormal ECG When compared with ECG of 11-MAR-2023 13:35, HR has increased T wave inversion no longer evident in Anterior leads Nonspecific T wave abnormality, worse in Lateral leads Confirmed by Ayaz Pavon ([id number]) on 04/27/2023 7:51:36 AM Referred By: [facility] Confirmed By:Ayaz Pavon
--- NOTE | 2023-04-27 08:10 | Hospitalist Progress Note ---
Date of Service April 27, 2023 Assessment & Plan (1) Acute and chronic respiratory failure with hypoxia: Plan: Caused by CHF exacerbation as discussed below -Patient presented to the ED with progressive SOB and MORRISON with increased O2 demands from her baseline 2L NC, went up to 5L -Noted to have Cardiomegaly, congestive failure, and pulmonary edema on CXR with layering pleural effusions -BNP elevated at 4559 (highest ever), 82 kg today, was 72 Kg on 03/18 at her CHF clinic visit -No sign of consolidation on CXR, procal is negative -Low suspicion for PE at this time -AM CBC, BMP, mag (2) CHF exacerbation: Plan: Acute on chronic systolic heart failure, ischemic cardiomyopathy -last TTE reviewed: mildly reduced LVEF at 40%, akinetic mid/distal anterior wall and apex, no significant valvular disease -scheduled diuretics had been discontinued last admission because of MARISA, had PRN lasix 20 mg however for weight >177 pounds. Had not received any doses per [facility] -continue lasix 40 IV daily. was -600 overnight -monitor renal function - daily BMP while on IV diuretic. Today Cr stable near 1 at recent baseline -Monitor daily weights, intake/output -continue nitrate - change back to IMDUR -Hold metoprolol since acutely volume overloaded -Could consider restarting Entresto during this admission, if renal function and BP can tolerate -cardiology consult - discussed with Dr. Cardona. 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 -Initial high sen trop elevated at 513 - added on Tn for this am --> 480 downtrending -Patient denies chest pain -EKG same as prior except for some lateral nonspecific ST changes -cardiology considering angiogram (4) Anxiety: Plan: -Patient was started on 0.5 mg Ativan q6h prn and HS at [facility] for anxiety -They tried to start her on Buspar but she stopped taking it after one day because "it wasn't working" - will try again ordered 5 mg po tid -reduced lorazepam to 0.25 po q6h prn and 0.25 po HS -admitting team counseled that facilities manager benzodiazepine use is not effective for adequate control of her anxiety and comes with multiple risks such as AMS, sedation, and increased risk of delirium and dementia -Explained that we need to plan on restarting a [place] [facility] medication for her anxiety and work on weaning down her ativan, she is in agreement -may benefit from SSRI, lexapro is a consideration (5) HTN (hypertension): Plan: -Currently stable -treatment as above (6) CAD (coronary artery disease): Plan: -Currently denies chest pain -Likely had IN last admission with reduced LVEF and new akinesis in the anterior wall and entire apex -metoprolol currently held -continue ASA, pravastatin -see above (7) DMII (diabetes mellitus, type 2): Plan: -Monitor BSG ACHS, goal is 1101-40 -Normally takes 10 units lantus in the am, will switch to 5 units BID for now -Start CF 50 ACHS, will hold CR for now with recent poor oral intake -DMII/HH diet; will add boost supplement shake as well -BG rev at goal 04/27 (8) Hypothyroidism: Plan: -Continue levothyroxine Plan DVT ppx: enox 40 sq daily Admission and Anticipated Discharge Date Admission Date: April 26, 2023 Subjective [place] continues to be more short of breath than typical at rest, dyspnea on exertion, wheezing, leg swelling. no chest pain Physical Exam 2 Physical Exam: PHYSICAL EXAMINATION Last 24h vital signs reviewed, see documentation in flowsheet General: comfortable appearing, no distress, sitting in bed HEENT: Normocephalic, atraumatic, pupils round and equal, sclerae anicteric, no conjunctival injection, moist mucus membranes Lungs: increased respiratory effort but not labored. bilateral crackles in bases and mid marie and anteriorly Heart: Regular rate and rhythm, no murmurs. +JVD Abdomen: Soft, nontender, nondistended. Bowel sounds present. Extremities: Warm, dry, well-perfused. mild lower extremity edema present, though not severe. Neuro: Alert and oriented x 4, face symmetric, moves 4 extremities well Psych: Normal affect and behavior Results & Data Results & Data Vital Signs (Past 12 Hours) Vital Signs Temp Pulse Pulse Resp BP Pulse Ox O2 Del Method 04/27/23 05:30 93 H 19 94 Nasal Cannula, Ambu-Bag 04/27/23 03:29 36.5 C 90 16 137/82 92 Nasal Cannula 04/26/23 23:55 36.3 C L 98 H 18 156/92 H 98 Nasal Cannula 04/26/23 23:42 86 04/26/23 20:50 98 H 18 97 Nasal Cannula O2 Flow Rate 04/27/23 05:30 04/27/23 03:29 4.5 04/26/23 23:55 4.5 04/26/23 23:42 04/26/23 20:50 5 Laboratory Results 04/27/23 04:56 04/27/23 04:56 PG Care Time/CCT Total # of Minutes Spent Total Time Spent with Patient: Total time spent is greater than 50% in coordination of care (as documented) at patient's floor/unit and/or counseling patient: Coding Level of Care Code 23654 SUB INP/OBS CARE 3/50MIN Diagnoses Acute and chronic respiratory failure with hypoxia J96.21 CHF exacerbation I50.9 Elevated troponin R77.8 Anxiety F41.9 HTN (hypertension) I10 CAD (coronary artery disease) I25.10 DMII (diabetes mellitus, type 2) E11.9 Hypothyroidism E03.9
[2023-04-27] MEDS ORDERED: LORazepam 0.5 MG TAB PO PRN (08:27)
[2023-04-27] MEDS: INSULIN ASPART PER UNIT CHARGE SC SCH ×4 (08:29→19:59)
[2023-04-27] MEDS: ASPIRIN 81 MG ECTAB PO SCH (08:30)
[2023-04-27] MEDS: MULTIVITAMIN TAB PO SCH (08:30)
[2023-04-27] MEDS: FUROSEMIDE 40 MG/4 ML VIAL IV SCH (08:30)
[2023-04-27] MEDS: LANTUS PER UNIT CHARGE SQ SCH ×2 (08:32→20:00)
[2023-04-27] MEDS ORDERED: METOPROLOL SUCC 50MG EXT REL TAB PO SCH (09:00)
[2023-04-27] MEDS: busPIRone 5 MG TAB PO SCH ×3 (09:01→19:48)
[2023-04-27 09:07] LABS: Troponin I High Sensitivity 480.2 pg/ml (0-14)
[2023-04-27] MEDS: LORazepam 0.5 MG TAB PO PRN ×2 (12:09→17:59)
--- NOTE | 2023-04-27 13:06 | Cardiology Consultation ---
Date of Consultation April 27, 2023 Assessment & Plan (1) Acute on chronic HFrEF (heart failure with reduced ejection fraction): (2) Ischemic cardiomyopathy: (3) HTN (hypertension): (4) Dyslipidemia: (5) Hypoxia: (6) Elevated troponin: (7) Aortic stenosis: Plan ASSESSMENT/PLAN: 1. Acute on chronic heart failure with reduced EF: She appears hypervolemic. Monitor renal function closely while diuresing. Will order an additional dose of 40 mg of IV Lasix this afternoon. Once volume status somewhat improved, will introduce low-dose carvedilol. She had been on metoprolol succinate 100 mg daily in February 2023 and had bradycardia. Titrate slowly. Had mild renal insufficiency on more aggressive therapy. Will likely introduce low-dose Entresto if able and other indicated therapies, if renal function allows. Low- sodium diet, less than 2000 mg daily. Daily weights. Strict I's and O's. 2. Cardiomyopathy: Presumed to be ischemic given LAD wall motion abnormalities. Repeat complete echo as the last echo was limited. She seems open to ischemic evaluation but first need to optimize her heart failure as she is unable to lay flat. Based on most recent echo, she does not require ICD for primary prevention but repeat echo is pending. Standard therapies as above. 3. Hypertension: Blood pressure has been elevated. This may improve with further diuresis and reinitiation of heart failure medications as above. 4. Aortic stenosis: Reported as mild in the past. Repeating echo as above. 5. Hypoxia: Diuresis. 6. Elevated troponin: Likely due to heart failure exacerbation and may have underlying CAD based on echo wall motion abnormalities. No angina. She did not present with acute coronary syndrome. 7. Dyslipidemia: Continue statin therapy. Consider high intensity statin therapy if tolerated. 8. Disposition: Cardiology will continue to follow. Patient care communicated with primary hospitalist, Dr. Brito. On discharge, follow-up in the heart failure program. Offered to call her son or daughter to update them but she declines. Highly complex medical issues. Thank you for allowing me to participate in the care of your patient. Please call for any other questions or concerns. Sincerely, Bolivar Cardona M.D. History of Present Illness Reason for Consultation: Heart failure Requesting Physician: Cecelia Brito MD Attending Physician: Cecelia Brito MD History of Present Illness Ms. Gould is a very pleasant 87-year-old female with a history significant for heart failure with reduced EF, cardiomyopathy, hypertension, type 2 diabetes, dyslipidemia, peripheral arterial disease, diabetic neuropathy, CKD, and hypothyroidism. Her primary secretary office clerk is Dr. Ly. She has been hospitalized in February 2023 on 2 occasions for heart failure. She was found to have reduced LV systolic function and cardiac catheterization was reportedly discussed but ultimately not performed given renal issues and patient preference at that time. Her most recent hospitalization discharge was on 03/14/2023. During that hospital stay, metoprolol succinate 100 mg daily was discontinued due to bradycardia and pauses. Due to abnormal renal function, Jardiance, spironolactone, and Entresto were discontinued. Lasix was also held and she was discharged on no diuretic therapy. She was seen in the heart failure program on 03/18/2023 and patient reportedly requested a minimalist approach and wanted to reduce office visits. She was doing well at that time without Lasix but had available Lasix on an as-needed basis. She also did not have her follow-up labs done at that time. A palliative care evaluation was recommended She states that for the past 2 or 3 weeks, she has had worsening dyspnea, including orthopnea. She did not notice much edema and denies chest pain, syncope, near syncope, palpitations, or bleeding. While here, she was noted to be hypoxic and required supplemental oxygen. She was given Lasix 40 mg ordered on a daily basis. She was also hypertensive and received nitroglycerin paste. Her creatinine during her February hospitalization peaked at 2.02 and on presentation this hospital stay, was 1.1. She states that she does not feel any better from presentation but after discuss ing with nursing staff, clinically she appears to be doing much better compared to yesterday. She has had the following studies/procedures: 1. Echo 02/22/2023: Limited study. EF reported as 40% with LAD wall motion abnormality. Review of systems: As above. Review of systems otherwise negative/unremarkable. Family history: Noncontributory. Social history: Denies tobacco, alcohol, or drug abuse. . Has a son and a daughter who live locally. She is at [facility]. She was unaccompanied. Allergies Allergy/AdvReac Type Severity Reaction Status Date / Time duloxetine [From Cymbalta] Allergy Intermediate itching Verified 04/26/23 15:49 hydrocodone [From Lortab] Allergy Intermediate itching Verified 04/26/23 15:49 pregabalin [From Lyrica] Allergy Intermediate itching Verified 04/26/23 15:49 simvastatin Allergy Intermediate Nausea Verified 04/26/23 15:49 Home Medications Medication Instructions Recorded Confirmed Type insulin glargine 100 unit/mL 10 units subcut QAM 05/27/19 04/26/23 History subcutaneous solution (Lantus U-100 Insulin) levothyroxine 75 mcg tablet 75 mcg PO QAM 05/27/19 04/26/23 History (Synthroid) brimonidine 0.2 %-timolol 0.5 % 1 drp OPL BID 10/01/22 04/26/23 History eye drops insulin aspart U-100 100 unit/mL See Rx Instructions .Route .COMPLEX 10/01/22 04/26/23 History (3 mL) subcutaneous pen (Novolog FlexPen U-100 Insulin aspart) latanoprost 0.005 % eye drops 1 drp OPL HS 02/21/23 04/26/23 History ascorbic acid (vitamin C) 500 mg 500 mg PO QAM 03/04/23 04/26/23 History tablet (Vitamin C) aspirin 81 mg capsule 81 mg PO QAM 03/04/23 04/26/23 History multivitamin 1 tab PO QAM 03/04/23 04/26/23 History Saccharomyces boulardii 250 mg 250 mg PO QAM 04/26/23 04/26/23 History capsule (Florastor) acetaminophen 325 mg tablet 650 mg PO Q6H PRN PAIN/FEVER 04/26/23 04/26/23 History (Tylenol) furosemide 20 mg tablet (Lasix) 20 mg PO DAILY PRN WT > 177# 04/26/23 04/26/23 History ipratropium 0.5 mg-albuterol 3 mg 3 ml inhalation Q2H PRN Shortness 04/26/23 04/26/23 History (2.5 mg base)/3 mL nebulization Of Breath Or Wheezing soln isosorbide dinitrate 10 mg tablet 10 mg PO HS 04/26/23 04/26/23 History lorazepam 0.5 mg tablet 0.5 mg PO HS 04/26/23 04/26/23 History lorazepam 0.5 mg tablet 0.5 mg PO Q6H PRN Anxiety 04/26/23 04/26/23 History nitroglycerin 0.4 mg sublingual 0.4 mg sublingual DIRECTED PRN 04/26/23 04/26/23 History tablet (Nitrostat) Chest Pain pravastatin 20 mg tablet 20 mg PO HS 04/26/23 04/26/23 History protein supplement 1 ea PO BIDM 04/26/23 04/26/23 History Patient History Medical History Aortic stenosis Acute on chronic HFrEF (heart failure with reduced ejection fraction) Pneumonia Acute UTI (urinary tract infection) Sepsis MARISA (acute kidney injury) Hypomagnesemia Transaminitis Acute kidney injury Hypomagnesemia Leukocytosis Syncope Peripheral arterial disease Foot deformity Status post partial amputation of foot Loss of protective sensation of skin of foot Diabetes type 2, uncontrolled Diabetic foot ulcer associated with type 2 diabetes mellitus Acquired deformity of left foot Acquired hammer toe of right foot Callus Acquired deformity of right foot Acquired hallux valgus of right foot Acquired claw toe of left foot Pressure ulcer of left leg, stage 3 Diabetic foot ulcer associated with type 2 diabetes mellitus, with fat layer exposed Osteoporosis Hypothyroidism Sinusitis Amputation of left great toe Chronic renal insufficiency, stage III (moderate) PHN (postherpetic neuralgia) Hyperlipidemia LDL goal <100 Herpes zoster HTN (hypertension) Surgical History History of tonsillectomy and adenoidectomy Social History Smoking Status: Never smoker Second Hand Exposure: Yes; Hx Alcohol Use: No Hx Substance Use: No Preferred Language: Welsh Communication Ability: Effective Communication Tools: Letter Board, Picture Board, Facial Expression and Writing Tablet Visual Impairment: No Limitations Hearing Ability: Normal Flight Control Specialist Required: No Beliefs That Will Affect Care: None marital status: / Current Living Situation: Correction Current Living Situation Comment: daugher and current occupational status: 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 [employer] Other Information That Helps Us Care for You: No Feels Safe at Home: Yes Safety Concerns: Feels Safe At This Time Childhood Exposure to Second-Hand Smoke: No Diet: diabetic and low carbohydrate caffeine: Yes (1-2 cups/day) during the past year weight has: decreased > 10 lbs Dental Care, Regularly: No Physical Activity Frequency: 3-4 Times per Week Do you think of yourself as: straight/heterosexual Sexual Activity: has been sexually active, but not for at least 12 months Assistive Devices: Denture - Upper, Denture - Lower, Glasses and Walker Physical Exam Physical Exam: Gen.: No acute distress. Alert. HEENT: Anicteric sclera. Neck: Elevated JVD. Normal carotid upstrokes bilaterally. Cardiac: No ventricular heave. Regular. Normal S1-S2. 2/6 systolic ejection murmur. No rubs or gallops. Pulmonary: Decreased breath sounds and otherwise bibasilar rales. Abdomen: Soft, nontender, nondistended, with normoactive bowel sounds. No bruits noted. Extremities: 2+ radial pulses bilaterally. Bilateral lower extremity digit amputations. Trace bilateral lower extremity edema. Psychiatric: Affect appears appropriate. Results & Data Vital Signs (Past 12 Hours) Vital Signs Temp Pulse Pulse Resp BP Pulse Ox Pulse Ox 04/27/23 12:28 36.3 C L 107 H 20 177/97 H 91 04/27/23 12:07 111 H 19 90 04/27/23 09:00 36.6 C 98 H 19 158/87 H 91 04/27/23 08:00 94 H 04/27/23 08:00 04/27/23 08:00 93 04/27/23 05:30 93 H 19 94 04/27/23 03:29 36.5 C 90 16 137/82 92 O2 Del Method O2 Del Method O2 Flow Rate O2 Flow Rate 04/27/23 12:28 Nasal Cannula 5.0 04/27/23 12:07 Nasal Cannula 5 04/27/23 09:00 Nasal Cannula 5.0 04/27/23 08:00 04/27/23 08:00 Nasal Cannula 5 04/27/23 08:00 Nasal Cannula 5 04/27/23 05:30 Nasal Cannula, Ambu-Bag 04/27/23 03:29 Nasal Cannula 4.5 Intake & Output 04/25/23 04/26/23 04/27/23 04/28/23 06:59 06:59 06:59 06:59 Intake Total 250 / 250 Output Total 850 / 850 700 / 700 Balance -600 / -600 -700 / -700 Weight 169 lb 8.568 oz Laboratory Results Laboratory Results - last 24 hr 04/26/23 04/26/23 04/26/23 13:05 13:55 16:21 WBC 10.90 H RBC 3.66 L Hgb 10.8 L Hct 33.6 L MCV 91.8 MCH 29.5 MCHC 32.1 RDW Std Deviation 46.8 H RDW Coeff of Bert 13.9 Plt Count 314 MPV 10.3 Immature Gran % (Auto) 0.4 Neut % (Auto) 79.3 Lymph % (Auto) 12.8 Riley % (Auto) 6.9 Eos % (Auto) 0.1 Baso % (Auto) 0.5 Neut # (Auto) 8.66 H Lymph # (Auto) 1.39 Riley # (Auto) 0.75 H Eos # (Auto) 0.01 Baso # (Auto) 0.05 Immature Gran # (Auto) 0.04 Sodium 138 Potassium 4.3 Chloride 104 Carbon Dioxide 26 Anion Gap 8 BUN 23 Creatinine 1.10 Est Cr Clr Drug Dosing 39.7 Est GFR ( Amer) 53.0 Est GFR (Non-Af Amer) 45.7 BUN/Creatinine Ratio 20.9 H Glucose 113 H POC Glucose Calcium 9.4 Magnesium Total Bilirubin 0.5 AST 17 ALT 15 Alkaline Phosphatase 90 Troponin I High Sens 513.9 H* 526.8 H* B-Natriuretic Peptide 4559 H Total Protein 7.4 Albumin 4.0 Globulin 3.4 Albumin/Globulin Ratio 1.2 Lipase 3 L Procalcitonin < 0.05 Nasal Screen MRSA (PCR) SARS-CoV-2 (PCR) NEGATIVE Influenza Type A (PCR) Negative Influenza Type B (PCR) Negative RSV (RT-PCR) Negative 04/26/23 04/26/23 04/26/23 17:38 20:33 Unknown WBC RBC Hgb Hct MCV MCH MCHC RDW Std Deviation RDW Coeff of Bert Plt Count MPV Immature Gran % (Auto) Neut % (Auto) Lymph % (Auto) Riley % (Auto) Eos % (Auto) Baso % (Auto) Neut # (Auto) Lymph # (Auto) Riley # (Auto) Eos # (Auto) Baso # (Auto) Immature Gran # (Auto) Sodium Potassium Chloride Carbon Dioxide Anion Gap BUN Creatinine Est Cr Clr Drug Dosing Est GFR ( Amer) Est GFR (Non-Af Amer) BUN/Creatinine Ratio Glucose POC Glucose 189 H 169 H Calcium Magnesium Total Bilirubin AST ALT Alkaline Phosphatase Troponin I High Sens B-Natriuretic Peptide Total Protein Albumin Globulin Albumin/Globulin Ratio Lipase Procalcitonin Nasal Screen MRSA (PCR) Positive A SARS-CoV-2 (PCR) Influenza Type A (PCR) Influenza Type B (PCR) RSV (RT-PCR) 04/27/23 04/27/23 04/27/23 04:56 08:01 12:03 WBC 9.88 RBC 3.61 L Hgb 10.5 L Hct 32.2 L MCV 89.2 MCH 29.1 MCHC 32.6 RDW Std Deviation 45.6 RDW Coeff of Bert 14.0 Plt Count 286 MPV 10.3 Immature Gran % (Auto) 0.3 Neut % (Auto) 70.9 Lymph % (Auto) 19.9 Riley % (Auto) 7.8 Eos % (Auto) 0.6 Baso % (Auto) 0.5 Neut # (Auto) 7.00 H Lymph # (Auto) 1.97 Riley # (Auto) 0.77 H Eos # (Auto) 0.06 Baso # (Auto) 0.05 Immature Gran # (Auto) 0.03 Sodium 137 Potassium 4.4 Chloride 102 Carbon Dioxide 27 Anion Gap 8 BUN 24 H Creatinine 1.09 Est Cr Clr Drug Dosing 39.5 Est GFR ( Amer) 53.6 Est GFR (Non-Af Amer) 46.3 BUN/Creatinine Ratio 22.0 H Glucose 150 H POC Glucose 128 H 178 H Calcium 9.0 Magnesium 1.7 Total Bilirubin 0.5 AST 15 ALT 13 Alkaline Phosphatase 86 Troponin I High Sens 480.2 H* B-Natriuretic Peptide Total Protein 6.8 Albumin 3.6 Globulin 3.2 Albumin/Globulin Ratio 1.1 Lipase Procalcitonin Nasal Screen MRSA (PCR) SARS-CoV-2 (PCR) Influenza Type A (PCR) Influenza Type B (PCR) RSV (RT-PCR) Diagnostic Findings History and physical report, heart failure outpatient notes, previous cardiology notes reviewed. Telemetry personally reviewed: Sinus rhythm with heart rates in the 70s to 90s and also nonsustained episodes of atrial tachycardia. Echo reports reviewed as noted above in HPI. ECG personally reviewed 04/26/2023: Sinus rhythm with PACs 94 bpm. Anterior infarct. Labs reviewed and notable for elevated BNP, elevated high-sensitivity troponin peaking at 526, stable renal function, normal potassium, normal magnesium, mild and stable anemia. Previous discharge summary reviewed as summarized. Chest x-ray 04/26/2023: Pulmonary vascular congestion. Medications Administered Current Inpatient Medications Acetaminophen (Acetaminophen 325 Mg Tab) 650 mg PO Q6H PRN PRN Reason: PAIN(1-4)/FEVER Stop: 05/26/23 17:31 Albuterol (Albut/Ipratrop 3mg/0.5mg Neb 3 Ml Vial) 3 ml INH Q2H PRN; Protocol PRN Reason: Shortness Of Breath Or Wheezing Stop: 05/26/23 17:31 Last Admin: 04/27/23 12:06 Dose: 3 ml Aspirin (Aspirin 81 Mg Ectab) 81 mg PO QAM [facility] Stop: 05/27/23 08:59 Last Admin: 04/27/23 08:30 Dose: 81 mg Buspirone HCl (Buspirone 5 Mg Tab) 5 mg PO TID MAYI Stop: 05/27/23 08:59 Last Admin: 04/27/23 09:01 Dose: 5 mg Dextrose (Dextrose 50% 50 Ml Syringe) 25 - 50 ml IV UD PRN; Protocol PRN Reason: Hypoglycemia Protocol Stop: 05/26/23 16:34 Enoxaparin Sodium (Enoxaparin Inj 40 Mg/0.4 Ml Syr) 40 mg SQ Q24H MAYI Stop: 05/26/23 20:59 Last Admin: 04/26/23 20:48 Dose: 40 mg Furosemide (Furosemide 40 Mg/4 Ml Vial) 40 mg IV DAILY MAYI Stop: 05/27/23 08:59 Last Admin: 04/27/23 08:30 Dose: 40 mg Glucagon (Glucagon For Inj 1 Mg Vial) 1 mg SQ UD PRN; Protocol PRN Reason: Hypoglycemia Protocol Stop: 05/26/23 16:34 Glucose (Glucose 10 Tab/Tube) 4 - 8 tab PO UD PRN; Protocol PRN Reason: Hypoglycemia Treatment Stop: 05/26/23 16:34 Glucose (Glucose 40% Gel 15 Gm Tube) 15 - 30 gm PO UD PRN; Protocol PRN Reason: Hypoglycemia Protocol Stop: 05/26/23 16:34 Guaifenesin (Guaifenesin 600 Mg Tabcr) 600 mg PO Q12 PRN PRN Reason: Congestion Stop: 05/26/23 20:59 Insulin Aspart (Insulin Aspart Per Unit Charge) 0 units SC ACHS [facility] Stop: 05/26/23 20:59 Last Admin: 04/27/23 12:27 Dose: Not Given Insulin Glargine (Lantus Per Unit Charge) 5 units SQ BID [facility]I Stop: 05/26/23 20:59 Last Admin: 04/27/23 08:32 Dose: 5 units Latanoprost (Latanoprost 0.005% Op Soln 2.5 Ml Btl) 1 drops OPL HS [facility] Stop: 05/26/23 20:59 Last Admin: 04/26/23 20:48 Dose: 1 drops Levothyroxine Sodium (Levothyroxine Sodium 75 Mcg Tablet) 75 mcg PO DAILYBB [facility] Stop: 05/27/23 06:29 Last Admin: 04/27/23 05:16 Dose: 75 mcg Lorazepam (Lorazepam 0.5 Mg Tab) 0.25 mg PO Q6H PRN PRN Reason: Anxiety Stop: 05/27/23 08:23 Last Admin: 04/27/23 12:09 Dose: 0.25 mg Lorazepam (Lorazepam 0.5 Mg Tab) 0.25 mg PO HS PRN PRN Reason: Anxiety Stop: 05/27/23 08:26 Miscellaneous (Carbohydrates For Hypoglycemia ) 15 - 30 gm PO UD PRN PRN Reason: Hypoglycemia Protocol Stop: 05/26/23 16:34 Miscellaneous (Order Awaiting Action) 1 each N/A QS [facility] Stop: 05/27/23 00:00 Last Admin: 04/27/23 08:34 Dose: Not Given Multivitamins (Multivitamin Tab) 1 tab PO QAM [facility] Stop: 05/27/23 08:59 Last Admin: 04/27/23 08:30 Dose: 1 tab Pravastatin Sodium (Pravastatin Sod 20 Mg Tab) 20 mg PO HS [facility] Stop: 05/26/23 20:59 Last Admin: 04/26/23 20:49 Dose: 20 mg PG Care Time/CCT Total # of Minutes Spent Total Time Spent with Patient: Total time spent is greater than 50% in coordination of care (as documented) at patient's floor/unit and/or counseling patient: Coding Level of Care Code 37573 INT INP/OBS CARE MIN Diagnoses Acute on chronic HFrEF (heart failure with reduced ejection fraction) I50.23 Ischemic cardiomyopathy I25.5 HTN (hypertension) I10 Dyslipidemia E78.5 Hypoxia R09.02 Elevated troponin R79.89 Aortic stenosis I35.0
[2023-04-27] MEDS ORDERED: FUROSEMIDE 40 MG/4 ML VIAL IV ONE (17:00)
[2023-04-27] MEDS: LATANOPROST 0.005% OP SOLN 2.5 ML BTL OPL SCH (19:48)
[2023-04-27] MEDS: PRAVASTATIN SOD 20 MG TAB PO SCH (19:48)
[2023-04-27] MEDS: ENOXAPARIN INJ 40 MG/0.4 ML SYR SQ SCH (19:49)
[2023-04-28] MEDS: LORazepam 0.5 MG TAB PO PRN ×4 (01:40→20:43)
[2023-04-28] MEDS: ALBUT/IPRATROP 3MG/0.5MG NEB 3 ML VIAL INH PRN (05:22)
[2023-04-28] MEDS ORDERED: SODIUM CHLORIDE 0.65% NA SOLN 45 ML (OCEAN) PRN (05:34)
[2023-04-28] MEDS: LEVOTHYROXINE SODIUM 75 MCG TABLET PO SCH (05:34)
[2023-04-28] MEDS: ACETAMINOPHEN 325 MG TAB PO PRN ×2 (05:37→20:42)
[2023-04-28 05:55] LABS: BUN Creatinine Ratio 20.5 (10-20); Calcium 8.9 mg/dl (8.6-10.3); Creatinine Clr Calc Pharmacy 36.1 ml/min; Est GFR (African American) 49.2 ml/min; Est GFR (Non-African American) 42.5 ml/min; Magnesium 1.5 mg/dl (1.7-2.4); Potassium 3.7 mmol/L (3.5-5.1)
[2023-04-28] MEDS: INSULIN ASPART PER UNIT CHARGE SC SCH ×4 (08:28→20:43)
[2023-04-28] MEDS ORDERED: POTASSIUM CHLORIDE CRTAB 20 MEQ TABCR PO STA (08:40)
[2023-04-28] MEDS: MAGNESIUM SULFATE / D5W 1 GM/100 ML BAG IV SCH ×2 (09:05→11:26)
[2023-04-28] MEDS: ASPIRIN 81 MG ECTAB PO SCH (09:06)
[2023-04-28] MEDS: busPIRone 5 MG TAB PO SCH ×3 (09:06→20:45)
--- NOTE | 2023-04-28 09:06 | XCELERA ---
[id number] [id number]
[2023-04-28] MEDS: MULTIVITAMIN TAB PO SCH (09:07)
[2023-04-28] MEDS: LANTUS PER UNIT CHARGE SQ SCH (09:11)
[2023-04-28] MEDS: FUROSEMIDE 40 MG/4 ML VIAL IV SCH (09:11)
--- NOTE | 2023-04-28 12:11 | Hospitalist Progress Note ---
Date of Service April 28, 2023 Assessment & Plan (1) Acute and chronic respiratory failure with hypoxia: Plan: Caused by CHF exacerbation as discussed below -Patient presented to the ED with progressive SOB and MORRISON with increased O2 demands from her baseline 2L NC, went up to 5L -Noted to have Cardiomegaly, congestive failure, and pulmonary edema on CXR with layering pleural effusions -BNP elevated at 4559 (highest ever), 82 kg today, was 72 Kg on 03/18 at her CHF clinic visit -No sign of consolidation on CXR, procal is negative -Low suspicion for PE at this time Improved with diuresis now on 3L -AM CBC, BMP, mag - reviewed 04/28. Repleting hypokalemia po and hypomagnesemia IV -AM BMP, mag (2) CHF exacerbation: Plan: Acute on chronic systolic heart failure, ischemic cardiomyopathy -scheduled diuretics had been discontinued last admission because of MARISA, had PRN lasix 20 mg however for weight >177 pounds. Had not received any doses per [facility] -last TTE reviewed: mildly reduced LVEF at 40%, akinetic mid/distal anterior wall and apex, no significant valvular disease -new TTE 04/28 reviewed and is worse: severely reduced LVEF at 25-30%, mild but could be underestimate, IVC not visualized, akinetic mid/distal anterior wall and apex -diuresed successfully with IV lasix 40 mg daily to bid from admission through today - continue daily for now pending further input from cardiology, volume status has improved but she continues to have evidence of pulmonary edema on exam -monitor renal function - daily BMP while on IV diuretic. 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 -Initial high sen trop elevated at 513 ---> 480 downtrending -Patient denies chest pain -EKG same as prior except for some lateral nonspecific ST changes -cardiology considering angiogram (4) Anxiety: Plan: -Patient was started on 0.5 mg Ativan q6h prn and HS at [facility] for anxiety -They tried to start her on Buspar but she stopped taking it after one day because "it wasn't working" - will try again ordered 5 mg po tid - increased today to 10 mg p.o. 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 she states she has not tried this. (5) HTN (hypertension): Plan: -Currently stable -treatment as above (6) CAD (coronary artery disease): Plan: -Currently denies chest pain -Likely had MS last admission with reduced LVEF and new akinesis in the anterior wall and entire apex -b-nikhil currently held -continue ASA, pravastatin -see above (7) DMII (diabetes mellitus, type 2): Plan: -Monitor BSG ACHS -Normally takes 10 units lantus in the am, will switch from 5 bid back to 10u in am -CF to 30 ACHS, will hold CR for now with recent poor oral intake -DMII/HH diet; will add boost supplement shake as well -BG rev someitmes above goal 04/28 (8) Hypothyroidism: Plan: -Continue levothyroxine Plan DVT ppx: enox 40 sq daily Admission and Anticipated Discharge Date Admission Date: April 26, 2023 Subjective Magnolia is doing a little bit better with respect to shortness of breath at rest, she still has episodes where she is feeling very dyspneic and gets very anxious related to that. She feels like she needs more of her meds for anxiety. She has no chest pain. We talked about the echo findings and discussion with blade grinder about potential angiogram. Physical Exam 2 Physical Exam: PHYSICAL EXAMINATION Last 24h vital signs reviewed, see documentation in flowsheet General: comfortable appearing, no distress, sitting in bed HEENT: Normocephalic, atraumatic, pupils round and equal, sclerae anicteric, no conjunctival injection, moist mucus membranes Lungs: increased respiratory effort but not labored. bilateral crackles in bases and mid marie Persist with slightly improved, crackles anteriorly improved Heart: Regular rate and rhythm, , systolic murmur. +JVD Abdomen: Soft, nontender, nondistended. Bowel sounds present. Extremities: Warm, dry, well-perfused. minimal lower extremity edema present Neuro: Alert and oriented x 4, face symmetric, moves 4 extremities well Psych: Normal affect and behavior Results & Data Results & Data Vital Signs (Past 12 Hours) Vital Signs Temp Pulse Pulse Pulse Resp BP Pulse Ox 04/28/23 09:00 90 04/28/23 09:00 04/28/23 07:35 36.5 C 87 20 122/72 94 04/28/23 05:22 99 H 18 93 04/28/23 03:13 36.6 C 93 H 18 136/70 97 O2 Del Method O2 Flow Rate 04/28/23 09:00 04/28/23 09:00 Nasal Cannula 3 04/28/23 07:35 Nasal Cannula 3 04/28/23 05:22 Nasal Cannula 5 04/28/23 03:13 Nasal Cannula 4.0 Laboratory Results 04/27/23 04:56 04/28/23 04:31 PG Care Time/CCT Total # of Minutes Spent Total Time Spent with Patient: Total time spent is greater than 50% in coordination of care (as documented) at patient's floor/unit and/or counseling patient: Coding Level of Care Code 26034 SUB INP/OBS CARE 2/35MIN Diagnoses Acute and chronic respiratory failure with hypoxia J96.21 CHF exacerbation I50.9 Elevated troponin R77.8 Anxiety F41.9 HTN (hypertension) I10 CAD (coronary artery disease) I25.10 DMII (diabetes mellitus, type 2) E11.9 Hypothyroidism E03.9
--- NOTE | 2023-04-28 15:15 | Communication Note ---
Date of Service: April 28, 2023 Normal asked I update her daughter - left voicemail today.
--- NOTE | 2023-04-28 15:20 | Cardiology Progress Note ---
Date of Service April 28, 2023 Assessment & Plan (1) Acute on chronic HFrEF (heart failure with reduced ejection fraction): (2) Ischemic cardiomyopathy: (3) HTN (hypertension): (4) Dyslipidemia: (5) Hypoxia: (6) Elevated troponin: (7) Aortic stenosis: Plan ASSESSMENT/PLAN: 1. Acute on chronic heart failure with reduced EF: Volume status improving. Monitor renal function closely while diuresing. Increase Lasix to twice daily dosing as she had reasonable diuresis yesterday with 2 doses. Start carvedilol 3.125 mg twice daily. She had been on metoprolol succinate 100 mg daily in February 2023 and had bradycardia. Titrate slowly. Had mild renal insufficiency on more aggressive therapy in February 2023. Will likely introduce low-dose Entresto (possibly tomorrow) if able and other indicated therapies, if renal function allows. Low-sodium diet, less than 2000 mg daily. Daily weights. Strict I's and O's. 2. Cardiomyopathy: Presumed to be ischemic given LAD wall motion abnormalities. LV systolic function now severely reduced. Once again discussed cardiac catheterization which she seemed open to yesterday, but now is not sure that she will pursue. Currently unable to lay flat but would revisit when improved. Optimize medical therapy. Will continue to discuss cardiac catheterization if she is agreeable. She states that she declines ICD for primary prevention, if LV systolic function remains reduced despite treatment. 3. Hypertension: Blood pressure has normalized with further diuresis. Starting low-dose beta-nikhil as above. 4. Aortic stenosis: Nonsevere. Can follow over time. 5. Hypoxia: Diuresis. 6. Elevated troponin: Likely due to heart failure exacerbation and may have underlying CAD based on echo wall motion abnormalities. No angina. She did not present with acute coronary syndrome. 7. Dyslipidemia: Continue statin therapy. Consider high intensity statin therapy if tolerated. 8. Disposition: Cardiology will continue to follow. Patient care communicated with primary hospitalist, Dr. Brito. On discharge, follow-up in the heart failure program. Suggested palliative care consultation based on patient's wishes today. Admission and Anticipated Discharge Date Admission Date: April 26, 2023 Subjective Patient seen this afternoon. She has not noted any significant improvement in her breathing, however her supplemental oxygen has been able to be weaned. She admits that she becomes more short of breath when feeling anxious and has issues with anxiety. She still has orthopnea. She denies chest pain, syncope, near syncope, palpitations, edema, or bleeding. She added that she does not want to be resuscitated and that she would like to go home soon. She stated that hopefully "the Lord will take me home." She was alone in her hospital room. Physical Exam Physical Exam: Gen.: No acute distress. Alert. HEENT: Anicteric sclera. Neck: Mildly elevated JVD. Cardiac: No ventricular heave. Regular. Normal S1-S2. 2/6 systolic ejection murmur. No rubs or gallops. Pulmonary: Decreased breath sounds and otherwise bibasilar rales. Abdomen: Soft, nontender, nondistended, with normoactive bowel sounds. No bruits noted. Extremities: 2+ radial pulses bilaterally. Bilateral lower extremity digit amputations. No significant edema. Results & Data Vital Signs (Past 12 Hours) Vital Signs Temp Pulse Pulse Pulse Resp BP Pulse Ox 04/28/23 15:00 89 04/28/23 12:00 36.7 C 88 18 121/71 95 04/28/23 09:00 90 04/28/23 09:00 04/28/23 07:35 36.5 C 87 20 122/72 94 04/28/23 05:22 99 H 18 93 O2 Del Method O2 Flow Rate 04/28/23 15:00 04/28/23 12:00 Nasal Cannula 04/28/23 09:00 04/28/23 09:00 Nasal Cannula 3 04/28/23 07:35 Nasal Cannula 3 04/28/23 05:22 Nasal Cannula 5 Intake & Output 04/26/23 04/27/23 04/28/23 04/29/23 06:59 06:59 06:59 06:59 Intake Total 250 / 250 700 / 700 200 / 200 Output Total 850 / 850 1901 / 1901 801 / 801 Balance -600 / -600 -1201 / -1201 -601 / -601 Weight 169 lb 8.568 oz 166 lb 0.129 oz Laboratory Results Laboratory Results - last 24 hr 04/27/23 04/27/23 04/28/23 17:12 19:54 04:31 Sodium 138 Potassium 3.7 Chloride 98 Carbon Dioxide 32 Anion Gap 8 BUN 24 H Creatinine 1.17 Est Cr Clr Drug Dosing 36.1 Est GFR ( Amer) 49.2 Est GFR (Non-Af Amer) 42.5 BUN/Creatinine Ratio 20.5 H Glucose 135 H POC Glucose 184 H 174 H Calcium 8.9 Magnesium 1.5 L 04/28/23 04/28/23 08:09 12:02 Sodium Potassium Chloride Carbon Dioxide Anion Gap BUN Creatinine Est Cr Clr Drug Dosing Est GFR ( Amer) Est GFR (Non-Af Amer) BUN/Creatinine Ratio Glucose POC Glucose 137 H 226 H Calcium Magnesium Diagnostic Findings Labs reviewed and notable for stable renal function, normal potassium, hypomagnesemia. Chart reviewed. Echo 04/27/2023: EF 25-30%. Akinesis of the apex, mid anteroseptum, mid inferoseptal, mid inferior wall segments and otherwise global hypokinesis. Moderate LVH. Mild aortic stenosis, which could be underestimated given reduced LV systolic function. Mild MR. RVSP 50-55. Pleural effusion. Medications Administered Current Inpatient Medications Acetaminophen (Acetaminophen 325 Mg Tab) 650 mg PO Q6H PRN PRN Reason: PAIN(1-4)/FEVER Stop: 05/26/23 17:31 Last Admin: 04/28/23 05:37 Dose: 650 mg Albuterol (Albut/Ipratrop 3mg/0.5mg Neb 3 Ml Vial) 3 ml INH Q2H PRN; Protocol PRN Reason: Shortness Of Breath Or Wheezing Stop: 05/26/23 17:31 Last Admin: 04/28/23 05:22 Dose: 3 ml Aspirin (Aspirin 81 Mg Ectab) 81 mg PO QAM [facility] Stop: 05/27/23 08:59 Last Admin: 04/28/23 09:06 Dose: 81 mg Buspirone HCl (Buspirone 5 Mg Tab) 10 mg PO TID [facility] Stop: 05/28/23 20:59 Carvedilol (Carvedilol 3.125 Mg Tab) 3.125 mg PO BIDM [facility] Stop: 05/28/23 16:59 Dextrose (Dextrose 50% 50 Ml Syringe) 25 - 50 ml IV UD PRN; Protocol PRN Reason: Hypoglycemia Protocol Stop: 05/26/23 16:34 Enoxaparin Sodium (Enoxaparin Inj 40 Mg/0.4 Ml Syr) 40 mg SQ Q24H [facility] Stop: 05/26/23 20:59 Last Admin: 04/27/23 19:49 Dose: 40 mg Furosemide (Furosemide 40 Mg/4 Ml Vial) 40 mg IV BID [facility] Stop: 05/28/23 20:59 Glucagon (Glucagon For Inj 1 Mg Vial) 1 mg SQ UD PRN; Protocol PRN Reason: Hypoglycemia Protocol Stop: 05/26/23 16:34 Glucose (Glucose 10 Tab/Tube) 4 - 8 tab PO UD PRN; Protocol PRN Reason: Hypoglycemia Treatment Stop: 05/26/23 16:34 Glucose (Glucose 40% Gel 15 Gm Tube) 15 - 30 gm PO UD PRN; Protocol PRN Reason: Hypoglycemia Protocol Stop: 05/26/23 16:34 Guaifenesin (Guaifenesin 600 Mg Tabcr) 600 mg PO Q12 PRN PRN Reason: Congestion Stop: 05/26/23 20:59 Insulin Aspart (Insulin Aspart Per Unit Charge) 0 units SC ACHS [facility] Stop: 05/26/23 20:59 Last Admin: 04/28/23 12:44 Dose: 3 units Insulin Glargine (Lantus Per Unit Charge) 10 units SQ DAILY [facility] Stop: 05/29/23 08:59 Latanoprost (Latanoprost 0.005% Op Soln 2.5 Ml Btl) 1 drops OPL HS [facility] Stop: 05/26/23 20:59 Last Admin: 04/27/23 19:48 Dose: 1 drops Levothyroxine Sodium (Levothyroxine Sodium 75 Mcg Tablet) 75 mcg PO DAILYBB [facility] Stop: 05/27/23 06:29 Last Admin: 04/28/23 05:34 Dose: 75 mcg Lorazepam (Lorazepam 0.5 Mg Tab) 0.25 mg PO Q6H PRN PRN Reason: Anxiety Stop: 05/27/23 08:23 Last Admin: 04/28/23 09:06 Dose: 0.25 mg Lorazepam (Lorazepam 0.5 Mg Tab) 0.25 mg PO HS PRN PRN Reason: Anxiety Stop: 05/27/23 08:26 Last Admin: 04/27/23 20:12 Dose: 0.25 mg Miscellaneous (Carbohydrates For Hypoglycemia ) 15 - 30 gm PO UD PRN PRN Reason: Hypoglycemia Protocol Stop: 05/26/23 16:34 Miscellaneous (Order Awaiting Action) 1 each N/A QS [facility] Stop: 05/27/23 00:00 Last Admin: 04/28/23 09:05 Dose: Not Given Multivitamins (Multivitamin Tab) 1 tab PO QAM [facility] Stop: 05/27/23 08:59 Last Admin: 04/28/23 09:07 Dose: 1 tab Pravastatin Sodium (Pravastatin Sod 20 Mg Tab) 20 mg PO HS [facility] Stop: 05/26/23 20:59 Last Admin: 04/27/23 19:48 Dose: 20 mg Sodium Chloride (Sodium Chloride 0.65% Na Soln 45 Ml ([place])) 2 sprays NA Q6 PRN PRN Reason: Dryness Stop: 05/28/23 05:33 Last Admin: 04/28/23 05:47 Dose: 2 sprays PG Care Time/CCT Total # of Minutes Spent Total Time Spent with Patient: Total time spent is greater than 50% in coordination of care (as documented) at patient's floor/unit and/or counseling patient: Coding Level of Care Code 66380 SUB INP/OBS CARE 3/50MIN Diagnoses Acute on chronic HFrEF (heart failure with reduced ejection fraction) I50.23 Ischemic cardiomyopathy I25.5 HTN (hypertension) I10 Dyslipidemia E78.5 Hypoxia R09.02 Elevated troponin R79.89 Aortic stenosis I35.0
--- NOTE | 2023-04-28 17:04 | Communication Note ---
Date of Service: April 28, 2023 I met at bedside with Magnolia, her daughter and son-in law this evening. Updated them. Magnolia strongly prefers palliative approach, to be kept comfortable with her breathing, and to be kept comfortable when her time comes. Her daughter voices support because it's Normal's decision, though she doesn't prefer it. I spoke with Dr. Cardona this afternoon and he had the same impression of Magnolia's wishes. Will consult palliative care tomorrow. POLST with comfort measures and staying at [facility] seems like an option. Seems that she would rather be kept comfortable there if/when she declines rather than repeated hospitalizations. I increased her lorazepam back to her 0.5 mg dose PRN because it works better on her dyspnea/anxiety and we discussed risks/benefits of that. May electively place mccall for comfort if she desires. Discussed with bedside RN. 25 additional minutes spent this evening, so total time spent today is 55 minutes on clinical activities including 2 bed side visits, counseling patient and family, discussion with sap pp consultant, placing orders, reviewing chart/labs/vitals/echo and documentation.
[2023-04-28] MEDS: carvediloL 3.125 MG TAB PO SCH (17:22)
[2023-04-28] MEDS: MELATONIN 3 MG TAB PO PRN (20:43)
[2023-04-28] MEDS: LATANOPROST 0.005% OP SOLN 2.5 ML BTL OPL SCH (20:47)
[2023-04-28] MEDS: ENOXAPARIN INJ 40 MG/0.4 ML SYR SQ SCH (20:53)
[2023-04-28] MEDS: PRAVASTATIN SOD 20 MG TAB PO SCH (20:53)
[2023-04-28] MEDS ORDERED: FUROSEMIDE 40 MG/4 ML VIAL IV SCH (21:00)
[2023-04-29] MEDS: LEVOTHYROXINE SODIUM 75 MCG TABLET PO SCH (06:00)
[2023-04-29 06:42] LABS: BUN Creatinine Ratio 19.1 (10-20); Calcium 8.7 mg/dl (8.6-10.3); Creatinine Clr Calc Pharmacy 29.6 ml/min; Est GFR (African American) 39.3 ml/min; Est GFR (Non-African American) 33.9 ml/min; Magnesium 1.8 mg/dl (1.7-2.4); Potassium 3.9 mmol/L (3.5-5.1)
[2023-04-29] MEDS: INSULIN ASPART PER UNIT CHARGE SC SCH ×4 (08:32→20:53)
[2023-04-29] MEDS: busPIRone 5 MG TAB PO SCH ×3 (08:36→20:52)
[2023-04-29] MEDS: carvediloL 3.125 MG TAB PO SCH ×2 (08:36→17:36)
[2023-04-29] MEDS: LANTUS PER UNIT CHARGE SQ SCH (08:36)
[2023-04-29] MEDS: ASPIRIN 81 MG ECTAB PO SCH (08:36)
[2023-04-29] MEDS: MULTIVITAMIN TAB PO SCH (08:37)
[2023-04-29] MEDS: LORazepam 0.5 MG TAB PO PRN ×2 (08:40→20:56)
--- NOTE | 2023-04-29 10:38 | Heart Failure Consultation ---
Date of Consultation April 29, 2023 History of Present Illness Attending Physician: Cecelia Brito MD History of Present Illness Meet with patient in their hospital room. She is known to the heart failure program. We discussed the nature of heart failure and the goals of the heart failure program. Patient is agreeable to ongoing participation. However she prefers a minimalist approach to care and requests minimal office visits. Patient advised to weigh themselves daily at [facility]. Will need to clarify PRN orders on discharge. Notify the office if 2+ lb weight gain overnight or 5+ lb in 1 week. Low sodium diet recommended on discharge. Contact information provided. Patient will have scheduled outpatient follow up within 7 days of discharge. Please see full cardiology consult for additional recommendations and formal plan of care. Allergies Allergy/AdvReac Type Severity Reaction Status Date / Time duloxetine [From Cymbalta] Allergy Intermediate itching Verified 04/26/23 15:49 hydrocodone [From Lortab] Allergy Intermediate itching Verified 04/26/23 15:49 pregabalin [From Lyrica] Allergy Intermediate itching Verified 04/26/23 15:49 simvastatin Allergy Intermediate Nausea Verified 04/26/23 15:49 Home Medications Medication Instructions Recorded Confirmed Type insulin glargine 100 unit/mL 10 units subcut QAM 05/27/19 04/26/23 History subcutaneous solution (Lantus U-100 Insulin) levothyroxine 75 mcg tablet 75 mcg PO QAM 05/27/19 04/26/23 History (Synthroid) brimonidine 0.2 %-timolol 0.5 % 1 drp OPL BID 10/01/22 04/26/23 History eye drops insulin aspart U-100 100 unit/mL See Rx Instructions .Route .COMPLEX 10/01/22 04/26/23 History (3 mL) subcutaneous pen (Novolog FlexPen U-100 Insulin aspart) latanoprost 0.005 % eye drops 1 drp OPL HS 02/21/23 04/26/23 History ascorbic acid (vitamin C) 500 mg 500 mg PO QAM 03/04/23 04/26/23 History tablet (Vitamin C) aspirin 81 mg capsule 81 mg PO QAM 03/04/23 04/26/23 History multivitamin 1 tab PO QAM 03/04/23 04/26/23 History Saccharomyces boulardii 250 mg 250 mg PO QAM 04/26/23 04/26/23 History capsule (Florastor) acetaminophen 325 mg tablet 650 mg PO Q6H PRN PAIN/FEVER 04/26/23 04/26/23 History (Tylenol) furosemide 20 mg tablet (Lasix) 20 mg PO DAILY PRN WT > 177# 04/26/23 04/26/23 History ipratropium 0.5 mg-albuterol 3 mg 3 ml inhalation Q2H PRN Shortness 04/26/23 04/26/23 History (2.5 mg base)/3 mL nebulization Of Breath Or Wheezing soln isosorbide dinitrate 10 mg tablet 10 mg PO HS 04/26/23 04/26/23 History lorazepam 0.5 mg tablet 0.5 mg PO HS 04/26/23 04/26/23 History lorazepam 0.5 mg tablet 0.5 mg PO Q6H PRN Anxiety 04/26/23 04/26/23 History nitroglycerin 0.4 mg sublingual 0.4 mg sublingual DIRECTED PRN 04/26/23 04/26/23 History tablet (Nitrostat) Chest Pain pravastatin 20 mg tablet 20 mg PO HS 04/26/23 04/26/23 History protein supplement 1 ea PO BIDM 04/26/23 04/26/23 History Patient History Medical History Aortic stenosis Acute on chronic HFrEF (heart failure with reduced ejection fraction) Pneumonia Acute UTI (urinary tract infection) Sepsis MARISA (acute kidney injury) Hypomagnesemia Transaminitis Acute kidney injury Hypomagnesemia Leukocytosis Syncope Peripheral arterial disease Foot deformity Status post partial amputation of foot Loss of protective sensation of skin of foot Diabetes type 2, uncontrolled Diabetic foot ulcer associated with type 2 diabetes mellitus Acquired deformity of left foot Acquired hammer toe of right foot Callus Acquired deformity of right foot Acquired hallux valgus of right foot Acquired claw toe of left foot Pressure ulcer of left leg, stage 3 Diabetic foot ulcer associated with type 2 diabetes mellitus, with fat layer exposed Osteoporosis Hypothyroidism Sinusitis Amputation of left great toe Chronic renal insufficiency, stage III (moderate) PHN (postherpetic neuralgia) Hyperlipidemia LDL goal <100 Herpes zoster HTN (hypertension) Surgical History History of tonsillectomy and adenoidectomy Social History Smoking Status: Never smoker Second Hand Exposure: Yes; Hx Alcohol Use: No Hx Substance Use: No Preferred Language: Bengali Communication Ability: Effective Communication Tools: Letter Board, Picture Board, Facial Expression and Writing Tablet Visual Impairment: No Limitations Hearing Ability: Normal Home Energy Rater Required: No Beliefs That Will Affect Care: None marital status: / Current Living Situation: Alf Current Living Situation Comment: daugher and current occupational status: 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 [employer] Other Information That Helps Us Care for You: No Feels Safe at Home: Yes Safety Concerns: Feels Safe At This Time Childhood Exposure to Second-Hand Smoke: No Diet: diabetic and low carbohydrate caffeine: Yes (1-2 cups/day) during the past year weight has: decreased > 10 lbs Dental Care, Regularly: No Physical Activity Frequency: 3-4 Times per Week Do you think of yourself as: straight/heterosexual Sexual Activity: has been sexually active, but not for at least 12 months Assistive Devices: Oxygen - Continuous, Walker and Wheelchair Results & Data Vital Signs (Past 12 Hours) Vital Signs Temp Pulse Pulse Resp BP Pulse Ox O2 Del Method 04/29/23 08:22 97.9 F 73 18 147/74 H 94 Nasal Cannula 04/29/23 02:52 98.1 F 65 18 131/69 97 Nasal Cannula 04/28/23 22:48 77 O2 Flow Rate 04/29/23 08:22 2.0 04/29/23 02:52 04/28/23 22:48 Coding Level of Care Code None
[2023-04-29] MEDS: ACETAMINOPHEN 325 MG TAB PO PRN ×2 (11:22→20:56)
--- NOTE | 2023-04-29 14:43 | Cardiology Progress Note ---
Date of Service April 29, 2023 Assessment & Plan (1) Acute on chronic HFrEF (heart failure with reduced ejection fraction): (2) Ischemic cardiomyopathy: (3) HTN (hypertension): (4) Dyslipidemia: (5) Hypoxia: (6) Elevated troponin: (7) Aortic stenosis: Plan ASSESSMENT/PLAN: 1. Acute on chronic heart failure with reduced EF: Significantly improved volume status. No evidence of JVD today and labs suggest mild azotemia. Lasix held this morning, with last dose on 04/28/2023 p.m. Reevaluate renal function tomorrow. Continue carvedilol 3.125 mg twice daily. She had been on metoprolol succinate 100 mg daily in February 2023 and had bradycardia. Titrate slowly as able. Had mild renal insufficiency on more aggressive therapy in February 2023. Given recent hospitalization with renal issues, will reevaluate labs tomorrow and if able at some point, will introduce low-dose Entresto. No spironolactone or SGLT2 inhibitor for now given more recent renal issues with more aggressive therapy. Perhaps these medications can be slowly introduced over time. Low-sodium diet, less than 2000 mg daily. Daily weights. Strict I's and O's. 2. Cardiomyopathy: Presumed to be ischemic given LAD wall motion abnormalities. LV systolic function now severely reduced. She has declined cardiac catheterization. She states that she declines ICD for primary prevention, if LV systolic function remains reduced despite treatment. 3. Hypertension: Blood pressure is reasonably controlled. No changes made today. 4. Aortic stenosis: Nonsevere. Can follow over time. 5. Hypoxia: Diuresis. 6. Elevated troponin: Likely due to heart failure exacerbation and may have u nderlying CAD based on echo wall motion abnormalities. No angina. She did not present with acute coronary syndrome. 7. Dyslipidemia: Continue statin therapy. Consider high intensity statin therapy if tolerated. 8. Disposition: Cardiology will continue to follow. Patient care communicated with primary hospitalist, Dr. Brito. On discharge, follow-up in the heart failure program. Palliative care consultation is pending. Admission and Anticipated Discharge Date Admission Date: April 26, 2023 Subjective She states that her breathing has not improved however oxygen supplementation has been able to be further weaned. She reports shortness of breath with anxiet y and movement. She denies chest pain, syncope, near syncope, palpitations, or bleeding. She was alone in her hospital room. Physical Exam Physical Exam: Gen.: No acute distress. Alert. HEENT: Anicteric sclera. Neck: No obvious JVD. Cardiac: No ventricular heave. Regular. Normal S1-S2. 2/6 systolic ejection murmur. No rubs or gallops. Pulmonary: Decreased breath sounds and otherwise bibasilar rales. Abdomen: Soft, nontender, nondistended, with normoactive bowel sounds. No bruits noted. Extremities: 2+ radial pulses bilaterally. Bilateral lower extremity digit amputations. No significant edema. Results & Data Vital Signs (Past 12 Hours) Vital Signs Temp Pulse Resp BP Pulse Ox O2 Del Method O2 Flow Rate 04/29/23 13:24 Nasal Cannula 2 04/29/23 12:00 36.6 C 79 17 131/81 94 Nasal Cannula 2.0 04/29/23 08:22 36.6 C 73 18 147/74 H 94 Nasal Cannula 2.0 04/29/23 02:52 36.7 C 65 18 131/69 97 Nasal Cannula Intake & Output 04/27/23 04/28/23 04/29/23 04/30/23 06:59 06:59 06:59 06:59 Intake Total 250 / 250 700 / 700 1090 / 1090 Output Total 850 / 850 1901 / 1901 2402 / 2402 Balance -600 / -600 -1201 / -1201 -1312 / -1312 Weight 169 lb 8.568 oz 166 lb 0.129 oz 165 lb 5.547 oz Laboratory Results Laboratory Results - last 24 hr 04/28/23 04/28/23 04/29/23 16:26 20:29 05:48 Sodium 140 Potassium 3.9 Chloride 99 Carbon Dioxide 34 H Anion Gap 7 BUN 27 H Creatinine 1.41 H Est Cr Clr Drug Dosing 29.6 Est GFR ( Amer) 39.3 Est GFR (Non-Af Amer) 33.9 BUN/Creatinine Ratio 19.1 Glucose 115 H POC Glucose 230 H 202 H Calcium 8.7 Magnesium 1.8 04/29/23 04/29/23 07:55 11:50 Sodium Potassium Chloride Carbon Dioxide Anion Gap BUN Creatinine Est Cr Clr Drug Dosing Est GFR ( Amer) Est GFR (Non-Af Amer) BUN/Creatinine Ratio Glucose POC Glucose 128 H 213 H Calcium Magnesium Diagnostic Findings Telemetry personally reviewed: Sinus rhythm. No arrhythmia. Labs reviewed and notable for mildly worsened renal function today compared to previous. Medications Administered Current Inpatient Medications Acetaminophen (Acetaminophen 325 Mg Tab) 650 mg PO Q6H PRN PRN Reason: PAIN(1-4)/FEVER Stop: 05/26/23 17:31 Last Admin: 04/29/23 11:22 Dose: 650 mg Albuterol (Albut/Ipratrop 3mg/0.5mg Neb 3 Ml Vial) 3 ml INH Q2H PRN; Protocol PRN Reason: Shortness Of Breath Or Wheezing Stop: 05/26/23 17:31 Last Admin: 04/28/23 05:22 Dose: 3 ml Aspirin (Aspirin 81 Mg Ectab) 81 mg PO QAM [facility] Stop: 05/27/23 08:59 Last Admin: 04/29/23 08:36 Dose: 81 mg Brimonidine Tartrate (Brimonidine Tartrate 0.2% 5ml) 1 drops OP BID MAYI Stop: 05/29/23 20:59 Buspirone HCl (Buspirone 5 Mg Tab) 10 mg PO TID [facility]I Stop: 05/28/23 20:59 Last Admin: 04/29/23 12:25 Dose: 10 mg Carvedilol (Carvedilol 3.125 Mg Tab) 3.125 mg PO BIDM [facility]I Stop: 05/28/23 16:59 Last Admin: 04/29/23 08:36 Dose: 3.125 mg Dextrose (Dextrose 50% 50 Ml Syringe) 25 - 50 ml IV UD PRN; Protocol PRN Reason: Hypoglycemia Protocol Stop: 05/26/23 16:34 Enoxaparin Sodium (Enoxaparin Inj 30 Mg/0.3 Ml Syr) 30 mg SQ Q24H MAYI Stop: 05/29/23 20:59 Furosemide (Furosemide 40 Mg/4 Ml Vial) 40 mg IV BID MAYI Stop: 05/28/23 20:59 Last Admin: 04/28/23 20:45 Dose: 40 mg Glucagon (Glucagon For Inj 1 Mg Vial) 1 mg SQ UD PRN; Protocol PRN Reason: Hypoglycemia Protocol Stop: 05/26/23 16:34 Glucose (Glucose 10 Tab/Tube) 4 - 8 tab PO UD PRN; Protocol PRN Reason: Hypoglycemia Treatment Stop: 05/26/23 16:34 Glucose (Glucose 40% Gel 15 Gm Tube) 15 - 30 gm PO UD PRN; Protocol PRN Reason: Hypoglycemia Protocol Stop: 05/26/23 16:34 Guaifenesin (Guaifenesin 600 Mg Tabcr) 600 mg PO Q12 PRN PRN Reason: Congestion Stop: 05/26/23 20:59 Insulin Aspart (Insulin Aspart Per Unit Charge) 0 units SC ACHS [facility] Stop: 05/26/23 20:59 Last Admin: 04/29/23 12:24 Dose: 3 units Insulin Glargine (Lantus Per Unit Charge) 10 units SQ DAILY [facility]I Stop: 05/29/23 08:59 Last Admin: 04/29/23 08:36 Dose: 10 units Latanoprost (Latanoprost 0.005% Op Soln 2.5 Ml Btl) 1 drops OPL HS [facility] Stop: 05/26/23 20:59 Last Admin: 04/28/23 20:47 Dose: 1 drops Levothyroxine Sodium (Levothyroxine Sodium 75 Mcg Tablet) 75 mcg PO DAILYBB [facility] Stop: 05/27/23 06:29 Last Admin: 04/29/23 06:00 Dose: 75 mcg Lorazepam (Lorazepam 0.5 Mg Tab) 0.5 mg PO Q6H PRN PRN Reason: Anxiety Stop: 05/27/23 08:23 Last Admin: 04/29/23 08:40 Dose: 0.5 mg Lorazepam (Lorazepam 0.5 Mg Tab) 0.5 mg PO HS PRN PRN Reason: Anxiety Stop: 05/27/23 08:26 Last Admin: 04/28/23 20:43 Dose: 0.5 mg Melatonin (Melatonin 3 Mg Tab) 3 mg PO HS PRN PRN Reason: Sleep Stop: 05/28/23 16:48 Last Admin: 04/28/23 20:43 Dose: 3 mg Miscellaneous (Carbohydrates For Hypoglycemia ) 15 - 30 gm PO UD PRN PRN Reason: Hypoglycemia Protocol Stop: 05/26/23 16:34 Miscellaneous (Order Awaiting Action) 1 each N/A QS [facility] Stop: 05/27/23 00:00 Last Admin: 04/29/23 11:59 Dose: Not Given Multivitamins (Multivitamin Tab) 1 tab PO QAM [facility] Stop: 05/27/23 08:59 Last Admin: 04/29/23 08:37 Dose: 1 tab Pravastatin Sodium (Pravastatin Sod 20 Mg Tab) 20 mg PO HS [facility]I Stop: 05/26/23 20:59 Last Admin: 04/28/23 20:53 Dose: 20 mg Sodium Chloride (Sodium Chloride 0.65% Na Soln 45 Ml ([place])) 2 sprays NA Q6 PRN PRN Reason: Dryness Stop: 05/28/23 05:33 Last Admin: 04/28/23 05:47 Dose: 2 sprays Timolol Maleate (Timolol Maleate 0.5% Op Soln 5 Ml Btl) 1 drops OP BID [facility]I Stop: 05/29/23 20:59 PG Care Time/CCT Total # of Minutes Spent Total Time Spent with Patient: Total time spent is greater than 50% in coordination of care (as documented) at patient's floor/unit and/or counseling patient: Coding Level of Care Code 03985 SUB INP/OBS CARE 3/50MIN Diagnoses Acute on chronic HFrEF (heart failure with reduced ejection fraction) I50.23 Ischemic cardiomyopathy I25.5 HTN (hypertension) I10 Dyslipidemia E78.5 Hypoxia R09.02 Elevated troponin R79.89 Aortic stenosis I35.0
--- NOTE | 2023-04-29 18:44 | Hospitalist Progress Note ---
Date of Service April 29, 2023 Assessment & Plan (1) Acute and chronic respiratory failure with hypoxia: Plan: Caused by CHF exacerbation as discussed below -Patient presented to the ED with progressive SOB and MORRISON with increased O2 demands from her baseline 2L NC, went up to 5L -Noted to have Cardiomegaly, congestive failure, and pulmonary edema on CXR with layering pleural effusions -BNP elevated at 4559 (highest ever), 82 kg today, was 72 Kg on 03/18 at her CHF clinic visit -No sign of consolidation on CXR, procal is negative -Low suspicion for PE at this time Improved with diuresis now on 2L which is her baseline -AM CBC, BMP, mag - reviewed 04/29. K/Mag normal and Cr slightly up to 1.22 I had an extensive discussion with She and her daughter last evening and this afternoon. She prefers a palliative approach. She wants medications to keep her comfortable and relieve her anxiety and dyspnea. When it is her time, which she feels will be soon, she wants to be kept comfortable and not suffer and not be short of breath. She has declined aggressive interventions like angiogram, ICD, and consistently DNR/DNI. We consulted palliative care but not available today. I went over POL with them today and she was clear on DNR/DNI, limited interventions, and no tube feeding. She was back and forth about whether she would want to come back to the hospital to treat acute issues. Said no then said yes. Said "whatever the doctors recommend." Her daughter prompts that she did want to come to the hospital this time. I left them to continue this discussion together and left POLST with her as a guide. If deciding today my interpretation would be "limited additional interventions" but change to comfort measures if having a serious complication and not expected to recover with judicious treatment. (2) CHF exacerbation: Plan: Acute on chronic systolic heart failure, ischemic cardiomyopathy -scheduled diuretics had been discontinued last admission because of MARISA, had PRN lasix 20 mg however for weight >177 pounds. Had not received any doses per [facility] -last TTE reviewed: mildly reduced LVEF at 40%, akinetic mid/distal anterior wall and apex, no significant valvular disease -new TTE 04/28 reviewed and is worse: severely reduced LVEF at 25-30%, mild but could be underestimate, IVC not visualized, akinetic mid/distal anterior wall and apex -diuresed successfully with IV lasix 40 mg daily to bid from admission through this am - hold diuretics 04/29, discussed with Dr. Cardona -monitor renal function - gets MARISA easily -not on XAVIER/ARB / aminta / SGLT2 because of highly variable renal function at this time -question diuretic dose on discharge - PRN dose didn't work out well at her SNF and got volume overloaded. Perhaps 3x a week and PRN? 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 -Initial high sen trop elevated at 513 ---> 480 downtrending -Patient denies chest pain -EKG same as prior except for some lateral nonspecific ST changes (4) Anxiety: Plan: -Patient was started on 0.5 mg Ativan q6h prn and HS at [facility] for anxiety -They tried to start her on Buspar but she stopped taking it after one day because "it wasn't working" - trialed here increased today to 10 mg p.o. 3 times daily 04/28 -will stop buspar since has not been helpful and lorazepam is more effective for palliating her dyspnea/anxiety. we discussed the risks:benefits thoroughly inc problems with cognition, confusion, falls -resumed her lorazepam at her effective dose which is 0.5 mg prn (5) HTN (hypertension): Plan: -Currently stable -treatment as above (6) CAD (coronary artery disease): Plan: -Currently denies chest pain -Likely had WA last admission with reduced LVEF and new akinesis in the anterior wall and entire apex -b-nikhil: carvedilol -continue ASA, pravastatin -see above (7) DMII (diabetes mellitus, type 2): Plan: -Monitor BSG ACHS -Normally takes 10 units lantus in the am, will switch from 5 bid back to 10u in am -CF to 30 ACHS, will hold CR for now with recent poor oral intake -DMII/HH diet; will add boost supplement shake as well -BG rev closer to goal 04/29 (8) Hypothyroidism: Plan: -Continue levothyroxine Plan DVT ppx: enox 40 sq daily Admission and Anticipated Discharge Date Admission Date: April 26, 2023 Subjective breathing is much better than on admission, improved since yesterday. no chest pain. no leg swelling. Physical Exam 2 Physical Exam: PHYSICAL EXAMINATION Last 24h vital signs reviewed, see documentation in flowsheet General: comfortable appearing, no distress, up in chair HEENT: Normocephalic, atraumatic, pupils round and equal, sclerae anicteric, no conjunctival injection, moist mucus membranes Lungs: normal respiratory effort. mild bilateral crackles in bases, much improved Heart: Regular rate and rhythm, , systolic murmur. JVP elevated but improved Abdomen: Soft, nontender, nondistended. Bowel sounds present. Extremities: Warm, dry, well-perfused. no lower extremity edema present Neuro: Alert and oriented x 4, face symmetric, moves 4 extremities well Psych: Normal affect and behavior Results & Data Results & Data Vital Signs (Past 12 Hours) Vital Signs Temp Pulse Resp BP Pulse Ox O2 Del Method O2 Flow Rate 04/29/23 16:21 36.6 C 69 17 124/75 98 Nasal Cannula 2.0 04/29/23 13:24 Nasal Cannula 2 04/29/23 12:00 36.6 C 79 17 131/81 94 Nasal Cannula 2.0 04/29/23 08:22 36.6 C 73 18 147/74 H 94 Nasal Cannula 2.0 Laboratory Results 04/27/23 04:56 04/29/23 05:48 PG Care Time/CCT Total # of Minutes Spent Total Time Spent with Patient: Total time spent is greater than 50% in coordination of care (as documented) at patient's floor/unit and/or counseling patient: Coding Level of Care Code 63041 SUB INP/OBS CARE 2/35MIN Diagnoses Acute and chronic respiratory failure with hypoxia J96.21 CHF exacerbation I50.9 Elevated troponin R77.8 Anxiety F41.9 HTN (hypertension) I10 CAD (coronary artery disease) I25.10 DMII (diabetes mellitus, type 2) E11.9 Hypothyroidism E03.9
[2023-04-29] MEDS: ENOXAPARIN INJ 30 MG/0.3 ML SYR SQ SCH (20:53)
[2023-04-29] MEDS: LATANOPROST 0.005% OP SOLN 2.5 ML BTL OPL SCH (20:53)
[2023-04-29] MEDS: PRAVASTATIN SOD 20 MG TAB PO SCH (20:54)
[2023-04-29] MEDS: TIMOLOL MALEATE 0.5% OP SOLN 5 ML BTL OP SCH (20:55)
[2023-04-29] MEDS: BRIMONIDINE TARTRATE 0.2% 5ML OP SCH (20:55)
[2023-04-29] MEDS: MELATONIN 3 MG TAB PO PRN (20:56)
[2023-04-30 05:05] LABS: BUN Creatinine Ratio 25.8 (10-20); Calcium 8.3 mg/dl (8.6-10.3); Creatinine Clr Calc Pharmacy 33.6 ml/min; Est GFR (African American) 45.9 ml/min; Est GFR (Non-African American) 39.6 ml/min; Potassium 3.6 mmol/L (3.5-5.1)
[2023-04-30] MEDS: LEVOTHYROXINE SODIUM 75 MCG TABLET PO SCH (05:49)
[2023-04-30] MEDS: INSULIN ASPART PER UNIT CHARGE SC SCH ×4 (07:54→22:24)
[2023-04-30] MEDS: carvediloL 3.125 MG TAB PO SCH ×2 (07:55→17:04)
[2023-04-30] MEDS: LORazepam 0.5 MG TAB PO PRN (07:57)
[2023-04-30] MEDS: busPIRone 5 MG TAB PO SCH ×3 (08:22→22:26)
[2023-04-30] MEDS: ASPIRIN 81 MG ECTAB PO SCH (08:23)
[2023-04-30] MEDS: MULTIVITAMIN TAB PO SCH (08:24)
[2023-04-30] MEDS: TIMOLOL MALEATE 0.5% OP SOLN 5 ML BTL OP SCH ×2 (08:24→22:27)
[2023-04-30] MEDS: LANTUS PER UNIT CHARGE SQ SCH (08:30)
--- NOTE | 2023-04-30 10:15 | Palliative Care Consultation ---
Date of Consultation April 30, 2023 Assessment & Plan (1) Advanced care planning/counseling discussion: I met with Magnolia face to face for 45min for ACP she is very clear about her goals. She tells me she knows her heart failure is reaching end stages and she simply does not want to suffer. She states "I just don't want to be huffing and puffing and gasping my way out of this world, I want it to be peaceful and easy." We reviewed option of adding hospice to her care at care facility: We discussed the goals of hospice as a patient service and the goals of care; we discussed EOL trajectories and transitions alexandra the emotional impact of realizing mortality as a concrete reality from prior abstract considerations. Pt was reassured that no matter where they are along this trajectory, they are not alone - their medical team will remain by their side through their journey. Discussed the pros/cons of accepting help when especially weakened and distressed by pain- which would also help provide relief/decrease caregiver burden/strain.I provided education about the hospice benefit: an interdisciplinary program offered by nurses, nurses aides, social workers, chaplains and a medical researcher for patients with a terminal condition and a life expectancy of less than 6 months. This is covered by Medicare at 100%/no out of pocket expense to patient and all meds/supplies needed by patient for the reason they are on hospice are paid for/covered by hospice. The goal is assure quality of life of the patient in their home setting (home, long term, inpatient hospice setting) by providing symptoms management, psychosocial and spiritual support. However, they cannot offer 24 hours care and if the family is unable to provide that care, they will have to consider personal care with out of pocket cost vs. long term placement. We discussed the goals of hospice as a patient service and the goals of care; we discussed EOL trajectories and transitions alexandra the emotional impact of realizing mortality as a concrete reality from prior abstract considerations. Pt was reassured that no matter where they are along this trajectory, they are not alone - their medical team will remain by their side through their journey. Discussed the pros/cons of accepting help when especially weakened and distressed by pain-which would also help provide relief/decrease caregiver burden/strain. she was receptive to this so long as it is covered and repeatedly stated she did not have any money left, it is all going to her care facility and she had to sell everything including even her car. She notes this leaves her with nothing to will to her children which makes her feel guilty but she also notes she needed to have a safe place to live and be cared for at this time. We completed her POLST. 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 Palliative Medicine is often conflated with hospice: I advised patient/family that Palliative and hospice can be partners but we are not the same. It is important to understand the difference so that w e may be informed, and not afraid. Palliative Medicine works to improve QOL through reduction of symptom burden/more control over their illness, for both the patient and family. Palliative medicine clinicians are board certified, specially-trained and another member of the patient's medical care team. We often provide an extra layer of support because our care is based on the needs of the patient, not the prognosis; as such, it's appropriate at any age/advancing stage of a serious illness and can be provided along with curative treatment. Palliative Medicine clinicians are also trained in advanced communication methodologies, to facilitate complex discussions about advanced illness planning, which are needed to help assure that the treatment choices match the patient's goals, aka delivering Goal Concordant care. Finally, we discussed that hospice is a visiting nurse service that focuses on care delivered at the very end of life for patients with terminal illness, with life expectancy less than 6 month. (3) Weakness generalized: (4) Dyspnea and respiratory abnormalities: (5) Acute on chronic HFrEF (heart failure with reduced ejection fraction): (6) Aortic stenosis: Cardiac valve disease etiology: etiology unspecified Qualified Code(s): I35.0 - Nonrheumatic aortic (valve) stenosis (7) Hypoxia: (8) CHF (congestive heart failure): Heart failure chronicity: unspecified Heart failure type: unspecified Qualified Code(s): I50.9 - Heart failure, unspecified Plan * ACP as noted above * POLST completed and original is with pt. CAre mgt and nursing aware, recc copy be scanned to [employer] * She is open to hospice if it is covered but not if it is going to cost her anything. CM to follow up * If no hospice can be done then returning with a comfort focus is her goal, assuring good sx mgt and allowing her to make the most of the time she has sending it with her family as much as she can. * GOC clarified and documented above. I will sign off as there are no acute inpatient pall med needs. I am happy to re engage is this changes through this admission, please page me if needed. Thank you for allowing us to participate in the ongoing care of this patient. Please don't hesitate to call or page with any additional concerns. Dr. Lottie Kuhn DNP Director, Palliative Care History of Present Illness Reason for Consultation: advanced heart failure, prefers palliative approach Attending Physician: Trell George MD History of Present Illness Magnolia is an 87yo lady with ICM with LAD wall motion abnormalities, LV systolic function severely reduced; she declined cardiac catheterization, declines ICD for primary prevention, if LV systolic function remains reduced despite treatment. She has acute on chronic heart failure with reduced EF, now with improved volume status. documented GOC [id number]: "I had an extensive discussion with She and her daughter last evening and this afternoon. She prefers a palliative approach . She wants medications to keep her comfortable and relieve her anxiety and dyspnea. When it is her time, which she feels will be soon, she wants to be kept comfortable and not suffer and not be short of breath. She has declined aggressive interventions like angiogram, ICD, and consistently DNR/DNI. We consulted palliative care but not available today. I went over POL with them today and she was clear on DNR/DNI, limited interventions, and no tube feeding. She was back and forth about whether she would want to come back to the hospital to treat acute issues. Said no then said yes. Said "whatever the doctors recommend." Her daughter prompts that she did want to come to the hospital this time. I left them to continue this discussion together and left POLST with her as a guide. If deciding today my interpretation would be "limited additional interventions" but change to comfort measures if having a serious complication and not expected to recover with judicious treatment." Allergies Allergy/AdvReac Type Severity Reaction Status Date / Time duloxetine [From Cymbalta] Allergy Intermediate itching Verified 04/26/23 15:49 hydrocodone [From Lortab] Allergy Intermediate itching Verified 04/26/23 15:49 pregabalin [From Lyrica] Allergy Intermediate itching Verified 04/26/23 15:49 simvastatin Allergy Intermediate Nausea Verified 04/26/23 15:49 Home Medications Medication Instructions Recorded Confirmed Type insulin glargine 100 unit/mL 10 units subcut QAM 05/27/19 04/26/23 History subcutaneous solution (Lantus U-100 Insulin) levothyroxine 75 mcg tablet 75 mcg PO QAM 05/27/19 04/26/23 History (Synthroid) brimonidine 0.2 %-timolol 0.5 % 1 drp OPL BID 10/01/22 04/26/23 History eye drops insulin aspart U-100 100 unit/mL See Rx Instructions .Route .COMPLEX 10/01/22 04/26/23 History (3 mL) subcutaneous pen (Novolog FlexPen U-100 Insulin aspart) latanoprost 0.005 % eye drops 1 drp OPL HS 02/21/23 04/26/23 History ascorbic acid (vitamin C) 500 mg 500 mg PO QAM 03/04/23 04/26/23 History tablet (Vitamin C) aspirin 81 mg capsule 81 mg PO QAM 03/04/23 04/26/23 History multivitamin 1 tab PO QAM 03/04/23 04/26/23 History Saccharomyces boulardii 250 mg 250 mg PO QAM 04/26/23 04/26/23 History capsule (Florastor) acetaminophen 325 mg tablet 650 mg PO Q6H PRN PAIN/FEVER 04/26/23 04/26/23 History (Tylenol) furosemide 20 mg tablet (Lasix) 20 mg PO DAILY PRN WT > 177# 04/26/23 04/26/23 History ipratropium 0.5 mg-albuterol 3 mg 3 ml inhalation Q2H PRN Shortness 04/26/23 04/26/23 History (2.5 mg base)/3 mL nebulization Of Breath Or Wheezing soln isosorbide dinitrate 10 mg tablet 10 mg PO HS 04/26/23 04/26/23 History lorazepam 0.5 mg tablet 0.5 mg PO HS 04/26/23 04/26/23 History lorazepam 0.5 mg tablet 0.5 mg PO Q6H PRN Anxiety 04/26/23 04/26/23 History nitroglycerin 0.4 mg sublingual 0.4 mg sublingual DIRECTED PRN 04/26/23 04/26/23 History tablet (Nitrostat) Chest Pain pravastatin 20 mg tablet 20 mg PO HS 04/26/23 04/26/23 History protein supplement 1 ea PO BIDM 04/26/23 04/26/23 History Patient History Medical History Aortic stenosis Acute on chronic HFrEF (heart failure with reduced ejection fraction) Pneumonia Acute UTI (urinary tract infection) Sepsis MARISA (acute kidney injury) Hypomagnesemia Transaminitis Acute kidney injury Hypomagnesemia Leukocytosis Syncope Peripheral arterial disease Foot deformity Status post partial amputation of foot Loss of protective sensation of skin of foot Diabetes type 2, uncontrolled Diabetic foot ulcer associated with type 2 diabetes mellitus Acquired deformity of left foot Acquired hammer toe of right foot Callus Acquired deformity of right foot Acquired hallux valgus of right foot Acquired claw toe of left foot Pressure ulcer of left leg, stage 3 Diabetic foot ulcer associated with type 2 diabetes mellitus, with fat layer exposed Osteoporosis Hypothyroidism Sinusitis Amputation of left great toe Chronic renal insufficiency, stage III (moderate) PHN (postherpetic neuralgia) Hyperlipidemia LDL goal <100 Herpes zoster HTN (hypertension) Surgical History History of tonsillectomy and adenoidectomy Social History Smoking Status: Never smoker Second Hand Exposure: Yes; Hx Alcohol Use: No Hx Substance Use: No Preferred Language: Nicaraguan Communication Ability: Effective Communication Tools: Letter Board, Picture Board, Facial Expression and Writing Tablet Visual Impairment: No Limitations Hearing Ability: Normal Design Manager Required: No Beliefs That Will Affect Care: None marital status: / Current Living Situation: Care Home Current Living Situation Comment: daugher and current occupational status: 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 [employer] Other Information That Helps Us Care for You: No Feels Safe at Home: Yes Safety Concerns: Feels Safe At This Time Childhood Exposure to Second-Hand Smoke: No Diet: diabetic and low carbohydrate caffeine: Yes (1-2 cups/day) during the past year weight has: decreased > 10 lbs Dental Care, Regularly: No Physical Activity Frequency: 3-4 Times per Week Do you think of yourself as: straight/heterosexual Sexual Activity: has been sexually active, but not for at least 12 months Assistive Devices: Oxygen - Continuous, Walker and Wheelchair Review of Systems Review of Systems: All systems reviewed & are unremarkable except as noted in Subjective Physical Exam Physical Exam: resting in recliner, NAD AAOx3 bitemp wasting perrla, EOMIs neck supple, no stridor resp effort WAL diminished lung sounds, few crackles s1s2, no overt JVD noted abd soft, non tender HAYDEN, strength diminished but equal bilaterally skin pale, cool to touch, no overt cyanosis or mottling Results & Data Vital Signs (Past 12 Hours) Vital Signs Temp Pulse Pulse Resp BP Pulse Ox O2 Del Method 04/30/23 08:00 77 04/30/23 08:00 Nasal Cannula 04/30/23 07:34 36.5 C 79 18 157/90 H 91 Nasal Cannula 04/30/23 02:18 36.5 C 65 16 112/61 93 Nasal Cannula 04/30/23 01:17 63 04/29/23 23:00 36.6 C 58 L 16 116/78 98 Nasal Cannula 04/29/23 22:50 Nasal Cannula O2 Flow Rate 04/30/23 08:00 04/30/23 08:00 2 04/30/23 07:34 2 04/30/23 02:18 04/30/23 01:17 04/29/23 23:00 2 04/29/23 22:50 2 Laboratory Results data reviewed Diagnostic Findings data reviewed PG Care Time/CCT Total # of Minutes Spent Total Time Spent: 120 Total Time Spent with Patient: Total time spent is greater than 50% in coordination of care (as documented) at patient's floor/unit and/or counseling patient: I spent 120 minutes overall addressing this case: 20 min in medical data review/discussion with referring provider(s) and/or preparation for the visit 25 min in direct interaction with the patient/exam 45 min in Advance Care Planning/Goals of Care discussions as detailed above in note (must be >16min) 15 min in subsequent review and synthesis of assessment and plan 15 min communicating with other providers regarding the patient's case: Advanced Care Planning 87329 Advanced Care Planning 30 Min 45485 Advanced Care Planning Additional 30 [place] [address] IN/OBS CONSULT LVL 5,80M Patient Type New History Comprehensive Exam Comprehensive Medical Decision Making High Complexity Diagnoses Advanced care planning/counseling discussion Z71.89 Palliative care by specialist Z51.5 Weakness generalized R53.1 Dyspnea and respiratory abnormalities R06.00; R06.89 Acute on chronic HFrEF (heart failure with reduced ejection fraction) I50.23 Aortic valve stenosis, etiology of cardiac valve disease unspecified I35.0 Cardiac valve disease etiology: etiology unspecified Hypoxia R09.02 CHF (congestive heart failure) I50.9 Heart failure chronicity: unspecified Heart failure type: unspecified Additional Codes Advanced Care Planning - 22702 Advanced Care Planning 30 Min: 79470 Advanced Care Planning 30 Min ([id number]) Advanced Care Planning - 61876 Advanced Care Planning Additional 30 Min: 81706 Advanced Care Planning Additional 30 Min ([id number])
[2023-04-30] MEDS: BRIMONIDINE TARTRATE 0.2% 5ML OP SCH ×2 (11:02→22:25)
[2023-04-30] MEDS ORDERED: FUROSEMIDE 40 MG TAB PO ONE (13:25)
--- NOTE | 2023-04-30 13:27 | Hospitalist Progress Note ---
Date of Service April 30, 2023 Assessment & Plan (1) Acute and chronic respiratory failure with hypoxia: Plan: acute component 2nd to decompensated CHF - now improved chronic component - pulmonary HTN? (2) CHF exacerbation: Plan: echo 04/28 - LVEF 25-30%, mild but could be underestimate, IVC not visualized, akinetic mid/distal anterior wall and apex acute/chronic systolic CHF likely ischemic cardiomyopathy cont lasix - 40mg po x 1 reassess tomorrow not on XAVIER/ARB / aminta / SGLT2 because of highly variable renal function cont coreg BID appreciate cardiology consultation patient does not want coronary angiogram or ICD, prefers palliative approach reassess tomorrow (3) Elevated troponin: Plan: 2nd myocardial demand ischemia in setting of CHF exacerbation Initial high sen trop elevated at 513, then 480 after can't rule out ischemia but less likely (4) Anxiety: Plan: severe ongoing schedule ativan 0.5mg TID cont buspar 10mg TID re-eval tomorrow for response (5) HTN (hypertension): Plan: stable, controlled (6) CAD (coronary artery disease): Plan: cont carvedilol cont ASA, pravastatin can't rule out that brief episodes of dyspnea aren't from CAD (7) DMII (diabetes mellitus, type 2): (8) Hypothyroidism: Plan: Continue levothyroxine Plan DVT ppx: enox 40 sq daily hold off on discharge today re-eval tomorrow left message for pt's daughter on her voicemail Admission and Anticipated Discharge Date Admission Date: April 26, 2023 Subjective patient continues with episodes of dyspnea - often at rest - but no associated chest pain she has ongoing anxiety- quite severe at times this is despite prn use of ativan + buspar TID scheduled she met with palliative care today - plan is back to [facility] with hospice in place eating ok drinking fair tele overnight wnl Review of Systems Review of Systems: gen - no fevers; fatigued/tired cv - no chest pain, no edema pulm - no cough - just dyspnea GI - no abd pain/nausea/emesis Physical Exam Physical Exam: gen - very anxious but otherwise NAD neck - no obvious JVD mouth - MMM heart - 2/6 holosystolic murmur RUSB, RRR, s1 s2 lungs - CTA b/l abd - soft NT ND BS+ ext - no edema, pulses 2+ b/l psych - a/o x 3 but very anxious Results & Data Results & Data Vital Signs (Past 12 Hours) Vital Signs Temp Pulse Pulse Resp BP Pulse Ox O2 Del Method 04/30/23 11:19 36.6 C 74 19 128/54 L 94 Nasal Cannula 04/30/23 08:00 77 04/30/23 08:00 Nasal Cannula 04/30/23 07:34 36.5 C 79 18 157/90 H 91 Nasal Cannula 04/30/23 02:18 36.5 C 65 16 112/61 93 Nasal Cannula O2 Flow Rate 04/30/23 11:19 2 04/30/23 08:00 04/30/23 08:00 2 04/30/23 07:34 2 04/30/23 02:18 Laboratory Results Laboratory Results - last 24 hr 04/29/23 04/29/23 04/30/23 16:59 20:16 03:44 Sodium 139 Potassium 3.6 Chloride 100 Carbon Dioxide 31 Anion Gap 8 BUN 32 H Creatinine 1.24 H Est Cr Clr Drug Dosing 33.6 Est GFR ( Amer) 45.9 Est GFR (Non-Af Amer) 39.6 BUN/Creatinine Ratio 25.8 H Glucose 121 H POC Glucose 173 H 202 H Calcium 8.3 L 04/30/23 04/30/23 07:45 11:47 Sodium Potassium Chloride Carbon Dioxide Anion Gap BUN Creatinine Est Cr Clr Drug Dosing Est GFR ( Amer) Est GFR (Non-Af Amer) BUN/Creatinine Ratio Glucose POC Glucose 130 H 169 H Calcium PG Care Time/CCT Total # of Minutes Spent Total Time Spent with Patient: Total time spent is greater than 50% in coordination of care (as documented) at patient's floor/unit and/or counseling patient: Coding Level of Care Code 17670 SUB INP/OBS CARE 2/35MIN Diagnoses Acute and chronic respiratory failure with hypoxia J96.21 CHF exacerbation I50.9 Elevated troponin R77.8 Anxiety F41.9 HTN (hypertension) I10 CAD (coronary artery disease) I25.10 DMII (diabetes mellitus, type 2) E11.9 Hypothyroidism E03.9
[2023-04-30] MEDS: LORazepam 0.5 MG TAB PO SCH ×2 (14:19→22:29)
--- NOTE | 2023-04-30 15:46 | Cardiology Progress Note ---
Date of Service April 30, 2023 Assessment & Plan (1) Acute on chronic HFrEF (heart failure with reduced ejection fraction): (2) Ischemic cardiomyopathy: (3) HTN (hypertension): (4) Dyslipidemia: (5) Hypoxia: (6) Elevated troponin: (7) Aortic stenosis: Plan ASSESSMENT/PLAN: 1. Acute on chronic heart failure with reduced EF: She does not appear hypervolemic. Labs appeared azotemic yesterday and improved today. Was given a dose of p.o. Lasix 40 mg today by the hospitalist service. Monitor renal function and electrolytes. Will likely require Lasix 20 mg or 40 mg once daily to maintain reasonable quality of life from a breathing standpoint. Intravenous Lasix last dose on 04/28/2023 p.m. Continue carvedilol 3.125 mg twice daily. She had been on metoprolol succinate 100 mg daily in February 2023 and had bradycardia. Titrate slowly as able. Had mild renal insufficiency on more aggressive therapy in February 2023. If renal function normalizes and remained stable, could consider Entresto low-dose in the future but reportedly entering hospice care. Entresto not initiated at this time while awaiting improved renal function, given what happened in February 2023. No spironolactone or SGLT2 inhibitor for now given more recent renal issues with more aggressive therapy. Perhaps these medications can be slowly introduced over time. Low-sodium diet, less than 2000 mg daily. Daily weights. Strict I's and O's. 2. Cardiomyopathy: Presumed to be ischemic given LAD wall motion abnormalities. LV systolic function now severely reduced. She has declined cardiac catheterization. She states that she declines ICD for primary prevention, if LV systolic function remains reduced despite treatment. 3. Hypertension: Blood pressure is reasonably controlled. Continue current regimen. 4. Aortic stenosis: Nonsevere. Can follow over time. 5. Hypoxia: Diuresis. 6. Elevated troponin: Likely due to heart failure exacerbation and may have underlying CAD based on echo wall motion abnormalities. No angina. She did not present with acute coronary syndrome. 7. Dyslipidemia: Continue statin therapy. Consider high intensity statin therapy if tolerated. 8. Disposition: Please call with any other questions or concerns. Patient's primary marine pilot, Dr. Ly, can resume her care tomorrow if further assistance is needed. Patient care communicated with Dr. Siuta of the primary hospitalist service. Was informed that she is returning to her care facility on hospice. Can be seen in the cardiology office if further assistance is needed. She has been followed in the heart failure program and also with Dr. Ly. Admission and Anticipated Discharge Date Admission Date: April 26, 2023 Subjective Patient seen earlier this afternoon. She admits that her breathing has improved. She denies shortness of breath at that time. She denies chest pain, syncope, near syncope, palpitations. She once again inquired about Ativan. Her anxiety medication is being managed by hospitalist service. Palliative care consultation was performed today and final note is pending. She was unaccompanied. Physical Exam Physical Exam: Gen.: No acute distress. Alert. HEENT: Anicteric sclera. Neck: No JVD. No hepatojugular reflux. Cardiac: No ventricular heave. Regular. Normal S1-S2. 2/6 systolic ejection murmur. No rubs or gallops. Pulmonary: Decreased breath sounds and otherwise bibasilar rales. Abdomen: Soft, nontender, nondistended, with normoactive bowel sounds. No bruits noted. Extremities: 2+ radial pulses bilaterally. Bilateral lower extremity digit amputations. No significant edema. Results & Data Vital Signs (Past 12 Hours) Vital Signs Temp Pulse Pulse Resp BP Pulse Ox O2 Del Method 04/30/23 15:39 68 04/30/23 15:36 36.6 C 63 18 120/65 98 Nasal Cannula 04/30/23 11:19 36.6 C 74 19 128/54 L 94 Nasal Cannula 04/30/23 08:00 77 04/30/23 08:00 Nasal Cannula 04/30/23 07:34 36.5 C 79 18 157/90 H 91 Nasal Cannula O2 Flow Rate 04/30/23 15:39 04/30/23 15:36 2 04/30/23 11:19 2 04/30/23 08:00 04/30/23 08:00 2 04/30/23 07:34 2 Intake & Output 04/28/23 04/29/23 04/30/23 05/01/23 06:59 06:59 06:59 06:59 Intake Total 700 / 700 1090 / 1090 1230 / 1230 360 / 360 Output Total 1901 / 1901 2402 / 2402 1400 / 1400 550 / 550 Balance -1201 / -1201 -1312 / -1312 -170 / -170 -190 / -190 Weight 166 lb 0.129 oz 165 lb 5.547 oz 164 lb 0.383 oz Laboratory Results Laboratory Results - last 24 hr 04/29/23 04/29/23 04/30/23 16:59 20:16 03:44 Sodium 139 Potassium 3.6 Chloride 100 Carbon Dioxide 31 Anion Gap 8 BUN 32 H Creatinine 1.24 H Est Cr Clr Drug Dosing 33.6 Est GFR ( Amer) 45.9 Est GFR (Non-Af Amer) 39.6 BUN/Creatinine Ratio 25.8 H Glucose 121 H POC Glucose 173 H 202 H Calcium 8.3 L 04/30/23 04/30/23 07:45 11:47 Sodium Potassium Chloride Carbon Dioxide Anion Gap BUN Creatinine Est Cr Clr Drug Dosing Est GFR ( Amer) Est GFR (Non-Af Amer) BUN/Creatinine Ratio Glucose POC Glucose 130 H 169 H Calcium Diagnostic Findings Telemetry personally reviewed: Sinus rhythm. No arrhythmia. Labs from 04/30/2023 reviewed and demonstrated mildly abnormal but improved renal function, normal potassium. Medications Administered Current Inpatient Medications Acetaminophen (Acetaminophen 325 Mg Tab) 650 mg PO Q6H PRN PRN Reason: PAIN(1-4)/FEVER Stop: 05/26/23 17:31 Last Admin: 04/29/23 20:56 Dose: 650 mg Albuterol (Albut/Ipratrop 3mg/0.5mg Neb 3 Ml Vial) 3 ml INH Q2H PRN; Protocol PRN Reason: Shortness Of Breath Or Wheezing Stop: 05/26/23 17:31 Last Admin: 04/28/23 05:22 Dose: 3 ml Aspirin (Aspirin 81 Mg Ectab) 81 mg PO QAM [facility] Stop: 05/27/23 08:59 Last Admin: 04/30/23 08:23 Dose: 81 mg Brimonidine Tartrate (Brimonidine Tartrate 0.2% 5ml) 1 drops OP BID [facility] Stop: 05/29/23 20:59 Last Admin: 04/30/23 11:02 Dose: 1 drops Buspirone HCl (Buspirone 5 Mg Tab) 10 mg PO TID [facility] Stop: 05/28/23 20:59 Last Admin: 12/19/23 14:19 Dose: 10 mg Carvedilol (Carvedilol 3.125 Mg Tab) 3.125 mg PO BIDM [facility] Stop: 05/28/23 16:59 Last Admin: 04/30/23 07:55 Dose: 3.125 mg Dextrose (Dextrose 50% 50 Ml Syringe) 25 - 50 ml IV UD PRN; Protocol PRN Reason: Hypoglycemia Protocol Stop: 05/26/23 16:34 Enoxaparin Sodium (Enoxaparin Inj 30 Mg/0.3 Ml Syr) 30 mg SQ Q24H [facility] Stop: 05/29/23 20:59 Last Admin: 04/29/23 20:53 Dose: 30 mg Furosemide (Furosemide 40 Mg/4 Ml Vial) 40 mg IV BID [facility] Stop: 05/28/23 20:59 Last Admin: 04/28/23 20:45 Dose: 40 mg Glucagon (Glucagon For Inj 1 Mg Vial) 1 mg SQ UD PRN; Protocol PRN Reason: Hypoglycemia Protocol Stop: 05/26/23 16:34 Glucose (Glucose 10 Tab/Tube) 4 - 8 tab PO UD PRN; Protocol PRN Reason: Hypoglycemia Treatment Stop: 05/26/23 16:34 Glucose (Glucose 40% Gel 15 Gm Tube) 15 - 30 gm PO UD PRN; Protocol PRN Reason: Hypoglycemia Protocol Stop: 05/26/23 16:34 Guaifenesin (Guaifenesin 600 Mg Tabcr) 600 mg PO Q12 PRN PRN Reason: Congestion Stop: 05/26/23 20:59 Insulin Aspart (Insulin Aspart Per Unit Charge) 0 units SC ACHS [facility] Stop: 05/26/23 20:59 Last Admin: 04/30/23 12:44 Dose: 1 units Insulin Glargine (Lantus Per Unit Charge) 10 units SQ DAILY [facility] Stop: 05/29/23 08:59 Last Admin: 04/30/23 08:30 Dose: 10 units Latanoprost (Latanoprost 0.005% Op Soln 2.5 Ml Btl) 1 drops OPL HS [facility] Stop: 05/26/23 20:59 Last Admin: 04/29/23 20:53 Dose: 1 drops Levothyroxine Sodium (Levothyroxine Sodium 75 Mcg Tablet) 75 mcg PO DAILYBB [facility] Stop: 05/27/23 06:29 Last Admin: 04/30/23 05:49 Dose: 75 mcg Lorazepam (Lorazepam 0.5 Mg Tab) 0.5 mg PO TID [facility] Stop: 05/30/23 13:59 Last Admin: 04/30/23 14:19 Dose: 0.5 mg Melatonin (Melatonin 3 Mg Tab) 3 mg PO HS PRN PRN Reason: Sleep Stop: 05/28/23 16:48 Last Admin: 04/29/23 20:56 Dose: 3 mg Miscellaneous (Carbohydrates For Hypoglycemia ) 15 - 30 gm PO UD PRN PRN Reason: Hypoglycemia Protocol Stop: 05/26/23 16:34 Miscellaneous (Order Awaiting Action) 1 each N/A QS [facility] Stop: 05/27/23 00:00 Last Admin: 04/29/23 11:59 Dose: Not Given Multivitamins (Multivitamin Tab) 1 tab PO QAM [facility] Stop: 05/27/23 08:59 Last Admin: 04/30/23 08:24 Dose: 1 tab Pravastatin Sodium (Pravastatin Sod 20 Mg Tab) 20 mg PO HS [facility] Stop: 05/26/23 20:59 Last Admin: 04/29/23 20:54 Dose: 20 mg Sodium Chloride (Sodium Chloride 0.65% Na Soln 45 Ml ([place])) 2 sprays NA Q6 PRN PRN Reason: Dryness Stop: 05/28/23 05:33 Last Admin: 04/28/23 05:47 Dose: 2 sprays Timolol Maleate (Timolol Maleate 0.5% Op Soln 5 Ml Btl) 1 drops OP BID [facility] Stop: 05/29/23 20:59 Last Admin: 04/30/23 08:24 Dose: 1 drops PG Care Time/CCT Total # of Minutes Spent Total Time Spent with Patient: Total time spent is greater than 50% in coordination of care (as documented) at patient's floor/unit and/or counseling patient: Coding Level of Care Code 55602 SUB INP/OBS CARE 3/50MIN Diagnoses Acute on chronic HFrEF (heart failure with reduced ejection fraction) I50.23 Ischemic cardiomyopathy I25.5 HTN (hypertension) I10 Dyslipidemia E78.5 Hypoxia R09.02 Elevated troponin R79.89 Aortic stenosis I35.0
[2023-04-30] MEDS: ACETAMINOPHEN 325 MG TAB PO PRN (17:14)
[2023-04-30] MEDS: ENOXAPARIN INJ 30 MG/0.3 ML SYR SQ SCH (22:25)
[2023-04-30] MEDS: PRAVASTATIN SOD 20 MG TAB PO SCH (22:27)
[2023-04-30] MEDS: LATANOPROST 0.005% OP SOLN 2.5 ML BTL OPL SCH (22:27)
[2023-05-01] MEDS: LEVOTHYROXINE SODIUM 75 MCG TABLET PO SCH (04:53)
[2023-05-01 06:48] LABS: BUN Creatinine Ratio 26.3 (10-20); Calcium 8.5 mg/dl (8.6-10.3); Creatinine Clr Calc Pharmacy 30.5 ml/min; Est GFR (African American) 40.7 ml/min; Est GFR (Non-African American) 35.1 ml/min; Potassium 3.7 mmol/L (3.5-5.1)
[2023-05-01] MEDS: LORazepam 0.5 MG TAB PO SCH ×4 (07:57→20:08)
[2023-05-01] MEDS: busPIRone 5 MG TAB PO SCH ×3 (07:58→20:03)
[2023-05-01] MEDS: ASPIRIN 81 MG ECTAB PO SCH (07:58)
[2023-05-01] MEDS: carvediloL 3.125 MG TAB PO SCH ×2 (07:59→16:51)
[2023-05-01] MEDS: MULTIVITAMIN TAB PO SCH (07:59)
[2023-05-01] MEDS: BRIMONIDINE TARTRATE 0.2% 5ML OP SCH ×2 (07:59→20:03)
[2023-05-01] MEDS: TIMOLOL MALEATE 0.5% OP SOLN 5 ML BTL OP SCH ×2 (08:00→20:05)
[2023-05-01] MEDS: ACETAMINOPHEN 325 MG TAB PO PRN ×2 (08:47→20:08)
[2023-05-01] MEDS: INSULIN ASPART PER UNIT CHARGE SC SCH ×4 (08:47→20:22)
[2023-05-01] MEDS: LANTUS PER UNIT CHARGE SQ SCH (08:48)
[2023-05-01] MEDS ORDERED: ISOSORBIDE DINITRATE 10 MG TAB PO SCH (12:30)
[2023-05-01] MEDS: ISOSORBIDE DINITRATE 10 MG TAB PO SCH (13:31)
[2023-05-01] MEDS: LATANOPROST 0.005% OP SOLN 2.5 ML BTL OPL SCH (20:02)
[2023-05-01] MEDS: PRAVASTATIN SOD 20 MG TAB PO SCH (20:02)
[2023-05-01] MEDS: ENOXAPARIN INJ 30 MG/0.3 ML SYR SQ SCH (20:05)
[2023-05-01] MEDS: MELATONIN 3 MG TAB PO PRN (20:24)
--- NOTE | 2023-05-01 22:35 | Hospitalist Progress Note ---
Date of Service May 01, 2023 Assessment & Plan (1) Acute and chronic respiratory failure with hypoxia: Plan: acute component 2nd to decompensated CHF - improved; BUN & Cr both mildly elevated suggesting an element of intra-vascular volume depletion; hold on lasix today chronic component - pulmonary HTN? (2) CHF exacerbation: Plan: echo 04/28 - LVEF 25-30%, mild but could be underestimate, IVC not visualized, akinetic mid/distal anterior wall and apex acute/chronic systolic CHF likely ischemic cardiomyopathy BUN & cr mildly high today - hold any lasix for today not on XAVIER/ARB / aminta / SGLT2 because of highly variable renal function cont coreg BID appreciate cardiology consultation patient does not want coronary angiogram or ICD, prefers palliative approach reassess tomorrow (3) Elevated troponin: Plan: 2nd myocardial demand ischemia in setting of CHF exacerbation Initial high sen trop elevated at 513, then 480 after can't rule out ischemia but less likely (4) Anxiety: Plan: severe ongoing increase scheduled ativan to 0.5mg QID cont buspar 10mg TID re-eval tomorrow for response consider SSRI (5) HTN (hypertension): Plan: stable, controlled (6) CAD (coronary artery disease): Plan: presumed cont carvedilol cont ASA, pravastatin can't rule out that brief episodes of dyspnea aren't from CAD to that end will add isosorbide dinitrate - 10mg BID (7) DMII (diabetes mellitus, type 2): (8) Hypothyroidism: Plan: Continue levothyroxine Plan DVT ppx: enox 40 sq daily hold off on discharge again today re-eval tomorrow left message for pt's daughter on her voicemail last pm lengthy discussion today with patient re: hospice some of her goals for her care are not 100% in alignment with hospice, and still other goals are indeed in alignment I asked her to think about her desires/goals and to let us know tomorrow what she prefers to do at discharge sent [place] correspondence to Dr Kuhn from palliative care re: the above also corresponded with Dr Cardona from cardiology Admission and Anticipated Discharge Date Admission Date: April 26, 2023 Subjective patient still with significant anxiety had anxiety this am just sitting in the chair watching TV she continues with episodes of dyspnea - also at rest nothing seems to provoke these spells of anxiety / dyspnea during our discussion she mentions wanting to continue seeing her eye doctors, receiving treatments for glaucoma, etc she doesn't want to lose her vision in the left eye for fear of not being able to see her grand-children she is distraught about talking about hospice "I'm tired about talking about and dying!" we continued to discuss whether she is ready for hospice at one point, however, she said "I pray that the good Lord just takes me fast" Review of Systems Review of Systems: cv - no chest pain pulm - no cough GI - no abd pain/nausea/emesis Physical Exam Physical Exam: gen - sitting in chair, continues to be very anxious, otherwise NAD neck - no obvious JVD mouth - MMM heart - 2/6 holosystolic murmur RUSB, RRR, s1 s2 lungs - CTA b/l abd - soft NT ND BS+ ext - no edema, pulses 2+ b/l psych - a/o x 3, anxious Results & Data Results & Data Vital Signs (Past 12 Hours) Vital Signs Temp Pulse Resp BP Pulse Ox O2 Del Method O2 Flow Rate 05/01/23 20:50 Nasal Cannula 2 05/01/23 20:17 36.6 C 68 18 130/71 97 Nasal Cannula 2 05/01/23 15:35 36.3 C L 68 20 115/62 97 Nasal Cannula 2 05/01/23 10:58 36.4 C L 72 17 124/69 94 Nasal Cannula, Mechanical Vent 2 Laboratory Results Laboratory Results - last 48 hr 04/30/23 04/30/23 04/30/23 07:45 11:47 16:38 Sodium Potassium Chloride Carbon Dioxide Anion Gap BUN Creatinine Est Cr Clr Drug Dosing Est GFR ( Amer) Est GFR (Non-Af Amer) BUN/Creatinine Ratio Glucose POC Glucose 130 H 169 H 190 H Calcium 04/30/23 05/01/23 05/01/23 20:14 05:54 07:56 Sodium 140 Potassium 3.7 Chloride 102 Carbon Dioxide 32 Anion Gap 6 BUN 36 H Creatinine 1.37 H Est Cr Clr Drug Dosing 30.5 Est GFR ( Amer) 40.7 Est GFR (Non-Af Amer) 35.1 BUN/Creatinine Ratio 26.3 H Glucose 135 H POC Glucose 196 H 158 H Calcium 8.5 L 05/01/23 05/01/2323 11:23 16:16 20:13 Sodium Potassium Chloride Carbon Dioxide Anion Gap BUN Creatinine Est Cr Clr Drug Dosing Est GFR ( Amer) Est GFR (Non-Af Amer) BUN/Creatinine Ratio Glucose POC Glucose 232 H 139 H 183 H Calcium PG Care Time/CCT Total # of Minutes Spent Total Time Spent with Patient: Total time spent is greater than 50% in coordination of care (as documented) at patient's floor/unit and/or counseling patient: Coding Level of Care Code 37541 SUB INP/OBS CARE 3/50MIN Diagnoses Acute and chronic respiratory failure with hypoxia J96.21 CHF exacerbation I50.9 Elevated troponin R77.8 Anxiety F41.9 HTN (hypertension) I10 CAD (coronary artery disease) I25.10 DMII (diabetes mellitus, type 2) E11.9 Hypothyroidism E03.9
[2023-05-02] MEDS: ISOSORBIDE DINITRATE 10 MG TAB PO SCH ×2 (05:40→12:01)
[2023-05-02] MEDS: LEVOTHYROXINE SODIUM 75 MCG TABLET PO SCH (05:40)
[2023-05-02 06:32] LABS: BUN Creatinine Ratio 28.2 (10-20); Calcium 8.5 mg/dl (8.6-10.3); Creatinine Clr Calc Pharmacy 31.5 ml/min; Est GFR (African American) 42.9 ml/min; Magnesium 1.9 mg/dl (1.7-2.4)
[2023-05-02] MEDS: LORazepam 0.5 MG TAB PO SCH ×2 (08:12→12:07)
[2023-05-02] MEDS: busPIRone 5 MG TAB PO SCH ×2 (08:13→13:34)
[2023-05-02] MEDS: MULTIVITAMIN TAB PO SCH (08:13)
[2023-05-02] MEDS: ASPIRIN 81 MG ECTAB PO SCH (08:13)
[2023-05-02] MEDS: carvediloL 3.125 MG TAB PO SCH (08:13)
[2023-05-02] MEDS: TIMOLOL MALEATE 0.5% OP SOLN 5 ML BTL OP SCH (08:14)
[2023-05-02] MEDS: BRIMONIDINE TARTRATE 0.2% 5ML OP SCH (08:14)
[2023-05-02] MEDS: INSULIN ASPART PER UNIT CHARGE SC SCH ×2 (09:07→12:10)
[2023-05-02] MEDS: LANTUS PER UNIT CHARGE SQ SCH (09:08)
[2023-05-02] MEDS: ACETAMINOPHEN 325 MG TAB PO PRN (09:09)
[2023-05-02] MEDS ORDERED: FUROSEMIDE 20 MG TAB PO ONE (11:30)
--- NOTE | 2023-05-02 12:17 | Discharge Summary ---
Date of Service date of admission - April 26, 2023 date of discharge - May 02, 2023 Admission HPI Per Admitting Provider Magnolia is an 87 year old female with a PMH significant for HFrEF (LVEF of 40% as of 02/22/23), cardiomyopathy, chronic hypoxic respiratory failure on 2L NC prn, insulin-dependent type 2 diabetes, hypertension, dyslipidemia, hypothyroidism and osteoporosis who presented to the [facility] from [facility] on 04/26 with complaints of SOB and hypoxia in the 80's on her baseline 2L NC prn. On arrival she was noted to be hypoxic at 88% on 2L NC but otherwise stable. Labs were significant for a leukocytosis of 10.9 with neutrophil predominance of 8.66, initial high sen trop of 513, BNP of 4559 (Up from 3006 as of 04/19), and Covid 19/RSV/Influenza negative. Chest xray was read as "1. Cardiomegaly with evidence of congestive failure and pulmonary edema. 2. Layering pleural effusions with dependent consolidation.". ECG showed NSR with sinus arrthymia and age indeterminate anterior infarct but was without acute ST segment or T- wave changes. Prior to admission the patient was given 2 inches of nitroglycerin paste. Per chart review, the patient was recently admitted from 03/04-03/14 for Acute hypoxic respiratory failure, CHF exacerbation, bradycardia, MARISA on CKD, and herpes zoster infection. Her hypoxic respiratory failure was attributed to her CHF exacerbation as her BNP was elevated, CXR showed pulmonary edema, and ECHO showed reduced LVEF of 40% with new akinesis of the mid and distal anterior wall, as-well-as the entire apex. She was initially started on IV lasix. She developed an MARISA, because of this lasix, Jardiance , spironolactone and Entresto were discontinued as recommended by cardiology. Cardiology recommended cardiac cath for further evaluation but the patient declined further workup. During her admission she experienced bradycardia with sinus pauses. This was thought to be due to her metoprolol which was subsequently discontinued by Cardiology. She completed a course of acyclovir for her herpes zoster infection on the lower back. Due to her worsening clinical status and patient's decline of further cardiac evaluation outpatient palliative med referral was placed. Prior to discharge the patient was started on Pravastatin. The patient was seen in the Heart Failure clinic on 03/18. At that time her weight was 72 kg, she was without respiratory complaints and had not been requiring her prn 20 mg PO lasix. Per the clinic note, the patient preferred minimal medical management at that time. At the time of the exam the patient was sitting up in bed complaining of significant SOB. She is currently stable on 5L NC with family at bedside. After adequate coaching with her breathing her anxiety significantly improved. She states that she has been getting progressively SOB over the past 2-3 weeks. She states that she has been having progressive MORRISON and recently has been experiencing significant orthopnea. She states that [facility] has not been giving her lasix but they do have her on a sodium restricted diet. She states that they do not have her on a fluid restriction and she drinks "alot" of tea. She has been having increased congestion with right ear pressure but denies recent fever. She denies any recent chest pain with her other symptoms and has been experiencing a non-productive cough. We discussed her not wanting to have a cardiac cath last admission; she states "I didn't say that I never want one. The hydropress operator said that the contrast would hurt my kidneys if I had one last admission". She is willing to discuss possible cardiac cath if needed. Her appetite has been poor recently. She states that the chronic wounds on her right heel and left berg are being monitored at [facility] and healing well. She confirms that she is a DNR/DNI and her daughter is her POA. Principal Diagnosis 1. acute on chronic systolic congestive heart failure (EF 25-30%) 2. likely ischemic cardiomyopathy 3. high suspicion for underlying coronary artery disease 4. severe anxiety disorder 5. chronic respiratory failure on home oxygen 6. pulmonary hypertension 7. hypothyroidism 8. diabetes mellitus Discharge Exam gen - sitting in chair, looks good today, NAD neck - no obvious JVD mouth - MMM heart - 2/6 holosystolic murmur RUSB, RRR, s1 s2 lungs - CTA b/l, modestly decreased BS bases abd - soft NT ND BS+ ext - no edema, pulses 2+ b/l psych - a/o x 3, anxious Discharge Data Allergies Allergy/AdvReac Type Severity Reaction Status Date / Time duloxetine [From Cymbalta] Allergy Intermediate itching Verified 05/07/23 11:27 hydrocodone [From Lortab] Allergy Intermediate itching Verified 05/07/23 11:27 pregabalin [From Lyrica] Allergy Intermediate itching Verified 05/07/23 11:27 simvastatin Allergy Intermediate Nausea Verified 05/07/23 11:27 Consultations [facility] Cardiology [facility] CHF Program [facility] Palliative Care Procedures Performed Echocardiogram: Ordered Studies Chest X-Ray 04/26/23 13:11 SINGLE VIEW CHEST CLINICAL HISTORY: Atypical chest pain. Dyspnea. Wheezing. FINDINGS: An AP, portable, upright chest radiograph is compared to study dated 03/04/2023 and correlated with chest CT dated 02/21/2023. The heart is enlarged noting atherosclerotic calcification of the thoracic aorta. There is pulmonary vascular congestion with evidence of interstitial edema. There are layering pleural effusions with dependent consolidation. No pneumothorax is seen. The skeletal structures are osteopenic. The bony thorax is grossly intact. Advanced arthritic change is seen in the shoulders. Calcific tendinopathy is noted on the left. Spondylotic change is seen in the spine. IMPRESSION: 1. Cardiomegaly with evidence of congestive failure and pulmonary edema. 2. Layering pleural effusions with dependent consolidation. ACT 112: Negative or not required by law. Electronically signed by: Spike Valera M.D. 04/26/2023 1:53 PM Hospital Course (1) Acute and chronic respiratory failure with hypoxia: acute component 2nd to decompensated CHF - improved with IV diuresis chronic component - 2nd to pulmonary HTN, pleural effusions, other? remains on 2 liters NC O2 continuously at time of discharge (2) CHF exacerbation: Echo 04/28/23 - EF 25-30%, mild but could be underestimate, akinetic mid/distal anterior wall and apex Echo 02/2023 showed EF 40% thus there has been a worsening of her LV function Echo findings highly supportive of an ischemic cardiomyopathy During the stay she was given IV diuresis [facility] Cardiology was consulted who provided alexander recommendations for her care not on XAVIER/ARB / spironolactone / SGLT2 inhibitor because of highly variable renal function (creatinine clearance 30 or less most times) patient has consistently told us she does not want an ischemic work-up with cardiac catheterization, ICD placement, etc symptoms improved with IV diuresis there was a modest rise in BUN and Cr late in the stay thus IV diuresis was stopped just before discharge although there were discussions about potentially returning to SNF with hospice the patient was not ready to initiate such thus, she will continue routine cardiac care upon discharge discharge recommendations - 1. coreg 3.125mg BID 2. lasix 20mg qam 3. pravastatin 20mg daily 4. isosorbide dinitrate (for presumed ischemia/anginal type symptoms) 10mg BID 5. daily weights 6. fluid restriction (1500cc/day) 7. salt restriction (2gm/day) 8. f/u with SAMSON Carrillo - [facility] CHF clinic - within a week of discharge (3) Elevated troponin: 2nd myocardial demand ischemia in setting of CHF exacerbation Initial high sen trop elevated at 513, then 480 after can't rule out ischemia from CAD, however in fact she had episodes of dyspnea - sometimes at rest - that could represent angina to that tend her isosorbide dinitrate was increased to 10mg BID again - of note - patient has declined invasive testing including cardiac catheterization (4) Anxiety: severe ongoing worries about numerous things - her vision, family matters, her health, etc her anxiety is severe to the point that it makes her dyspneic increased scheduled ativan to 0.5mg QID continue buspar 10mg TID consider SSRI if anxiety remains refractory (5) HTN (hypertension): stable, controlled with low-dose coreg BID + isosorbide dinitrate BID (6) CAD (coronary artery disease): presumed see discussions above cont carvedilol cont ASA, pravastatin can't rule out that brief episodes of dyspnea aren't from CAD to that end increased isosorbide dinitrate to 10mg BID patient declining cardiac catheterization (7) DMII (diabetes mellitus, type 2): Hba1c 6.7% in 02/2023 lantus 10 units daily + loose novolog sliding scale with meals only (8) Hypothyroidism: Continue levothyroxine TSH 2 in 04/2023 (9) Advanced care planning/counseling discussion: Patient was seen by Dr Lottie Kuhn, palliative care Lengthy discussions were held with Mrs Gould regarding goals of care POLST form was completed DNR/DNI status was confirmed However, patient was very consistent in telling us that she wished for "more time" with her family - especially her grandchildren She also was consistent about continuing routine eye care for her glaucoma, treating her chronic medical problems, etc. Although returning to [facility] with hospice was discussed the patient ultimately decided she was not ready for such Thus, she will return to [facility] with initial plan to continue all routine care including returning to the hospital if she falls ill again Of note - pt's severe anxiety plays a significant role in her day to day living and, at times, made decision making very difficult Total Time Total Time Spent Total Time Spent (In Minutes): 40 Discharge Plan Discharge Items Patient Disposition: Transfer [facility] Reason For Visit: Congestive heart failure Discharge Diagnosis: 1. acute systolic congestive heart failure 2. likely ischemic cardiomyopathy 3. high suspicion for underlying coronary artery disease 4. severe anxiety 5. chronic respiratory failure on home oxygen 6. pulmonary hypertension 7. hypothyroidism 8. diabetes mellitus Activity: As commented below Activity Comment: light activities as tolerated Non-emergency contact: Primary Care Provider and Indirect Sales Exec Call non-emergency contact if: you have any medication questions and your symptoms worsen Follow-up/Referrals: Kathleen Schmitt PA-C [Physician Bit Gatherer] - 05/07/23 11:00 am () Safia Shukla MD [Primary Care Provider] - Diet: Carb Consistent or DM2 and Heart Healthy Fluids: 1500ml (6 cups) Addtl Attending Provider Instructions: Mrs Gould was hospitalized for acute on chronic respiratory failure due to decompensated congestive heart failure. She was diuresed with IV lasix. Repeat echocardiogram showed that her EF has worsened since previous echo done in 02/2023; EF is now 25-30%. Severe anxiety was treated with a combination of buspar and ativan. Shortness of breath was presumed to be due to pulmonary edema. We cannot rule out that her shortness of breath episodes are from underlying/suspected coronary disease. Therefore we increased her isosorbide to twice daily dosing. Recommendations - 1. Daily standing scale weights; notify manager medical affairs if there is weight gain of more than 2-3 pounds over 1-2 days. 2. BSGs AC and HS. 3. Continue NC O2 - 2 liters continuously. 4. Palliative care consultation/ongoing discussions -- possible transition to hospice status in the future. 5. BMP and magnesium level in 3-4 days for stability. Results to manager medical affairs. 6. Patient asks to follow-up with her local eye provider; please set up that appointment in the next 2-3 weeks. Diagnosis - glaucoma, visual loss. 7. See SAMSON Carrillo -- [facility] CHF clinic -- 1 week if possible. It was our pleasure caring for Ms Gould! Pending Studies at Discharge: No Stand-Alone Forms: My [facility] [address] Skilled Items Patient informed of condition?: Yes DNR: Yes Discharge Level of Care: Skilled Communicable Disease: No Discharge Prognosis: Other Lines: None Urinary Catheter: No Medications and DC Order Prescriptions: New melatonin 3 mg Tablet 3 mg PO HS Qty: 90 0RF buspirone 10 mg tablet 10 mg PO TID Qty: 90 0RF carvedilol 3.125 mg Tablet 3.125 mg PO BIDM Qty: 60 2RF Continued levothyroxine [Synthroid] 75 mcg tablet 75 mcg PO QAM Lantus U-100 Insulin 100 unit/mL solution 10 units SQ QAM latanoprost 0.005 % drops 1 drp OPL HS multivitamin Tablet 1 tab PO QAM ascorbic acid (vitamin C) [Vitamin C] 500 mg Tablet 500 mg PO QAM aspirin 81 mg capsule 81 mg PO QAM ipratropium-albuterol 0.5 mg-3 mg(2.5 mg base)/3 mL Solution For Nebulization 3 ml INHALATION Q2H PRN (Reason: Shortness Of Breath Or Wheezing) nitroglycerin [Nitrostat] 0.4 mg Tablet, Sublingual 0.4 mg sublingual DIRECTED PRN (Reason: Chest Pain) Rx Instructions: EVERY 5 MIN. FOR CHEST PAIN NEEDED. Saccharomyces boulardii [Florastor] 250 mg Capsule 250 mg PO QAM protein supplement Liquid 1 ea PO BIDM Rx Instructions: GIVE 30 ML BID. pravastatin 20 mg tablet 20 mg PO HS brimonidine-timolol 0.2-0.5 % drops 1 drp OPL BID Changed isosorbide dinitrate 10 mg Tablet 10 mg PO BID Qty: 60 0RF Rx Instructions: give at 7am and 12noon each day. acetaminophen [Tylenol] 325 mg Tablet 650 mg PO TID MDD 3 GRAMS APAP/24 HOURS Qty: 90 0RF lorazepam 0.5 mg Tablet 0.5 mg PO QID Qty: 120 0RF Rx Instructions: STARTED 04/23/23 FOR 14 DAYS. ENDS 05/08/23. furosemide [Lasix] 20 mg Tablet 20 mg PO QAM Qty: 30 2RF insulin aspart U-100 [Novolog FlexPen U-100 Insulin] 100 unit/mL (3 mL) insulin pen See Rx Instructions .ROUTE .COMPLEX Qty: 15 0RF Rx Instructions: use only at meal-time; avoid bed-time use. BSG goal range 120-160. Correction factor 30. No carbohydrate coverage. Discontinued lorazepam 0.5 mg Tablet 0.5 mg PO HS Discharge Orders: Discharge Order (Routine); Ordered 05/02/23 Ordered By: Trell George Admission Data Admit Date/Time: 04/26/23 15:39 Attending Provider: Trell George Admit Provider: Trell Uriarte Primary Care Provider: Safia Shukla Other Providers: Trell Uriarte; James Greer; Joshua Mcclendon; Miky Ly; Conner Green; Ayaz Pavon; Jose Ramon Shook Jr; Uli Cardona; Natalie Candelaria; Faby Bates; Richie Wall; Richie Bianchi; Bam Patel; Kathleen Schmitt; Lauren Hernandez; Martin Tipton; Dheeraj Zayas; Conner Centeno V.; Thor Garcia; [facility]; Lottie Kuhn. Other Interventions: Discharge Summary Assessment (RN) Last Done: 05/02/23 12:22 Coding Level of Care Code 73813 INP/OBS DISCH >30 MIN Diagnoses Acute and chronic respiratory failure with hypoxia J96.21 CHF exacerbation I50.9 Elevated troponin R77.8 Anxiety F41.9 HTN (hypertension) I10 CAD (coronary artery disease) I25.10 DMII (diabetes mellitus, type 2) E11.9 Hypothyroidism E03.9 Advanced care planning/counseling discussion Z71.89
--- NOTE | 2023-05-14 12:40 | Coding Query ---
CODING QUERY To promote full compliance with coding requirements relating to patient care, provider participation is requested in all cases of health information coder uncertainty. Please assist us with the question(s) below: Coding Question(s): Pt admitted with acute/chronic CHF & acute/chronic respiratory failure. Cardiology consult ruled out acute coronary symptoms. 04/29 hospitalist progtess note :Type 2 GA secondary to myocardial demand ischemia. . Discharge Summary stated "elevated troponin 2nd to Myocardial demanid ischemia Seeking to clarify the demand ischemia. Please check below the diagnosis that was treated/consulted for during this admission. Thanks for your help! Henry Roberson CONSULTING SOLUTION DIRECTOR [facility] Physician's Response(s): Myocardial Type 2 demand ischemia POA Demand Ischemia POA x Other/ Please document: Myocardial demand ischemia was due to acute/chronic congestive heart failure - present on admission Principal Diagnosis: "that condition established after study, to be chiefly responsible for occasioning the admission of the patient to the hospital for care." Co-Existing Principal Diagnosis: "when two or more diagnoses equally meet the criteria for principal diagnosis as determined by the circumstances of admission, diagnostic work up, and/or therapy provided, and the Alphabetic Index, Tabular List, or another coding guideline does not provide sequencing direction, any one of the diagnoses may be sequenced first." "When the physician has documented what appears to be a current diagnosis in the body of the record, but has not included the diagnosis in the final diagnostic statement, the physician should be asked whether the diagnosis should be added." (Source Coding Clinic 2 QTR90. p3-4) CLARIBEL
== END 2023-05-02 15:28 | DRG 291 ==
LOC: ED 13:01 → SUATTDRO 15:39 → 4W 15:39

== ENCOUNTER 2023-05-21 17:35 | Inpatient (IN) ==
[2023-05-21 18:24] LABS: Basophils # (auto) 0.04 K/uL (0.00-0.20); Basophils % (auto) 0.6 %; Eosinophils # (auto) 0.24 K/uL (0.00-0.50); Eosinophils % (auto) 3.5 %; Hematocrit (blood only) 33.1 % (37.0-47.0); Hemoglobin 10.7 g/dl (12.0-16.0); Immature Granulocytes # (auto) 0.02 K/uL (0.01-0.20); Immature Granulocytes % (auto) 0.3 %; Lymphocytes # (auto) 1.07 K/uL (1.20-3.40); Lymphocytes % (auto) 15.5 %; Mean Corpuscular Hemoglobin 29.6 pg (25.0-34.0); Mean Corpuscular Hgb Conc 32.3 g/dL (32.0-36.0); Mean Corpuscular Volume 91.4 fL (80.0-100.0); Mean Platelet Volume 10.6 fL (9.4-12.4); Monocytes % (auto) 8.7 %; Neutrophils # (auto) 4.93 K/uL (1.40-6.50); Neutrophils % (auto) 71.4 %; Platelet Count 255 K/uL (130-400); RDW Coefficient of Variation 14.1 % (11.5-14.5); RDW Standard Deviation 47.4 fL (36.4-46.3); Red Blood Count 3.62 M/uL (4.20-5.40)
--- NOTE | 2023-05-21 18:39 | XRay Report ---
XR chest 1V portable CLINICAL HISTORY: Chest pain, nonspecific TECHNIQUE: Single frontal radiograph of the chest was obtained. Comparison: None available at the time of this dictation. FINDINGS: No lines and tubes are seen. Calcified aortic knob is seen. The lungs are clear. Small bilateral pleu ral effusions are seen. IMPRESSION: Small bilateral pleural effusions. ACT 112: Negative or not required by law. Electronically signed by: Brenden Alvarez M.D. 05/21/2023 6:37 PM
[2023-05-21 18:42] LABS: Albumin Globulin Ratio 1.1 (0.9-2); Albumin Level 3.8 gm/dl (3.4-5.0); BUN Creatinine Ratio 21.1 (10-20); Bilirubin,Total 0.4 mg/dl (0.2-1.0); Calcium 9.3 mg/dl (8.6-10.3); Creatinine Clr Calc Pharmacy 35.3 ml/min; Est GFR (African American) 46.3 ml/min; Globulin 3.6 gm/dl (2.5-4.0); Potassium 4.6 mmol/L (3.5-5.1); Total Protein 7.4 gm/dl (6.0-8.3)
[2023-05-21 18:47] LABS: Troponin I High Sensitivity 39.4 pg/ml (0-14)
[2023-05-21] MEDS ORDERED: FUROSEMIDE 40 MG/4 ML VIAL IV STA (18:52)
--- NOTE | 2023-05-21 18:58 | Emergency Department Note ---
Impression & Plan Chest pain, Elevated troponin, Shortness of breath, CHF (congestive heart failure) ED Provider Note NAME: ANDREW LOWE AGE: 87 SEX: F : 1935 ARRIVES VIA: Ambulance INFORMANT: Patient ED PROVIDER(S): Mac Diaz DO CHIEF COMPLAINT: shortness of breath HPI: Patient is an 87-year-old female with past medical history of aortic stenosis, CHF, diabetes, MARISA, currently on 2 L nasal cannula presents ER for chest pain shortness of breath. She notes shortness of breath has been getting worse over the past 3 days. Denies any headache or change in vision. Does have runny nose and a little cough. No belly pain. No nausea vomiting or diarrhea. No dysuria urgency or frequency. Per report from EMS she has not been taking her Lasix. ADDITIONAL HISTORY OBTAINED: Per HPI Chronic Medical/Social Conditions Affecting Care: Per HPI PAST MEDICAL HISTORY:See Below PAST SURGICAL HISTORY:See Below FAMILY HISTORY:See Below SOCIAL HISTORY:See Below HOME MEDICATIONS:See Below ALLERGIES:See Below VITALS:See Below PHYSICAL EXAMINATION: GENERAL: Sitting up in bed, alert, well appearing, well nourished, no distress, non-toxic EYE EXAM: normal conjunctiva. OROPHARYNX: nmucous membranes are moist NECK: supple, no nuchal rigidity, no adenopathy, non-tender LUNGS: Diminished bases. Normal chest wall mechanics HEART: no murmurs, S1 normal and S2 normal ABDOMEN: abdomen soft, non-tender, normo-active bowel sounds, no masses, no rebound or guarding. UPPER EXTREMITIES: upper extremities are grossly normal. LOWER EXTREMITIES: Pitting edema bilaterally NEURO EXAM: Normal sensorium, cranial nerves II-XII grossly intact, normal speech, no gross weakness of arms, no gross weakness of legs. MEDICAL DECISION MAKING: Patient is a 87-year-old female who presents the ER for shortness of breath and chest pain. Currently asymptomatic on chronic 2 L nasal cannula. IV was established blood work is obtained. Labs show no significant leukocytosis. Hemoglobin of 10.7. BMP with creatinine 1.3. LFTs bilirubin was unremarkable. Troponin was initially elevated at 30 and trended up to 50. BNP elevated at 3600. Bilateral pleural effusions on chest x-ray. EKG was nondiagnostic. She was given Lasix. She was updated bedside. Discussed with the hospitalist admitted for further workup. Consults/Care Managements Discussions: Per MDM Triage Nursing notes reviewed. Limited review of prior medical records performed Vital Signs: reviewed and remarkable for HTN Differential diagnosis: Differential diagnoses includes but is not limited to pneumonia, bronchitis, COPD/Asthma exacerbation, pneumothorax, pulmonary embolism, congestive heart failure, acute coronary syndrome ER treatment provided: See below Diagnostics interpreted by me include EKG and cardiac monitoring as listed below: -Cardiac Monitoring: An order was placed for continuous cardiac monitoring. The monitor shows a rate of 85 with sinus rhythm. -ECG: Sinus rhythm rate 89 Normal axis No PVCs -Laboratory studies:Interpreted by me as stated above in MDM and shown below. Imaging studies: Xrays: As interpreted by me: Portable AP upright 1 view of the chest shows bilateral pleural effusions CTs show: none Procedures:none Critical Care: None Past Med/Surg History Medical History Aortic stenosis Acute on chronic HFrEF (heart failure with reduced ejection fraction) Pneumonia Acute UTI (urinary tract infection) Sepsis MARISA (acute kidney injury) Hypomagnesemia Transaminitis Acute kidney injury Hypomagnesemia Leukocytosis Syncope Peripheral arterial disease Foot deformity Status post partial amputation of foot Loss of protective sensation of skin of foot Diabetes type 2, uncontrolled Diabetic foot ulcer associated with type 2 diabetes mellitus Acquired deformity of left foot Acquired hammer toe of right foot Callus Acquired deformity of right foot Acquired hallux valgus of right foot Acquired claw toe of left foot Pressure ulcer of left leg, stage 3 Diabetic foot ulcer associated with type 2 diabetes mellitus, with fat layer exposed Osteoporosis Hypothyroidism Sinusitis Amputation of left great toe Chronic renal insufficiency, stage III (moderate) PHN (postherpetic neuralgia) Hyperlipidemia LDL goal <100 Herpes zoster HTN (hypertension) Surgical History History of tonsillectomy and adenoidectomy Social History Smoking Status: Never smoker Second Hand Exposure: Yes; Hx Alcohol Use: No Hx Substance Use: No Preferred Language: Vincentian Communication Ability: Effective Communication Tools: Letter Board, Picture Board, Facial Expression and Writing Tablet Visual Impairment: No Limitations Hearing Ability: Normal Inspector And Clipper Required: No Beliefs That Will Affect Care: None marital status: / Current Living Situation: Alf Current Living Situation Comment: daugher and current occupational status: 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 [employer] Feels Safe at Home: Yes Childhood Exposure to Second-Hand Smoke: No Diet: diabetic and low carbohydrate caffeine: Yes (1-2 cups/day) during the past year weight has: decreased > 10 lbs Dental Care, Regularly: No Physical Activity Frequency: 3-4 Times per Week Do you think of yourself as: straight/heterosexual Sexual Activity: has been sexually active, but not for at least 12 months Assistive Devices: Oxygen - Continuous, Walker and Wheelchair Allergies Allergies Allergy/AdvReac Type Severity Reaction Status Date / Time duloxetine [From Cymbalta] Allergy Intermediate itching Verified 05/21/23 18:20 hydrocodone [From Lortab] Allergy Intermediate itching Verified 05/21/23 18:20 pregabalin [From Lyrica] Allergy Intermediate itching Verified 05/21/23 18:20 simvastatin Allergy Intermediate Nausea Verified 05/21/23 18:20 Home Meds Home Medications Medication Instructions Recorded Confirmed insulin glargine 100 unit/mL 10 units subcut QAM 05/27/19 05/21/23 subcutaneous solution (Lantus U-100 Insulin) levothyroxine 75 mcg tablet 75 mcg PO QAM 05/27/19 05/21/23 (Synthroid) brimonidine 0.2 %-timolol 0.5 % 1 drp OPL BID 10/01/22 05/21/23 eye drops latanoprost 0.005 % eye drops 1 drp OPL HS 02/21/23 05/21/23 ascorbic acid (vitamin C) 500 mg 500 mg PO QAM 03/04/23 05/21/23 tablet (Vitamin C) aspirin 81 mg capsule 81 mg PO QAM 03/04/23 05/21/23 multivitamin 1 tab PO QAM 03/04/23 05/21/23 Saccharomyces boulardii 250 mg 250 mg PO QAM 04/26/23 05/21/23 capsule (Florastor) ipratropium 0.5 mg-albuterol 3 mg 3 ml inhalation Q2H PRN Shortness 04/26/23 05/21/23 (2.5 mg base)/3 mL nebulization Of Breath Or Wheezing soln nitroglycerin 0.4 mg sublingual 0.4 mg sublingual DIRECTED PRN 04/26/23 05/21/23 tablet (Nitrostat) Chest Pain pravastatin 20 mg tablet 20 mg PO HS 04/26/23 05/21/23 protein supplement 1 ea PO BIDM 04/26/23 05/21/23 acetaminophen 500 mg tablet 1,000 mg PO TID 05/21/23 05/21/23 (Tylenol Extra Strength) calcium carbonate 200 mg calcium 400 mg PO Q2H PRN GERD/INDIGESTION 05/21/23 05/21/23 (500 mg) chewable tablet (Tums) furosemide 20 mg tablet (Lasix) 20 mg PO DAILY PRN IF WT > 165# 05/21/23 05/21/23 furosemide 20 mg tablet (Lasix) 20 mg PO QAM 05/21/23 05/21/23 insulin aspart U-100 100 unit/mL 0 sliding scale dose subcut ACHS 05/21/23 05/21/23 (3 mL) subcutaneous pen (Novolog FlexPen U-100 Insulin aspart) loperamide 2 mg capsule 2 mg PO DIRECTED PRN LOOSE 05/21/23 05/21/23 STOOLS loratadine 10 mg tablet (Claritin) 10 mg PO QAM 05/21/23 05/21/23 meloxicam 7.5 mg tablet 7.5 mg PO Q12H PRN Pain 05/21/23 05/21/23 menthol 0.44 %-zinc oxide 20.6 % 1 applic topical TID 05/21/23 05/21/23 topical ointment (Calmoseptine) sodium hypochlorite 0.125 % 1 applic topical BID 05/21/23 05/21/23 solution (Dakin's Solution) Previous Rx's Medication Instructions Recorded buspirone 10 mg tablet 10 mg PO TID #90 tabs 05/02/23 carvedilol 3.125 mg tablet 3.125 mg PO BIDM #60 tabs 05/02/23 isosorbide dinitrate 10 mg tablet 10 mg PO BID #60 tabs 05/02/23 lorazepam 0.5 mg tablet 0.5 mg PO QID Anxiety #120 tabs 05/02/23 melatonin 3 mg tablet 3 mg PO HS #90 tabs 05/02/23 Results & Data (ED) Vital Signs Vital Signs - 24 hr 05/21/23 17:50 05/21/23 17:50 05/21/23 18:04 Temperature 36.6 C Temperature Source Temporal Artery Scan Pulse Rate 87 91 H Respiratory Rate 22 24 Respiratory Effort / Characteristics Non-Labored Spontaneous Respiratory Depth Normal Blood Pressure 144/80 H Blood Pressure Mean 101 Pulse Oximetry 92 93 93 Oxygen Delivery Method Nasal Cannula Nasal Cannula Nasal Cannula Oxygen Flow Rate 2 2 2 Sepsis Recent Fever Within 48 Hours No Sepsis New/Unexplained Change in Mental Status No Sepsis Action Taken by Nursing No Action Required 05/21/23 18:20 Temperature Temperature Source Pulse Rate 89 Respiratory Rate Respiratory Effort / Characteristics Respiratory Depth Blood Pressure Blood Pressure Mean Pulse Oximetry Oxygen Delivery Method Oxygen Flow Rate Sepsis Recent Fever Within 48 Hours Sepsis New/Unexplained Change in Mental Status Sepsis Action Taken by Nursing Laboratory Data 05/21/23 17:57 05/21/23 17:57 Lab Results 05/21/23 05/21/23 05/21/23 Range/Units 17:57 19:50 20:33 WBC 6.90 (4.8-10.8) K/ul RBC 3.62 L (4.20-5.40) M/uL Hgb 10.7 L (12.0-16.0) g/dl Hct 33.1 L (37.0-47.0) % MCV 91.4 (80.0-100.0) fL MCH 29.6 (25.0-34.0) pg MCHC 32.3 (32.0-36.0) g/dL RDW Std Deviation 47.4 H (36.4-46.3) fL RDW Coeff of Bert 14.1 (11.5-14.5) % Plt Count 255 (130-400) K/uL MPV 10.6 (9.4-12.4) fL Immature Gran % (Auto) 0.3 % Neut % (Auto) 71.4 % Lymph % (Auto) 15.5 % [place] % (Auto) 8.7 % Eos % (Auto) 3.5 % Baso % (Auto) 0.6 % Neut # (Auto) 4.93 (1.40-6.50) K/uL Lymph # (Auto) 1.07 L (1.20-3.40) K/uL [place] # (Auto) 0.60 H (0.11-0.59) K/uL Eos # (Auto) 0.24 (0.00-0.50) K/uL Baso # (Auto) 0.04 (0.00-0.20) K/uL Immature Gran # (Auto) 0.02 (0.01-0.20) K/uL Sodium 138 (136-145) mmol/L Potassium 4.6 (3.5-5.1) mmol/L Chloride 105 (98-107) mmol/L Carbon Dioxide 26 (21-32) mmol/L Anion Gap 7 (3-11) BUN 26 H (6-23) mg/dl Creatinine 1.23 H (0.6-1.2) mg/dl Est Cr Clr Drug Dosing 35.3 ml/min Est GFR ( Amer) 46.3 ml/min Est GFR (Non-Af Amer) 40.0 ml/min BUN/Creatinine Ratio 21.1 H (10-20) Glucose 206 H (70-99(Fasting)) mg/dl Calcium 9.3 (8.6-10.3) mg/dl Total Bilirubin 0.4 (0.2-1.0) mg/dl AST 17 (13-39) U/L ALT 11 (7-52) U/L Alkaline Phosphatase 90 (34-104) U/L Troponin I High Sens 39.4 H 49.6 H D (0-14) pg/ml B-Natriuretic Peptide 3671 H (0-100) pg/ml Total Protein 7.4 (6.0-8.3) gm/dl Albumin 3.8 (3.4-5.0) gm/dl Globulin 3.6 (2.5-4.0) gm/dl Albumin/Globulin Ratio 1.1 (0.9-2) Lipase 10 L (11-82) U/L SARS-CoV-2, RNA, NAAT NEGATIVE (NEGATIVE) Administered Medications Discontinued Medications Furosemide (Furosemide 40 Mg/4 Ml Vial) 40 mg IV NOW STA Stop: 05/21/23 18:53 Last Admin: 05/21/23 19:27 Dose: 40 mg Documented By: AB Imaging Data Radiologist's Impression: Chest X-Ray 05/21/23 17:59 XR chest 1V portable CLINICAL HISTORY: Chest pain, nonspecific TECHNIQUE: Single frontal radiograph of the chest was obtained. Comparison: None available at the time of this dictation. FINDINGS: No lines and tubes are seen. Calcified aortic knob is seen. The lungs are clear. Small bilateral pleural effusions are seen. IMPRESSION: Small bilateral pleural effusions. ACT 112: Negative or not required by law. Electronically signed by: Brenden Alvarez M.D. 05/21/2023 6:37 PM Discharge Plan Visit Data Chief Complaint: Shortness of Breath/Dyspnea ED Provider: Mac Diaz Discharge Problem: Chest pain, Elevated troponin, Shortness of breath, CHF (congestive heart failure) Forms Stand Alone Forms: [facility] qLearning, Suicide Prevention Resources Prescriptions Prescriptions: No Action levothyroxine [Synthroid] 75 mcg tablet 75 mcg PO QAM Lantus U-100 Insulin 100 unit/mL solution 10 units SQ QAM latanoprost 0.005 % drops 1 drp OPL HS multivitamin Tablet 1 tab PO QAM ascorbic acid (vitamin C) [Vitamin C] 500 mg Tablet 500 mg PO QAM aspirin 81 mg capsule 81 mg PO QAM ipratropium-albuterol 0.5 mg-3 mg(2.5 mg base)/3 mL Solution For Nebulization 3 ml INHALATION Q2H PRN (Reason: Shortness Of Breath Or Wheezing) nitroglycerin [Nitrostat] 0.4 mg Tablet, Sublingual 0.4 mg sublingual DIRECTED PRN (Reason: Chest Pain) Rx Instructions: EVERY 5 MIN. FOR CHEST PAIN NEEDED. Saccharomyces boulardii [Florastor] 250 mg Capsule 250 mg PO QAM protein supplement Liquid 1 ea PO BIDM Rx Instructions: GIVE 30 ML BID. pravastatin 20 mg tablet 20 mg PO HS melatonin 3 mg Tablet 3 mg PO HS Qty: 90 0RF buspirone 10 mg tablet 10 mg PO TID Qty: 90 0RF Rx Instructions: 0230, 1430 & 2230 isosorbide dinitrate 10 mg Tablet 10 mg PO BID Qty: 60 0RF lorazepam 0.5 mg Tablet 0.5 mg PO QID Qty: 120 0RF carvedilol 3.125 mg Tablet 3.125 mg PO BIDM Qty: 60 2RF loperamide [Imodium] 2 mg Capsule 2 mg PO DIRECTED MDD 10 MG/24 HOURS PRN (Reason: LOOSE STOOLS) acetaminophen [Tylenol Extra Strength] 500 mg Tablet 1,000 mg PO TID MDD 3 GRAMS APAP/24 HOURS Rx Instructions: 0830, 1230 & 1630 meloxicam 7.5 mg Tablet 7.5 mg PO Q12H PRN (Reason: Pain) furosemide [Lasix] 20 mg Tablet 20 mg PO DAILY PRN (Reason: IF WT > 165#) loratadine [Claritin] 10 mg Tablet 10 mg PO QAM calcium carbonate [Tums] 200 mg calcium (500 mg) Tablet,Chewable 400 mg PO Q2H PRN (Reason: GERD/INDIGESTION) Dakin's Solution 0.125 % Solution 1 applic TOPICAL BID Rx Instructions: APPLY TO RIGHT HEEL, CLEANSE WITH SOLUTION, THEN MOISTEN GAUZE WITH SOLUTION AND COVER WITH MORE GAUZE. menthol-zinc oxide [Calmoseptine] 0.44-20.6 % Ointment 1 applic TOPICAL TID Rx Instructions: APPLY TO BUTTOCKS FOR WOUND CARE. furosemide [Lasix] 20 mg tablet 20 mg PO QAM insulin aspart U-100 [Novolog FlexPen U-100 Insulin] 100 unit/mL (3 mL) insulin pen 0 sliding scale dose subcut ACHS Rx Instructions: BSG 350-400=8 UNITS, BSG 401-450=12 UNITS, BSG 451-500=16 UNITS, BSG 501- 550=18 UNITS. RECHECK BSG IN 2 HRS. brimonidine-timolol 0.2-0.5 % drops 1 drp OPL BID Referrals Referrals: [facility] [Primary Care Provider] - Discharge Problem: Chest pain Qualifiers: Chest pain type: unspecified Qualified Code(s): R07.9 - Chest pain, unspecified CHF (congestive heart failure) Qualifiers: Heart failure type: unspecified Heart failure chronicity: unspecified Qualified Code(s): I50.9 - Heart failure, unspecified
--- NOTE | 2023-05-21 20:04 | History & Physical Report ---
Date of Service May 21, 2023 Assessment & Plan (1) Acute on chronic HFrEF (heart failure with reduced ejection fraction): (2) Pleural effusion, bilateral: (3) Aortic stenosis: (4) Elevated troponin: (5) DMII (diabetes mellitus, type 2): (6) Skin lesion of lower extremity: (7) Dyspnea and respiratory abnormalities: (8) Weakness generalized: Plan Acute on chronic HFrEF/bilateral pleural effusions/elevated troponin/history of NSTEMI/aortic stenosis- The patient will be admitted to telemetry for serial cardiac enzymes, serial EKG's, cardiac rhythm monitoring and a 2-D echocardiogram with Dopplers. Given Lasix 40 mg IV in ED Continue Lasix 40 mg IV every morning, holding oral 20 mg dose Follow serial CBC with differential, renal function panel and magnesium levels Troponin 39.4 on admission, follow serially BNP 3671 Nasal cannula oxygen, titrate to keep pulse ox around 94% Continue carvedilol 3.125 mg p.o. twice daily, aspirin 81 mg every morning, isosorbide dinitrate 10 mg p.o. twice daily Hold meloxicam Diabetes mellitus- Glucose 206 on admission Continue glargine 10 units subcu every morning Placed on Accu-Cheks with NovoLog SSI Check hemoglobin A1c Lower extremity skin wounds- Secondary to mechanical trauma/scratching due to itch She has been using Neosporin, which likely is contributing to a secondary allergic response due to the neomycin Advised use of Polysporin/double antibiotic instead Anxiety- Continue lorazepam 0.5 mg p.o. 4 times daily as needed History of Present Illness Chief Complaint: The patient presents to the emergency department with complaint of worsening shortness of breath and dyspnea on exertion over the past 3 days. Primary Care Provider: [facility] The patient is a 87-year-old female with a past medical history including aortic stenosis, HFrEF, anxiety, diabetes mellitus type 2, CKD, dyslipidemia, history of NSTEMI, pleural effusions and diabetic peripheral neuropathy. She was most recently admitted from 04/26-05/02/2023, and was most recently seen in the heart failure clinic on 05/07/2023. She presents to the emergency department with similar symptoms, noted shortness of breath for the past 3 days and dyspnea on exertion. In the emergency department, chest x-ray revealed slightly worsened bilateral pleural effusions, and CHF pattern, was given furosemide 40 mg IV by the ED, and then referred for evaluation for admission. Significant laboratories: Troponin 39.4, BNP 3671, hemoglobin 10.7, hematocrit 33.1, glucose 206 and creatinine 1.23. Allergies Allergy/AdvReac Type Severity Reaction Status Date / Time duloxetine [From Cymbalta] Allergy Intermediate itching Verified 05/21/23 18:20 hydrocodone [From Lortab] Allergy Intermediate itching Verified 05/21/23 18:20 pregabalin [From Lyrica] Allergy Intermediate itching Verified 05/21/23 18:20 simvastatin Allergy Intermediate Nausea Verified 05/21/23 18:20 Home Medications Medication Instructions Recorded Confirmed Type insulin glargine 100 unit/mL 10 units subcut QAM 05/27/19 05/21/23 History subcutaneous solution (Lantus U-100 Insulin) levothyroxine 75 mcg tablet 75 mcg PO QAM 05/27/19 05/21/23 History (Synthroid) brimonidine 0.2 %-timolol 0.5 % 1 drp OPL BID 10/01/22 05/21/23 History eye drops latanoprost 0.005 % eye drops 1 drp OPL HS 02/21/23 05/21/23 History ascorbic acid (vitamin C) 500 mg 500 mg PO QAM 03/04/23 05/21/23 History tablet (Vitamin C) aspirin 81 mg capsule 81 mg PO QAM 03/04/23 05/21/23 History multivitamin 1 tab PO QAM 03/04/23 05/21/23 History Saccharomyces boulardii 250 mg 250 mg PO QAM 04/26/23 05/21/23 History capsule (Florastor) ipratropium 0.5 mg-albuterol 3 mg 3 ml inhalation Q2H PRN Shortness 04/26/23 05/21/23 History (2.5 mg base)/3 mL nebulization Of Breath Or Wheezing soln nitroglycerin 0.4 mg sublingual 0.4 mg sublingual DIRECTED PRN 04/26/23 05/21/23 History tablet (Nitrostat) Chest Pain pravastatin 20 mg tablet 20 mg PO HS 04/26/23 05/21/23 History protein supplement 1 ea PO BIDM 04/26/23 05/21/23 History buspirone 10 mg tablet 10 mg PO TID #90 tabs 05/02/23 05/21/23 Rx carvedilol 3.125 mg tablet 3.125 mg PO BIDM #60 tabs 05/02/23 05/21/23 Rx isosorbide dinitrate 10 mg tablet 10 mg PO BID #60 tabs 05/02/23 05/21/23 Rx lorazepam 0.5 mg tablet 0.5 mg PO QID Anxiety #120 tabs 05/02/23 05/21/23 Rx melatonin 3 mg tablet 3 mg PO HS #90 tabs 05/02/23 05/21/23 Rx acetaminophen 500 mg tablet 1,000 mg PO TID 05/21/23 05/21/23 History (Tylenol Extra Strength) calcium carbonate 200 mg calcium 400 mg PO Q2H PRN GERD/INDIGESTION 05/21/23 05/21/23 History (500 mg) chewable tablet (Tums) furosemide 20 mg tablet (Lasix) 20 mg PO DAILY PRN IF WT > 165# 05/21/23 05/21/23 History furosemide 20 mg tablet (Lasix) 20 mg PO QAM 05/21/23 05/21/23 History insulin aspart U-100 100 unit/mL 0 sliding scale dose subcut ACHS 05/21/23 05/21/23 History (3 mL) subcutaneous pen (Novolog FlexPen U-100 Insulin aspart) loperamide 2 mg capsule 2 mg PO DIRECTED PRN LOOSE 05/21/23 05/21/23 History STOOLS loratadine 10 mg tablet (Claritin) 10 mg PO QAM 05/21/23 05/21/23 History meloxicam 7.5 mg tablet 7.5 mg PO Q12H PRN Pain 05/21/23 05/21/23 History menthol 0.44 %-zinc oxide 20.6 % 1 applic topical TID 05/21/23 05/21/23 History topical ointment (Calmoseptine) sodium hypochlorite 0.125 % 1 applic topical BID 05/21/23 05/21/23 History solution (Dakin's Solution) Past Med/Surg History Medical History Aortic stenosis Acute on chronic HFrEF (heart failure with reduced ejection fraction) Pneumonia Acute UTI (urinary tract infection) Sepsis MARISA (acute kidney injury) Hypomagnesemia Transaminitis Acute kidney injury Hypomagnesemia Leukocytosis Syncope Peripheral arterial disease Foot deformity Status post partial amputation of foot Loss of protective sensation of skin of foot Diabetes type 2, uncontrolled Diabetic foot ulcer associated with type 2 diabetes mellitus Acquired deformity of left foot Acquired hammer toe of right foot Callus Acquired deformity of right foot Acquired hallux valgus of right foot Acquired claw toe of left foot Pressure ulcer of left leg, stage 3 Diabetic foot ulcer associated with type 2 diabetes mellitus, with fat layer exposed Osteoporosis Hypothyroidism Sinusitis Amputation of left great toe Chronic renal insufficiency, stage III (moderate) PHN (postherpetic neuralgia) Hyperlipidemia LDL goal <100 Herpes zoster HTN (hypertension) Surgical History History of tonsillectomy and adenoidectomy Social History Smoking Status: Never smoker Second Hand Exposure: Yes; Hx Alcohol Use: No Hx Substance Use: No Preferred Language: Panamanian Communication Ability: Effective Communication Tools: Letter Board, Picture Board, Facial Expression and Writing Tablet Visual Impairment: No Limitations Hearing Ability: Normal [employer] Hcm Consultant Required: No Beliefs That Will Affect Care: None marital status: / Current Living Situation: Residential Current Living Situation Comment: daugher and current occupational status: 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 [employer] Feels Safe at Home: Yes Childhood Exposure to Second-Hand Smoke: No Diet: diabetic and low carbohydrate caffeine: Yes (1-2 cups/day) during the past year weight has: decreased > 10 lbs Dental Care, Regularly: No Physical Activity Frequency: 3-4 Times per Week Do you think of yourself as: straight/heterosexual Sexual Activity: has been sexually active, but not for at least 12 months Assistive Devices: Oxygen - Continuous, Walker and Wheelchair Review of Systems Review of Systems: The patient denies chest pain, palpitations, sore throat, fevers, chills, sweats, nausea, vomiting, diarrhea , constipation, abdominal pain, pelvic pain, blood in urine or stool, dysuria, urinary frequency or urgency, lightheadedness, dizziness, headache, memory loss, loss of consciousness, abnormal bruising or bleeding, focal or generalized weakness, numbness or tingling in arms or legs, generalized arthralgias or myalgias, back or neck pain, or night sweats. The review of systems is otherwise negative other than for that already noted above, and at least 10 systems have been reviewed. Physical Exam Physical Exam: The patient is awake, alert and oriented 3, well developed and well nourished, normocephalic and atraumatic, lying in bed and in no acute distress. HEENT--PERRL, EOMI, mucous membranes and oropharynx normal. Neck--supple. No JVD. No bruits. Thyroid normal, trachea midline, no adenopathy. Heart--normal S1 and S2. No murmurs, rubs or gallops. Lungs--crackles at the bases bilaterally. No respiratory distress, no accessory muscle use. Abdomen--normal bowel sounds and soft. Nontender. Nondistended, no hernias or masses, no organomegaly. Extremities--2+ bilateral pretibial pitting edema Dermatologic--multiple excoriated areas bilateral lower extremities from scratching Neurologic--cranial nerves II through XII grossly intact. Rheumatologic--normal range of motion. Psychiatric--normal affect. Results & Data Results & Data Vital Signs (Past 12 Hours) Vital Signs Temp Pulse Resp BP Pulse Ox O2 Del Method O2 Flow Rate 05/21/23 18:20 89 05/21/23 18:04 91 H 24 93 Nasal Cannula 2 05/21/23 17:50 93 Nasal Cannula 2 05/21/23 17:50 36.6 C 87 22 144/80 H 92 Nasal Cannula 2 Laboratory Results Laboratory Results WBC 6.90 K/ul (4.8-10.8) 05/21/23 17:57 RBC 3.62 M/uL (4.20-5.40) L 05/21/23 17:57 Hgb 10.7 g/dl (12.0-16.0) L 05/21/23 17:57 Hct 33.1 % (37.0-47.0) L 05/21/23 17:57 MCV 91.4 fL (80.0-100.0) 05/21/23 17:57 MCH 29.6 pg (25.0-34.0) 05/21/23 17:57 MCHC 32.3 g/dL (32.0-36.0) 05/21/23 17:57 RDW Std Deviation 47.4 fL (36.4-46.3) H 05/21/23 17:57 RDW Coeff of Bert 14.1 % (11.5-14.5) 05/21/23 17:57 Plt Count 255 K/uL (130-400) 05/21/23 17:57 MPV 10.6 fL (9.4-12.4) 05/21/23 17:57 Immature Gran % (Auto) 0.3 % 05/21/23 17:57 Neut % (Auto) 71.4 % 05/21/23 17:57 Lymph % (Auto) 15.5 % 05/21/23 17:57 [place] % (Auto) 8.7 % 05/21/23 17:57 Eos % (Auto) 3.5 % 05/21/23 17:57 Baso % (Auto) 0.6 % 05/21/23 17:57 Neut # (Auto) 4.93 K/uL (1.40-6.50) 05/21/23 17:57 Lymph # (Auto) 1.07 K/uL (1.20-3.40) L 05/21/23 17:57 [place] # (Auto) 0.60 K/uL (0.11-0.59) H 05/21/23 17:57 Eos # (Auto) 0.24 K/uL (0.00-0.50) 05/21/23 17:57 Baso # (Auto) 0.04 K/uL (0.00-0.20) 05/21/23 17:57 Immature Gran # (Auto) 0.02 K/uL (0.01-0.20) 05/21/23 17:57 Sodium 138 mmol/L (136-145) 05/21/23 17:57 Potassium 4.6 mmol/L (3.5-5.1) 05/21/23 17:57 Chloride 105 mmol/L (98-107) 05/21/23 17:57 Carbon Dioxide 26 mmol/L (21-32) 05/21/23 17:57 Anion Gap 7 (3-11) 05/21/23 17:57 BUN 26 mg/dl (6-23) H 05/21/23 17:57 Creatinine 1.23 mg/dl (0.6-1.2) H 05/21/23 17:57 Est Cr Clr Drug Dosing 35.3 ml/min 05/21/23 17:57 Est GFR ( Amer) 46.3 ml/min 05/21/23 17:57 Est GFR (Non-Af Amer) 40.0 ml/min 05/21/23 17:57 BUN/Creatinine Ratio 21.1 (10-20) H 05/21/23 17:57 Glucose 206 mg/dl (70-99(Fasting)) H 05/21/23 17:57 Calcium 9.3 mg/dl (8.6-10.3) 05/21/23 17:57 Total Bilirubin 0.4 mg/dl (0.2-1.0) 05/21/23 17:57 AST 17 U/L (13-39) 05/21/23 17:57 ALT 11 U/L (7-52) 05/21/23 17:57 Alkaline Phosphatase 90 U/L (34-104) 05/21/23 17:57 Troponin I High Sens 49.6 pg/ml (0-14) H D 05/21/23 19:50 B-Natriuretic Peptide 3671 pg/ml (0-100) H 05/21/23 17:57 Total Protein 7.4 gm/dl (6.0-8.3) 05/21/23 17:57 Albumin 3.8 gm/dl (3.4-5.0) 05/21/23 17:57 Globulin 3.6 gm/dl (2.5-4.0) 05/21/23 17:57 Albumin/Globulin Ratio 1.1 (0.9-2) 05/21/23 17:57 Lipase 10 U/L (11-82) L 05/21/23 17:57 Impressions Chest X-Ray 05/21/23 17:59 XR chest 1V portable CLINICAL HISTORY: Chest pain, nonspecific TECHNIQUE: Single frontal radiograph of the chest was obtained. Comparison: None available at the time of this dictation. FINDINGS: No lines and tubes are seen. Calcified aortic knob is seen. The lungs are clear. Small bilateral pleural effusions are seen. IMPRESSION: Small bilateral pleural effusions. ACT 112: Negative or not required by law. Electronically signed by: Brenden Alvarez M.D. 05/21/2023 6:37 PM Code Status & VTE Plan Code Status DNR/DNI VTE Prophylaxis Plan VTE Prophylaxis will be ordered: Yes PG Care Time/CCT Total # of Minutes Spent Total Time Spent with Patient: Total time spent is greater than 50% in coordination of care (as documented) at patient's floor/unit and/or counseling patient: Coding Level of Care Code 28542 INT INP/OBS CARE 3/75MIN Diagnoses Acute on chronic HFrEF (heart failure with reduced ejection fraction) I50.23 Pleural effusion, bilateral J90 Aortic valve stenosis, etiology of cardiac valve disease unspecified I35.0 Cardiac valve disease etiology: etiology unspecified Elevated troponin R79.89 DMII (diabetes mellitus, type 2) E11.9 Skin lesion of lower extremity L98.9 Dyspnea and respiratory abnormalities R06.00; R06.89 Weakness generalized R53.1 (3) Aortic stenosis Cardiac valve disease etiology: etiology unspecified Qualified Code(s): I35.0 - Nonrheumatic aortic (valve) stenosis
[2023-05-21] MEDS ORDERED: ASPIRIN CHEW 324 MG PO STA (21:24)
[2023-05-21] MEDS ORDERED: DEXTROSE 50% 50 ML SYRINGE IV PRN (22:39)
[2023-05-21] MEDS ORDERED: CALCIUM CARBONATE 500 MG CHEWABLE TAB PO PRN (22:39)
[2023-05-21] MEDS ORDERED: GLUCAGON FOR INJ 1 MG VIAL SQ PRN (22:39)
[2023-05-21] MEDS ORDERED: NITROGLYCERIN SL 0.4 MG/TAB TAB SL PRN (22:39)
[2023-05-21] MEDS ORDERED: GLUCOSE 40% GEL 15 GM TUBE PO PRN (22:39)
[2023-05-21] MEDS ORDERED: GLUCOSE 10 TAB/TUBE PO PRN (22:39)
[2023-05-21] MEDS ORDERED: ALBUT/IPRATROP 3MG/0.5MG NEB 3 ML VIAL INH PRN (22:39)
[2023-05-21] MEDS ORDERED: ONDANSETRON INJ 2 MG/ML 2 ML VIAL IV PRN (22:39)
[2023-05-21] MEDS ORDERED: CARBOHYDRATES FOR HYPOGLYCEMIA PO PRN (22:39)
[2023-05-21] MEDS: COMBIGAN~ORDER AWAITING ACTION SCH (23:50)
[2023-05-21] MEDS: INSULIN ASPART PER UNIT CHARGE SC SCH (23:54)
[2023-05-21] MEDS: LORazepam 0.5 MG TAB PO SCH (23:55)
[2023-05-21] MEDS: ACETAMINOPHEN 325 MG TAB PO SCH (23:55)
[2023-05-21] MEDS: ENOXAPARIN INJ 40 MG/0.4 ML SYR SQ SCH (23:55)
[2023-05-21] MEDS: LATANOPROST 0.005% OP SOLN 2.5 ML BTL OPL SCH (23:56)
[2023-05-21] MEDS: busPIRone 5 MG TAB PO SCH (23:56)
[2023-05-21] MEDS: ISOSORBIDE DINITRATE 10 MG TAB PO SCH (23:57)
[2023-05-21] MEDS: PRAVASTATIN SOD 20 MG TAB PO SCH (23:57)
[2023-05-22] MEDS: MELATONIN 3 MG TAB PO SCH ×2 (00:02→21:58)
[2023-05-22] MEDS: ACETAMINOPHEN 325 MG TAB PO SCH ×3 (05:02→21:52)
[2023-05-22] MEDS: LEVOTHYROXINE SODIUM 75 MCG TABLET PO SCH (06:17)
[2023-05-22 07:11] LABS: Basophils # (auto) 0.05 K/uL (0.00-0.20); Basophils % (auto) 0.8 %; Eosinophils # (auto) 0.47 K/uL (0.00-0.50); Eosinophils % (auto) 7.8 %; Hematocrit (blood only) 28.8 % (37.0-47.0); Hemoglobin 9.1 g/dl (12.0-16.0); Immature Granulocytes # (auto) 0.02 K/uL (0.01-0.20); Immature Granulocytes % (auto) 0.3 %; Lymphocytes % (auto) 23.3 %; Mean Corpuscular Hemoglobin 29.4 pg (25.0-34.0); Mean Corpuscular Hgb Conc 31.6 g/dL (32.0-36.0); Mean Corpuscular Volume 93.2 fL (80.0-100.0); Mean Platelet Volume 10.4 fL (9.4-12.4); Monocytes # (auto) 0.74 K/uL (0.11-0.59); Monocytes % (auto) 12.3 %; Neutrophils # (auto) 3.34 K/uL (1.40-6.50); Neutrophils % (auto) 55.5 %; Platelet Count 218 K/uL (130-400); RDW Coefficient of Variation 14.3 % (11.5-14.5); RDW Standard Deviation 48.6 fL (36.4-46.3); Red Blood Count 3.09 M/uL (4.20-5.40); White Blood Count 6.02 K/ul (4.8-10.8)
[2023-05-22 07:27] LABS: Albumin Level 3.2 gm/dl (3.4-5.0); BUN Creatinine Ratio 19.9 (10-20); Calcium 8.7 mg/dl (8.6-10.3); Creatinine Clr Calc Pharmacy 31.5 ml/min; Est GFR (Non-African American) 35.4 ml/min; Magnesium 1.8 mg/dl (1.7-2.4); Potassium 4.6 mmol/L (3.5-5.1)
[2023-05-22 07:39] LABS: Estimated Average Glucose 160 mg/dl; Hemoglobin A1C 7.2 % (4.5-5.6)
[2023-05-22 07:51] LABS: Troponin I High Sensitivity 92.5 pg/ml (0-14)
[2023-05-22] MEDS ORDERED: FUROSEMIDE 40 MG/4 ML VIAL IV SCH ×2 (09:00→09:30)
--- NOTE | 2023-05-22 09:21 | Electrocardiogram Report ---
Test Reason : Blood Pressure : / mmHG Vent. Rate : 089 BPM Atrial Rate : 089 BPM P-R Int : 188 ms QRS Dur : 086 ms QT Int : 370 ms P-R-T Axes : -18 033 166 degrees QTc Int : 450 ms Poor data quality, interpretation may be adversely affected Normal sinus rhythm Old Anterior infarct (cited on or before 26-APR-2023) Abnormal ECG When compared with ECG of 26-APR-2023 13:10, T-wave inversion in Lateral leads now present Confirmed by Joshua Mcclendon ([id number]) on 05/22/2023 9:21:00 AM Referred By: REFERRED SELF Confirmed By:Joshua Mcclendon
--- NOTE | 2023-05-22 09:21 | Electrocardiogram Report ---
Test Reason : Blood Pressure : / mmHG Vent. Rate : 072 BPM Atrial Rate : 072 BPM P-R Int : 198 ms QRS Dur : 088 ms QT Int : 418 ms P-R-T Axes : 015 030 162 degrees QTc Int : 457 ms Normal sinus rhythm Old Anterior infarct (cited on or before 26-APR-2023) T wave abnormality, consider lateral ischemia Abnormal ECG When compared with ECG of 21-MAY-2023 17:48, No significant change Confirmed by Joshua Mcclendon ([id number]) on 05/22/2023 9:21:24 AM Referred By: REFERRED SELF Confirmed By:Joshua Mcclendon
[2023-05-22] MEDS: INSULIN ASPART PER UNIT CHARGE SC SCH ×4 (09:22→21:43)
[2023-05-22] MEDS: COMBIGAN~ORDER AWAITING ACTION SCH ×3 (09:24→23:20)
[2023-05-22] MEDS: carvediloL 3.125 MG TAB PO SCH ×2 (09:24→17:18)
[2023-05-22] MEDS: PROSOURCE NO CARB 30 ML/PKT PO SCH ×2 (09:25→17:18)
[2023-05-22] MEDS: ASPIRIN 81 MG ECTAB PO SCH (09:25)
[2023-05-22] MEDS: ASCORBIC ACID 500 MG TAB PO SCH (09:25)
[2023-05-22] MEDS: LANTUS PER UNIT CHARGE SQ SCH (09:26)
[2023-05-22] MEDS: busPIRone 5 MG TAB PO SCH ×3 (09:26→21:41)
[2023-05-22] MEDS: LORATADINE 10 MG TAB PO SCH (09:26)
[2023-05-22] MEDS: LORazepam 0.5 MG TAB PO SCH ×4 (09:26→21:58)
[2023-05-22] MEDS: ISOSORBIDE DINITRATE 10 MG TAB PO SCH ×2 (09:26→21:43)
[2023-05-22] MEDS: MULTIVITAMIN TAB PO SCH (09:27)
[2023-05-22] MEDS: SACCHAROMYCES BOULARDII 250 MG CAP PO SCH (09:27)
[2023-05-22] MEDS: lisinopril 5 MG TAB PO SCH (10:27)
[2023-05-22] MEDS: SPIRONOLACTONE 12.5 MG TAB PO SCH (10:27)
[2023-05-22] MEDS: FUROSEMIDE 40 MG/4 ML VIAL IV SCH ×2 (10:27→21:44)
--- NOTE | 2023-05-22 15:18 | Hospitalist Progress Note ---
Date of Service May 22, 2023 Assessment & Plan (1) Acute on chronic HFrEF (heart failure with reduced ejection fraction): Plan: Continue Lasix diuresis. Low-dose lisinopril and spironolactone have been added. Most recent cardiac echo in April 2023 reveals ejection fraction 25% with akinesis of the anterior septal/apical/inferior wall. She also has mild and mild MR. Hopefully she will tolerate the addition of lisinopril and spironolactone. Serial labs ordered. Will repeat portable chest x-ray again tomorrow, May 23 (2) Pleural effusion, bilateral: Plan: Due to CHF. Will follow (3) Aortic stenosis: Plan: Mild on most recent cardiac echo. No intervention needed at this time (4) Elevated troponin: Plan: Appears to be due to supply/demand mismatch. No chest pain and no acute EKG changes. No evidence of acute coronary syndrome (5) DMII (diabetes mellitus, type 2): Plan: ADA diet, sliding scale coverage if needed. (6) Weakness generalized: Plan: Supportive care. OT and PT assessments requested Plan To be determined. Admission and Anticipated Discharge Date Admission Date: May 21, 2023 Subjective Alert and oriented. Pleasant. Recent cardiac echo revealed ejection fraction of 25% with anterior septal goal, apical, inferior akinesis. Moderate LVH with mild and mild MR. Low-dose lisinopril and spironolactone have been started. Continue Lasix IV diuresis. Will repeat chest x-ray tomorrow. She still is on oxygen at 5 L/min. Will wean down as tolerated. Review of Systems 2 Review of Systems: Constitutional-no fever or chills ENT-no blurred vision, no double vision, no epistaxis, no sore throat Respiratory-no cough, no wheezing. Shortness of breath with minimal exertion Cardiac-no palpitations, no chest pain, no syncope GI-no nausea, vomiting, diarrhea, melena, hematochezia -no urinary retention, no urinary incontinence, no dysuria, no hematuria Musculoskeletal-no joint pain, no muscle tenderness Skin-no bruising, no rashes, no pruritus Neuro-no isolated weakness, no paresthesia, no weakness Psych-no depression, no anxiety Physical Exam 2 Physical Exam: General-alert and oriented x3, no fevers, no chills HEENT-head atraumatic and normocephalic, pupils equal and reactive to light, extraocular muscles intact Neck-no lymphadenopathy or thyromegaly, trachea midline Chest-bibasilar inspiratory rales. No wheezing Cardiac-regular rate and rhythm, normal S1 and S2 Abdomen-normal bowel sounds, nontender, no hepatosplenomegaly Extremities-no cyanosis, clubbing, or edema Neuro-cranial nerves II through XII intact, motor and sensory function within normal limits, strength symmetrical, no focal deficits Psych-normal affect, normal mood Results & Data Results & Data Vital Signs (Past 12 Hours) Vital Signs Temp Pulse Pulse Resp BP BP Pulse Ox 05/22/23 13:39 05/22/23 11:25 36.4 C L 76 20 129/76 95 05/22/23 07:45 66 05/22/23 07:11 36.5 C 72 19 133/68 98 05/22/23 05:21 98 05/22/23 05:09 96 05/22/23 03:26 66 18 93 O2 Del Method O2 Flow Rate 05/22/23 13:39 Nasal Cannula 5 05/22/23 11:25 High Flow Nasal Cannula 5 05/22/23 07:45 05/22/23 07:11 High Flow Nasal Cannula 5 05/22/23 05:21 Nasal Cannula 6 05/22/23 05:09 Nasal Cannula 7 05/22/23 03:26 Nasal Cannula 5 Laboratory Results 05/22/23 06:46 05/22/23 06:46 PG Care Time/CCT Total # of Minutes Spent Total Time Spent with Patient: Total time spent is greater than 50% in coordination of care (as documented) at patient's floor/unit and/or counseling patient: Coding Level of Care Code 93119 SUB INP/OBS CARE 3/50MIN Diagnoses Acute on chronic HFrEF (heart failure with reduced ejection fraction) I50.23 Pleural effusion, bilateral J90 Aortic valve stenosis, etiology of cardiac valve disease unspecified I35.0 Cardiac valve disease etiology: etiology unspecified Elevated troponin R79.89 DMII (diabetes mellitus, type 2) E11.9 Weakness generalized R53.1 (3) Aortic stenosis Cardiac valve disease etiology: etiology unspecified Qualified Code(s): I35.0 - Nonrheumatic aortic (valve) stenosis
[2023-05-22] MEDS ORDERED: traMADol HCL 50 MG TABLET PO STA (18:20)
[2023-05-22] MEDS ORDERED: traMADol HCL 50 MG TABLET PO PRN (18:23)
[2023-05-22] MEDS: ENOXAPARIN INJ 40 MG/0.4 ML SYR SQ SCH (21:39)
[2023-05-22] MEDS: LATANOPROST 0.005% OP SOLN 2.5 ML BTL OPL SCH (21:45)
[2023-05-22] MEDS: PRAVASTATIN SOD 20 MG TAB PO SCH (21:52)
[2023-05-22] MEDS ORDERED: LOPERAMIDE HCL 2 MG CAP PO PRN (23:26)
[2023-05-23] MEDS: ACETAMINOPHEN 325 MG TAB PO SCH ×3 (06:13→22:15)
[2023-05-23] MEDS: LEVOTHYROXINE SODIUM 75 MCG TABLET PO SCH (06:14)
--- NOTE | 2023-05-23 07:23 | XRay Report ---
XR chest 1V portable HISTORY: Congestive heart failure. Shortness of breath. COMPARISON: Chest 05/21/2023. FINDINGS: No pneumothorax. There is a skin fold overlying the right upper lung zone. Cardiomegaly, mo derate pulmonary edema, and small bilateral pleural effusions persists. Patchy bibasilar densities ar e nonspecific but favor compressive atelectasis from the pleural effusions. There are calcifications within the aortic knob. No acute fractures. IMPRESSION: No significant change in the cardiomegaly, pulmonary edema, and small bilateral pleural effusions. ACT 112: Negative or not required by law. Electronically signed by: Kashif Gonzalez M.D. 05/23/2023 7:22 AM
[2023-05-23 08:15] LABS: Basophils # (auto) 0.05 K/uL (0.00-0.20); Basophils % (auto) 0.7 %; Eosinophils # (auto) 0.47 K/uL (0.00-0.50); Eosinophils % (auto) 6.4 %; Hemoglobin 10.5 g/dl (12.0-16.0); Immature Granulocytes # (auto) 0.02 K/uL (0.01-0.20); Immature Granulocytes % (auto) 0.3 %; Lymphocytes # (auto) 1.32 K/uL (1.20-3.40); Lymphocytes % (auto) 18.1 %; Mean Corpuscular Hemoglobin 29.1 pg (25.0-34.0); Mean Corpuscular Hgb Conc 30.9 g/dL (32.0-36.0); Mean Corpuscular Volume 94.2 fL (80.0-100.0); Mean Platelet Volume 10.8 fL (9.4-12.4); Monocytes # (auto) 0.74 K/uL (0.11-0.59); Monocytes % (auto) 10.1 %; Neutrophils % (auto) 64.4 %; Platelet Count 264 K/uL (130-400); RDW Coefficient of Variation 14.1 % (11.5-14.5); RDW Standard Deviation 48.8 fL (36.4-46.3); Red Blood Count 3.61 M/uL (4.20-5.40)
[2023-05-23 08:28] LABS: BUN Creatinine Ratio 22.8 (10-20); Calcium 8.9 mg/dl (8.6-10.3); Creatinine Clr Calc Pharmacy 29.3 ml/min; Est GFR (Non-African American) 32.8 ml/min; Potassium 4.2 mmol/L (3.5-5.1)
[2023-05-23] MEDS: SPIRONOLACTONE 12.5 MG TAB PO SCH (08:59)
[2023-05-23] MEDS: ASPIRIN 81 MG ECTAB PO SCH (08:59)
[2023-05-23] MEDS: SACCHAROMYCES BOULARDII 250 MG CAP PO SCH (09:00)
[2023-05-23] MEDS: carvediloL 3.125 MG TAB PO SCH ×2 (09:00→17:45)
[2023-05-23] MEDS: busPIRone 5 MG TAB PO SCH ×3 (09:00→19:40)
[2023-05-23] MEDS: ASCORBIC ACID 500 MG TAB PO SCH (09:00)
[2023-05-23] MEDS: lisinopril 5 MG TAB PO SCH (09:00)
[2023-05-23] MEDS: LORATADINE 10 MG TAB PO SCH (09:00)
[2023-05-23] MEDS: MULTIVITAMIN TAB PO SCH (09:00)
[2023-05-23] MEDS: FUROSEMIDE 40 MG/4 ML VIAL IV SCH ×2 (09:01→19:48)
[2023-05-23] MEDS: ISOSORBIDE DINITRATE 10 MG TAB PO SCH ×2 (09:02→19:41)
[2023-05-23] MEDS: LANTUS PER UNIT CHARGE SQ SCH (09:08)
[2023-05-23] MEDS: COMBIGAN~ORDER AWAITING ACTION SCH ×3 (09:08→23:33)
[2023-05-23] MEDS: LORazepam 0.5 MG TAB PO SCH ×4 (09:08→19:46)
[2023-05-23] MEDS: PROSOURCE NO CARB 30 ML/PKT PO SCH ×2 (09:17→17:48)
[2023-05-23] MEDS: INSULIN ASPART PER UNIT CHARGE SC SCH ×4 (10:13→20:20)
--- NOTE | 2023-05-23 12:31 | Electrocardiogram Report ---
Test Reason : Blood Pressure : / mmHG Vent. Rate : 080 BPM Atrial Rate : 080 BPM P-R Int : 178 ms QRS Dur : 096 ms QT Int : 398 ms P-R-T Axes : 044 020 147 degrees QTc Int : 459 ms Normal sinus rhythm Old Anterior infarct (cited on or before 26-APR-2023) T-wave inversion in Lateral leads Abnormal ECG When compared with ECG of 22-MAY-2023 04:56, Nonspecific T wave abnormality no longer present Anterior leads Confirmed by Joshua Mcclendon ([id number]) on 05/23/2023 12:31:42 PM Referred By: REFERRED SELF Confirmed By:Joshua Mcclendon
--- NOTE | 2023-05-23 14:38 | Hospitalist Progress Note ---
Date of Service May 23, 2023 Assessment & Plan (1) Acute on chronic HFrEF (heart failure with reduced ejection fraction): Plan: Improving with Lasix diuresis. Low-dose lisinopril and spironolactone have been added and well-tolerated so far. Most recent cardiac echo in April 2023 reveals ejection fraction 25% with akinesis of the anterior septal/apical/inferior wall. She also has mild and mild MR. Serial labs ordered. Will repeat portable chest x-ray again tomorrow, May 24 (2) Pleural effusion, bilateral: Plan: Due to CHF. Will follow (3) Aortic stenosis: Plan: Mild on most recent cardiac echo. No intervention needed at this time (4) Elevated troponin: Plan: Appears to be due to supply/demand mismatch. No chest pain and no acute EKG changes. No evidence of acute coronary syndrome (5) DMII (diabetes mellitus, type 2): Plan: ADA diet, sliding scale coverage if needed. (6) Weakness generalized: Plan: Supportive care. OT and PT assessments requested Plan Hopeful return to Center care tomorrowMay 24 Admission and Anticipated Discharge Date Admission Date: May 21, 2023 Subjective Alert and oriented. Intake and output is not accurate. Nurses instructed to decrease oxygen to lowest level that we will maintain oxygen saturation at least 90%. This apparently has not been done yet. Will repeat chest x-ray again tomorrow, May 24. She appears ready to return to Center care tomorrow, May 24 Review of Systems 2 Review of Systems: Constitutional-no fever or chills ENT-no blurred vision, no double vision, no epistaxis, no sore throat Respiratory-no cough, no wheezing. Shortness of breath with minimal exertion Cardiac-no palpitations, no chest pain, no syncope GI-no nausea, vomiting, diarrhea, melena, hematochezia -no urinary retention, no urinary incontinence, no dysuria, no hematuria Musculoskeletal-no joint pain, no muscle tenderness Skin-no bruising, no rashes, no pruritus Neuro-no isolated weakness, no paresthesia, no weakness Psych-no depression, no anxiety Physical Exam 2 Physical Exam: General-alert and oriented x3, no fevers, no chills HEENT-head atraumatic and normocephalic, pupils equal and reactive to light, extraocular muscles intact Neck-no lymphadenopathy or thyromegaly, trachea midline Chest-bibasilar inspiratory rales. No wheezing Cardiac-regular rate and rhythm, normal S1 and S2 Abdomen-normal bowel sounds, nontender, no hepatosplenomegaly Extremities-no cyanosis, clubbing, or edema Neuro-cranial nerves II through XII intact, motor and sensory function within normal limits, strength symmetrical, no focal deficits Psych-normal affect, normal mood Results & Data Results & Data Vital Signs (Past 12 Hours) Vital Signs Temp Pulse Resp BP Pulse Ox O2 Del Method O2 Flow Rate 05/23/23 11:58 36.2 C L 67 18 117/64 100 Nasal Cannula 5 05/23/23 07:48 36.5 C 73 18 152/68 H 97 Nasal Cannula 3 05/23/23 03:01 36.6 C 113/69 94 Nasal Cannula 5 Laboratory Results 05/23/23 07:29 05/23/23 07:29 PG Care Time/CCT Total # of Minutes Spent Total Time Spent with Patient: Total time spent is greater than 50% in coordination of care (as documented) at patient's floor/unit and/or counseling patient: Coding Level of Care Code 68380 SUB INP/OBS CARE 3/50MIN Diagnoses Acute on chronic HFrEF (heart failure with reduced ejection fraction) I50.23 Pleural effusion, bilateral J90 Aortic valve stenosis, etiology of cardiac valve disease unspecified I35.0 Cardiac valve disease etiology: etiology unspecified Elevated troponin R79.89 DMII (diabetes mellitus, type 2) E11.9 Weakness generalized R53.1 (3) Aortic stenosis Cardiac valve disease etiology: etiology unspecified Qualified Code(s): I35.0 - Nonrheumatic aortic (valve) stenosis
[2023-05-23] MEDS: PRAVASTATIN SOD 20 MG TAB PO SCH (19:41)
[2023-05-23] MEDS: MELATONIN 3 MG TAB PO SCH (19:46)
[2023-05-23] MEDS: LATANOPROST 0.005% OP SOLN 2.5 ML BTL OPL SCH (19:48)
[2023-05-23] MEDS: ENOXAPARIN INJ 40 MG/0.4 ML SYR SQ SCH (19:48)
[2023-05-24] MEDS: LEVOTHYROXINE SODIUM 75 MCG TABLET PO SCH (05:35)
[2023-05-24] MEDS: ACETAMINOPHEN 325 MG TAB PO SCH (05:35)
[2023-05-24 07:07] LABS: Basophils # (auto) 0.04 K/uL (0.00-0.20); Basophils % (auto) 0.6 %; Eosinophils # (auto) 0.46 K/uL (0.00-0.50); Eosinophils % (auto) 7.4 %; Hematocrit (blood only) 30.4 % (37.0-47.0); Hemoglobin 9.6 g/dl (12.0-16.0); Immature Granulocytes # (auto) 0.02 K/uL (0.01-0.20); Immature Granulocytes % (auto) 0.3 %; Lymphocytes # (auto) 1.68 K/uL (1.20-3.40); Lymphocytes % (auto) 26.9 %; Mean Corpuscular Hemoglobin 29.1 pg (25.0-34.0); Mean Corpuscular Hgb Conc 31.6 g/dL (32.0-36.0); Mean Corpuscular Volume 92.1 fL (80.0-100.0); Mean Platelet Volume 10.7 fL (9.4-12.4); Monocytes # (auto) 0.83 K/uL (0.11-0.59); Monocytes % (auto) 13.3 %; Neutrophils # (auto) 3.22 K/uL (1.40-6.50); Neutrophils % (auto) 51.5 %; Platelet Count 238 K/uL (130-400); RDW Standard Deviation 47.9 fL (36.4-46.3); White Blood Count 6.25 K/ul (4.8-10.8)
--- NOTE | 2023-05-24 07:34 | XRay Report ---
XR chest 1V portable CLINICAL HISTORY: Congestive heart failure. COMPARISON STUDY: Chest CT February 21, 2023. Chest radiograph May 23, 2023. FINDINGS: Skin folds project over the right hemithorax. There is no pneumothorax. Small bilateral ple ural effusions are similar to prior exam. Cardiomegaly is again noted with stable interstitial thicke alexei. The appearance of the chest is unchanged. IMPRESSION: No significant change in appearance of the chest. Pulmonary edema with small bilateral p leural effusions. ACT 112: Negative or not required by law. Electronically signed by: Nicko Mcnally M.D. 05/24/2023 7:33 AM
[2023-05-24 07:49] LABS: Calcium 8.7 mg/dl (8.6-10.3); Potassium 3.8 mmol/L (3.5-5.1)
[2023-05-24 07:54] LABS: BUN Creatinine Ratio 22.9 (10-20); Creatinine Clr Calc Pharmacy 25.4 ml/min; Est GFR (African American) 32.2 ml/min; Est GFR (Non-African American) 27.8 ml/min
[2023-05-24] MEDS: INSULIN ASPART PER UNIT CHARGE SC SCH ×2 (09:43→12:25)
[2023-05-24] MEDS: LANTUS PER UNIT CHARGE SQ SCH (09:44)
[2023-05-24] MEDS: SPIRONOLACTONE 12.5 MG TAB PO SCH (09:48)
[2023-05-24] MEDS: lisinopril 5 MG TAB PO SCH (09:48)
[2023-05-24] MEDS: LORATADINE 10 MG TAB PO SCH (09:48)
[2023-05-24] MEDS: MULTIVITAMIN TAB PO SCH (09:48)
[2023-05-24] MEDS: SACCHAROMYCES BOULARDII 250 MG CAP PO SCH (09:48)
[2023-05-24] MEDS: ASCORBIC ACID 500 MG TAB PO SCH (09:49)
[2023-05-24] MEDS: carvediloL 3.125 MG TAB PO SCH (09:49)
[2023-05-24] MEDS: busPIRone 5 MG TAB PO SCH (09:49)
[2023-05-24] MEDS: ISOSORBIDE DINITRATE 10 MG TAB PO SCH (09:49)
[2023-05-24] MEDS: FUROSEMIDE 40 MG/4 ML VIAL IV SCH (09:50)
[2023-05-24] MEDS: ASPIRIN 81 MG ECTAB PO SCH (09:51)
[2023-05-24] MEDS: COMBIGAN~ORDER AWAITING ACTION SCH (09:51)
[2023-05-24] MEDS: LORazepam 0.5 MG TAB PO SCH ×2 (09:51→12:56)
[2023-05-24] MEDS: PROSOURCE NO CARB 30 ML/PKT PO SCH (09:51)
--- NOTE | 2023-05-24 12:13 | Discharge Summary ---
Date of Service May 24, 2023 Admission HPI Per Admitting Provider The patient is a 87-year-old female with a past medical history including aortic stenosis, HFrEF, anxiety, diabetes mellitus type 2, CKD, dyslipidemia, history of NSTEMI, pleural effusions and diabetic peripheral neuropathy. She was most recently admitted from 04/26-05/02/2023, and was most recently seen in the heart failure clinic on 05/07/2023. She presents to the emergency department with similar symptoms, noted shortness of breath for the past 3 days and dyspnea on exertion. In the emergency department, chest x-ray revealed slightly worsened bilateral pleural effusions, and CHF pattern, was given furosemide 40 mg IV by the ED, and then referred for evaluation for admission. Significant laboratories: Troponin 39.4, BNP 3671, hemoglobin 10.7, hematocrit 33.1, glucose 206 and creatinine 1.23. Principal Diagnosis Acute on chronic systolic congestive heart failure, acute on chronic hypoxic respiratory failure, demand ischemia Discharge Exam General-alert and oriented x3, no fevers, no chills HEENT-head atraumatic and normocephalic, pupils equal and reactive to light, extraocular muscles intact Neck-no lymphadenopathy or thyromegaly, trachea midline Chest-bibasilar inspiratory rales. No wheezing Cardiac-regular rate and rhythm, normal S1 and S2 Abdomen-normal bowel sounds, nontender, no hepatosplenomegaly Extremities-no cyanosis, clubbing, or edema Neuro-cranial nerves II through XII intact, motor and sensory function within normal limits, strength symmetrical, no focal deficits Psych-normal affect, normal mood Discharge Data Allergies Allergy/AdvReac Type Severity Reaction Status Date / Time duloxetine [From Cymbalta] Allergy Intermediate itching Verified 05/21/23 18:20 hydrocodone [From Lortab] Allergy Intermediate itching Verified 05/21/23 18:20 pregabalin [From Lyrica] Allergy Intermediate itching Verified 05/21/23 18:20 simvastatin Allergy Intermediate Nausea Verified 05/21/23 18:20 Consultations 05/21/23 19:27 ED Decision to Admit Stat Hospital Course (1) Acute on chronic HFrEF (heart failure with reduced ejection fraction): Improving with Lasix diuresis. Low-dose lisinopril and spironolactone have been added and well-tolerated so far. Most recent cardiac echo in April 2023 reveals ejection fraction 25% with akinesis of the anterior septal/apical/infe rior wall. She also has mild and mild MR. Will need weekly lab for the next 3 weeks. (2) Pleural effusion, bilateral: Due to CHF. Should resolve over time. Will follow (3) Aortic stenosis: Mild on most recent cardiac echo. No intervention needed at this time (4) Elevated troponin: Appears to be due to supply/demand mismatch. No chest pain and no acute EKG changes. No evidence of acute coronary syndrome (5) DMII (diabetes mellitus, type 2): ADA diet, sliding scale coverage if needed. (6) Weakness generalized: Supportive care. OT and PT assessments requested Plan Discharge back to [facility] today, May 24 , on 3 L oxygen per nasal cannula. Will monitor weekly lab for the next 3 weeks Total Time Total Time Spent Total Time Spent (In Minutes): 45-minute Discharge Plan Discharge Items Patient Disposition: Transfer Care Home Fac Reason For Visit: CHF EXACEBERATION, PLEURAL EFFUSIONS Discharge Diagnosis: Acute on chronic systolic congestive heart failure, acute on chronic hypoxic respiratory failure, demand ischemia Activity: Resume your previous activity Non-emergency contact: Primary Care Provider Call non-emergency contact if: your symptoms worsen Follow-up/Referrals: [facility] [Primary Care Provider] - Diet: Carb Consistent or DM2 and Heart Healthy Addtl Attending Provider Instructions: Wear oxygen at 3 L/min per nasal cannula. Weekly basic metabolic profile for the next 3 weeks Pending Studies at Discharge: No Stand-Alone Forms: My [employer] Skilled Items Patient informed of condition?: Yes DNR: Yes Discharge Level of Care: Skilled Communicable Disease: No Discharge Prognosis: Stable Lines: None Urinary Catheter: No Medications and DC Order Prescriptions: New furosemide [Lasix] 40 mg tablet 40 mg PO BID Qty: 60 0RF lisinopril [Zestril] 5 mg Tablet 5 mg PO QAM Qty: 0 0RF spironolactone 25 mg Tablet 12.5 mg PO DAILY Qty: 0 0RF Continued levothyroxine [Synthroid] 75 mcg tablet 75 mcg PO QAM Lantus U-100 Insulin 100 unit/mL solution 10 units SQ QAM latanoprost 0.005 % drops 1 drp OPL HS multivitamin Tablet 1 tab PO QAM ascorbic acid (vitamin C) [Vitamin C] 500 mg Tablet 500 mg PO QAM aspirin 81 mg capsule 81 mg PO QAM ipratropium-albuterol 0.5 mg-3 mg(2.5 mg base)/3 mL Solution For Nebulization 3 ml INHALATION Q2H PRN (Reason: Shortness Of Breath Or Wheezing) nitroglycerin [Nitrostat] 0.4 mg Tablet, Sublingual 0.4 mg sublingual DIRECTED PRN (Reason: Chest Pain) Rx Instructions: EVERY 5 MIN. FOR CHEST PAIN NEEDED. Saccharomyces boulardii [Florastor] 250 mg Capsule 250 mg PO QAM protein supplement Liquid 1 ea PO BIDM Rx Instructions: GIVE 30 ML BID. pravastatin 20 mg tablet 20 mg PO HS melatonin 3 mg Tablet 3 mg PO HS Qty: 90 0RF buspirone 10 mg tablet 10 mg PO TID Qty: 90 0RF Rx Instructions: 0230, 1430 & 2230 isosorbide dinitrate 10 mg Tablet 10 mg PO BID Qty: 60 0RF lorazepam 0.5 mg Tablet 0.5 mg PO QID Qty: 120 0RF carvedilol 3.125 mg Tablet 3.125 mg PO BIDM Qty: 60 2RF loperamide [Imodium] 2 mg Capsule 2 mg PO DIRECTED MDD 10 MG/24 HOURS PRN (Reason: LOOSE STOOLS) acetaminophen [Tylenol Extra Strength] 500 mg Tablet 1,000 mg PO TID MDD 3 GRAMS APAP/24 HOURS Rx Instructions: 0830, 1230 & 1630 meloxicam 7.5 mg Tablet 7.5 mg PO Q12H PRN (Reason: Pain) furosemide [Lasix] 20 mg Tablet 20 mg PO DAILY PRN (Reason: IF WT > 165#) loratadine [Claritin] 10 mg Tablet 10 mg PO QAM calcium carbonate [Tums] 200 mg calcium (500 mg) Tablet,Chewable 400 mg PO Q2H PRN (Reason: GERD/INDIGESTION) Dakin's Solution 0.125 % Solution 1 applic TOPICAL BID Rx Instructions: APPLY TO RIGHT HEEL, CLEANSE WITH SOLUTION, THEN MOISTEN GAUZE WITH SOLUTION AND COVER WITH MORE GAUZE. menthol-zinc oxide [Calmoseptine] 0.44-20.6 % Ointment 1 applic TOPICAL TID Rx Instructions: APPLY TO BUTTOCKS FOR WOUND CARE. insulin aspart U-100 [Novolog FlexPen U-100 Insulin] 100 unit/mL (3 mL) insulin pen 0 sliding scale dose subcut ACHS Rx Instructions: BSG 350-400=8 UNITS, BSG 401-450=12 UNITS, BSG 451-500=16 UNITS, BSG 501- 550=18 UNITS. RECHECK BSG IN 2 HRS. brimonidine-timolol 0.2-0.5 % drops 1 drp OPL BID Discontinued furosemide [Lasix] 20 mg tablet 20 mg PO QAM Discharge Orders: Discharge Order- CHF (Routine); Ordered 05/24/23 Ordered By: Bam Massey Admission Data Admit Date/Time: 05/21/23 20:04 Attending Provider: Bam Massey Admit Provider: Malachi Morin Primary Care Provider: Norma Multani Other Providers: Malachi Morin Coding Level of Care Code 63656 INP/OBS DISCH >30 MIN Diagnoses Acute on chronic HFrEF (heart failure with reduced ejection fraction) I50.23 Pleural effusion, bilateral J90 Aortic valve stenosis, etiology of cardiac valve disease unspecified I35.0 Cardiac valve disease etiology: etiology unspecified Elevated troponin R79.89 DMII (diabetes mellitus, type 2) E11.9 Weakness generalized R53.1
[2023-05-24] MEDS ORDERED: TIMOLOL MALEATE 0.5% OP SOLN 5 ML BTL OPL SCH (21:00)
[2023-05-24] MEDS ORDERED: BRIMONIDINE TARTRATE 0.2% 5ML OPL SCH (21:00)
== END 2023-05-24 14:25 | DRG 291 ==
LOC: ED 17:35 → SUATTDRO 20:04 → 2S 20:04